=== PATIENT | female | born 1950 | race Caucasian/White ===

== ENCOUNTER 2019-08-15 09:49 | Outpatient (CLI) | payer MEDICARE, OTHER, SELFPAY ==
--- NOTE | 2019-08-15 18:12 | ONC CON_ITS ---
Dr. Powell New Patient Note Patient: Vee Obrien Unit #: [id number]: 1950 Dicatated By: Justen Powell M.D.Date of Visit: Aug 15, 2019 Onc MED New Patient/Consult Referring Physician: Dr. Brittni Andrade M.D. Chief Complaint: Breast cancer. 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 She has been in very good general health. She had presented with an abnormal screening mammogram which reportedly showed a mass in the medial aspect of the left breast. Diagnostic mammogram/ultrasound was BI-RADS 4, suspicious. She then underwent ultrasound-guided needle core biopsy on 07/25/2019. Biopsy showed grade 3 infiltrating ductal carcinoma. The breast prognostic profile showed ER and MI negative, both less than 1%. HER-2/geovanny was 2+ by IHC but negative by FISH with amplification ratio 1.0 with 2.5 HER-2 copies/cell. The Ki-67 was very high at 90%. On 08/03/2019 she underwent left breast lumpectomy and left axillary lymph node dissection. Pathology on the lumpectomy showed grade 3 invasive ductal carcinoma measuring 2.7 cm in greatest dimension. There was a component of ductal carcinoma in situ, solid and comedo types, estimated at 5% of the tumor volume. 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 The margins were negative for invasive cancer. There was involvement in 25 of 25 axillary lymph nodes, the largest measuring 3.6 cm. Her medical history is otherwise significant for Graves' disease, for which she will underwent radioactive iodine ablation in 1987. She has had subsequent hypothyroidism. Other medical illnesses include hyperlipidemia and mild degenerative arthritis. She has a history of inflammatory colon polyps and a history of multiple skin cancers in the facial area. She is a non-smoker. She has been feeling good generally. She has had good energy and her has had normal activity. ECOG score is 0. Her appetite has been good. Her weight is increased slightly. She does not have fever, night sweats, or hot flashes. She has no shortness of breath, cough, or chest pain. She has no GI or complaints. She has no significant joint or bone pain. She does not complain of headache or dizziness, and she has no focal neurologic symptoms. Past Medical History: Her medical history includes colon polyps, degenerative arthritis, Grave's disease, history of skin cancer, hyperlipidemia, and hypothyroidism. Past Surgical History: She underwent ultrsound-guided needle core biopsy of left breast on 07/25/2019 and she underwent left breast lumpectomy with axillary lymph node dissection on 08/03/2019. Her other surgical/procedural history consists of colonoscopy, tonsillectomy, and tubal ligation. Medications: Aspirin 1 Tablet (of 81 mg) Oral daily, Calcium 1 Tablet (of 600 mg) Oral daily, Fish Oil 1 Capsule (of 1000 mg) Oral daily, Synthroid 1 Tablet (of 88 mcg) Oral daily Allergies: No Known Allergies. Social History: Ms. Obrien is and she is retired. She is a non-smoker. She has had only rare alcohol use. Family History: Her father had valvular heart disease and at age 87 of pulmonary embolism following a toe amputation. Mother with dementia at age 88. She has 2 older sisters who are both in good health, to her knowledge. Her maternal grandmother had colon cancer. There is no history of breast or ovarian cancer in the family. Review Of Symptoms: Constitutional - She generally feels good. She has good energy. She has normal activity. Her appetite is good and weight is stable. No fever,chills, night sweats, or hot flashes. ECOG score is 0, Eyes - No change in vision, ENMT - No hearing loss or tinnitus. No sinus congestion/drainage. No mouth sores. No sore throat or difficulty swallowing, Hematologic/Lymphatic - No abnormal bruising or bleeding, Breasts - She recently had left sided lumpectomy, with surgical drain in place, Respiratory - No shortness of breath. No cough. No pleuritic pain or hemoptysis, Cardiovascular - No angina pain. No palpitations, Gastrointestinal - No nausea or vomiting. No heartburn or acid reflux. No diarrhea or constipation. No blood in the stool or black stools, Genitourinary (F) - No dysuria or hematuria. No urinary frequency. No urgency or incontinence, Musculoskeletal - She has chronic arthritic pain in her hands, Integumentary - Her lumpectomy incisional site is healing well without any signs of infection. She has had skin cancers removed from the facial area, Neurologic - No headache or dizziness. No numbness or tingling. No other focal neurologic symptoms, Psychiatric - No anxiety or depression. No insomnia. Vital Signs: Performed on Aug 15, 2019 11:06: 0, 28.44, 1.94 sq.m, 67.00 in, 98 %, 68 /min, 18 /min, 145/99 mm(hg) (HIGH), 97.6 F (LOW), and 181.6 lbs (HIGH). Physical Examination: Constitutional - She appears to be in good general health, Eyes - Sclerae nonicteric. Conjunctivae clear, ENMT - No lesions noted in the oral cavity, Neck - No mass or thyromegaly, Hematologic/Lymphatic - No cervical or clavicular adenopathy, Respiratory - Lungs are clear with good air movement bilaterally, Cardiovascular - Heart rhythm is regular. There is no murmur, gallop, or rub noted, Breasts - The right breast shows no mass. The left breast and axillary incisions look OK. There is tenderness and there is mild soft tissue swelling in the left axilla. There is no mass noted in the left breast and there is no axillary adenopathy noted, Abdomen - Soft and non-tender. Liver and spleen are not enlarged. There is no abdominal mass or ascites noted and there is no inguinal adenopathy, Back/Spine - No spine or CVA tenderness noted, Extremities - No edema. Dorsalis pulses are palpable bilaterally, Integumentary - No rashes. No suspicious skin lesions noted, Neurologic - No focal neurologic deficits noted. Impression: 1. 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 2. She underwent your core biopsy of the left breast followed by lumpectomy and left axillary lymph node dissection on 08/03/2019. Pathology showed a 5% component of DCIS with focal involvement with DCIS at the medial margin. Her other medical illnesses include: 3. History of Graves' disease for which she underwent radioactive iodine ablation in 1987. 4. She has had subsequent hypothyroidism. 5. Mild degenerative arthritis. 6. She has undergone multiple skin cancer excisions. 7. She has a history of hyperplastic colon polyps. Plan: The pathology results and clinical implications were reviewed with the patient and her . She has very high risk triple negative breast cancer. With this extent of axillary lymph node involvement, she will need PET/CT to evaluate for metastatic disease. In addition, I am going to go ahead and request a next generation sequencing study, as it will be indicated if she does have metastatic disease and it also may potentially influence her systemic adjuvant therapy if her disease is still localized. We discussed the fact that the standard adjuvant chemotherapy in this situation would be 4 cycles of Adriamycin/cyclophosphamide followed by weekly paclitaxel for 12 weeks. However, I also will be looking into the availability of clinical trials in this area. She is aware that when she completes adjuvant chemotherapy she will need to undergo radiation to complete her primary treatment. Given her high risk disease, I do not think that the focally involved margin with DCIS will be a significant issue with the radiation, but I will verify that with the radiation oncologist. I also do not think there would be any advantage in having a mastectomy, as she would still need to have radiation postoperatively. Patient will be seeing Dr. Andrade for follow-up this week, and I think it would be appropriate to go ahead and arrange for placement of Port-A-Cath venous access device. I will schedule the PET/CT scheduled for this Wednesday, subject to verification of insurance coverage. Signed By: Justen Powell M.D. <<Signature on File>>
== END 2019-08-15 09:50 | disposition home or self-care (01) ==
LOC: ONCMED 09:54
PROVIDERS: PCP Family Medicine; Referring Provider Surgery; Visit Provider Internal Medicine Medical Oncology
DX: C50.812 Malignant neoplasm of overlapping sites of left female breast (principal); Z17.1 Estrogen receptor negative status [ER-]; M19.90 Unspecified osteoarthritis, unspecified site; E78.5 Hyperlipidemia, unspecified; E03.9 Hypothyroidism, unspecified; E05.00 Thyrotoxicosis with diffuse goiter without thyrotoxic crisis or storm; Z86.010 Personal history of colon polyps; Z85.820 Personal history of malignant melanoma of skin
CPT/HCPCS: 99205

== ENCOUNTER 2019-08-25 07:09 | Outpatient (CLI) | payer MEDICARE, OTHER, SELFPAY ==
--- NOTE | 2019-08-25 07:19 | USCV_ITS ---
Vee Obrien Age: 69 Gender: F : 1950 Exam Date: 08/25/2019 07:30 Ordering Phys: Justen Powell MD Technologist: Rehana Garrett Exam Location: [facility] [place] Indication: BREAST CANCER TREATMENT BP: / HR: 65 Rhythm: Sinus Technical Quality: Adequate MEASUREMENTS (Male / Female) Normal Values 2D ECHO LV Diastolic Diameter PLAX 4.2 cm 4.2 - 5.9 / 3.9 - 5.3 cm LV Systolic Diameter PLAX 3.1 cm LV Chamber Size 4.2 cm IVS Diastolic Thickness 1.5 cm 0.6 - 1.0 / 0.6 - 0.9 cm IVS Systolic Thickness 1.8 cm LVPW Diastolic Thickness 1.5 cm 0.6 - 1.0 / 0.6 - 0.9 cm LVPW Systolic Thickness 1.9 cm RV Chamber Size 3.5 cm LVOT Diameter 2.1 cm LV Ejection Fraction 2D Teich 54.4 % LV Ejection Fraction MOD 2C 79.4 % LV Ejection Fraction 2C AL 79.8 % LA Diameter 2.5 cm LA Width 2.9 cm LA Height 3.3 cm RA Width 3.3 cm RA Height 3.2 cm Aorta at Sinotubular Diameter 3.6 cm M-MODE LV Diastolic Diameter MM 4.8 cm 4.2 - 5.9 / 3.9 - 5.3 cm LV Systolic Diameter MM 2.9 cm LV Ejection Fraction MM Teich 69.1 % IVS Diastolic Thickness MM 1.0 cm 0.6 - 1.0 / 0.6 - 0.9 cm IVS Systolic Thickness MM 1.6 cm LVPW Diastolic Thickness MM 1.3 cm 0.6 - 1.0 / 0.6 - 0.9 cm LVPW Systolic Thickness MM 1.4 cm RV Diastolic Diameter MM 0.8 cm Aortic Annulus Diameter 3.1 cm LA Ao Ratio MM 0.8 MV E Point Septal Separation 0.6 cm DOPPLER AV Peak Velocity 147.0 cm/s LVOT Peak Velocity 68.0 cm/s AV Area Cont Eq vti 1.5 cm squared AV Area Cont Eq pk 1.5 cm squared MV Area PHT 2.6 cm squared Mitral E to A Ratio 1.0 MV E' Velocity 7.0 cm/s Mitral E to MV E' Ratio 7.3 Mitral E to LV E' Lateral Ratio 7.5 Mitral E to LV E' Septal Ratio 7.2 TR Peak Velocity 223.9 cm/s TR Peak Gradient 20.1 mmHg TR Mean Velocity 153.9 cm/s TR Mean Gradient 10.9 mmHg TR Velocity Time Integral 55.8 cm TV Peak E Velocity 38.0 cm/s Right Atrial Pressure 3.0 mmHg Pulmonary Artery Systolic Pressu 23.1 mmHg PV Peak Velocity 71.0 cm/s RV Acceleration Time 0.2 s RV Ejection Time 0.4 s RV AcT/ET 0.4 FINDINGS Left Ventricle Normal left ventricular size and systolic function, EF 65 %. Mild to moderate concentric left ventricular hypertrophy.Grade I/IV diastolic dysfunction (abnormal relaxation filling pattern), normal to mildly elevated filling pressures. Right Ventricle Possibly of normal size and ejection fraction Right Atrium Right atrium not well visualized. Left Atrium Normal left atrial size. Mitral Valve No gross abnormalities noted Aortic Valve No gross abnormalities noted Tricuspid Valve Trace tricuspid valve regurgitation. Pulmonic Valve Not visualized well Pericardium No pericardial effusion. Aorta Normal aortic annulus size. CONCLUSIONS Normal left ventricular size and systolic function, EF 65 %. Mild to moderate concentric left ventricular hypertrophy. Grade I/IV diastolic dysfunction (abnormal relaxation filling pattern), normal to mildly elevated filling pressures. Trace tricuspid valve regurgitation. There is no pericardial effusion. Possibly normal RV size ejection fraction Technically difficult study because of the poor ultrasonic window. No previous study is available for comparison. Dr Lukas Phoenix MD [facility] (Electronically Signed) Final Date: 25 August 2019 15:05 S ODALYS
== END 2019-08-25 07:10 | disposition home or self-care (01) ==
LOC: RAD 07:15
PROVIDERS: PCP Family Medicine; Visit Provider Internal Medicine Medical Oncology
DX: C50.919 Malignant neoplasm of unspecified site of unspecified female breast (principal); I07.1 Rheumatic tricuspid insufficiency
CPT/HCPCS: 93306

== ENCOUNTER 2019-09-12 06:47 | Outpatient (RCR) | payer MEDICARE, OTHER, SELFPAY ==
[2019-08-29 09:20] LABS: Hematocrit 40.5 % (37.0-47.0); Hemoglobin 13.1 g/dL (11.5-15.3); Mean Corpuscular HGB Conc 32.3 g/dL (30.0-36.0); Mean Corpuscular Hemoglobin 30.2 pg (28.0-34.0); Mean Corpuscular Volume 93.3 fL (81-99); Mean Platelet Volume 9.2 fL (7.4-10.4); Platelet Count 332 10^3/cmm (130-400); Red Blood Count 4.34 10^6/uL (4.1-5.3); Red Cell Distribution Width 12.4 % (12.1-15.1)
[2019-08-29 09:43] LABS: Alanine Aminotransferase 13 U/L (0-33); Alkaline Phosphatase 71 IU/L (35-105); Anion Gap 15.1 (5-19); Aspartate Amino Transferase 15 U/L (0-32); Blood Urea Nitrogen 16 mg/dL (8-23); Calcium 9.3 mg/dL (8.5-10.5); Carbon Dioxide 25 mmol/L (22-29); Chloride 106 mmol/L (98-107); Globulin 2.8 g/dL (1.3-4.6); Glomerular Filtration Rate 82.7 mL/min (90-130); Glucose 100 mg/dL (65-115); Osmolality Calculated 290 mOsm/kg (285-295); Potassium 4.1 mmol/L (3.5-5.1); Sodium 142 mmol/L (136-145); Total Bilirubin 0.3 mg/dL (0.15-1.2); Total Protein 6.8 g/dL (6.6-8.7)
[2019-08-29 10:09] LABS: Absolute Eosinophils 0.4 10^3/cmm (0.0-0.7); Eosinophils 5 %; Lymphocytes 47 %; Lymphocytes Absolute 3.8 10^3/cmm (1.2-3.4); Monocytes Absolute 0.7 10^3/cmm (0.1-0.6); Platelet Estimate Normal (Normal); Segmented Neutrophils 38 %; Total Cells Counted 100 (0-100)
[2019-08-29] MEDS: sodium chloride 0.9% 250 ML 999 ML IV (11:45)
[2019-08-29] MEDS: pegfilgrastim 6 mg/0.6 mL Kit (onpro) SUBCUT (14:00)
--- NOTE | 2019-09-03 12:33 | ONC FU_ITS ---
[facility] Patient Note Patient: Vee Obrien Unit #: [id number]: [id number] Dictated By: Sudha BhattDate of Visit: Aug 29, 2019 Onc MED Follow-Up/Prog Note Chief Complaint: Breast cancer. 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 She has been in very good general health. She had presented with an abnormal screening mammogram which reportedly showed a mass in the medial aspect of the left breast. Diagnostic mammogram/ultrasound was BI-RADS 4, suspicious. She then underwent ultrasound-guided needle core biopsy on 07/25/2019. Biopsy showed grade 3 infiltrating ductal carcinoma. The breast prognostic profile showed ER and CT negative, both less than 1%. HER-2/geovanny was 2+ by IHC but negative by FISH with amplification ratio 1.0 with 2.5 HER-2 copies/cell. The Ki-67 was very high at 90%. On 08/03/2019 she underwent left breast lumpectomy and left axillary lymph node dissection. Pathology on the lumpectomy showed grade 3 invasive ductal carcinoma measuring 2.7 cm in greatest dimension. There was a component of ductal carcinoma in situ, solid and comedo types, estimated at 5% of the tumor volume. 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 The margins were negative for invasive cancer. There was involvement in 25 of 25 axillary lymph nodes, the largest measuring 3.6 cm. Her medical history is otherwise significant for Graves' disease, for which she will underwent radioactive iodine ablation in 1987. She has had subsequent hypothyroidism. Other medical illnesses include hyperlipidemia and mild degenerative arthritis. She has a history of inflammatory colon polyps and a history of multiple skin cancers in the facial area. She is a non-smoker. Mrs. Obrien had staging PET/CT on 08/19/2019. It reported no evidence of recurrent or residual malignancy. There was no evidence of any metastatic disease. Postlumpectomy changes are evident in the medial left breast and there is a surgical drain with inflammatory uptake in the left axilla. Her drain was removed yesterday by Dr. Andrade and she states it is doing good so far. She had an echocardiogram on 08/25/2019 in preparation for chemotherapy. She had normal left ventricular size and systolic function EF was estimated at 65% with mild to moderate concentric left ventricular hypertrophy. Grade I/IV diastolic dysfunction mild to moderately elevated filling pressures. Trace tricuspid regurgitation. No pericardial effusions. She also underwent a Port-A-Cath placement with Dr. Andrade recently. She tolerated that procedure well. Mrs. Obrien has been offered dose dense Adriamycin Cytoxan for 4 cycles followed by 12 weeks of paclitaxel. She is here today to begin her first cycle of Adriamycin Cytoxan. Mrs. Obrien is here today for follow-up. She is due to start her first cycle of Adriamycin Cytoxan. She states overall she is doing well. She states Dr. Silva took her left axillary drain out yesterday and she is doing well. She is eating good. She has good energy. She is trying to be active and states it will be even easier with the drain out. She denies any fever or chills. She denies any cough, shortness of breath orthopnea. She denies any chest pain or palpitations. She states her Port-A-Cath site is healed well. She has no pain at the site. She denies any pain in general. She denies any lower extremity edema. She states her bowels and bladder are normal for her. She is had no persistent diarrhea or constipation. She denies any UTI symptoms. She denies any difficulty swallowing. Her ECOG is 0. Past Medical History: Colon polyps Degenerative arthritis Graves disease History of skin cancer Hyperlipidemia Hypothyroidism Past Surgical History: Colonoscopy Tonsillectomy Tubal ligation Right subclavian venous access device-Dr Andrade in 2019 Left breast lumpectomy with axillary lymph node dissection in 2019 Ultrsound-guided needle core biopsy of left breast in 2020 Allergies: No Known Allergies. Medications: Aspirin 1 Tablet (of 81 mg) Oral daily Calcium 1 Tablet (of 600 mg) Oral daily Fish Oil 1 Capsule (of 1000 mg) Oral daily Prochlorperazine Maleate 1 Tablet (of 10 mg) Oral q 4 hours PRN Simvastatin 1 Tablet (of 40 mg) Oral daily Synthroid 1 Tablet (of 88 mcg) Oral daily Family History: Ms. Obrien's mother at age 88: Alzheimer's disease. Ms. Obrien's father at age 87: pulmonary embolism. Ms. Obrien's maternal grandmother is : colon cancer. Her father had valvular heart disease and at age 87 of pulmonary embolism following a toe amputation. Mother with dementia at age 88. She has 2 older sisters who are both in good health, to her knowledge. Her maternal grandmother had colon cancer. There is no history of breast or ovarian cancer in the family. Social History: Ms. Obrien is and she is retired. Ms. Obrien has never smoked. She has no history of drinking. Ms. Obrien reports the following support systems: lives with spouse, significant other, family, or friends, lives in own house, supportive family/friends willing to assist with needs, and adequate transportation available for expected visits. Her diet consists of regular meals. She indicates her activity level as: regular exercise. Review Of Symptoms: Constitutional Denies fevers, chills, night sweats, excessive fatigue or weight loss. Allergic/Immunologic No reactions. Eyes Denies significant visual changes. No diplopia. No amaurosis. ENMT Denies changes in hearing, sore throat, mouth sores, difficulty or changes in swallowing ability, and/or sinus drainage. Endocrine No diabetes, thyroid disease or hormone replacement. Denies hot flashes or night sweats. Hematologic/Lymphatic Denies easy bruising or bleeding. The patient denies any tender or palpable lymph nodes. Breasts Drain out yesterday, doing well. No concerns. Respiratory Denies dyspnea on exertion, chest pain, cough or hemoptysis. Denies orthopnea. Cardiovascular Denies anginal chest pain, palpitations or orthopnea. Gastrointestinal Denies nausea, vomiting, diarrhea, GI bleeding, or constipation. Denies change in bowel habits and/or stool color, no heartburn or early satiety. Genitourinary (F) No hematuria, hesitancy, incontinence, vaginal bleeding, discharge or other problems with urination. Musculoskeletal Denies joint pain, swelling or redness. No decreased range of motion. Integumentary Denies chronic rashes, inflammation, ulcerations or skin changes. Neurologic Denies headache, blurred vision, and no areas of focal weakness or numbness. Normal gait. No sensory problems. Psychiatric Denies insomnia, depression, ade or mood swings. Vital Signs: Performed on Aug 29, 2019 10:24 Height - 67.00 in Weight - 181.8 lbs (HIGH) BSA - 1.94 sq.m BMI - 28.47 Temperature - 98.0 F (LOW) Pulse - 89 /min Respiration - 17 /min BP - 142/79 mm(hg) (HIGH) O2 Sat - 96 % Pain - 0,0 - Fully active, able to carry on all predisease activities without restrictions. (ECOG) Physical Examination: Constitutional Alert, oriented, no acute distress. Skin pink, warm and dry. Head Normocephalic; atraumatic. Eyes Conjunctivae and sclerae are clear and without icterus. Pupils are reactive and equal. Neck Supple without masses or thyromegaly. No jugular venous distension. Hematologic/Lymphatic No petechiae or purpura. No tender or palpable lymph nodes in the cervical or supraclavicular areas. Respiratory Lungs are clear to auscultation without rhonchi or wheezing. Cardiovascular Regular rate and rhythm of heart without murmurs,clicks, gallops or rubs. Chest Right chest wall venous access device insertion site is healing well. Abdomen Non-tender, non-distended, no masses or ascites. Good bowel sounds noted in all quads. No guarding or rebound tenderness. No pulsatile masses. Back/Spine Non-tender to palpation. Extremities No visible deformities, no cyanosis, clubbing or edema. Musculoskeletal No tenderness or swelling, normal range of motion without obvious weakness. Integumentary No rashes or lesions. Neurologic No sensory or motor deficits, normal cerebellar function, normal gait. Psychiatric Alert and oriented times three. Coherent speech. Verbalizes understanding of our discussions today. Laboratory:Test performed on Aug 29, 2019 08:55 Sodium 142 mmol/L Potassium 4.1 mmol/L Chloride 106 mmol/L CO2 25 mmol/L Anion Gap 15.1 BUN 16 mg/dL Creatinine 0.7 mg/dL Cr Clearance (Est) 97.2500 mL/min eGFR 82.7 mL/min Glucose 100 mg/dL Calcium 9.3 mg/dL Protein, Total 6.8 g/dL Albumin 4.0 g/dL Globulin 2.8 g/dL Bilirubin, Total 0.3 mg/dL ALT (SGPT) 13 U/L AST (SGOT) 15 U/L Alkaline Phosphatase 71 IU/L WBC 8.0 10 3/uL RBC 4.34 10 6/uL HGB 13.1 g/dL HCT 40.5 % MCV 93.3 fL MCH 30.2 pg MCHC 32.3 g/dL RDW 12.4 % Platelet Count 332 10 3/cmm MPV 9.2 fL Manual Neutrophils Abs 3.0 10 3/cmm Manual Bands Abs 0.0 10 3/cmm Manual Lymphocytes Abs 3.8 10 3/cmm Manual Monocytes Abs 0.7 10 3/cmm Manual Eosinophils Abs 0.4 10 3/cmm Manual Bands % 0.0 % Manual Lymphs % 47 % Manual Monos % 9.0 % Atypical Lymphs % 1.0 % Total Cells Counted 100 Impression: 1. 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 2. She underwent your core biopsy of the left breast followed by lumpectomy and left axillary lymph node dissection on 08/03/2019. Pathology showed a 5% component of DCIS with focal involvement with DCIS at the medial margin. Her other medical illnesses include: 3. History of Graves' disease for which she underwent radioactive iodine ablation in 1987. 4. She has had subsequent hypothyroidism. 5. Mild degenerative arthritis. 6. She has undergone multiple skin cancer excisions. 7. She has a history of hyperplastic colon polyps. The pathology results and clinical implications were reviewed with the patient and her . She has very high risk triple negative breast cancer. With this extent of axillary lymph node involvement, she will need PET/CT to evaluate for metastatic disease. The PET/CT was obtained on 08/19/2019 and was negative for any residual, recurrent or metastatic disease. Dr Powell has also requested a next generation sequencing study, as it may potentially influence her systemic adjuvant therapy as her disease is localized. He discussed the fact that the standard adjuvant chemotherapy in this situation would be 4 cycles of Adriamycin/cyclophosphamide followed by weekly paclitaxel for 12 weeks. However, Dr Powell also will be looking into the availability of clinical trials in this area. Mrs Obrien is aware that when she completes adjuvant chemotherapy she will need to undergo radiation to complete her primary treatment. Given her high risk disease, Dr Powell do not think that the focally involved margin with DCIS will be a significant issue with the radiation, but was planning to verify that with the radiation oncologist. He also do not think there would did not feel there would any advantage in having a mastectomy, as she would still need to have radiation postoperatively. Mrs. Obrien has had port placement with Dr. Andrade. She has had a baseline echocardiogram. She is here today to begin her first cycle of Adriamycin Cytoxan. Plan: 1. Proceed with cycle 1 day 1 Adriamycin Cytoxan. 2. Aggressive anti-medics for high risk regimen to include Aloxi, Emend, dexamethasone and Pepcid. We may add olanzapine in the future if needed. 3. Compazine and Ativan as needed for antiemetics at home. 4. She will receive growth factor support with Neulasta as this is a high risk for chemotherapy-induced neutropenia regimen. 5. Labs from August 29, 2019 were reviewed in detail and discussed with Mrs Obrien and a copy was given to her. WBC is 8.0, hemoglobin 13.1, platelets 3 and 32,000, ANC is 3000. Potassium 4.1 BUN 16 creatinine 0.7 LFTs are normal. 6. We will plan weekly interim counts. She will be due back in 1 week for day 8 follow-up with CBC and CMP. She will have port flushes for port maintenance with her lab draws. 7. She will be due back in 2 weeks with CBC CMP and follow-up for cycle 2-day 1 Adriamycin Cytoxan. 8. The patient was informed of chemotherapy plan and specific drugs were discussed. We also discussed how chemotherapy works and identified common side effects including alopecia; myelosuppression-including neutropenia, anemia, thrombocytopenia; peripheral neuropathy; fatigue; nausea; diarrhea; constipation; bleeding or bruising; skin changes; mouth sores; drug hypersensitivity/allergic reactions or anaphylaxis and extravasation. They have also been informed how to contact the clinic with side effects or symptoms, including but not limited to fever greater than 100.4???, chills, sore throat, bleeding or bruising that is not explained or mouth sores, cough, nasal discharge, diarrhea, constipation, nausea and/or vomiting not relieved with medications on hand at home, as well as any other concern or question they may have. Our hours are 8:00 a.m. to 4:30 p.m. on Wednesday through and 8-12:00 on Wednesday. However, someone is recreation counselor 24 hours per day and they have been advised [facility] if it is after hours. We have also discussed potential long-term side effects of chemotherapy including secondary cancers, infertility, pulmonary complications, cardiac complications, and again peripheral neuropathy. We have discussed that they certainly need to let us know before taking any antioxidants or herbal or further dietary supplements, as we are unsure of how these agents react with chemotherapy and we request that they avoid these products for now. They were informed that it is okay to take multivitamins at normal doses. They verbally state that they understand to take all medications as directed by their healthcare provider unless otherwise indicated. They also verbalized understanding to leave the pressure dressing on the intravenous administration site for at least two hours after treatment. Instructions for oral care with baking soda and salt water rinses as well as a guide for use of [id number] medication were provided with the treatment plan. They have been given a written patient treatment plan, of which a copy is in the chart, as well as specific drug information. They have no questions and verbalized understanding and are willing to proceed with chemotherapy at this time. The majority of this visit (greater than 30 mintues) was spent in face to face communication with this patient in regards to the plan of care, side effect identification and management. Signed By: Sudha Bhatt-, [facility] Justen Powell MD <<Signature on File>>
[2019-09-05 13:06] LABS: Basophils # 0.1 10^3/uL (0.0-0.1); Basophils % 2.2 %; Eosinophils # 0.2 10^3/uL (0.0-0.8); Hematocrit 39.6 % (37.0-47.0); Hemoglobin 12.8 g/dL (11.5-15.3); Lymphocytes # 1.7 10^3/uL (0.8-4.8); Lymphocytes % 75.4 %; Mean Corpuscular HGB Conc 32.3 g/dL (30.0-36.0); Mean Corpuscular Hemoglobin 30.3 pg (28.0-34.0); Mean Corpuscular Volume 93.6 fL (81-99); Mean Platelet Volume 10.5 fL (7.4-10.4); Monocytes # 0.2 10^3/uL (0.2-0.9); Monocytes % 6.6 %; Neutrophils % 8.4 %; Nucleated Red Blood Cells % 0 %; Platelet Count 128 10^3/cmm (130-400); Red Blood Count 4.23 10^6/uL (4.1-5.3); Red Cell Distribution Width 12.3 % (12.1-15.1); White Blood Count 2.3 10^3/uL (4.0-10.0)
[2019-09-05 13:12] LABS: Alanine Aminotransferase 28 U/L (0-33); Albumin Level 4.2 g/dL (3.5-5.2); Alkaline Phosphatase 85 IU/L (35-105); Anion Gap 15.3 (5-19); Aspartate Amino Transferase 19 U/L (0-32); Blood Urea Nitrogen 11 mg/dL (8-23); Calcium 9.7 mg/dL (8.5-10.5); Carbon Dioxide 26 mmol/L (22-29); Chloride 102 mmol/L (98-107); Globulin 2.3 g/dL (1.3-4.6); Glomerular Filtration Rate 98.8 mL/min (90-130); Glucose 94 mg/dL (65-115); Osmolality Calculated 284 mOsm/kg (285-295); Potassium 4.3 mmol/L (3.5-5.1); Sodium 139 mmol/L (136-145); Total Bilirubin 0.7 mg/dL (0.15-1.2); Total Protein 6.5 g/dL (6.6-8.7)
[2019-09-05 14:54] LABS: Neutrophils # 0.2 10^3/uL (1.8-7.7); Slide Review Slide Review Perform
--- NOTE | 2019-09-09 14:59 | ONC FU_ITS ---
[facility] Patient Note Patient: Vee Obrien Unit #: [id number]: 1950 Dictated By: Sudha BhattDate of Visit: Sep 05, 2019 Onc MED Follow-Up/Prog Note Chief Complaint: Breast cancer. 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 She has been in very good general health. She had presented with an abnormal screening mammogram which reportedly showed a mass in the medial aspect of the left breast. Diagnostic mammogram/ultrasound was BI-RADS 4, suspicious. She then underwent ultrasound-guided needle core biopsy on 07/25/2019. Biopsy showed grade 3 infiltrating ductal carcinoma. The breast prognostic profile showed ER and SD negative, both less than 1%. HER-2/geovanny was 2+ by IHC but negative by FISH with amplification ratio 1.0 with 2.5 HER-2 copies/cell. The Ki-67 was very high at 90%. On 08/03/2019 she underwent left breast lumpectomy and left axillary lymph node dissection. Pathology on the lumpectomy showed grade 3 invasive ductal carcinoma measuring 2.7 cm in greatest dimension. There was a component of ductal carcinoma in situ, solid and comedo types, estimated at 5% of the tumor volume. 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 The margins were negative for invasive cancer. There was involvement in 25 of 25 axillary lymph nodes, the largest measuring 3.6 cm. Her medical history is otherwise significant for Graves' disease, for which she will underwent radioactive iodine ablation in 1987. She has had subsequent hypothyroidism. Other medical illnesses include hyperlipidemia and mild degenerative arthritis. She has a history of inflammatory colon polyps and a history of multiple skin cancers in the facial area. She is a non-smoker. Mrs. Obrien had staging PET/CT on 08/19/2019. It reported no evidence of recurrent or residual malignancy. There was no evidence of any metastatic disease. Postlumpectomy changes are evident in the medial left breast and there is a surgical drain with inflammatory uptake in the left axilla. Her drain was removed yesterday by Dr. Andrade and she states it is doing good so far. She had an echocardiogram on 08/25/2019 in preparation for chemotherapy. She had normal left ventricular size and systolic function EF was estimated at 65% with mild to moderate concentric left ventricular hypertrophy. Grade I/IV diastolic dysfunction mild to moderately elevated filling pressures. Trace tricuspid regurgitation. No pericardial effusions. She also underwent a Port-A-Cath placement with Dr. Andrade recently. She tolerated that procedure well. Mrs. Obrien has been offered dose dense Adriamycin Cytoxan for 4 cycles followed by 12 weeks of paclitaxel. She is here today to begin her first cycle of Adriamycin Cytoxan. Mrs. Obrien is here today for day 8 of cycle 1 follow-up. She started her first cycle of Adriamycin Cytoxan on . She states overall she is doing well. She states she thinks she has done pretty good with the first chemo. She denies any nausea. She states her bowels were just a little loose like one day but that has resolved. She states her appetite is good. She denies any fever or chills. She remains pretty active she states her energy count of comes and goes but for the most part is good. It is been much better over the last couple of days. She denies any mouth sores, sore throat or difficulty swallowing. She has not had any significant hair loss. She denies chest pain or palpitations. She denies any urinary. She denies any neuropathy. Her ECOG is 0. Past Medical History: Colon polyps Degenerative arthritis Graves disease History of skin cancer Hyperlipidemia Hypothyroidism Past Surgical History: Colonoscopy Tonsillectomy Tubal ligation Right subclavian venous access device-Dr Andrade in 2019 Left breast lumpectomy with axillary lymph node dissection in 2019 Ultrsound-guided needle core biopsy of left breast in 2020 Allergies: No Known Allergies. Medications: Aspirin 1 Tablet (of 81 mg) Oral daily Calcium 1 Tablet (of 600 mg) Oral daily Fish Oil 1 Capsule (of 1000 mg) Oral daily LORazepam 0.5 - 1 Tablet (of 1 mg) Oral t.i.d. PRN Prochlorperazine Maleate 1 Tablet (of 10 mg) Oral q 4 hours PRN Simvastatin 1 Tablet (of 40 mg) Oral daily Synthroid 1 Tablet (of 88 mcg) Oral daily Family History: Ms. Jains mother at age 88: Alzheimer's disease. Ms. Obrien's father at age 87: pulmonary embolism. Ms. Obrien's maternal grandmother is : colon cancer. Her father had valvular heart disease and at age 87 of pulmonary embolism following a toe amputation. Mother with dementia at age 88. She has 2 older sisters who are both in good health, to her knowledge. Her maternal grandmother had colon cancer. There is no history of breast or ovarian cancer in the family. Social History: Ms. Obrien is and she is retired. Ms. Obrien has never smoked. She has no history of drinking. Ms. Obrien reports the following support systems: lives with spouse, significant other, family, or friends, lives in own house, supportive family/friends willing to assist with needs, and adequate transportation available for expected visits. Her diet consists of regular meals. She indicates her activity level as: regular exercise. Review Of Symptoms: Constitutional Denies fevers, chills, night sweats, excessive fatigue or weight loss. Allergic/Immunologic No reactions. Eyes Denies significant visual changes. No diplopia. No amaurosis. ENMT Denies changes in hearing, sore throat, mouth sores, difficulty or changes in swallowing ability, and/or sinus drainage. Endocrine No diabetes, thyroid disease or hormone replacement. Denies hot flashes or night sweats. Hematologic/Lymphatic Denies easy bruising or bleeding. The patient denies any tender or palpable lymph nodes. Breasts Drain out yesterday, doing well. No concerns. Respiratory Denies dyspnea on exertion, chest pain, cough or hemoptysis. Denies orthopnea. Cardiovascular Denies anginal chest pain, palpitations or orthopnea. Gastrointestinal Denies nausea, vomiting, diarrhea, GI bleeding, or constipation. Denies change in bowel habits and/or stool color, no heartburn or early satiety. Genitourinary (F) No hematuria, hesitancy, incontinence, vaginal bleeding, discharge or other problems with urination. Musculoskeletal Denies joint pain, swelling or redness. No decreased range of motion. Integumentary Denies chronic rashes, inflammation, ulcerations or skin changes. Neurologic Denies headache, blurred vision, and no areas of focal weakness or numbness. Normal gait. No sensory problems. Psychiatric Denies insomnia, depression, ade or mood swings. Vital Signs: Performed on Sep 05, 2019 14:32 Height - 67.00 in Weight - 180.2 lbs (LOW) BSA - 1.93 sq.m BMI - 28.22 Temperature - 97.9 F (LOW) Pulse - 88 /min Respiration - 16 /min BP - 128/78 mm(hg) O2 Sat - 95 % (LOW) Pain - 0,0 - Fully active, able to carry on all predisease activities without restrictions. (ECOG) Physical Examination: Constitutional Alert, oriented, no acute distress. Skin pink, warm and dry. Head Normocephalic; atraumatic. Eyes Conjunctivae and sclerae are clear and without icterus. Pupils are reactive and equal. Neck Supple without masses or thyromegaly. No jugular venous distension. Hematologic/Lymphatic No petechiae or purpura. No tender or palpable lymph nodes in the cervical or supraclavicular areas. Respiratory Lungs are clear to auscultation without rhonchi or wheezing. Cardiovascular Regular rate and rhythm of heart without murmurs,clicks, gallops or rubs. Chest Right chest wall venous access device insertion site is healing well. Abdomen Non-tender, non-distended, no masses or ascites. Good bowel sounds noted in all quads. No guarding or rebound tenderness. No pulsatile masses. Back/Spine Non-tender to palpation. Extremities No visible deformities, no cyanosis, clubbing or edema. Musculoskeletal No tenderness or swelling, normal range of motion without obvious weakness. Integumentary No rashes or lesions. Neurologic No sensory or motor deficits, normal cerebellar function, normal gait. Psychiatric Alert and oriented times three. Coherent speech. Verbalizes understanding of our discussions today. Laboratory:Test performed on Sep 05, 2019 12:36 Sodium 139 mmol/L Potassium 4.3 mmol/L Chloride 102 mmol/L CO2 26 mmol/L Anion Gap 15.3 BUN 11 mg/dL Creatinine 0.6 mg/dL Cr Clearance (Est) 113.4500 mL/min eGFR 98.8 mL/min Glucose 94 mg/dL Calcium 9.7 mg/dL Protein, Total 6.5 g/dL Albumin 4.2 g/dL Globulin 2.3 g/dL Bilirubin, Total 0.7 mg/dL ALT (SGPT) 28 U/L AST (SGOT) 19 U/L Alkaline Phosphatase 85 IU/L WBC 2.3 10 3/uL RBC 4.23 10 6/uL HGB 12.8 g/dL HCT 39.6 % MCV 93.6 fL MCH 30.3 pg MCHC 32.3 g/dL RDW 12.3 % Platelet Count 128 10 3/cmm MPV 10.5 fL Neutrophils 0.2 10 3/uL Lymphocytes 1.7 10 3/uL Monocytes 0.2 10 3/uL Eosinophils 0.2 10 3/uL Basophils 0.1 10 3/uL Neutrophil % 8.4 % Lymphocyte % 75.4 % Monocyte % 6.6 % Eosinophil % 7.0 % Basophils % 2.2 % NRBC % 0 % CBC Slide Review Slide Review Perform SLIDE REVIEW AGREES WITH AUTOMATION Impression: 1. 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 2. She underwent your core biopsy of the left breast followed by lumpectomy and left axillary lymph node dissection on 08/03/2019. Pathology showed a 5% component of DCIS with focal involvement with DCIS at the medial margin. Her other medical illnesses include: 3. History of Graves' disease for which she underwent radioactive iodine ablation in 1987. 4. She has had subsequent hypothyroidism. 5. Mild degenerative arthritis. 6. She has undergone multiple skin cancer excisions. 7. She has a history of hyperplastic colon polyps. The pathology results and clinical implications were reviewed with the patient and her . She has very high risk triple negative breast cancer. With this extent of axillary lymph node involvement, she will need PET/CT to evaluate for metastatic disease. The PET/CT was obtained on 08/19/2019 and was negative for any residual, recurrent or metastatic disease. Dr Powell has also requested a next generation sequencing study, as it may potentially influence her systemic adjuvant therapy as her disease is localized. He discussed the fact that the standard adjuvant chemotherapy in this situation would be 4 cycles of Adriamycin/cyclophosphamide followed by weekly paclitaxel for 12 weeks. However, Dr Powell also will be looking into the availability of clinical trials in this area. Mrs Obrien is aware that when she completes adjuvant chemotherapy she will need to undergo radiation to complete her primary treatment. Given her high risk disease, Dr Powell do not think that the focally involved margin with DCIS will be a significant issue with the radiation, but was planning to verify that with the radiation oncologist. He also do not think there would did not feel there would any advantage in having a mastectomy, as she would still need to have radiation postoperatively. Mrs. Obrien has had port placement with Dr. Andrade. She has had a baseline echocardiogram. She began her first cycle of Adriamycin Cytoxan on 08/29/2019. Plan: 1. Proceed with cycle 1 of Adriamycin Cytoxan-this is day 8. 2. Aggressive anti-medics for high risk regimen to include Aloxi, Emend, dexamethasone and Pepcid. We may add olanzapine in the future if needed. 3. Compazine and Ativan as needed for antiemetics at home. 4. She did receive growth factor support with Neulasta: as this is a high risk for chemotherapy-induced neutropenia regimen. She has severe neutropenia on day 8 with an ANC of 200. 5. Labs from September 05, 2019 were reviewed in detail and discussed with Mrs Obrien and a copy was given to her. WBC is 2.3, hemoglobin 12.8, [id number], ANC is 200. Potassium 4.3 BUN 11 creatinine 0.6 LFTs are normal. 6. She will be due back in 1 week for day 1 of cycle 2 with CBC and CMP. She will have port flushes for port maintenance with her lab draws. 7. She was placed on Levavquin 500 mg daily until her counts recover. This is prophylactic due to the neutropenia. She is also given written neutropenic precaution instructions, she has been instructed to call us if she has any fever greater than 100.4 or present to the emergency room. She was also advised to call us if she has any signs or symptoms of infection. She verbalized understanding has no further questions at this time. 8. We will see if we can arrange labs at Dr. Andrade's office interim between next treatments to save her trip to [place]. She states she does not mind to have them drawn peripherally if someone cannot access her port. Signed By: Sudha Bhatt-, [facility] Justen Powell MD <<Signature on File>>
[2019-09-12 09:48] LABS: Hematocrit 36.2 % (37.0-47.0); Hemoglobin 11.5 g/dL (11.5-15.3); Mean Corpuscular HGB Conc 31.8 g/dL (30.0-36.0); Mean Corpuscular Volume 94.5 fL (81-99); Mean Platelet Volume 9.5 fL (7.4-10.4); Nucleated Red Blood Cells % 0 %; Platelet Count 337 10^3/cmm (130-400); Red Blood Count 3.83 10^6/uL (4.1-5.3); White Blood Count 9.7 10^3/uL (4.0-10.0)
[2019-09-12 10:05] LABS: Alanine Aminotransferase 19 U/L (0-33); Albumin Level 3.8 g/dL (3.5-5.2); Alkaline Phosphatase 101 IU/L (35-105); Anion Gap 14.9 (5-19); Aspartate Amino Transferase 16 U/L (0-32); Blood Urea Nitrogen 10 mg/dL (8-23); Carbon Dioxide 26 mmol/L (22-29); Chloride 103 mmol/L (98-107); Globulin 2.8 g/dL (1.3-4.6); Glomerular Filtration Rate 82.7 mL/min (90-130); Glucose 96 mg/dL (65-115); Osmolality Calculated 286 mOsm/kg (285-295); Potassium 3.9 mmol/L (3.5-5.1); Sodium 140 mmol/L (136-145); Total Bilirubin 0.2 mg/dL (0.15-1.2); Total Protein 6.6 g/dL (6.6-8.7)
[2019-09-12 10:44] LABS: Slide Review Slide Review Perform
[2019-09-12 11:07] LABS: Total Cells Counted 100 (0-100)
[2019-09-12 11:08] LABS: Absolute Neutrophil 5.7 10^3/cmm (1.4-6.5); Absolute Segmented Neutrophil 2.8 10/cmm (1.6-7.1); Band Neutrophils Absolute 2.9 10^3/cmm (0.0-1.2); Eosinophils 1 %; Giant Platelets 1+; Lymphocytes 29 %; Monocytes Absolute 1.1 10^3/cmm (0.1-0.6); Platelet Estimate Normal (Normal); Segmented Neutrophils 29 %
--- NOTE | 2019-09-12 12:04 | ONC FU_ITS ---
[facility] Patient Note Patient: Vee Obrien Unit #: [id number]: 1950 Dictated By: Sudha BhattDate of Visit: Sep 12, 2019 Onc MED Follow-Up/Prog Note Chief Complaint: Breast cancer. History of Present Illness: Mrs Obrien is a 69 year-old woman with grade 3 invasive ductal carcinoma of the left breast, stage IIIC (T2, pN3, M0), ER/NE negative and HER-2/geovanny negative. She has been in very good general health. She had presented with an abnormal screening mammogram which reportedly showed a mass in the medial aspect of the left breast. Diagnostic mammogram/ultrasound was BI-RADS 4, suspicious. She then underwent ultrasound-guided needle core biopsy on 07/25/2019. Biopsy showed grade 3 infiltrating ductal carcinoma. The breast prognostic profile showed ER and NE negative, both less than 1%. HER-2/geovanny was 2+ by IHC but negative by FISH with amplification ratio 1.0 with 2.5 HER-2 copies/cell. The Ki-67 was very high at 90%. On 08/03/2019 she underwent left breast lumpectomy and left axillary lymph node dissection. Pathology on the lumpectomy showed grade 3 invasive ductal carcinoma measuring 2.7 cm in greatest dimension. There was a component of ductal carcinoma in situ, solid and comedo types, estimated at 5% of the tumor volume. 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 The margins were negative for invasive cancer. There was involvement in 25 of 25 axillary lymph nodes, the largest measuring 3.6 cm. Her medical history is otherwise significant for Graves' disease, for which she will underwent radioactive iodine ablation in 1987. She has had subsequent hypothyroidism. Other medical illnesses include hyperlipidemia and mild degenerative arthritis. She has a history of inflammatory colon polyps and a history of multiple skin cancers in the facial area. She is a non-smoker. Mrs. Obrien had staging PET/CT on 08/19/2019. It reported no evidence of recurrent or residual malignancy. There was no evidence of any metastatic disease. Postlumpectomy changes are evident in the medial left breast and there is a surgical drain with inflammatory uptake in the left axilla. Her drain was removed yesterday by Dr. Andrade and she states it is doing good so far. She had an echocardiogram on 08/25/2019 in preparation for chemotherapy. She had normal left ventricular size and systolic function EF was estimated at 65% with mild to moderate concentric left ventricular hypertrophy. Grade I/IV diastolic dysfunction mild to moderately elevated filling pressures. Trace tricuspid regurgitation. No pericardial effusions. She also underwent a Port-A-Cath placement with Dr. Andrade recently. She tolerated that procedure well. Mrs. Obrien has been offered dose dense Adriamycin Cytoxan for 4 cycles followed by 12 weeks of paclitaxel. She is here today to begin her first cycle of Adriamycin Cytoxan. Mrs. Obrien started her first cycle of Adriamycin Cytoxan on 08/29/2019. Mrs. Obrien is here today for follow-up. She states overall she is doing well. Her blood counts recovered well. She did not have any signs of infection but did complete 7 days of the Levaquin. She is still seeing Dr. Andrade at least twice a week for treatment of her post op seromas. She states they got 60 cc out of it yesterday. She is still wearing a chest band but is able to wear her bra at this point as well. Her energy is good. Appetite is good. She denies any new concerns. She is had no new pain. She states she took 1 nausea pill with cycle 1 and has had no further need. She states that when resolved the queasiness she was having. She denies any emesis. She did have some constipation after cycle 1 treatment. She states it lasted for about 4 to 5 days. It was resolved with milk of magnesia. We did discuss that Aloxi could be causing this but she states the milk of mag is controlling it well and she will watch and see how her bowels do after this cycle. She denies any urinary symptoms. She denies any peripheral neuropathy. Her ECOG is 0. Past Medical History: Colon polyps Degenerative arthritis Graves disease History of skin cancer Hyperlipidemia Hypothyroidism Past Surgical History: Colonoscopy Tonsillectomy Tubal ligation Right subclavian venous access device-Dr Andrade in 2019 Left breast lumpectomy with axillary lymph node dissection in 2019 Ultrsound-guided needle core biopsy of left breast in 2019 Allergies: No Known Allergies. Medications: Aspirin 1 Tablet (of 81 mg) Oral daily Calcium 1 Tablet (of 600 mg) Oral daily Fish Oil 1 Capsule (of 1000 mg) Oral daily levoFLOXacin 1 Tablet (of 500 mg) Oral daily LORazepam 0.5 - 1 Tablet (of 1 mg) Oral t.i.d. PRN Prochlorperazine Maleate 1 Tablet (of 10 mg) Oral q 4 hours PRN Simvastatin 1 Tablet (of 40 mg) Oral daily Synthroid 1 Tablet (of 88 mcg) Oral daily Family History: Ms. Obrien's mother at age 88: Alzheimer's disease. Ms. Obrien's father at age 87: pulmonary embolism. Ms. Obrien's maternal grandmother is : colon cancer. Her father had valvular heart disease and at age 87 of pulmonary embolism following a toe amputation. Mother with dementia at age 88. She has 2 older sisters who are both in good health, to her knowledge. Her maternal grandmother had colon cancer. There is no history of breast or ovarian cancer in the family. Social History: Ms. Obrien is and she is retired. Ms. Obrien has never smoked. She has no history of drinking. Ms. Obrien reports the following support systems: lives with spouse, significant other, family, or friends, lives in own house, supportive family/friends willing to assist with needs, and adequate transportation available for expected visits. Her diet consists of regular meals. She indicates her activity level as: regular exercise. Review Of Symptoms: Constitutional Denies fevers, chills, night sweats, excessive fatigue or weight loss. Allergic/Immunologic No reactions. Eyes Denies significant visual changes. No diplopia. No amaurosis. ENMT Denies changes in hearing, sore throat, mouth sores, difficulty or changes in swallowing ability, and/or sinus drainage. Endocrine No diabetes, thyroid disease or hormone replacement. Denies hot flashes or night sweats. Hematologic/Lymphatic Denies easy bruising or bleeding. The patient denies any tender or palpable lymph nodes. Breasts Still seeing Dr Andrade at least twice a week for seromas still getting about 60 cc fluid out Respiratory Denies dyspnea on exertion, chest pain, cough or hemoptysis. Denies orthopnea. Cardiovascular Denies anginal chest pain, palpitations or orthopnea. Gastrointestinal Denies nausea, vomiting, diarrhea, GI bleeding, or constipation. Denies change in bowel habits and/or stool color, no heartburn or early satiety. Genitourinary (F) No hematuria, hesitancy, incontinence, vaginal bleeding, discharge or other problems with urination. Musculoskeletal Denies joint pain, swelling or redness. No decreased range of motion. Integumentary Denies chronic rashes, inflammation, ulcerations or skin changes. Neurologic Denies headache, blurred vision, and no areas of focal weakness or numbness. Normal gait. No sensory problems. Psychiatric Denies insomnia, depression, ade or mood swings. Vital Signs: Performed on Sep 12, 2019 11:20 Height - 67.00 in Weight - 181.2 lbs (HIGH) BSA - 1.94 sq.m BMI - 28.38 Temperature - 98.1 F (LOW) Pulse - 74 /min Respiration - 16 /min BP - 148/91 mm(hg) (HIGH) O2 Sat - 97 % Pain - 0,0 - Fully active, able to carry on all predisease activities without restrictions. (ECOG) Physical Examination: Constitutional Alert, oriented, no acute distress. Skin pink, warm and dry. Head Normocephalic; atraumatic. Eyes Conjunctivae and sclerae are clear and without icterus. Pupils are reactive and equal. Neck Supple without masses or thyromegaly. No jugular venous distension. Hematologic/Lymphatic No petechiae or purpura. No tender or palpable lymph nodes in the cervical or supraclavicular areas. Respiratory Lungs are clear to auscultation without rhonchi or wheezing. Cardiovascular Regular rate and rhythm of heart without murmurs,clicks, gallops or rubs. Chest Right chest wall venous access device insertion site has healed well. Abdomen Non-tender, non-distended, no masses or ascites. Good bowel sounds noted in all quads. No guarding or rebound tenderness. No pulsatile masses. Back/Spine Non-tender to palpation. Extremities No visible deformities, no cyanosis, clubbing or edema. Musculoskeletal No tenderness or swelling, normal range of motion without obvious weakness. Integumentary No rashes or lesions. Neurologic No sensory or motor deficits, normal cerebellar function, normal gait. Psychiatric Alert and oriented times three. Coherent speech. Verbalizes understanding of our discussions today. Laboratory:Test performed on Sep 12, 2019 09:20 Sodium 140 mmol/L Potassium 3.9 mmol/L Chloride 103 mmol/L CO2 26 mmol/L Anion Gap 14.9 BUN 10 mg/dL Creatinine 0.7 mg/dL Cr Clearance (Est) 97.2500 mL/min eGFR 82.7 mL/min Glucose 96 mg/dL Calcium 9.0 mg/dL Protein, Total 6.6 g/dL Albumin 3.8 g/dL Globulin 2.8 g/dL Bilirubin, Total 0.2 mg/dL ALT (SGPT) 19 U/L AST (SGOT) 16 U/L Alkaline Phosphatase 101 IU/L WBC 9.7 10 3/uL Manual Bands % 30.0 % RBC 3.83 10 6/uL HGB 11.5 g/dL Manual Lymphs % 29 % HCT 36.2 % Manual Monos % 11.0 % MCV 94.5 fL MCH 30.0 pg MCHC 31.8 g/dL RDW 13.0 % Platelet Count 337 10 3/cmm MPV 9.5 fL NRBC % 0 % CBC Slide Review Slide Review Perform Manual Bands Abs 2.9 10 3/cmm Manual Neutrophils Abs 5.7 10 3/cmm Manual Monocytes Abs 1.1 10 3/cmm Manual Eosinophils Abs 0.0 10 3/cmm Test performed on Sep 05, 2019 12:36 Neutrophils 0.2 10 3/uL Lymphocytes 1.7 10 3/uL Monocytes 0.2 10 3/uL Eosinophils 0.2 10 3/uL Basophils 0.1 10 3/uL Neutrophil % 8.4 % Lymphocyte % 75.4 % Monocyte % 6.6 % Eosinophil % 7.0 % Basophils % 2.2 % Impression: 1. Patient with grade 3 invasive ductal carcinoma of the left breast, stage IIIC (T2, pN3, M0), ER/NE negative and HER-2/geovanny negative. 2. She underwent your core biopsy of the left breast followed by lumpectomy and left axillary lymph node dissection on 08/03/2019. Pathology showed a 5% component of DCIS with focal involvement with DCIS at the medial margin. Her other medical illnesses include: 3. History of Graves' disease for which she underwent radioactive iodine ablation in 1987. 4. She has had subsequent hypothyroidism. 5. Mild degenerative arthritis. 6. She has undergone multiple skin cancer excisions. 7. She has a history of hyperplastic colon polyps. The pathology results and clinical implications were reviewed with the patient and her . She has very high risk triple negative breast cancer. With this extent of axillary lymph node involvement, she will need PET/CT to evaluate for metastatic disease. The PET/CT was obtained on 08/19/2019 and was negative for any residual, recurrent or metastatic disease. Dr Powell has also requested a next generation sequencing study, as it may potentially influence her systemic adjuvant therapy as her disease is localized. He discussed the fact that the standard adjuvant chemotherapy in this situation would be 4 cycles of Adriamycin/cyclophosphamide followed by weekly paclitaxel for 12 weeks. However, Dr Powell also will be looking into the availability of clinical trials in this area. Mrs Obrien is aware that when she completes adjuvant chemotherapy she will need to undergo radiation to complete her primary treatment. Given her high risk disease, Dr Powell do not think that the focally involved margin with DCIS will be a significant issue with the radiation, but was planning to verify that with the radiation oncologist. He also do not think there would did not feel there would any advantage in having a mastectomy, as she would still need to have radiation postoperatively. Mrs. Obrien has had port placement with Dr. Andrade. She has had a baseline echocardiogram. She began her first cycle of Adriamycin Cytoxan on 08/29/2019. She has severe chemo induced asymptomatic neutropenia with an ANC of 200 of day 8 of cycle 1. She did receive Neuaslta and her counts have recovered well. She has tolerated cycle 1 well. She continues to follow multiple times a week with Dr Andrade for post surgical seromas. Plan: 1. Proceed with cycle 2 of Adriamycin Cytoxan-this is day 1. 2. Aggressive anti-medics for high risk regimen to include Aloxi, Emend, dexamethasone and Pepcid. We may add olanzapine in the future if needed. 3. Compazine and Ativan as needed for antiemetics at home. 4. She will continue to receive growth factor support with Neulasta: as this is a high risk for chemotherapy-induced neutropenia regimen. She had severe neutropenia on cycle 1 day 8 with an ANC of 200. 5. Labs from September 12, 2019 were reviewed in detail and discussed with Mrs Obrien and a copy was given to her. WBC is 9.7, hemoglobin 11.5, platelets 337,000, ANC is 5700. Potassium 3.9 BUN 10 creatinine 0.7 LFTs are normal. 6. She will be due back in 2 week for day 1 of cycle 3 with CBC and CMP. She will have port flushes for port maintenance with her lab draws. Interim labs ay be drawn at [facility] via port or peripherally. 7. She may require Levavquin 500 mg daily until her counts recover again if she has chemoinduced neutropenia with this and future cycles of adriamycin/Cytoxan. This is prophylactic due to the neutropenia. 8. Mrs Obrien was encouraged to call us in the interim if questions or problems arise. Signed By: Sudha Bhatt-, [facility] Justen Powell MD <<Signature on File>>
[2019-09-12] MEDS: sodium chloride 0.9% 250 ML 999 ML IV (12:05)
[2019-09-12] MEDS: pegfilgrastim 6 mg/0.6 mL Kit (onpro) SUBCUT (14:40)
== END 2019-09-12 23:59 | disposition home or self-care (01) ==
LOC: ONCMED 06:47
PROVIDERS: PCP Family Medicine; Visit Provider Nurse Practitioner
DX: Z51.12 Encounter for antineoplastic immunotherapy (principal); Z51.11 Encounter for antineoplastic chemotherapy; C50.812 Malignant neoplasm of overlapping sites of left female breast; Z17.1 Estrogen receptor negative status [ER-]; M19.90 Unspecified osteoarthritis, unspecified site; E05.00 Thyrotoxicosis with diffuse goiter without thyrotoxic crisis or storm; E78.5 Hyperlipidemia, unspecified; E03.9 Hypothyroidism, unspecified; Z86.010 Personal history of colon polyps; Z85.820 Personal history of malignant melanoma of skin
CPT/HCPCS: 80053; 85007; 85025; 85027; 96367; 96372; 96411; 96413; 96417; 99214; 99215; J1100; J1200; J1453; J2469; J2505; J7040; J7050; J9000; J9070

== ENCOUNTER 2019-10-03 06:47 | Outpatient (RCR) | payer MEDICARE, OTHER, SELFPAY ==
[2019-09-26 08:42] LABS: Basophils % 1.2 %; Eosinophils # 0.1 10^3/uL (0.0-0.8); Eosinophils % 4.8 %; Hematocrit 32.4 % (37.0-47.0); Hemoglobin 10.2 g/dL (11.5-15.3); Lymphocytes % 57.5 %; Mean Corpuscular HGB Conc 31.5 g/dL (30.0-36.0); Mean Corpuscular Hemoglobin 29.7 pg (28.0-34.0); Mean Corpuscular Volume 94.2 fL (81-99); Mean Platelet Volume 9.4 fL (7.4-10.4); Monocytes # 0.4 10^3/uL (0.2-0.9); Monocytes % 25.7 %; Neutrophils % 10.8 %; Nucleated Red Blood Cells % 0 %; Platelet Count 343 10^3/cmm (130-400); Red Blood Count 3.44 10^6/uL (4.1-5.3); Red Cell Distribution Width 12.8 % (12.1-15.1); White Blood Count 1.7 10^3/uL (4.0-10.0)
[2019-09-26 08:51] LABS: Neutrophils # 0.18 10^3/uL (1.8-7.7)
[2019-09-26 08:59] LABS: Alanine Aminotransferase 17 U/L (0-33); Albumin Level 3.8 g/dL (3.5-5.2); Alkaline Phosphatase 85 IU/L (35-105); Aspartate Amino Transferase 15 U/L (0-32); Blood Urea Nitrogen 11 mg/dL (8-23); Calcium 8.9 mg/dL (8.5-10.5); Carbon Dioxide 26 mmol/L (22-29); Chloride 105 mmol/L (98-107); Globulin 2.2 g/dL (1.3-4.6); Glomerular Filtration Rate 98.8 mL/min (90-130); Glucose 99 mg/dL (65-115); Osmolality Calculated 286 mOsm/kg (285-295); Sodium 140 mmol/L (136-145); Total Bilirubin 0.2 mg/dL (0.15-1.2)
--- NOTE | 2019-09-29 15:29 | ONC FU_ITS ---
Dr. Powell Patient Follow-Up Note Patient: Vee Obrien Unit #: [id number]: 1950 Dicatated By: Justen Powell M.D.Date of Visit:Sep 26, 2019 Onc Med Follow-up/Prog Note Chief Complaint: Breast cancer. 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 She has been in very good general health. She had presented with an abnormal screening mammogram which reportedly showed a mass in the medial aspect of the left breast. Diagnostic mammogram/ultrasound was BI-RADS 4, suspicious. She then underwent ultrasound-guided needle core biopsy on 07/25/2019. Biopsy showed grade 3 infiltrating ductal carcinoma. The breast prognostic profile showed ER and CA negative, both less than 1%. HER-2/geovanny was 2+ by IHC but negative by FISH with amplification ratio 1.0 with 2.5 HER-2 copies/cell. The Ki-67 was very high at 90%. On 08/03/2019 she underwent left breast lumpectomy and left axillary lymph node dissection. Pathology on the lumpectomy showed grade 3 invasive ductal carcinoma measuring 2.7 cm in greatest dimension. There was a component of ductal carcinoma in situ, solid and comedo types, estimated at 5% of the tumor volume. 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 The margins were negative for invasive cancer. There was involvement in 25 of 25 axillary lymph nodes, the largest measuring 3.6 cm. I had seen her initially on 08/15/2019. Her staging PET/CT on 08/19/2019 showed postsurgical changes in the left breast and axilla. It was negative for metastatic disease or residual malignancy. With that finding, she was recommended to undergo adjuvant chemotherapy with dose dense Adriamycin/cyclophosphamide followed by weekly Taxol for 12 weeks. Her medical history is otherwise significant for Graves' disease, for which she will underwent radioactive iodine ablation in 1987. She has had subsequent hypothyroidism. Other medical illnesses include hyperlipidemia and mild degenerative arthritis. She has a history of inflammatory colon polyps and a history of multiple skin cancers in the facial area. She is a non-smoker. INTERIM HISTORY: She began cycle 1 of Adriamycin/cyclophosphamide on 08/29/2019. She did receive first cycle prophylaxis with Neulasta. She was severely neutropenic at day 8, ANC 200, but she recovered uneventfully. She otherwise tolerated it well, and she continued with cycle 2 on 09/12/2019. She is seen for a scheduled visit. She has not been feeling as good since her last treatment. Energy is down somewhat, but variable. She is doing light work. ECOG score is 1. Her appetite has not been as good, and she has not been eating as much. She has not had fever, night sweats, or hot flashes. She has developed sores in her mouth. She has been using salt and soda rinses. She does not complain of shortness of breath, cough, or chest pain. She has had no nausea. She has occasional mild acid reflux. She has no complaints with bowel or bladder function. She has no significant joint or bone pain. She sometimes has a little headache. She has no focal neurologic symptoms. Medications: Aspirin 1 Tablet (of 81 mg) Oral daily, Calcium 1 Tablet (of 600 mg) Oral daily, Fish Oil 1 Capsule (of 1000 mg) Oral daily, levoFLOXacin 1 Tablet (of 500 mg) Oral daily, LORazepam 0.5 - 1 Tablet (of 1 mg) Oral t.i.d. PRN, Prochlorperazine Maleate 1 Tablet (of 10 mg) Oral q 4 hours PRN, Simvastatin 1 Tablet (of 40 mg) Oral daily, Synthroid 1 Tablet (of 88 mcg) Oral daily Allergies: No Known Allergies. Review of Systems: Constitutional - Her energy is somewhat variable. She is doing light work. Appetite has decreased, and she is not eating as much now. She has no fever, night sweats, or hot flashes. ECOG score is 1, ENMT - No sinus congestion/drainage. She has mouth sores. No sore throat or difficulty swallowing, Hematologic/Lymphatic - She bruises easily, Respiratory - No shortness of breath. No cough. No pleuritic pain or hemoptysis, Cardiovascular - No angina pain. No palpitations, Gastrointestinal - No nausea or vomiting. No heartburn or acid reflux. No diarrhea or constipation. No blood in the stool or black stools, Genitourinary (F) - No dysuria or hematuria. No urinary frequency. No urgency or incontinence, Musculoskeletal - No joint or bone pain, Integumentary - No skin rash, Neurologic - She sometimes has a little headache. No dizziness. No numbness or tingling. No other focal neurologic symptoms, Psychiatric - No anxiety or depression. No insomnia. Vital Signs: Performed on Sep 26, 2019 09:23 Height - 67.00 in Weight - 179.2 lbs (LOW) BSA - 1.93 sq.m BMI - 28.07 Temperature - 98.5 F Pulse - 97 /min Respiration - 20 /min BP - 133/67 mm(hg) O2 Sat - 97 % Pain - 10 Physical Examination: Constitutional - She looks good generally, Eyes - Sclerae nonicteric. Conjunctivae clear, ENMT - There are small ulcerations on the undersurface of the tongue, Hematologic/Lymphatic - No cervical, clavicular, or axillary adenopathy, Respiratory - Lungs are clear with good air movement bilaterally, Cardiovascular - Heart rhythm is regular. There is a II/ systolic murmur. There is no gallop or rub noted, Abdomen - Soft. Liver and spleen are not enlarged. There is no abdominal mass or ascites noted and there is no inguinal adenopathy, Extremities - No edema, Neurologic - No focal neurologic deficits noted. Lab/Imaging: Test performed on Sep 26, 2019 08:25 Sodium 140 mmol/L Potassium 4.0 mmol/L Chloride 105 mmol/L CO2 26 mmol/L Anion Gap 13.0 BUN 11 mg/dL Creatinine 0.6 mg/dL Cr Clearance (Est) 113.4500 mL/min eGFR 98.8 mL/min Glucose 99 mg/dL Calcium 8.9 mg/dL Protein, Total 6.0 g/dL Albumin 3.8 g/dL Globulin 2.2 g/dL Bilirubin, Total 0.2 mg/dL ALT (SGPT) 17 U/L AST (SGOT) 15 U/L Alkaline Phosphatase 85 IU/L WBC 1.7 10 3/uL RBC 3.44 10 6/uL HGB 10.2 g/dL HCT 32.4 % MCV 94.2 fL MCH 29.7 pg MCHC 31.5 g/dL RDW 12.8 % Platelet Count 343 10 3/cmm MPV 9.4 fL Neutrophils 0.18 10 3/uL Lymphocytes 1.0 10 3/uL Monocytes 0.4 10 3/uL Eosinophils 0.1 10 3/uL Basophils 0.0 10 3/uL Neutrophil % 10.8 % Lymphocyte % 57.5 % Monocyte % 25.7 % Eosinophil % 4.8 % Basophils % 1.2 % NRBC % 0 % Impression: 1. Patient with grade 3 invasive ductal carcinoma of the left breast, stage IIIC (T2, pN3, M0), ER/CA negative and HER-2/geovanny negative. 2. She underwent your core biopsy of the left breast followed by lumpectomy and left axillary lymph node dissection on 08/03/2019. Pathology showed a 5% component of DCIS with focal involvement with DCIS at the medial margin. Her other medical illnesses include: 3. History of Graves' disease for which she underwent radioactive iodine ablation in 1987. 4. She has had subsequent hypothyroidism. 5. Mild degenerative arthritis. 6. She has undergone multiple skin cancer excisions. 7. She has a history of hyperplastic colon polyps. Her staging PET/CT showed no evidence of metastatic disease. With that finding, she was advised to undergo adjuvant chemotherapy with dose dense Adriamycin/cyclophosphamide followed by weekly Taxol for 12 weeks. She began cycle 1 of Adriamycin/cyclophosphamide on 08/29/2019. She was given first cycle prophylaxis with Neulasta. She was severely neutropenic at day 8, but she recovered uneventfully. She continue with cycle 2 on 09/12/2019. At this point she is still moderately neutropenic, and she also has developed oral stomatitis. Plan: With persistent oral stomatitis and moderately severe neutropenia, her treatment will be delayed for 1 week. Assuming she has adequately recovered, she will then proceed with her third cycle, but I will reduce the dosages by 20%. She will tentatively be scheduled for a follow-up visit in 3 weeks. Signed By: Justen Powell M.D. <<Signature on File>>
[2019-10-03 08:40] LABS: Basophils # 0.2 10^3/uL (0.0-0.1); Basophils % 2.5 %; Eosinophils # 0.1 10^3/uL (0.0-0.8); Eosinophils % 1.5 %; Hematocrit 35.9 % (37.0-47.0); Hemoglobin 11.3 g/dL (11.5-15.3); Lymphocytes # 1.9 10^3/uL (0.8-4.8); Lymphocytes % 31.4 %; Mean Corpuscular HGB Conc 31.5 g/dL (30.0-36.0); Mean Corpuscular Hemoglobin 30.1 pg (28.0-34.0); Mean Corpuscular Volume 95.7 fL (81-99); Mean Platelet Volume 8.7 fL (7.4-10.4); Monocytes # 1.3 10^3/uL (0.2-0.9); Monocytes % 21.9 %; Neutrophils # 2.45 10^3/uL (1.8-7.7); Neutrophils % 40.9 %; Nucleated Red Blood Cells % 0 %; Platelet Count 553 10^3/cmm (130-400); Red Blood Count 3.75 10^6/uL (4.1-5.3); Red Cell Distribution Width 13.8 % (12.1-15.1)
[2019-10-03] MEDS: sodium chloride 0.9% 250 ML 75 ML IV (09:35)
[2019-10-03 10:37] LABS: Absolute Eosinophils 0.1 10^3/cmm (0.0-0.7); Absolute Segmented Neutrophil 2.8 10/cmm (1.6-7.1); Band Neutrophils Absolute 0.4 10^3/cmm (0.0-1.2); Basophils Absolute 0.1 10^3/cmm (0.0-0.2); Eosinophils 2 %; Lymphocytes 30 %; Monocytes Absolute 0.8 10^3/cmm (0.1-0.6); Segmented Neutrophils 47 %; Total Cells Counted 100 (0-100)
[2019-10-03 10:38] LABS: Absolute Neutrophil 3.2 10^3/cmm (1.4-6.5); Platelet Estimate Increased (Normal)
[2019-10-03] MEDS: pegfilgrastim 6 mg/0.6 mL Kit (onpro) SUBCUT (12:00)
== END 2019-10-13 23:59 | disposition home or self-care (01) ==
LOC: ONCMED 06:47
PROVIDERS: PCP Family Medicine; Visit Provider Internal Medicine Medical Oncology
DX: Z51.11 Encounter for antineoplastic chemotherapy (principal); C50.812 Malignant neoplasm of overlapping sites of left female breast; D70.1 Agranulocytosis secondary to cancer chemotherapy; T45.1X5A Adverse effect of antineoplastic and immunosuppressive drugs, initial encounter; T82.594A Other mechanical complication of infusion catheter, initial encounter; Y80.1 Therapeutic (nonsurgical) and rehabilitative physical medicine devices associated with adverse incidents; C77.3 Secondary and unspecified malignant neoplasm of axilla and upper limb lymph nodes; E89.0 Postprocedural hypothyroidism; W88.1XXS Exposure to radioactive isotopes, sequela; M19.90 Unspecified osteoarthritis, unspecified site; Z17.1 Estrogen receptor negative status [ER-]; Z79.82 Long term (current) use of aspirin; Z85.828 Personal history of other malignant neoplasm of skin
CPT/HCPCS: 36593; 80053; 85007; 85025; 96367; 96372; 96374; 96413; 96417; 99214; J1100; J1200; J1453; J2469; J2505; J2997; J7040; J7050; J9000; J9070

== ENCOUNTER 2019-11-07 05:38 | Outpatient (RCR) | payer MEDICARE, OTHER, SELFPAY ==
[2019-10-17 08:25] LABS: Basophils # 0.1 10^3/uL (0.0-0.1); Basophils % 0.7 %; Eosinophils # 0.5 10^3/uL (0.0-0.8); Eosinophils % 4.4 %; Hematocrit 34.2 % (37.0-47.0); Hemoglobin 10.4 g/dL (11.5-15.3); Lymphocytes # 1.8 10^3/uL (0.8-4.8); Lymphocytes % 17.3 %; Mean Corpuscular HGB Conc 30.4 g/dL (30.0-36.0); Mean Corpuscular Volume 95.3 fL (81-99); Mean Platelet Volume 9.7 fL (7.4-10.4); Monocytes # 1.2 10^3/uL (0.2-0.9); Neutrophils # 6.33 10^3/uL (1.8-7.7); Neutrophils % 61.2 %; Nucleated Red Blood Cells % 0 %; Platelet Count 317 10^3/cmm (130-400); Red Blood Count 3.59 10^6/uL (4.1-5.3); Red Cell Distribution Width 15.2 % (12.1-15.1); White Blood Count 10.4 10^3/uL (4.0-10.0)
[2019-10-17] MEDS: sodium chloride 0.9% 250 ML 75 ML IV (10:50)
[2019-10-17 11:39] LABS: Alanine Aminotransferase 20 U/L (0-33); Albumin Level 3.8 g/dL (3.5-5.2); Alkaline Phosphatase 100 IU/L (35-105); Anion Gap 13.3 (5-19); Aspartate Amino Transferase 18 U/L (0-32); Blood Urea Nitrogen 7 mg/dL (8-23); Calcium 8.7 mg/dL (8.5-10.5); Carbon Dioxide 25 mmol/L (22-29); Chloride 104 mmol/L (98-107); Globulin 2.9 g/dL (1.3-4.6); Glucose 90 mg/dL (65-115); Osmolality Calculated 281 mOsm/kg (285-295); Potassium 4.3 mmol/L (3.5-5.1); Sodium 138 mmol/L (136-145); Total Bilirubin 0.3 mg/dL (0.15-1.2); Total Protein 6.7 g/dL (6.6-8.7)
[2019-10-17] MEDS: pegfilgrastim 6 mg/0.6 mL Kit (onpro) SUBCUT (13:50)
--- NOTE | 2019-10-22 14:57 | ONC FU_ITS ---
[facility] Patient Note Patient: Vee Obrien Unit #: [id number]: 1950 Dictated By: Sudha BhattDate of Visit: Oct 17, 2019 Onc MED Follow-Up/Prog Note Chief Complaint: Breast cancer. History of Present Illness: Mrs Obrien is a 69 year-old woman with grade 3 invasive ductal carcinoma of the left breast, stage IIIC (T2, pN3, M0), ER/NM negative and HER-2/geovanny negative. She has been in very good general health. She had presented with an abnormal screening mammogram which reportedly showed a mass in the medial aspect of the left breast. Diagnostic mammogram/ultrasound was BI-RADS 4, suspicious. She then underwent ultrasound-guided needle core biopsy on 07/25/2019. Biopsy showed grade 3 infiltrating ductal carcinoma. The breast prognostic profile showed ER and NM negative, both less than 1%. HER-2/geovanny was 2+ by IHC but negative by FISH with amplification ratio 1.0 with 2.5 HER-2 copies/cell. The Ki-67 was very high at 90%. On 08/03/2019 she underwent left breast lumpectomy and left axillary lymph node dissection. Pathology on the lumpectomy showed grade 3 invasive ductal carcinoma measuring 2.7 cm in greatest dimension. There was a component of ductal carcinoma in situ, solid and comedo types, estimated at 5% of the tumor volume. 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 The margins were negative for invasive cancer. There was involvement in 25 of 25 axillary lymph nodes, the largest measuring 3.6 cm. Her medical history is otherwise significant for Graves' disease, for which she will underwent radioactive iodine ablation in 1987. She has had subsequent hypothyroidism. Other medical illnesses include hyperlipidemia and mild degenerative arthritis. She has a history of inflammatory colon polyps and a history of multiple skin cancers in the facial area. She is a non-smoker. Mrs. Obrien had staging PET/CT on 08/19/2019. It reported no evidence of recurrent or residual malignancy. There was no evidence of any metastatic disease. Postlumpectomy changes are evident in the medial left breast and there is a surgical drain with inflammatory uptake in the left axilla. Her drain was removed yesterday by Dr. Andrade and she states it is doing good so far. She had an echocardiogram on 08/25/2019 in preparation for chemotherapy. She had normal left ventricular size and systolic function EF was estimated at 65% with mild to moderate concentric left ventricular hypertrophy. Grade I/IV diastolic dysfunction mild to moderately elevated filling pressures. Trace tricuspid regurgitation. No pericardial effusions. She also underwent a Port-A-Cath placement with Dr. Andrade recently. She tolerated that procedure well. Mrs. Obrien has been offered dose dense Adriamycin Cytoxan for 4 cycles followed by 12 weeks of paclitaxel. Mrs. Obrien started her first cycle of Adriamycin Cytoxan on 08/29/2019. Mrs. Obrien is here today for follow-up. She is due for cycle 4 adriamycin/Cytoxan. She has tolerated it well with expected chemotherapy induced neutropenia. She has responded well to Neulasta support. She has not had febrile neutropenia. She states overall she is doing well. Her energy is good. She denies any fever or chills. She denies any mouth sores, sore throat or difficulty swallowing. She states she has noticed a nodule in her left breast around the incision site. She states is been there she is noticed for a week or so. She does see Dr. Andrade later this week and will have her look at it as well. It is in close relation to the incision site may just be scar tissue. She denies any breast pain. There has been no breast changes and no discharge or nipple abnormalities. She denies any shortness of breath orthopnea. She states overall she feels good. Her bowels and bladder are normal for her. She denies any lower extremity edema. She denies orthopnea. She states that she has not had any chest pain or palpitations. Her ECOG is 0. Past Medical History: Colon polyps Degenerative arthritis Graves disease History of skin cancer Hyperlipidemia Hypothyroidism Past Surgical History: Colonoscopy Tonsillectomy Tubal ligation Right subclavian venous access device-Dr Andrade in 2019 Left breast lumpectomy with axillary lymph node dissection in 2019 Ultrsound-guided needle core biopsy of left breast in 2020 Allergies: No Known Allergies. Medications: Aspirin 1 Tablet (of 81 mg) Oral daily Calcium 1 Tablet (of 600 mg) Oral daily Fish Oil 1 Capsule (of 1000 mg) Oral daily levoFLOXacin 1 Tablet (of 500 mg) Oral daily LORazepam 0.5 - 1 Tablet (of 1 mg) Oral t.i.d. PRN Prochlorperazine Maleate 1 Tablet (of 10 mg) Oral q 4 hours PRN Simvastatin 1 Tablet (of 40 mg) Oral daily Synthroid 1 Tablet (of 88 mcg) Oral daily Family History: Ms. Obrien's mother at age 88: Alzheimer's disease. Ms. Obrien's father at age 87: pulmonary embolism. Ms. Obrien's maternal grandmother is : colon cancer. Her father had valvular heart disease and at age 87 of pulmonary embolism following a toe amputation. Mother with dementia at age 88. She has 2 older sisters who are both in good health, to her knowledge. Her maternal grandmother had colon cancer. There is no history of breast or ovarian cancer in the family. Social History: Ms. Obrien is and she is retired. Ms. Obrien has never smoked. She has no history of drinking. Ms. Obrien reports the following support systems: lives with spouse, significant other, family, or friends, lives in own house, supportive family/friends willing to assist with needs, and adequate transportation available for expected visits. Her diet consists of regular meals. She indicates her activity level as: regular exercise. Review Of Symptoms: Vital Signs: Performed on Oct 17, 2019 13:20 Height - 67.00 in Temperature - 98 F (LOW) Pulse - 88 /min Respiration - 18 /min BP - 137/73 mm(hg) O2 Sat - 98 % Pain - 0 Fatigue - 0 Performed on Oct 17, 2019 10:02 Height - 67.00 in Weight - 178.8 lbs (LOW) BSA - 1.93 sq.m BMI - 28.00 Temperature - 98.3 F (LOW) Pulse - 84 /min Respiration - 17 /min BP - 130/72 mm(hg) O2 Sat - 95 % (LOW) Pain - 0,0 - Fully active, able to carry on all predisease activities without restrictions. (ECOG) Physical Examination: Constitutional Alert, oriented, no acute distress. Skin pink, warm and dry. Head Normocephalic; atraumatic. Eyes Conjunctivae and sclerae are clear and without icterus. Pupils are reactive and equal. Neck Supple without masses or thyromegaly. No jugular venous distension. Hematologic/Lymphatic No petechiae or purpura. No tender or palpable lymph nodes in the cervical or supraclavicular areas. Respiratory Lungs are clear to auscultation without rhonchi or wheezing. Cardiovascular Regular rate and rhythm of heart without murmurs,clicks, gallops or rubs. Chest Right chest wall venous access device insertion site has healed well. Breasts Left breast nodule at incision line, firm, non moveable, no redness or warmth, No exudate. Abdomen Non-tender, non-distended, no masses or ascites. Back/Spine Non-tender to palpation. Extremities No visible deformities, no cyanosis, clubbing or edema. Musculoskeletal No tenderness or swelling, normal range of motion without obvious weakness. Integumentary No rashes or lesions. Neurologic No sensory or motor deficits, normal cerebellar function, normal gait. Psychiatric Alert and oriented times three. Coherent speech. Verbalizes understanding of our discussions today. Laboratory:Test performed on Oct 17, 2019 10:57 Sodium 138 mmol/L Potassium 4.3 mmol/L Chloride 104 mmol/L CO2 25 mmol/L Anion Gap 13.3 BUN 7 mg/dL Creatinine 0.5 mg/dL Cr Clearance (Est) 136.1500 mL/min eGFR 122.0 mL/min Glucose 90 mg/dL Calcium 8.7 mg/dL Protein, Total 6.7 g/dL Albumin 3.8 g/dL Globulin 2.9 g/dL Bilirubin, Total 0.3 mg/dL ALT (SGPT) 20 U/L AST (SGOT) 18 U/L Alkaline Phosphatase 100 IU/L Test performed on Oct 17, 2019 08:05 WBC 10.4 10 3/uL RBC 3.59 10 6/uL HGB 10.4 g/dL HCT 34.2 % MCV 95.3 fL MCH 29.0 pg MCHC 30.4 g/dL RDW 15.2 % Platelet Count 317 10 3/cmm MPV 9.7 fL Neutrophils 6.33 10 3/uL Lymphocytes 1.8 10 3/uL Monocytes 1.2 10 3/uL Eosinophils 0.5 10 3/uL Basophils 0.1 10 3/uL Neutrophil % 61.2 % Lymphocyte % 17.3 % Monocyte % 12.0 % Eosinophil % 4.4 % Basophils % 0.7 % NRBC % 0 % Test performed on Oct 03, 2019 08:12 Manual Bands % 6.0 % Manual Lymphs % 30 % Manual Monos % 13.0 % Manual Basos % 2.0 % Manual Bands Abs 0.4 10 3/cmm Manual Neutrophils Abs 3.2 10 3/cmm Manual Monocytes Abs 0.8 10 3/cmm Manual Eosinophils Abs 0.1 10 3/cmm Manual Basophils Abs 0.1 10 3/cmm Test performed on Sep 19, 2019 09:16 Manual Eosinophils 1.1 % Test performed on Sep 12, 2019 09:20 CBC Slide Review Slide Review Perform Test performed on Aug 29, 2019 08:55 Manual Lymphocytes Abs 3.8 10 3/cmm Atypical Lymphs % 1.0 % Total Cells Counted 100 Impression: 1. Patient with grade 3 invasive ductal carcinoma of the left breast, stage IIIC (T2, pN3, M0), ER/NM negative and HER-2/geovanny negative. 2. She underwent your core biopsy of the left breast followed by lumpectomy and left axillary lymph node dissection on 08/03/2019. Pathology showed a 5% component of DCIS with focal involvement with DCIS at the medial margin. Her other medical illnesses include: 3. History of Graves' disease for which she underwent radioactive iodine ablation in 1987. 4. She has had subsequent hypothyroidism. 5. Mild degenerative arthritis. 6. She has undergone multiple skin cancer excisions. 7. She has a history of hyperplastic colon polyps. Her staging PET/CT showed no evidence of metastatic disease. With that finding, she was advised to undergo adjuvant chemotherapy with dose dense Adriamycin/cyclophosphamide followed by weekly Taxol for 12 weeks. She began cycle 1 of Adriamycin/cyclophosphamide on 08/29/2019. She was given first cycle prophylaxis with Neulasta. She was severely neutropenic at day 8, but she recovered uneventfully. She continue with cycle 2 on 09/12/2019. She presented for cycle 3 on September 26, 2019 and was found to be neutropenic with an ANC of 180. She also had stomatitis. She was treated for stomatitis and given prophylactic antibiotics and delayed 1 week. The stomatitis had resolved and her counts had recovered and she was treated on October 03, 2019 with dose reduction of her chemotherapy. She has tolerated that well and denies any further mouth sores. Plan: 1. Proceed with cycle 4 Adriamycin Cytoxan at the 20% dose reduced. She tolerated this well with no adverse reactions. 2. Continue current antiemetics as they are working well for her. 3. Continue Neulasta support with cycle 4 Adriamycin Cytoxan given that she has had such severe chemotherapy induced neutropenia. Thus far she has not had febrile neutropenia that we are aware of. 4. Labs from October 17, 2019 were reviewed in detail and discussed with Ms. Obrien and a copy was given to her. WBC 10.4, hemoglobin 10.4 platelets 17,000 ANC is 6300. 5. She will be due for cycle 03/26 of paclitaxel with her next chemotherapy in 2 to 3 weeks (depending on what her counts are doing). She has been advised at the steroid instructions to take 20 mg of dexamethasone 12 and 6 hours prior to the chemotherapy schedule time. A prescription was sent to [facility] in [place] for the premeds. 6. We will plan for follow-up in 2 to 3 weeks depending on what her counts are doing at which time she will have repeat CBC CMP. At that point she will start week 1 of 12 paclitaxel. 7. Mrs. Obrien was instructed to contact us in the interim should questions or problems arise. We have asked that she have her labs drawn the day before her scheduled chemotherapy at [facility] and we need to also call her with lab reports to make sure she takes steroids only if needed. Signed By: Sudha Bhatt-LLOYD, AOCNP Justen Powell MD <<Signature on File>>
[2019-10-30 08:37] LABS: Basophils # 0.1 10^3/uL (0.0-0.1); Basophils % 0.6 %; Hemoglobin 10.4 g/dL (11.5-15.3); Lymphocytes # 0.9 10^3/uL (0.8-4.8); Mean Corpuscular HGB Conc 31.5 g/dL (30.0-36.0); Mean Corpuscular Hemoglobin 30.2 pg (28.0-34.0); Mean Corpuscular Volume 95.9 fL (81-99); Mean Platelet Volume 9.8 fL (7.4-10.4); Monocytes # 0.2 10^3/uL (0.2-0.9); Monocytes % 1.8 %; Neutrophils # 10.64 10^3/uL (1.8-7.7); Nucleated Red Blood Cells # 0.1 /100WBC; Nucleated Red Blood Cells % 0.5 %; Platelet Count 339 10^3/cmm (130-400); Red Blood Count 3.44 10^6/uL (4.1-5.3); Red Cell Distribution Width 16.9 % (12.1-15.1); White Blood Count 13.1 10^3/uL (4.0-10.0)
[2019-10-30 08:59] LABS: Neutrophils % 90.7 %; Slide Review Slide Review Perform
[2019-10-30 09:00] LABS: Alanine Aminotransferase 15 U/L (0-33); Albumin Level 4.3 g/dL (3.5-5.2); Alkaline Phosphatase 112 IU/L (35-105); Anion Gap 15.2 (5-19); Aspartate Amino Transferase 16 U/L (0-32); Blood Urea Nitrogen 10 mg/dL (8-23); Calcium 9.3 mg/dL (8.5-10.5); Carbon Dioxide 24 mmol/L (22-29); Chloride 103 mmol/L (98-107); Glucose 145 mg/dL (65-115); Osmolality Calculated 285 mOsm/kg (285-295); Potassium 4.2 mmol/L (3.5-5.1); Sodium 138 mmol/L (136-145); Total Bilirubin 0.2 mg/dL (0.15-1.2); Total Protein 7.3 g/dL (6.6-8.7)
[2019-10-30] MEDS: acetaminophen 325 mg Tablet 650 MG PO (10:30)
[2019-10-30] MEDS: sodium chloride 0.9% 250 ML 75 ML IV (11:00)
--- NOTE | 2019-10-30 20:04 | ONC FU_ITS ---
Dr. Powell Patient Follow-Up Note Patient: Vee Obrien Unit #: [id number]: 1950 Dicatated By: Justen Powell M.D.Date of Visit:Oct 30, 2019 Onc Med Follow-up/Prog Note Chief Complaint: Breast cancer. History of Present Illness: This is a 69 year-old woman with grade 3 invasive ductal carcinoma of the left breast, stage IIIC (T2, pN3, M0), ER/IA negative and HER-2/geovanny negative. She has been in very good general health. She had presented with an abnormal screening mammogram which reportedly showed a mass in the medial aspect of the left breast. Diagnostic mammogram/ultrasound was BI-RADS 4, suspicious. She then underwent ultrasound-guided needle core biopsy on 07/25/2019. Biopsy showed grade 3 infiltrating ductal carcinoma. The breast prognostic profile showed ER and IA negative, both less than 1%. HER-2/geovanny was 2+ by IHC but negative by FISH with amplification ratio 1.0 with 2.5 HER-2 copies/cell. The Ki-67 was very high at 90%. On 08/03/2019 she underwent left breast lumpectomy and left axillary lymph node dissection. Pathology on the lumpectomy showed grade 3 invasive ductal carcinoma measuring 2.7 cm in greatest dimension. There was a component of ductal carcinoma in situ, solid and comedo types, estimated at 5% of the tumor volume. 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 The margins were negative for invasive cancer. There was involvement in 25 of 25 axillary lymph nodes, the largest measuring 3.6 cm. I had seen her initially on 08/15/2019. Her staging PET/CT on 08/19/2019 showed postsurgical changes in the left breast and axilla. It was negative for metastatic disease or residual malignancy. With that finding, she was recommended to undergo adjuvant chemotherapy with dose dense Adriamycin/cyclophosphamide followed by weekly Taxol for 12 weeks. Her medical history is otherwise significant for Graves' disease, for which she will underwent radioactive iodine ablation in 1987. She has had subsequent hypothyroidism. Other medical illnesses include hyperlipidemia and mild degenerative arthritis. She has a history of inflammatory colon polyps and a history of multiple skin cancers in the facial area. She is a non-smoker. INTERIM HISTORY: She began cycle 1 of Adriamycin/cyclophosphamide on 08/29/2019. She did receive first cycle prophylaxis with Neulasta. She was severely neutropenic at day 8, ANC 200, but she recovered uneventfully. She otherwise tolerated it well, and she continued with cycle 2 on 09/12/2019. That treatment was complicated by neutropenia and stomatitis. Her 3rd cycle was delayed by 1 week, and it was administered with a 20% dose reduction. She was able to tolerate it with acceptable toxicity, and she then continued with cycle 4 on 10/17/2019. She is seen for a followup visit. She has had further decline in her energy and activity tolerance since her last treatment. She is up and around, but she is doing only a very little light work now. Her ECOG score is 2. Her appetite is not good. She says food tastes like crap. Her weight is down a few pounds. She has no fever, night sweats, or hot flashes. Last week she had an episode of excruciating pain in the area of her right kidney. She was evaluated in the emergency room. A specific cause apparently was not determined. She was able to manage it adequately with Aleve. She has had no mouth sores. She has shortness of breath if she walks too far. She does not complain of cough, and she has not been having chest pain. She has no GI or complaints. She has no other joint or bone pain. She has no focal neurologic symptoms. Medications: Aspirin 1 Tablet (of 81 mg) Oral daily, Calcium 1 Tablet (of 600 mg) Oral daily, Fish Oil 1 Capsule (of 1000 mg) Oral daily, levoFLOXacin 1 Tablet (of 500 mg) Oral daily, LORazepam 0.5 - 1 Tablet (of 1 mg) Oral t.i.d. PRN, Prochlorperazine Maleate 1 Tablet (of 10 mg) Oral q 4 hours PRN, Simvastatin 1 Tablet (of 40 mg) Oral daily, Synthroid 1 Tablet (of 88 mcg) Oral daily Allergies: No Known Allergies. Review of Systems: Constitutional - Her energy is not good. She is up and around, but she is able to do only a very little light work. Appetite is not good. She says food tastes like crap. Her weight is down a few pounds. No fever, night sweats, or hot flashes. ECOG score is 2, ENMT - No sinus congestion/drainage. No mouth sores. No sore throat or difficulty swallowing, Hematologic/Lymphatic - She has had some bruising, Respiratory - She has shortness of breath if she walks too far. No cough. No pleuritic pain or hemoptysis, Cardiovascular - No angina pain. No palpitations, Gastrointestinal - No nausea or vomiting. No heartburn or acid reflux. No diarrhea or constipation. No blood in the stool or black stools, Genitourinary (F) - No dysuria or hematuria. No urinary frequency. No urgency or incontinence, Musculoskeletal - She had recently developed excruciating pain in the kidney area on the right side. It has been managed adequately with Aleve. No other joint or bone pain, Integumentary - , Neurologic - No headache or dizziness. No numbness or tingling. No other focal neurologic symptoms, Psychiatric - No anxiety or depression. She does have some difficulty sleeping. Vital Signs: Performed on Oct 30, 2019 13:35 Height - 67.00 in Temperature - 98.3 F (LOW) Pulse - 100 /min Respiration - 20 /min BP - 150/88 mm(hg) (HIGH) O2 Sat - 93 % (LOW) Pain - 00 Fatigue - 0 Performed on Oct 30, 2019 09:50 Height - 67.00 in Weight - 176.2 lbs (LOW) BSA - 1.92 sq.m BMI - 27.60 Temperature - 98.5 F Pulse - 110 /min (HIGH) Respiration - 24 /min BP - 124/78 mm(hg) O2 Sat - 96 % Pain - 0 Physical Examination: Constitutional - She looks pretty good generally, Eyes - Sclerae nonicteric. Conjunctivae clear, ENMT - No lesions noted in the oral cavity, Hematologic/Lymphatic - No cervical, clavicular, or axillary adenopathy, Respiratory - Lungs are clear with good air movement bilaterally, Cardiovascular - Heart rhythm is regular. There is a mild tachycardia. There is a II/ systolic murmur. There is no gallop or rub noted, Abdomen - Soft. Liver and spleen are not enlarged. There is no abdominal mass or ascites noted and there is no inguinal adenopathy, Extremities - No edema, Neurologic - No focal neurologic deficits noted. Lab/Imaging: Test performed on Oct 30, 2019 08:15 Sodium 138 mmol/L Potassium 4.2 mmol/L Chloride 103 mmol/L CO2 24 mmol/L Anion Gap 15.2 BUN 10 mg/dL Creatinine 0.5 mg/dL Cr Clearance (Est) 134.0500 mL/min eGFR 122.0 mL/min Glucose 145 mg/dL Calcium 9.3 mg/dL Protein, Total 7.3 g/dL Albumin 4.3 g/dL Globulin 3.0 g/dL Bilirubin, Total 0.2 mg/dL ALT (SGPT) 15 U/L AST (SGOT) 16 U/L Alkaline Phosphatase 112 IU/L WBC 13.1 10 3/uL RBC 3.44 10 6/uL HGB 10.4 g/dL HCT 33.0 % MCV 95.9 fL MCH 30.2 pg MCHC 31.5 g/dL RDW 16.9 % Platelet Count 339 10 3/cmm MPV 9.8 fL Neutrophils 10.64 10 3/uL Lymphocytes 0.9 10 3/uL Monocytes 0.2 10 3/uL Eosinophils 0.0 10 3/uL Basophils 0.1 10 3/uL Neutrophil % 90.7 % Lymphocyte % 7.0 % Monocyte % 1.8 % Eosinophil % 0.0 % Basophils % 0.6 % NRBC % 0.5 % CBC Slide Review Slide Review Perform SLIDE REVIEW AGREES WITH AUTOMATED DIFF Impression: 1. Patient with grade 3 invasive ductal carcinoma of the left breast, stage IIIC (T2, pN3, M0), ER/IA negative and HER-2/geovanny negative. 2. She underwent your core biopsy of the left breast followed by lumpectomy and left axillary lymph node dissection on 08/03/2019. Pathology showed a 5% component of DCIS with focal involvement with DCIS at the medial margin. Her other medical illnesses include: 3. History of Graves' disease for which she underwent radioactive iodine ablation in 1987. 4. She has had subsequent hypothyroidism. 5. Mild degenerative arthritis. 6. She has undergone multiple skin cancer excisions. 7. She has a history of hyperplastic colon polyps. Her staging PET/CT showed no evidence of metastatic disease. With that finding, she was advised to undergo adjuvant chemotherapy with dose dense Adriamycin/cyclophosphamide followed by weekly Taxol for 12 weeks. She began cycle 1 of Adriamycin/cyclophosphamide on 08/29/2019. She was given first cycle prophylaxis with Neulasta. She was severely neutropenic at day 8, but she recovered uneventfully. She continued with cycle 2 on 09/12/2019. She required a delay and a dose reduction with the 3rd cycle because of neutropenia and stomatitis. She then continued with cycle 4 on 10/17/2019. She has tolerated it with acceptable toxicity, but she is having more fatigue and anorexia, and she has become mildly anemic. Plan: She will now began her first of 12 planned cycles of weekly paclitaxel. I reviewed potential side effects, including the risk of neuropathy. She will be scheduled for a follow-up visit in 1 week. Signed By: Justen Powell M.D. <<Signature on File>>
[2019-11-07] MEDS: sodium chloride 0.9% 250 ML 75 ML IV (08:40)
[2019-11-07] MEDS: acetaminophen 325 mg Tablet 650 MG PO (08:40)
--- NOTE | 2019-11-07 08:52 | ONC FU_ITS ---
Dr. Powell Patient Follow-Up Note Patient: Vee Obrien Unit #: [id number]: 1950 Dicatated By: Justen Powell M.D.Date of Visit:Nov 07, 2019 Onc Med Follow-up/Prog Note Chief Complaint: Breast cancer. 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 She has been in very good general health. She had presented with an abnormal screening mammogram which reportedly showed a mass in the medial aspect of the left breast. Diagnostic mammogram/ultrasound was BI-RADS 4, suspicious. She then underwent ultrasound-guided needle core biopsy on 07/25/2019. Biopsy showed grade 3 infiltrating ductal carcinoma. The breast prognostic profile showed ER and MI negative, both less than 1%. HER-2/geovanny was 2+ by IHC but negative by FISH with amplification ratio 1.0 with 2.5 HER-2 copies/cell. The Ki-67 was very high at 90%. On 08/03/2019 she underwent left breast lumpectomy and left axillary lymph node dissection. Pathology on the lumpectomy showed grade 3 invasive ductal carcinoma measuring 2.7 cm in greatest dimension. There was a component of ductal carcinoma in situ, solid and comedo types, estimated at 5% of the tumor volume. 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 The margins were negative for invasive cancer. There was involvement in 25 of 25 axillary lymph nodes, the largest measuring 3.6 cm. I had seen her initially on 08/15/2019. Her staging PET/CT on 08/19/2019 showed postsurgical changes in the left breast and axilla. It was negative for metastatic disease or residual malignancy. With that finding, she was recommended to undergo adjuvant chemotherapy with dose dense Adriamycin/cyclophosphamide followed by weekly Taxol for 12 weeks. Her medical history is otherwise significant for Graves' disease, for which she will underwent radioactive iodine ablation in 1987. She has had subsequent hypothyroidism. Other medical illnesses include hyperlipidemia and mild degenerative arthritis. She has a history of inflammatory colon polyps and a history of multiple skin cancers in the facial area. She is a non-smoker. INTERIM HISTORY: She began cycle 1 of Adriamycin/cyclophosphamide on 08/29/2019. She did receive first cycle prophylaxis with Neulasta. She was severely neutropenic at day 8, ANC 200, but she recovered uneventfully. She otherwise tolerated it well, and she continued with cycle 2 on 09/12/2019. That treatment was complicated by neutropenia and stomatitis. Her 3rd cycle was delayed by 1 week, and it was administered with a 20% dose reduction. She was able to tolerate it with acceptable toxicity, and she then continued with cycle 4 on 10/17/2019. On 10/30/2019 she began her 1st of 12 planned weekly cycles of paclitaxel. She tolerated it without acute toxicity. She is seen for a followup visit. She has been feeling good generally. She experienced no apparent side effects with the paclitaxel infusion last week. Her energy is fair. She is doing light work. ECOG score is 1. Her appetite is okay, but she has no taste. She is eating. She has no fever, night sweats, or hot flashes. She has had no mouth sores. She has no shortness of breath, cough, or chest pain. She has had no nausea or other GI symptoms. Bladder function has been okay. She has no significant joint or bone pain. She has no numbness/paresthesia or other neuropathy symptoms. Medications: Aspirin 1 Tablet (of 81 mg) Oral daily, Calcium 1 Tablet (of 600 mg) Oral daily, Dexamethasone (4 mg) Tablet Oral Take as Directed, Fish Oil 1 Capsule (of 1000 mg) Oral daily, levoFLOXacin 1 Tablet (of 500 mg) Oral daily, LORazepam 0.5 - 1 Tablet (of 1 mg) Oral t.i.d. PRN, Prochlorperazine Maleate 1 Tablet (of 10 mg) Oral q 4 hours PRN, Simvastatin 1 Tablet (of 40 mg) Oral daily, Synthroid 1 Tablet (of 88 mcg) Oral daily Allergies: No Known Allergies. Review of Systems: Constitutional - Her energy is fair. She is doing light work at home. Appetite is OK, though she still has no taste. Her weight is stable. No fever, night sweats, or hot flashes. ECOG score is 1, ENMT - No sinus congestion/drainage. No mouth sores. No sore throat or difficulty swallowing, Hematologic/Lymphatic - No abnormal bruising or bleeding, Respiratory - No shortness of breath. No cough. No pleuritic pain or hemoptysis, Cardiovascular - No angina pain. No palpitations, Gastrointestinal - No nausea or vomiting. No heartburn or acid reflux. No diarrhea or constipation. No blood in the stool or black stools, Genitourinary (F) - No dysuria or hematuria. No urinary frequency. No urgency or incontinence, Musculoskeletal - No joint or bone pain, Integumentary - No skin rash, Neurologic - No headache or dizziness. No numbness or tingling. No other focal neurologic symptoms, Psychiatric - No anxiety or depression. No insomnia. Vital Signs: Performed on Nov 07, 2019 08:16 Height - 67.00 in Weight - 173.4 lbs (LOW) BSA - 1.90 sq.m BMI - 27.16 Temperature - 98.1 F (LOW) Pulse - 103 /min (HIGH) Respiration - 18 /min BP - 153/76 mm(hg) (HIGH) O2 Sat - 97 % Pain - 0 Physical Examination: Constitutional - She looks pretty good generally, Eyes - Sclerae nonicteric. Conjunctivae clear, ENMT - No lesions noted in the oral cavity, Hematologic/Lymphatic - No cervical, clavicular, or axillary adenopathy, Respiratory - Lungs are clear with good air movement bilaterally, Cardiovascular - Heart rhythm is regular. There is a II/ systolic murmur. There is no gallop or rub noted, Abdomen - Soft. Liver and spleen are not enlarged. There is no abdominal mass or ascites noted and there is no inguinal adenopathy, Extremities - No edema, Neurologic - No focal neurologic deficits noted. Lab/Imaging: Test performed on Nov 06, 2019 08:16 Glucose 97 mg/dL BUN 10 mg/dL Creatinine 0.6 mg/dL Cr Clearance (Est) 111.71 mL/min Sodium 140 mmol/L Potassium 4.1 mmol/L Chloride 107 mmol/L CO2 26 mmol/L Calcium 9.4 mg/dL Protein, Total 7.0 g/dL Albumin 4.1 g/dL Bilirubin, Total 0.4 mg/dL Alkaline Phosphatase 90 IU/L AST (SGOT) 19 IU/L ALT (SGPT) 20 IU/L WBC 5.7 10^9/L RBC 3.22 10^12/L HGB 9.9 g/dL HCT 30.6 % MCV 95.0 fl MCH 30.7 pg MCHC 32 g/dL RDW 16.4 % Platelet Count 361 10^9/L MPV 9.0 fL Neutrophils (Gran) 3.9 10^9/L Lymphocytes 1.0 10^9/L Monocytes 0.5 10^9/L Eosinophils 0.0 10^9/L Basophils 0.1 10^9/L Manual Lymphocytes 17.5 % Manual Monocytes 9.4 % Manual Eosinophils 0.7 % Manual Basophils 1.1 % Impression: 1. 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 2. She underwent your core biopsy of the left breast followed by lumpectomy and left axillary lymph node dissection on 08/03/2019. Pathology showed a 5% component of DCIS with focal involvement with DCIS at the medial margin. Her other medical illnesses include: 3. History of Graves' disease for which she underwent radioactive iodine ablation in 1987. 4. She has had subsequent hypothyroidism. 5. Mild degenerative arthritis. 6. She has undergone multiple skin cancer excisions. 7. She has a history of hyperplastic colon polyps. Her staging PET/CT showed no evidence of metastatic disease. With that finding, she was advised to undergo adjuvant chemotherapy with dose dense Adriamycin/cyclophosphamide followed by weekly Taxol for 12 weeks. She began cycle 1 of Adriamycin/cyclophosphamide on 08/29/2019. She was given first cycle prophylaxis with Neulasta. She was severely neutropenic at day 8, but she recovered uneventfully. She continued with cycle 2 on 09/12/2019. She required a delay and a dose reduction with the 3rd cycle because of neutropenia and stomatitis. She then continued with cycle 4 on 10/17/2019. She tolerated it with acceptable toxicity. On 10/30/2019 she began her 1st of 12 planned cycles of weekly paclitaxel. She tolerated it without apparent toxicity. In particular, she has had no neuropathy symptoms. She is moderately anemic now, but her granulocyte count remains adequate. Plan: She will continue with week 2 paclitaxel. The dosage remains the same. She returns in 1 week. Signed By: Justen Powell M.D. <<Signature on File>>
== END 2019-11-13 23:59 | disposition home or self-care (01) ==
LOC: ONCMED 05:38
PROVIDERS: Nurse Practitioner; PCP Family Medicine; Visit Provider Internal Medicine Medical Oncology
DX: Z51.12 Encounter for antineoplastic immunotherapy (principal); Z51.11 Encounter for antineoplastic chemotherapy; C50.812 Malignant neoplasm of overlapping sites of left female breast; Z17.1 Estrogen receptor negative status [ER-]; E78.5 Hyperlipidemia, unspecified; E03.9 Hypothyroidism, unspecified; Z85.820 Personal history of malignant melanoma of skin; Z86.010 Personal history of colon polyps
CPT/HCPCS: 80053; 85025; 96367; 96372; 96411; 96413; 99214; J1100; J1200; J1453; J2405; J2469; J2505; J3490; J7040; J7050; J9000; J9070; J9267

== ENCOUNTER 2019-12-12 10:00 | Outpatient (RCR) | payer MEDICARE, OTHER, SELFPAY ==
[2019-11-14] MEDS: acetaminophen 325 mg Tablet 650 MG PO (09:45)
[2019-11-14] MEDS: sodium chloride 0.9% 250 ML 75 ML IV (09:45)
--- NOTE | 2019-11-14 09:50 | ONC FU_ITS ---
[facility] Patient Note Patient: Vee Obrien Unit #: [id number]: 1950 Dictated By: Sudha BhattDate of Visit: Nov 14, 2019 Onc MED Follow-Up/Prog Note Chief Complaint: Breast cancer. History of Present Illness: Ms Obrien is a 69 year-old woman with grade 3 invasive ductal carcinoma of the left breast, stage IIIC (T2, pN3, M0), ER/SD negative and HER-2/geovanny negative. She has been in very good general health. She had presented with an abnormal screening mammogram which reportedly showed a mass in the medial aspect of the left breast. Diagnostic mammogram/ultrasound was BI-RADS 4, suspicious. She then underwent ultrasound-guided needle core biopsy on 07/25/2019. Biopsy showed grade 3 infiltrating ductal carcinoma. The breast prognostic profile showed ER and SD negative, both less than 1%. HER-2/geovanny was 2+ by IHC but negative by FISH with amplification ratio 1.0 with 2.5 HER-2 copies/cell. The Ki-67 was very high at 90%. On 08/03/2019 she underwent left breast lumpectomy and left axillary lymph node dissection. Pathology on the lumpectomy showed grade 3 invasive ductal carcinoma measuring 2.7 cm in greatest dimension. There was a component of ductal carcinoma in situ, solid and comedo types, estimated at 5% of the tumor volume. 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 The margins were negative for invasive cancer. There was involvement in 25 of 25 axillary lymph nodes, the largest measuring 3.[address] Powell had seen her initially on 08/15/2019. Her staging PET/CT on 08/19/2019 showed postsurgical changes in the left breast and axilla. It was negative for metastatic disease or residual malignancy. With that finding, she was recommended to undergo adjuvant chemotherapy with dose dense Adriamycin/cyclophosphamide followed by weekly Taxol for 12 weeks. Her medical history is otherwise significant for Graves' disease, for which she will underwent radioactive iodine ablation in 1987. She has had subsequent hypothyroidism. Other medical illnesses include hyperlipidemia and mild degenerative arthritis. She has a history of inflammatory colon polyps and a history of multiple skin cancers in the facial area. She is a non-smoker. INTERIM HISTORY: She began cycle 1 of Adriamycin/cyclophosphamide on 08/29/2019. She did receive first cycle prophylaxis with Neulasta. She was severely neutropenic at day 8, ANC 200, but she recovered uneventfully. She otherwise tolerated it well, and she continued with cycle 2 on 09/12/2019. That treatment was complicated by neutropenia and stomatitis. Her 3rd cycle was delayed by 1 week, and it was administered with a 20% dose reduction. She was able to tolerate it with acceptable toxicity, and she then continued with cycle 4 on 10/17/2019. On 10/30/2019 she began her 1st of 12 planned weekly cycles of paclitaxel. She tolerated it without acute toxicity. She has had a slight drop in her hemoglobin but that is improved t dorene. Her neutrophils are gradually dropping as well and arre 2300 today on week 3 of 12. She states overall she feels great. She is had no nausea. She is eating good. She states her only complaint is that she has no taste. She states her smell is fine but she just cannot taste much of anything she eats. She denies any nausea or vomiting. She states she has had no neuropathy. She states her energy is good. She has noticed that she has had to stop and rest just a few seconds/minutes when walking from there to the shed to the house which she describes as 100 yards with a slight grade. She denies any orthopnea. She denies any other shortness of breath. She is had no lower extremity edema. She states she does not really feel short winded as much as she just feels a little tired. This could be from the anemia. She denies any pain. She states the nodule in the left breast is softer and Dr. Andrade is also watching that. She follows with Dr. Andrade later this month as well. She recently had an eye exam at [facility] and states the doctor told me everything looked great . She denies any mouth sores, sore throat or difficulty swallowing. Her ECOG is 0. Past Medical History: Colon polyps Degenerative arthritis Graves disease History of skin cancer Hyperlipidemia Hypothyroidism Past Surgical History: Colonoscopy Tonsillectomy Tubal ligation Right subclavian venous access device-Dr Andrade in 2019 Left breast lumpectomy with axillary lymph node dissection in 2019 Ultrsound-guided needle core biopsy of left breast in 2020 Allergies: No Known Allergies. Medications: Aspirin 1 Tablet (of 81 mg) Oral daily Calcium 1 Tablet (of 600 mg) Oral daily Dexamethasone (4 mg) Tablet Oral Take as Directed Fish Oil 1 Capsule (of 1000 mg) Oral daily levoFLOXacin 1 Tablet (of 500 mg) Oral daily LORazepam 0.5 - 1 Tablet (of 1 mg) Oral t.i.d. PRN Prochlorperazine Maleate 1 Tablet (of 10 mg) Oral q 4 hours PRN Simvastatin 1 Tablet (of 40 mg) Oral daily Synthroid 1 Tablet (of 88 mcg) Oral daily Family History: Ms. Obrien's mother at age 88: Alzheimer's disease. Ms. Obrien's father at age 87: pulmonary embolism. Ms. Obrien's maternal grandmother is : colon cancer. Her father had valvular heart disease and at age 87 of pulmonary embolism following a toe amputation. Mother with dementia at age 88. She has 2 older sisters who are both in good health, to her knowledge. Her maternal grandmother had colon cancer. There is no history of breast or ovarian cancer in the family. Social History: Ms. Obrien is and she is retired. Ms. Obrien has never smoked. She has no history of drinking. Ms. Obrien reports the following support systems: lives with spouse, significant other, family, or friends, lives in own house, supportive family/friends willing to assist with needs, and adequate transportation available for expected visits. Her diet consists of regular meals. She indicates her activity level as: regular exercise. Review Of Symptoms: Constitutional Denies fevers, chills, night sweats, excessive fatigue or weight loss. No taste. Complete alopecia now. Allergic/Immunologic No reactions. Eyes Denies significant visual changes. No diplopia. No amaurosis. ENMT Denies changes in hearing, sore throat, mouth sores, difficulty or changes in swallowing ability, and/or sinus drainage. Endocrine No diabetes, thyroid disease or hormone replacement. Denies hot flashes or night sweats. Hematologic/Lymphatic Denies easy bruising or bleeding. The patient denies any tender or palpable lymph nodes. Breasts no concerns. Respiratory Denies dyspnea on exertion, chest pain, cough or hemoptysis. Denies orthopnea. Cardiovascular Denies anginal chest pain, palpitations or orthopnea. Gastrointestinal Denies nausea, vomiting, diarrhea, GI bleeding, or constipation. Denies change in bowel habits and/or stool color, no heartburn or early satiety. Genitourinary (F) No hematuria, hesitancy, incontinence, vaginal bleeding, discharge or other problems with urination. Musculoskeletal Denies joint pain, swelling or redness. No decreased range of motion. Integumentary Denies chronic rashes, inflammation, ulcerations or skin changes. Neurologic Denies headache, blurred vision, and no areas of focal weakness or numbness. Normal gait. No sensory problems. Psychiatric Denies insomnia, depression, ade or mood swings. Vital Signs: Performed on Nov 14, 2019 09:06 Height - 67.00 in Weight - 173.2 lbs (LOW) BSA - 1.90 sq.m BMI - 27.13 Temperature - 97.9 F (LOW) Pulse - 114 /min (HIGH) Respiration - 18 /min BP - 128/94 mm(hg) O2 Sat - 93 % (LOW) Pain - 0,0 - Fully active, able to carry on all predisease activities without restrictions. (ECOG) Physical Examination: Constitutional Alert, oriented, no acute distress. Skin pink, warm and dry. Head Normocephalic; atraumatic. Eyes Conjunctivae and sclerae are clear and without icterus. Pupils are reactive and equal. Neck Supple without masses or thyromegaly. No jugular venous distension. Hematologic/Lymphatic No petechiae or purpura. No tender or palpable lymph nodes in the cervical or supraclavicular areas. Respiratory Lungs are clear to auscultation without rhonchi or wheezing. Cardiovascular Regular rate and rhythm of heart without murmurs,clicks, gallops or rubs. Chest Right chest wall venous access device insertion site has healed well. Breasts Left breast nodule at incision line, firm, non moveable, no redness or warmth, No exudate. Softer than last exam. Abdomen Non-tender, non-distended, no masses or ascites. Back/Spine Non-tender to palpation. Extremities No visible deformities, no cyanosis, clubbing or edema. Musculoskeletal No tenderness or swelling, normal range of motion without obvious weakness. Integumentary No rashes or lesions. Neurologic No sensory or motor deficits, normal cerebellar function, normal gait. Psychiatric Alert and oriented times three. Coherent speech. Verbalizes understanding of our discussions today. Laboratory:Test performed on Nov 13, 2019 08:21 Glucose 99 mg/dL BUN 13 mg/dL Creatinine 0.6 mg/dL Cr Clearance (Est) 111.71 mL/min Sodium 139 mmol/L Potassium 4.1 mmol/L Chloride 106 mmol/L CO2 27 mmol/L Calcium 9.4 mg/dL Protein, Total 6.8 g/dL Albumin 4.0 g/dL Bilirubin, Total 0.4 mg/dL Alkaline Phosphatase 83 IU/L AST (SGOT) 23 IU/L ALT (SGPT) 24 IU/L WBC 3.6 10^9/L RBC 3.29 10^12/L HGB 10.1 g/dL HCT 30.9 % MCV 93.9 fl MCH 30.7 pg MCHC 33 g/dL RDW 17.1 % Platelet Count 331 10^9/L MPV 9.2 fL Neutrophils (Gran) 2.3 10^9/L Lymphocytes 0.8 10^9/L Monocytes 0.3 10^9/L Eosinophils 0.1 10^9/L Basophils 0.1 10^9/L Manual Lymphocytes 22.5 % Manual Monocytes 9.1 % Manual Eosinophils 3.6 % Manual Basophils 1.4 % Test performed on Oct 30, 2019 08:15 Anion Gap 15.2 eGFR 122.0 mL/min Globulin 3.0 g/dL Neutrophil % 90.7 % Lymphocyte % 7.0 % Monocyte % 1.8 % Eosinophil % 0.0 % Basophils % 0.6 % NRBC % 0.5 % CBC Slide Review Slide Review Perform SLIDE REVIEW AGREES WITH AUTOMATED DIFF Test performed on Oct 03, 2019 08:12 Manual Bands % 6.0 % Manual Bands Abs 0.4 10 3/cmm Manual Neutrophils Abs 3.2 10 3/cmm Manual Monocytes Abs 0.8 10 3/cmm Manual Eosinophils Abs 0.1 10 3/cmm Manual Basophils Abs 0.1 10 3/cmm Test performed on Aug 29, 2019 08:55 Manual Lymphocytes Abs 3.8 10 3/cmm Atypical Lymphs % 1.0 % Total Cells Counted 100 Impression: 1. 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 2. She underwent your core biopsy of the left breast followed by lumpectomy and left axillary lymph node dissection on 08/03/2019. Pathology showed a 5% component of DCIS with focal involvement with DCIS at the medial margin. Her other medical illnesses include: 3. History of Graves' disease for which she underwent radioactive iodine ablation in 1987. 4. She has had subsequent hypothyroidism. 5. Mild degenerative arthritis. 6. She has undergone multiple skin cancer excisions. 7. She has a history of hyperplastic colon polyps. Her staging PET/CT showed no evidence of metastatic disease. With that finding, she was advised to undergo adjuvant chemotherapy with dose dense Adriamycin/cyclophosphamide followed by weekly Taxol for 12 weeks. She began cycle 1 of Adriamycin/cyclophosphamide on 08/29/2019. She was given first cycle prophylaxis with Neulasta. She was severely neutropenic at day 8, but she recovered uneventfully. She continue with cycle 2 on 09/12/2019. She completed 4 cycles of Adriamycin Cytoxan on October 17, 2019. She began weekly paclitaxel on October 30, 2019. Overall she is tolerating it well thus far. She presented for cycle 3 on September 26, 2019 and was found to be neutropenic with an ANC of 180. She also had stomatitis. She was treated for stomatitis and given prophylactic antibiotics and delayed 1 week. The stomatitis had resolved and her counts had recovered and she was treated on October 03, 2019 with dose reduction of her chemotherapy. She has tolerated that well and denies any further mouth sores. Plan: 1. Proceed with week 3 paclitaxel. Steroid compliance confirmed. 2. Continue current antiemetics as they are controlling nausea well for her. 3. Labs from November 13, 2019 were reviewed in detail discussed with Ms. Obrien and a copy was given to her. WBC 3.6, hemoglobin 10.1 platelets 3 and 31,000 ANC is 2300 creatinine 0.6 LFTs are normal random glucose was 106. 4. She is planning on having labs drawn next Wednesday and states her orders have instructions for the labs to be called to Dr Powell so that she knows whether or not to come in next week as Wednesday is Day. 5. I have requested a PA for 2 doses of Neupogen 480 mcg to be given starting on day 2 or 3 after chemotherapy. She is curative intent and we would like to pursue full dosing chemotherapy if her neutropenia can be managed with the growth factor support. 6. She was encouraged to call us in the interim if questions or problems arise. Signed By: Sudha Bhatt-, AOCNP Justen Powell MD <<Signature on File>>
--- NOTE | 2019-11-21 09:39 | ONC FU_ITS ---
[facility] Patient Note Patient: Vee Obrien Unit #: [id number]: 1950 Dictated By: Sudha BhattDate of Visit: Nov 21, 2019 Onc MED Follow-Up/Prog Note Chief Complaint: Breast cancer. History of Present Illness: Ms Obrein is a 69 year-old woman with grade 3 invasive ductal carcinoma of the left breast, stage IIIC (T2, pN3, M0), ER/IA negative and HER-2/geovanny negative. She has been in very good general health. She had presented with an abnormal screening mammogram which reportedly showed a mass in the medial aspect of the left breast. Diagnostic mammogram/ultrasound was BI-RADS 4, suspicious. She then underwent ultrasound-guided needle core biopsy on 07/25/2019. Biopsy showed grade 3 infiltrating ductal carcinoma. The breast prognostic profile showed ER and IA negative, both less than 1%. HER-2/geovanny was 2+ by IHC but negative by FISH with amplification ratio 1.0 with 2.5 HER-2 copies/cell. The Ki-67 was very high at 90%. On 08/03/2019 she underwent left breast lumpectomy and left axillary lymph node dissection. Pathology on the lumpectomy showed grade 3 invasive ductal carcinoma measuring 2.7 cm in greatest dimension. There was a component of ductal carcinoma in situ, solid and comedo types, estimated at 5% of the tumor volume. 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 The margins were negative for invasive cancer. There was involvement in 25 of 25 axillary lymph nodes, the largest measuring 3.[address] Powell had seen her initially on 08/15/2019. Her staging PET/CT on 08/19/2019 showed postsurgical changes in the left breast and axilla. It was negative for metastatic disease or residual malignancy. With that finding, she was recommended to undergo adjuvant chemotherapy with dose dense Adriamycin/cyclophosphamide followed by weekly Taxol for 12 weeks. Her medical history is otherwise significant for Graves' disease, for which she will underwent radioactive iodine ablation in 1987. She has had subsequent hypothyroidism. Other medical illnesses include hyperlipidemia and mild degenerative arthritis. She has a history of inflammatory colon polyps and a history of multiple skin cancers in the facial area. She is a non-smoker. INTERIM HISTORY: She began cycle 1 of Adriamycin/cyclophosphamide on 08/29/2019. She did receive first cycle prophylaxis with Neulasta. She was severely neutropenic at day 8, ANC 200, but she recovered uneventfully. She otherwise tolerated it well, and she continued with cycle 2 on 09/12/2019. That treatment was complicated by neutropenia and stomatitis. Her 3rd cycle was delayed by 1 week, and it was administered with a 20% dose reduction. She was able to tolerate it with acceptable toxicity, and she then continued with cycle 4 on 10/17/2019. On 10/30/2019 she began her 1st of 12 planned weekly cycles of paclitaxel. She tolerated it without acute toxicity. She has had a slight drop in her hemoglobin but that is improved today. She did require growth factors after cycle 3 due to chemo induced neutropenia. She tolerated them well. She had 2 doses of Neupogen at 480 mcg daily. She did not have any bone pain fever or chills. She states she did not need to take any Claritin for any discomfort. She has recovered well. She has good energy. She is eating well. Her activity is good. She states that she is had some slight neuropathy on Wednesday night she woke up about 2 in the morning with her hand kind of tingling off and on this lasted for about 3 to 4 hours and then resolved on its own. She denied any further left or right sided numbness or tingling. She has no residual neuropathy symptoms at this time. It is hard to know if this is related to the chemotherapy or from her mastectomy site she did have several lymph nodes removed. She denies any other concerns. She has had no mouth sores or diarrhea. She denies any urinary symptoms. Her ECOG is 0. Past Medical History: Colon polyps Degenerative arthritis Graves disease History of skin cancer Hyperlipidemia Hypothyroidism Past Surgical History: Colonoscopy Tonsillectomy Tubal ligation Right subclavian venous access device-Dr Andrade in 2019 Left breast lumpectomy with axillary lymph node dissection in 2020 Ultrsound-guided needle core biopsy of left breast in 2020 Allergies: No Known Allergies. Medications: Acyclovir 1 Tablet (of 400 mg) Oral daily PRN Aspirin 1 Tablet (of 81 mg) Oral daily Calcium 1 Tablet (of 600 mg) Oral daily Dexamethasone (4 mg) Tablet Oral Take as Directed Fish Oil 1 Capsule (of 1000 mg) Oral daily levoFLOXacin 1 Tablet (of 500 mg) Oral daily PRN LORazepam 0.5 - 1 Tablet (of 1 mg) Oral t.i.d. PRN Prochlorperazine Maleate 1 Tablet (of 10 mg) Oral q 4 hours PRN Simvastatin 1 Tablet (of 40 mg) Oral daily Synthroid 1 Tablet (of 88 mcg) Oral daily Family History: Ms. Obrien's mother at age 88: Alzheimer's disease. Ms. Obrien's father at age 87: pulmonary embolism. Ms. Obrien's maternal grandmother is : colon cancer. Her father had valvular heart disease and at age 87 of pulmonary embolism following a toe amputation. Mother with dementia at age 88. She has 2 older sisters who are both in good health, to her knowledge. Her maternal grandmother had colon cancer. There is no history of breast or ovarian cancer in the family. Social History: Ms. Obrien is and she is retired. Ms. Obrien has never smoked. She has no history of drinking. Ms. Obrien reports the following support systems: lives with spouse, significant other, family, or friends, lives in own house, supportive family/friends willing to assist with needs, and adequate transportation available for expected visits. Her diet consists of regular meals. She indicates her activity level as: regular exercise. Review Of Symptoms: Constitutional Denies fevers, chills, night sweats, excessive fatigue or weight loss. No taste. Complete alopecia now. Allergic/Immunologic No reactions. Eyes Denies significant visual changes. No diplopia. No amaurosis. ENMT Denies changes in hearing, sore throat, mouth sores, difficulty or changes in swallowing ability, and/or sinus drainage. Endocrine No diabetes, thyroid disease or hormone replacement. Denies hot flashes or night sweats. Hematologic/Lymphatic Denies easy bruising or bleeding. The patient denies any tender or palpable lymph nodes. Breasts no concerns. Respiratory Denies dyspnea on exertion, chest pain, cough or hemoptysis. Denies orthopnea. Cardiovascular Denies anginal chest pain, palpitations or orthopnea. Gastrointestinal Denies nausea, vomiting, diarrhea, GI bleeding, or constipation. Denies change in bowel habits and/or stool color, no heartburn or early satiety. Genitourinary (F) No hematuria, hesitancy, incontinence, vaginal bleeding, discharge or other problems with urination. Musculoskeletal Denies joint pain, swelling or redness. No decreased range of motion. Left hand/arm tingling Wednesday night that came and went for about 3-4 hours. Resolved now. No other left or right sided tingling or numbness. Denies any vision or speech changes. No problems since that time. Integumentary Denies chronic rashes, inflammation, ulcerations or skin changes. Neurologic Denies headache, blurred vision, and no areas of focal weakness or numbness at present-see above. Normal gait. Psychiatric Denies insomnia, depression, ade or mood swings. Vital Signs: Performed on Nov 21, 2019 08:47 Height - 67.00 in Weight - 175.6 lbs (HIGH) BSA - 1.91 sq.m BMI - 27.50 Temperature - 97.6 F (LOW) Pulse - 97 /min Respiration - 18 /min BP - 147/96 mm(hg) (HIGH) O2 Sat - 97 % Pain - 0,0 - Fully active, able to carry on all predisease activities without restrictions. (ECOG) Physical Examination: Constitutional Alert, oriented, no acute distress. Skin pink, warm and dry. Complete alopecia. Head Normocephalic; atraumatic. Eyes Conjunctivae and sclerae are clear and without icterus. Pupils are reactive and equal. Neck Supple without masses or thyromegaly. No jugular venous distension. Hematologic/Lymphatic No petechiae or purpura. No tender or palpable lymph nodes in the cervical or supraclavicular areas. Respiratory Lungs are clear to auscultation without rhonchi or wheezing. Cardiovascular Regular rate and rhythm of heart without murmurs,clicks, gallops or rubs. Chest Right chest wall venous access device insertion site has healed well. Abdomen Non-tender, non-distended, no masses or ascites. Back/Spine Non-tender to palpation. Extremities No visible deformities, no cyanosis, clubbing or edema. Musculoskeletal No tenderness or swelling, normal range of motion without obvious weakness. Integumentary No rashes or lesions. Neurologic No sensory or motor deficits, normal cerebellar function, normal gait. Psychiatric Alert and oriented times three. Coherent speech. Verbalizes understanding of our discussions today. Laboratory:Test performed on Nov 13, 2019 08:21 Glucose 99 mg/dL BUN 13 mg/dL Creatinine 0.6 mg/dL Cr Clearance (Est) 111.71 mL/min Sodium 139 mmol/L Potassium 4.1 mmol/L Chloride 106 mmol/L CO2 27 mmol/L Calcium 9.4 mg/dL Protein, Total 6.8 g/dL Albumin 4.0 g/dL Bilirubin, Total 0.4 mg/dL Alkaline Phosphatase 83 IU/L AST (SGOT) 23 IU/L ALT (SGPT) 24 IU/L WBC 3.6 10^9/L RBC 3.29 10^12/L HGB 10.1 g/dL HCT 30.9 % MCV 93.9 fl MCH 30.7 pg MCHC 33 g/dL RDW 17.1 % Platelet Count 331 10^9/L MPV 9.2 fL Neutrophils (Gran) 2.3 10^9/L Lymphocytes 0.8 10^9/L Monocytes 0.3 10^9/L Eosinophils 0.1 10^9/L Basophils 0.1 10^9/L Manual Lymphocytes 22.5 % Manual Monocytes 9.1 % Manual Eosinophils 3.6 % Manual Basophils 1.4 % Test performed on Oct 30, 2019 08:15 Anion Gap 15.2 eGFR 122.0 mL/min Globulin 3.0 g/dL Neutrophil % 90.7 % Lymphocyte % 7.0 % Monocyte % 1.8 % Eosinophil % 0.0 % Basophils % 0.6 % NRBC % 0.5 % CBC Slide Review Slide Review Perform SLIDE REVIEW AGREES WITH AUTOMATED DIFF Test performed on Oct 03, 2019 08:12 Manual Bands % 6.0 % Manual Bands Abs 0.4 10 3/cmm Manual Neutrophils Abs 3.2 10 3/cmm Manual Monocytes Abs 0.8 10 3/cmm Manual Eosinophils Abs 0.1 10 3/cmm Manual Basophils Abs 0.1 10 3/cmm Test performed on Aug 29, 2019 08:55 Manual Lymphocytes Abs 3.8 10 3/cmm Atypical Lymphs % 1.0 % Total Cells Counted 100 Impression: 1. Patient with grade 3 invasive ductal carcinoma of the left breast, stage IIIC (T2, pN3, M0), ER/IA negative and HER-2/geovanny negative. 2. She underwent your core biopsy of the left breast followed by lumpectomy and left axillary lymph node dissection on 08/03/2019. Pathology showed a 5% component of DCIS with focal involvement with DCIS at the medial margin. Her other medical illnesses include: 3. History of Graves' disease for which she underwent radioactive iodine ablation in 1987. 4. She has had subsequent hypothyroidism. 5. Mild degenerative arthritis. 6. She has undergone multiple skin cancer excisions. 7. She has a history of hyperplastic colon polyps. Her staging PET/CT showed no evidence of metastatic disease. With that finding, she was advised to undergo adjuvant chemotherapy with dose dense Adriamycin/cyclophosphamide followed by weekly Taxol for 12 weeks. She began cycle 1 of Adriamycin/cyclophosphamide on 08/29/2019. She was given first cycle prophylaxis with Neulasta. She was severely neutropenic at day 8, but she recovered uneventfully. She continue with cycle 2 on 09/12/2019. She completed 4 cycles of Adriamycin Cytoxan on October 17, 2019. She began weekly paclitaxel on October 30, 2019. Overall she is tolerating it well thus far. She presented for cycle 3 on September 26, 2019 and was found to be neutropenic with an ANC of 180. She also had stomatitis. She was treated for stomatitis and given prophylactic antibiotics and delayed 1 week. The stomatitis had resolved and her counts had recovered and she was treated on October 03, 2019 with dose reduction of her chemotherapy. She has tolerated that well and denies any further mouth sores. Ms. Jordan began her first cycle of paclitaxel on October 30, 2019. She is tolerated it well. She did have chemo induced neutropenia with cycle 3. She was given growth factor for an 80 mcg daily for 2 days and her counts have remained adequate. She has tolerated the growth factor well. She will most likely need to continue with that for now. She is had some intermittent questionable neuropathy symptoms and therefore of asked for a 10% dose reduction today with week 4. Plan: 1. Proceed with week 4/12 paclitaxel with 10% dose reduction due to neuropathy symptoms and chemo induced neutropenia. Steroid compliance confirmed. 2. Continue current antiemetics as they are controlling nausea well for her. 3. Labs from November 20, 2019 were reviewed in detail discussed with Ms. Obrien and a copy was given to her. WBC 6.7, hemoglobin 11.0 platelets 370,000 ANC is 2800 creatinine 0.6 LFTs are normal random glucose was 95. 4. I have requested to repeat 2 doses of Neupogen/Zarxio 480 mcg to be given starting on day 2 or 3 after chemotherapy. She is curative intent and we would like to pursue full dosing chemotherapy if her neutropenia can be managed with the growth factor support. We will check to see if she could have this done at [facility] to save her from a 2.5 hours round trip daily for 2 additional days. 5. Will plan for CBC, CMP next Wednesday and call her with results so she knows whether to take steroids or not. Followup with Chemo in 1 week if blood counts adequate and no other problems arise. 6. She was encouraged to call us in the interim if questions or problems arise. Signed By: Sudha Bhatt-, AOCNP Justen Powell MD <<Signature on File>>
[2019-11-21] MEDS: acetaminophen 325 mg Tablet 650 MG PO (09:50)
[2019-11-21] MEDS: sodium chloride 0.9% 250 ML 75 ML IV (09:55)
[2019-11-28] MEDS: acetaminophen 325 mg Tablet 650 MG PO (10:00)
[2019-11-28] MEDS: sodium chloride 0.9% 250 ML 75 ML IV (10:00)
--- NOTE | 2019-11-28 11:06 | ONC FU_ITS ---
Dr. Powell Patient Follow-Up Note Patient: Vee Obrien Unit #: [id number]: [id number] Dicatated By: Justen Powell M.D.Date of Visit:Nov 28, 2019 Onc Med Follow-up/Prog Note Chief Complaint: Breast cancer. 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 She has been in very good general health. She had presented with an abnormal screening mammogram which reportedly showed a mass in the medial aspect of the left breast. Diagnostic mammogram/ultrasound was BI-RADS 4, suspicious. She then underwent ultrasound-guided needle core biopsy on 07/25/2019. Biopsy showed grade 3 infiltrating ductal carcinoma. The breast prognostic profile showed ER and MO negative, both less than 1%. HER-2/geovanny was 2+ by IHC but negative by FISH with amplification ratio 1.0 with 2.5 HER-2 copies/cell. The Ki-67 was very high at 90%. On 08/03/2019 she underwent left breast lumpectomy and left axillary lymph node dissection. Pathology on the lumpectomy showed grade 3 invasive ductal carcinoma measuring 2.7 cm in greatest dimension. There was a component of ductal carcinoma in situ, solid and comedo types, estimated at 5% of the tumor volume. 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 The margins were negative for invasive cancer. There was involvement in 25 of 25 axillary lymph nodes, the largest measuring 3.6 cm. I had seen her initially on 08/15/2019. Her staging PET/CT on 08/19/2019 showed postsurgical changes in the left breast and axilla. It was negative for metastatic disease or residual malignancy. With that finding, she was recommended to undergo adjuvant chemotherapy with dose dense Adriamycin/cyclophosphamide followed by weekly Taxol for 12 weeks. Her medical history is otherwise significant for Graves' disease, for which she will underwent radioactive iodine ablation in 1987. She has had subsequent hypothyroidism. Other medical illnesses include hyperlipidemia and mild degenerative arthritis. She has a history of inflammatory colon polyps and a history of multiple skin cancers in the facial area. She is a non-smoker. INTERIM HISTORY: She began cycle 1 of Adriamycin/cyclophosphamide on 08/29/2019. She did receive first cycle prophylaxis with Neulasta. She was severely neutropenic at day 8, ANC 200, but she recovered uneventfully. She otherwise tolerated it well, and she continued with cycle 2 on 09/12/2019. That treatment was complicated by neutropenia and stomatitis. Her 3rd cycle was delayed by 1 week, and it was administered with a 20% dose reduction. She was able to tolerate it with acceptable toxicity, and she then continued with cycle 4 on 10/17/2019. On 10/30/2019 she began her 1st of 12 planned weekly cycles of paclitaxel. She tolerated it without acute toxicity. Following her week 3 treatment she was given Neupogen for 2 doses due to declining neutrophil count. With her week 4 treatment on 11/21/2019 she was given a 10% dose reduction due to neuropathy. She was again given prophylactic Neupogen for 2 doses. She is seen for a scheduled visit. She has been feeling good generally. She has good energy in the mornings, she is tired by afternoon. ECOG score is 1. Her appetite is good, she has lost her taste. She does not have fever, night sweats, or hot flashes. She has had no mouth sores. She has some shortness of breath if she hurries. She does not complain of cough and she has not been having chest pain. She has no GI complaints. She has urinary frequency, which is not new. She has no significant joint or bone pain. She had no recurrence of numbness/tingling following her last treatment. Medications: Acyclovir 1 Tablet (of 400 mg) Oral daily PRN, Aspirin 1 Tablet (of 81 mg) Oral daily, Calcium 1 Tablet (of 600 mg) Oral daily, Dexamethasone (4 mg) Tablet Oral Take as Directed, Fish Oil 1 Capsule (of 1000 mg) Oral daily, levoFLOXacin 1 Tablet (of 500 mg) Oral daily PRN, LORazepam 0.5 - 1 Tablet (of 1 mg) Oral t.i.d. PRN, Prochlorperazine Maleate 1 Tablet (of 10 mg) Oral q 4 hours PRN, Simvastatin 1 Tablet (of 40 mg) Oral daily, Synthroid 1 Tablet (of 88 mcg) Oral daily Allergies: No Known Allergies. Review of Systems: Constitutional - She is feeling really good. Her energy is typically good in the mornings, but she does get tired by afternoon. Her appetite is good and her weight is down a few pounds. No fever, night sweats, or hot flashes. ECOG score is 1, ENMT - No sinus congestion/drainage. No mouth sores. No sore throat or difficulty swallowing, Hematologic/Lymphatic - She bruises easily, Respiratory - She gets short of breath if she is in a hurry. No cough. No pleuritic pain or hemoptysis, Cardiovascular - No angina pain. No palpitations, Gastrointestinal - No nausea or vomiting. No heartburn or acid reflux. No diarrhea or constipation. No blood in the stool or black stools, Genitourinary (F) - No dysuria or hematuria. She has urinary frequency both day and night. No urgency or incontinence, Musculoskeletal - No joint or bone pain, Integumentary - No skin complications, Neurologic - No headache or dizziness. She has some faint tingling in her fingers. No other focal neurologic symptoms, Psychiatric - No anxiety or depression. No insomnia. Vital Signs: Performed on Nov 28, 2019 09:16 Height - 67.00 in Weight - 173.4 lbs (LOW) BSA - 1.90 sq.m BMI - 27.16 Temperature - 98.0 F (LOW) Pulse - 106 /min (HIGH) Respiration - 22 /min BP - 144/90 mm(hg) (HIGH) O2 Sat - 94 % (LOW) Pain - 0 Physical Examination: Constitutional - She looks good generally, Eyes - Sclerae nonicteric. Conjunctivae clear, ENMT - No lesions noted in the oral cavity, Hematologic/Lymphatic - No cervical, clavicular, or axillary adenopathy, Respiratory - Lungs are clear with good air movement bilaterally, Cardiovascular - Heart rhythm is regular. There is a II/ systolic murmur. There is no gallop or rub noted, Abdomen - Soft. Liver and spleen are not enlarged. There is no abdominal mass or ascites noted and there is no inguinal adenopathy, Extremities - No edema, Neurologic - No focal neurologic deficits noted. Lab/Imaging: Test performed on Nov 27, 2019 08:08 Glucose 94 mg/dL BUN 13 mg/dL Creatinine 0.6 mg/dL Cr Clearance (Est) 111.71 mL/min BUN/Creatinine Ratio 22 Absolute Value Sodium 140 mmol/L Potassium 4.0 mmol/L Chloride 108 mmol/L CO2 25 mmol/L Calcium 9.4 mg/dL Protein, Total 6.9 g/dL Albumin 4.0 g/dL A/G Ratio 1.4 Absolute Value Bilirubin, Total 0.5 mg/dL Alkaline Phosphatase 111 IU/L AST (SGOT) 24 IU/L ALT (SGPT) 28 IU/L WBC 9.1 10^9/L RBC 3.36 10^12/L HGB 10.6 g/dL HCT 32.5 % MCV 97.0 fl MCH 31.6 pg MCHC 33 g/dL RDW 18.8 % Platelet Count 265 10^9/L MPV 9.4 fL Neutrophils (Gran) 6.9 10^9/L Lymphocytes 1.2 10^9/L Monocytes 0.6 10^9/L Eosinophils 0.3 10^9/L Basophils 0.1 10^9/L Manual Lymphocytes 12.8 % Manual Monocytes 6.6 % Manual Eosinophils 3.5 % Manual Basophils 0.5 % Impression: 1. Patient with grade 3 invasive ductal carcinoma of the left breast, stage IIIC (T2, pN3, M0), ER/MO negative and HER-2/geovanny negative. 2. She underwent your core biopsy of the left breast followed by lumpectomy and left axillary lymph node dissection on 08/03/2019. Pathology showed a 5% component of DCIS with focal involvement with DCIS at the medial margin. Her other medical illnesses include: 3. History of Graves' disease for which she underwent radioactive iodine ablation in 1987. 4. She has had subsequent hypothyroidism. 5. Mild degenerative arthritis. 6. She has undergone multiple skin cancer excisions. 7. She has a history of hyperplastic colon polyps. Her staging PET/CT showed no evidence of metastatic disease. With that finding, she was advised to undergo adjuvant chemotherapy with dose dense Adriamycin/cyclophosphamide followed by weekly Taxol for 12 weeks. She began cycle 1 of Adriamycin/cyclophosphamide on 08/29/2019. She was given first cycle prophylaxis with Neulasta. She was severely neutropenic at day 8, but she recovered uneventfully. She continued with cycle 2 on 09/12/2019. She required a delay and a dose reduction with the 3rd cycle because of neutropenia and stomatitis. She then continued with cycle 4 on 10/17/2019. She tolerated it with acceptable toxicity. On 10/30/2019 she began her 1st of 12 planned cycles of weekly paclitaxel. She tolerated it without apparent toxicity. She has now completed 4 weekly infusions of paclitaxel. Overall, she has tolerated treatment well. She does have mild fatigue and she is mildly anemic. She was given Neupogen prophylactically with her week 3 and week 4 treatments and with that her neutrophil count has remained adequate. She was given a 10% dose reduction with week 4 due to neuropathy, but she currently has no residual neuropathy symptoms. Plan: She will proceed with week 5 paclitaxel. The dosage remains the same. She will be given Neupogen prophylactically, but I will try reducing it to just 1 day. She returns in 1 week. Signed By: Justen Powell M.D. <<Signature on File>>
[2019-12-05] MEDS: sodium chloride 0.9% 250 ML 75 ML IV (12:15)
[2019-12-05] MEDS: acetaminophen 325 mg Tablet 650 MG PO (12:30)
--- NOTE | 2019-12-12 10:04 | CT_ITS ---
WS: [id number] CTA OF THE CHEST WITH PULMONARY EMBOLISM PROTOCOL TECHNIQUE: High-resolution contrast enhanced CTA of the chest with coronal and sagittal reformatted i mages with pulmonary embolism protocol. MIP images are also reviewed. CLINICAL INFORMATION: BREAST CANCER, SHORTNESS OF BREATH COMPARISON: PET CT August 19, 2019 DLP: 809.[address] scans at [facility] use at least one of these dose optimization techniques: automat ed exposure control; mA and/or kV adjustment per patient size (includes targeted exams where dose is matched to clinical indication); or iterative reconstruction. FINDINGS: Prior postoperative changes left breast and left axilla. Proximal main pulmonary arteries are patent. Extensive filling defects consistent with pulmonary embolus in the proximal segmental extending into the subsegmental pulmonary arteries involving bilateral upper lobes, right middle lobe, and right lo wer lobe. Additional embolus involving the lingula and left lower lobe. Normal caliber thoracic aorta. No mediastinal or hilar lymphadenopathy. New dense focal opacity right lower lobe likely represents round atelectasis measuring 1.8 cm. Recommend follow-up chest CT. Hazy groundglass infiltrates in both upper lobes. No focal consolidation or pleural fluid. Adrenal glands are normal. Fatty atrophy of the pancreas. Splenic granulomas. Chronic appearing serom a in the left axilla along the surgical lymph node resection site measuring 3.[address]/CT angio chest PE protcl [id number] IMPRESSION: 1. Extensive bilateral pulmonary embolus involving segmental and subsegmental pulmonary arteries bilaterally described above. 2. No mediastinal or hilar lymphadenopathy. 3. Focal opacity in the right lower lobe measuring 1.8 cm in a subpleural loca tion likely represents round atelectasis. Recommend 2-[address] follow-u p or further evaluation with PET/CT. 4. Hazy groundglass infiltrates in both upper lobes likely infectious or infla mmatory 5. Mild chronic emphysematous changes. 6. Prior postoperative changes left breast and left axillary lymph node dissec tion. Chronic seroma left axilla 3.1 x 2.5 cm Notified Justen Powell MD at 12/12/2019 10:47 AM.
[2019-12-12] MEDS: iohexol 350 mg/mL 100 mL Btl IV (10:30)
--- NOTE | 2019-12-14 21:34 | ONC FU_ITS ---
[facility] Patient Note Patient: Vee Obrien Unit #: [id number]: 1950 Dictated By: Sudha BhattDate of Visit: Dec 05, 2019 Onc MED Follow-Up/Prog Note Chief Complaint: Breast cancer. History of Present Illness: Mrs Obrien is a 69 year-old woman with grade 3 invasive ductal carcinoma of the left breast, stage IIIC (T2, pN3, M0), ER/TN negative and HER-2/geovanny negative. She has been in very good general health. She had presented with an abnormal screening mammogram which reportedly showed a mass in the medial aspect of the left breast. Diagnostic mammogram/ultrasound was BI-RADS 4, suspicious. She then underwent ultrasound-guided needle core biopsy on 07/25/2019. Biopsy showed grade 3 infiltrating ductal carcinoma. The breast prognostic profile showed ER and [place] negative, both less than 1%. HER-2/geovanny was 2+ by IHC but negative by FISH with amplification ratio 1.0 with 2.5 HER-2 copies/cell. The Ki-67 was very high at 90%. On 08/03/2019 she underwent left breast lumpectomy and left axillary lymph node dissection. Pathology on the lumpectomy showed grade 3 invasive ductal carcinoma measuring 2.7 cm in greatest dimension. There was a component of ductal carcinoma in situ, solid and comedo types, estimated at 5% of the tumor volume. 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 The margins were negative for invasive cancer. There was involvement in 25 of 25 axillary lymph nodes, the largest measuring 3.[address] Powell had seen her initially on 08/15/2019. Her staging PET/CT on 08/19/2019 showed postsurgical changes in the left breast and axilla. It was negative for metastatic disease or residual malignancy. With that finding, she was recommended to undergo adjuvant chemotherapy with dose dense Adriamycin/cyclophosphamide followed by weekly Taxol for 12 weeks. Her medical history is otherwise significant for Graves' disease, for which she will underwent radioactive iodine ablation in 1987. She has had subsequent hypothyroidism. Other medical illnesses include hyperlipidemia and mild degenerative arthritis. She has a history of inflammatory colon polyps and a history of multiple skin cancers in the facial area. She is a non-smoker. INTERIM HISTORY: She began cycle 1 of Adriamycin/cyclophosphamide on 08/29/2019. She did receive first cycle prophylaxis with Neulasta. She was severely neutropenic at day 8, ANC 200, but she recovered uneventfully. She otherwise tolerated it well, and she continued with cycle 2 on 09/12/2019. That treatment was complicated by neutropenia and stomatitis. Her 3rd cycle was delayed by 1 week, and it was administered with a 20% dose reduction. She was able to tolerate it with acceptable toxicity, and she then continued with cycle 4 on 10/17/2019. On 10/30/2019 she began her 1st of 12 planned weekly cycles of paclitaxel. She tolerated it without acute toxicity. Following her week 3 treatment she was given Neupogen for 2 doses due to declining neutrophil count. With her week 4 treatment on 11/21/2019 she was given a 10% dose reduction due to neuropathy. She was again given prophylactic Neupogen for 2 doses. Mrs Obrien is here today for followup. She has no new concerns today. She states she feels great. She has been very active. She states she is eating good. She states her energy is good. She denies any shortness of breath or orthopnea. She denies any chest pain or palpitations. She denies any fever, chills cough, or hemoptysis. She denies any COVID type symptoms, known exposure or any COVID testing personally. She states her bowel and bladder are normal for her. She states she really does feel good overall. Her ECOG is 0. Past Medical History: Colon polyps Degenerative arthritis Graves disease History of skin cancer Hyperlipidemia Hypothyroidism Past Surgical History: Colonoscopy Tonsillectomy Tubal ligation Right subclavian venous access device-Dr Andrade in 2019 Left breast lumpectomy with axillary lymph node dissection in 2019 Ultrsound-guided needle core biopsy of left breast in 2019 Allergies: No Known Allergies. Medications: Acyclovir 1 Tablet (of 400 mg) Oral daily PRN Aspirin 1 Tablet (of 81 mg) Oral daily Calcium 1 Tablet (of 600 mg) Oral daily Dexamethasone (4 mg) Tablet Oral Take as Directed Fish Oil 1 Capsule (of 1000 mg) Oral daily levoFLOXacin 1 Tablet (of 500 mg) Oral daily PRN LORazepam 0.5 - 1 Tablet (of 1 mg) Oral t.i.d. PRN Prochlorperazine Maleate 1 Tablet (of 10 mg) Oral q 4 hours PRN Simvastatin 1 Tablet (of 40 mg) Oral daily Synthroid 1 Tablet (of 88 mcg) Oral daily Family History: Ms. Obrien's mother at age 88: Alzheimer's disease. Ms. Obrien's father at age 87: pulmonary embolism. Ms. Obrien's maternal grandmother is : colon cancer. Her father had valvular heart disease and at age 87 of pulmonary embolism following a toe amputation. Mother with dementia at age 88. She has 2 older sisters who are both in good health, to her knowledge. Her maternal grandmother had colon cancer. There is no history of breast or ovarian cancer in the family. Social History: Ms. Obrien is and she is retired. Ms. Obrien has never smoked. She has no history of drinking. Ms. Obrien reports the following support systems: lives with spouse, significant other, family, or friends, lives in own house, supportive family/friends willing to assist with needs, and adequate transportation available for expected visits. Her diet consists of regular meals. She indicates her activity level as: regular exercise. Review Of Symptoms: Constitutional Denies fevers, chills, night sweats, excessive fatigue or weight loss. No taste. Complete alopecia now. Allergic/Immunologic No reactions. Eyes Denies significant visual changes. No diplopia. No amaurosis. ENMT Denies changes in hearing, sore throat, mouth sores, difficulty or changes in swallowing ability, and/or sinus drainage. Endocrine No diabetes, thyroid disease or hormone replacement. Denies hot flashes or night sweats. Hematologic/Lymphatic Denies easy bruising or bleeding. The patient denies any tender or palpable lymph nodes. Breasts no concerns. Respiratory Denies dyspnea on exertion, chest pain, cough or hemoptysis. Denies orthopnea. Cardiovascular Denies anginal chest pain, palpitations or orthopnea. Gastrointestinal Denies nausea, vomiting, diarrhea, GI bleeding, or constipation. Denies change in bowel habits and/or stool color, no heartburn or early satiety. Genitourinary (F) No hematuria, hesitancy, incontinence, vaginal bleeding, discharge or other problems with urination. Musculoskeletal Denies joint pain, swelling or redness. No decreased range of motion. . Integumentary Denies chronic rashes, inflammation, ulcerations or skin changes. Neurologic Denies headache, blurred vision, and no areas of focal weakness or numbness at present-see above. Normal gait. Psychiatric Denies insomnia, depression, ade or mood swings. Vital Signs: Performed on Dec 05, 2019 14:10 Height - 67.00 in Temperature - 97.2 F (LOW) Pulse - 91 /min Respiration - 18 /min BP - 151/92 mm(hg) (HIGH) O2 Sat - 94 % (LOW) Pain - 0 Fatigue - 0 Performed on Dec 05, 2019 11:16 Height - 67.00 in Weight - 173.2 lbs (LOW) BSA - 1.90 sq.m BMI - 27.13 Temperature - 97.3 F (LOW) Pulse - 100 /min Respiration - 18 /min BP - 148/86 mm(hg) (HIGH) O2 Sat - 93 % (LOW) Pain - 0,0 - Fully active, able to carry on all predisease activities without restrictions. (ECOG) Physical Examination: Constitutional Alert, oriented, no acute distress. Skin pink, warm and dry. Complete alopecia. Head Normocephalic; atraumatic. Eyes Conjunctivae and sclerae are clear and without icterus. Pupils are reactive and equal. Neck Supple without masses or thyromegaly. No jugular venous distension. Hematologic/Lymphatic No petechiae or purpura. No tender or palpable lymph nodes in the cervical or supraclavicular areas. Respiratory Lungs are clear to auscultation without rhonchi or wheezing. Cardiovascular Regular rate and rhythm of heart without murmurs,clicks, gallops or rubs. Chest Right chest wall venous access device insertion site has healed well. Abdomen Non-tender, non-distended, no masses or ascites. Back/Spine Non-tender to palpation. Extremities No visible deformities, no cyanosis, clubbing or edema. Musculoskeletal No tenderness or swelling, normal range of motion without obvious weakness. Integumentary No rashes or lesions. Neurologic No sensory or motor deficits, normal cerebellar function, normal gait. Psychiatric Alert and oriented times three. Coherent speech. Verbalizes understanding of our discussions today. Laboratory:Test performed on Dec 04, 2019 09:43 Glucose 101 mg/dL BUN 11 mg/dL Creatinine 0.6 mg/dL Cr Clearance (Est) 111.71 mL/min Sodium 140 mmol/L Potassium 3.8 mmol/L Chloride 106 mmol/L CO2 27 mmol/L Calcium 9.4 mg/dL Protein, Total 6.7 g/dL Albumin 4 g/dL A/G Ratio 1.5 Absolute Value Bilirubin, Total 0.6 mg/dL Alkaline Phosphatase 91 IU/L AST (SGOT) 23 IU/L ALT (SGPT) 22 IU/L WBC 6.6 10^9/L RBC 3.26 10^12/L HGB 10.3 g/dL HCT 31.7 % MCV 97.2 fl MCH 31.6 pg MCHC 33 g/dL RDW 18.6 % Platelet Count 256 10^9/L Neutrophils (Gran) 4.5 10^9/L Lymphocytes 1 10^9/L Monocytes 0.7 10^9/L Eosinophils 0.3 10^9/L Basophils 0.1 10^9/L Impression: 1. Patient with grade 3 invasive ductal carcinoma of the left breast, stage IIIC (T2, pN3, M0), ER/TN negative and HER-2/geovanny negative. 2. She underwent your core biopsy of the left breast followed by lumpectomy and left axillary lymph node dissection on 08/03/2019. Pathology showed a 5% component of DCIS with focal involvement with DCIS at the medial margin. Her other medical illnesses include: 3. History of Graves' disease for which she underwent radioactive iodine ablation in 1987. 4. She has had subsequent hypothyroidism. 5. Mild degenerative arthritis. 6. She has undergone multiple skin cancer excisions. 7. She has a history of hyperplastic colon polyps. Her staging PET/CT showed no evidence of metastatic disease. With that finding, she was advised to undergo adjuvant chemotherapy with dose dense Adriamycin/cyclophosphamide followed by weekly Taxol for 12 weeks. She began cycle 1 of Adriamycin/cyclophosphamide on 08/29/2019. She was given first cycle prophylaxis with Neulasta. She was severely neutropenic at day 8, but she recovered uneventfully. She continued with cycle 2 on 09/12/2019. She required a delay and a dose reduction with the 3rd cycle because of neutropenia and stomatitis. She then continued with cycle 4 on 10/17/2019. She tolerated it with acceptable toxicity. On 10/30/2019 she began her 1st of 12 planned cycles of weekly paclitaxel. She tolerated it without apparent toxicity. She has now completed 4 weekly infusions of paclitaxel. Overall, she has tolerated treatment well. She does have mild fatigue and she is mildly anemic. She was given Neupogen prophylactically with her week 3 and week 4 treatments and with that her neutrophil count has remained adequate. She was given a 10% dose reduction with week 4 due to neuropathy, but she currently has no residual neuropathy symptoms. Plan: 1. Proceed with week 08/24 paclitaxel with 10% dose reduction due to neuropathy symptoms and chemo induced neutropenia. Steroid compliance confirmed. 2. Continue current antiemetics as they are controlling nausea well for her. 3. Labs from December 04, 2019 were reviewed in detail discussed with Ms. Obrien and a copy was given to her. WBC 6.6, hemoglobin 10.3 platelets 256,000 ANC is 4500 creatinine 0.6 LFTs are normal random glucose was 101. 4. I have requested to repeat 1 dose of Neupogen/Zarxio 480 mcg to be given starting on day 2 or 3 after chemotherapy. She is curative intent and we would like to pursue full dosing chemotherapy if her neutropenia can be managed with the growth factor support. She will have this done at to save her from a 2.5 hours round trip daily. 5. Will plan for CBC, CMP next Wednesday and call her with results so she knows whether to take steroids or not. Followup with Chemo in 1 week if blood counts adequate and no other problems arise. 6. She was encouraged to call us in the interim if questions or problems arise. Signed By: Sudha Bhatt-, AOP Justen Powell MD <<Signature on File>>
--- NOTE | 2019-12-16 13:36 | ONC FU_ITS ---
Dr. Powell Patient Follow-Up Note Patient: Vee Obrien Unit #: [id number]: 1950 Dicatated By: Justen Powell M.D.Date of Visit:Dec 12, 2019 Onc Med Follow-up/Prog Note Chief Complaint: Breast cancer. 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 She has been in very good general health. She had presented with an abnormal screening mammogram which reportedly showed a mass in the medial aspect of the left breast. Diagnostic mammogram/ultrasound was BI-RADS 4, suspicious. She then underwent ultrasound-guided needle core biopsy on 07/25/2019. Biopsy showed grade 3 infiltrating ductal carcinoma. The breast prognostic profile showed ER and [place] negative, both less than 1%. HER-2/geovanny was 2+ by IHC but negative by FISH with amplification ratio 1.0 with 2.5 HER-2 copies/cell. The Ki-67 was very high at 90%. On 08/03/2019 she underwent left breast lumpectomy and left axillary lymph node dissection. Pathology on the lumpectomy showed grade 3 invasive ductal carcinoma measuring 2.7 cm in greatest dimension. There was a component of ductal carcinoma in situ, solid and comedo types, estimated at 5% of the tumor volume. 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 The margins were negative for invasive cancer. There was involvement in 25 of 25 axillary lymph nodes, the largest measuring 3.6 cm. I had seen her initially on 08/15/2019. Her staging PET/CT on 08/19/2019 showed postsurgical changes in the left breast and axilla. It was negative for metastatic disease or residual malignancy. With that finding, she was recommended to undergo adjuvant chemotherapy with dose dense Adriamycin/cyclophosphamide followed by weekly Taxol for 12 weeks. Her medical history is otherwise significant for Graves' disease, for which she will underwent radioactive iodine ablation in 1987. She has had subsequent hypothyroidism. Other medical illnesses include hyperlipidemia and mild degenerative arthritis. She has a history of inflammatory colon polyps and a history of multiple skin cancers in the facial area. She is a non-smoker. INTERIM HISTORY: She began cycle 1 of Adriamycin/cyclophosphamide on 08/29/2019. She did receive first cycle prophylaxis with Neulasta. She was severely neutropenic at day 8, ANC 200, but she recovered uneventfully. She otherwise tolerated it well, and she continued with cycle 2 on 09/12/2019. That treatment was complicated by neutropenia and stomatitis. Her 3rd cycle was delayed by 1 week, and it was administered with a 20% dose reduction. She was able to tolerate it with acceptable toxicity, and she then continued with cycle 4 on 10/17/2019. On 10/30/2019 she began her 1st of 12 planned weekly cycles of paclitaxel. She tolerated it without acute toxicity. Following her week 3 treatment she was given Neupogen for 2 doses due to declining neutrophil count. With her week 4 treatment on 11/21/2019 she was given a 10% dose reduction due to neuropathy. She was again given prophylactic Neupogen for 2 doses. She tolerated it well and she then continued with week 5 paclitaxel on 11/28/2019 and with week 6 on 12/05/2019, both administered without growth factor support. She is seen for a scheduled visit. She has been tolerating the chemotherapy well since a dose reduction at week 4. However, for the past week she has been short of breath a lot and she complains of having weakness below her hips and knees. She has had some dizzy spells. She has had a decrease in her activity tolerance. Her ECOG score is 2. Her appetite is not good, as food still tastes nasty. She has no fever or night sweats. She has had no mouth sores. She sometimes has cough when she takes deep breaths. She has not been having chest pain. She has no GI or complaints. She has no significant joint or bone pain. She does not complain of headache. She has no numbness/tingling or other focal neurologic symptoms. Medications: Acyclovir 1 Tablet (of 400 mg) Oral daily PRN, Aspirin 1 Tablet (of 81 mg) Oral daily, Calcium 1 Tablet (of 600 mg) Oral daily, Dexamethasone (4 mg) Tablet Oral Take as Directed, Fish Oil 1 Capsule (of 1000 mg) Oral daily, levoFLOXacin 1 Tablet (of 500 mg) Oral daily PRN, LORazepam 0.5 - 1 Tablet (of 1 mg) Oral t.i.d. PRN, Prochlorperazine Maleate 1 Tablet (of 10 mg) Oral q 4 hours PRN, Simvastatin 1 Tablet (of 40 mg) Oral daily, Synthroid 1 Tablet (of 88 mcg) Oral daily Allergies: No Known Allergies. Review of Systems: Constitutional - She is feeling very weak. Her appetite has decreased and she reports alteration in taste. Her weight is down 3 pounds. No fever, night sweats, or hot flashes. ECOG score is 2, ENMT - No sinus congestion/drainage. No mouth sores. No sore throat or difficulty swallowing, Hematologic/Lymphatic - No abnormal bruising or bleeding, Respiratory - She is having a significant amount of shortness of breath. No cough. No pleuritic pain or hemoptysis, Cardiovascular - No angina pain. No palpitations, Gastrointestinal - No nausea or vomiting. No heartburn or acid reflux. No diarrhea or constipation. No blood in the stool or black stools, Genitourinary (F) - No dysuria or hematuria. No urinary frequency. No urgency or incontinence, Musculoskeletal - No joint or bone pain, Integumentary - , Neurologic - No headache. She does have dizziness. No numbness or tingling. No other focal neurologic symptoms, Psychiatric - No anxiety or depression. She sometimes has difficulty sleeping. Vital Signs: Performed on Dec 12, 2019 09:19 Height - 67.00 in Weight - 170.0 lbs (LOW) BSA - 1.89 sq.m BMI - 26.63 Temperature - 98.2 F (LOW) Pulse - 104 /min (HIGH) Respiration - 28 /min BP - 140/86 mm(hg) O2 Sat - 95 % (LOW) Pain - 0 Physical Examination: Constitutional - She appears short of breath with any effort, Eyes - Sclerae nonicteric. Conjunctivae clear, ENMT - No lesions noted in the oral cavity, Hematologic/Lymphatic - No cervical, clavicular, or axillary adenopathy, Respiratory - Lungs are clear with good air movement bilaterally, Cardiovascular - Heart rhythm is regular with a mild tachycardia. There is a II/ systolic murmur. There is no gallop or rub noted, Abdomen - Soft. Liver and spleen are not enlarged. There is no abdominal mass or ascites noted and there is no inguinal adenopathy, Extremities - No edema, Neurologic - No focal neurologic deficits noted. Impression: 1. Patient with grade 3 invasive ductal carcinoma of the left breast, stage IIIC (T2, pN3, M0), ER/[place] negative and HER-2/geovanny negative. 2. She underwent your core biopsy of the left breast followed by lumpectomy and left axillary lymph node dissection on 08/03/2019. Pathology showed a 5% component of DCIS with focal involvement with DCIS at the medial margin. Her other medical illnesses include: 3. History of Graves' disease for which she underwent radioactive iodine ablation in 1987. 4. She has had subsequent hypothyroidism. 5. Mild degenerative arthritis. 6. She has undergone multiple skin cancer excisions. 7. She has a history of hyperplastic colon polyps. Her staging PET/CT showed no evidence of metastatic disease. With that finding, she was advised to undergo adjuvant chemotherapy with dose dense Adriamycin/cyclophosphamide followed by weekly Taxol for 12 weeks. She began cycle 1 of Adriamycin/cyclophosphamide on 08/29/2019. She was given first cycle prophylaxis with Neulasta. She was severely neutropenic at day 8, but she recovered uneventfully. She continued with cycle 2 on 09/12/2019. She required a delay and a dose reduction with the 3rd cycle because of neutropenia and stomatitis. She then continued with cycle 4 on 10/17/2019. She tolerated it with acceptable toxicity. On 10/30/2019 she began her 1st of 12 planned cycles of weekly paclitaxel. She tolerated it without apparent toxicity. She has now completed 4 weekly infusions of paclitaxel. Overall, she has tolerated treatment well. She does have mild fatigue and she is mildly anemic. She was given Neupogen prophylactically with her week 3 and week 4 treatments and with that her neutrophil count has remained adequate. She was given a 10% dose reduction with week 4 due to neuropathy. She tolerated that treatment well, and she was able to continue with week 5 paclitaxel on 11/28/2019 and with week 6 on 12/05/2019. She comes in now complaining of shortness of breath for the past week, and she does appear short of breath with any effort. Her resting oxygen saturation is normal at 95%, but with activity it decreases to 86%, and she does have associated tachycardia. Plan: She has significant shortness of breath and hypoxia. Her treatment will be put on hold. She is being scheduled for CT pulmonary angiogram today. She will have further evaluation as indicated. Signed By: Justen Powell M.D. <<Signature on File>>
== END 2019-12-13 23:59 | disposition home or self-care (01) ==
LOC: RADWPI 10:00
PROVIDERS: PCP Family Medicine; Visit Provider Internal Medicine Medical Oncology
DX: Z51.11 Encounter for antineoplastic chemotherapy (principal); C50.812 Malignant neoplasm of overlapping sites of left female breast; I26.99 Other pulmonary embolism without acute cor pulmonale; E89.0 Postprocedural hypothyroidism; R00.0 Tachycardia, unspecified; D70.1 Agranulocytosis secondary to cancer chemotherapy; G62.0 Drug-induced polyneuropathy; T45.1X5A Adverse effect of antineoplastic and immunosuppressive drugs, initial encounter; M19.90 Unspecified osteoarthritis, unspecified site; Z17.1 Estrogen receptor negative status [ER-]; Z79.899 Other long term (current) drug therapy; Z85.828 Personal history of other malignant neoplasm of skin; Z86.39 Personal history of other endocrine, nutritional and metabolic disease; Z87.19 Personal history of other diseases of the digestive system; Z79.52 Long term (current) use of systemic steroids; Z76.89 Persons encountering health services in other specified circumstances
CPT/HCPCS: 71275; 96367; 96372; 96413; 99214; J1100; J1200; J1442; J1453; J2405; J3490; J7050; J9267; Q9967

== ENCOUNTER 2019-12-12 11:57 | Inpatient (IN) | payer MEDICARE, OTHER, SELFPAY ==
[2019-12-12] VITALS (7 sets, daily range): BP systolic 110–154; BP diastolic 71–98; PULSE 93–97; RESP 18–20; TEMP 36.5–36.6; O2SAT 94–96; BMI 26.6
--- NOTE | 2019-12-12 12:02 | ECG_ITS ---
[facility] Test Date: 2019-12-12 Pat Name: Vee Obrien Department: Room: Gender: Female Quality Engineer Medical Device: : 1950 Requested By: Daily Irwin Order Number: [id number] Reading MD: Enma Villalpando M.D. Measurements Intervals [place] Rate: 95 P: 30 VA: 170 QRS: -25 QRSD: 95 T: 31 QT: 374 QTc: 471 Interpretive Statements SINUS RHYTHM WITH OCCASIONAL VENTRICULAR PREMATURE COMPLEXES INCOMPLETE RIGHT BUNDLE BRANCH BLOCK [90+ ms QRS DURATION, TERMINAL R IN V1/V2, 40+ ms S IN I/aVL/V4/V5/V6] INFERIOR MYOCARDIAL INFARCTION [40+ ms Q WAVE AND/OR ST/T ABNORMALITY IN II/aVF], OF INDETERMINATE AGE INTERPRETATION BASED ON A DEFAULT AGE OF 40 YEARS No previous ECG available for comparison Electronically Signed On 12-13-2019 18:35:27 CDT by Enma Villalpando M.D. [id number]
[2019-12-12 12:16] LABS: Basophils % 0.2 %; Hematocrit 34.3 % (37.0-47.0); Lymphocytes # 0.8 10^3/uL (0.8-4.8); Mean Corpuscular HGB Conc 32.1 g/dL (30.0-36.0); Mean Corpuscular Hemoglobin 31.7 pg (28.0-34.0); Mean Corpuscular Volume 98.8 fL (81-99); Mean Platelet Volume 9.6 fL (7.4-10.4); Monocytes # 0.3 10^3/uL (0.2-0.9); Monocytes % 5.4 %; Neutrophils # 4.25 10^3/uL (1.8-7.7); Neutrophils % 78.6 %; Nucleated Red Blood Cells % 0.7 %; Platelet Count 304 10^3/cmm (130-400); Red Blood Count 3.47 10^6/uL (4.1-5.3); Red Cell Distribution Width 18.8 % (12.1-15.1); White Blood Count 5.4 10^3/uL (4.0-10.0)
--- NOTE | 2019-12-12 12:18 | USCV_ITS ---
Vee Obrien Age: 69 Gender: F : 1950 Exam Date: 12/12/2019 13:58 Ordering Phys: Hiram Gaffney DO Technologist: Cristóbal Maldonado Exam Location: [facility] [place] Indication: PE BP: 144 / 85 HR: 93 Rhythm: Sinus Technical Quality: Adequate MEASUREMENTS (Male / Female) Normal Values 2D ECHO LV Diastolic Diameter PLAX 4.5 cm 4.2 - 5.9 / 3.9 - 5.3 cm LV Systolic Diameter PLAX 2.3 cm IVS Diastolic Thickness 1.2 cm 0.6 - 1.0 / 0.6 - 0.9 cm IVS Systolic Thickness 1.7 cm LVPW Diastolic Thickness 1.3 cm 0.6 - 1.0 / 0.6 - 0.9 cm LVPW Systolic Thickness 1.4 cm LVOT Diameter 2.0 cm LV Ejection Fraction 2D Teich 79.5 % LV Ejection Fraction MOD 2C 62.7 % LV Ejection Fraction 2C AL 63.4 % LA Diameter 3.8 cm LA Width 3.6 cm LA Height 4.5 cm RA Width 3.8 cm RA Height 4.3 cm Aorta at Sinotubular Diameter 1.4 cm M-MODE LV Diastolic Diameter MM 5.1 cm 4.2 - 5.9 / 3.9 - 5.3 cm LV Systolic Diameter MM 3.3 cm LV Ejection Fraction MM Teich 66.0 % IVS Diastolic Thickness MM 1.3 cm 0.6 - 1.0 / 0.6 - 0.9 cm IVS Systolic Thickness MM 2.0 cm LVPW Diastolic Thickness MM 1.4 cm 0.6 - 1.0 / 0.6 - 0.9 cm LVPW Systolic Thickness MM 1.7 cm RV Diastolic Diameter MM 1.7 cm Aortic Annulus Diameter 3.4 cm LA Ao Ratio MM 1.3 MV E Point Septal Separation 0.9 cm DOPPLER AV Peak Velocity 129.0 cm/s LVOT Peak Velocity 101.0 cm/s AV Area Cont Eq vti 2.4 cm squared AV Area Cont Eq pk 2.6 cm squared MV Area PHT 5.0 cm squared Mitral E to A Ratio 0.9 MV E' Velocity 42.4 cm/s Mitral E to MV E' Ratio 5.3 Mitral E to LV E' Lateral Ratio 5.9 Mitral E to LV E' Septal Ratio 4.9 TR Peak Velocity 164.3 cm/s TR Peak Gradient 10.8 mmHg TV Peak E Velocity 84.0 cm/s Right Atrial Pressure 3.0 mmHg Pulmonary Artery Systolic Pressu 13.8 mmHg FINDINGS Left Ventricle Normal left ventricular cavity size. Normal left ventricular systolic function. No regional wall motion abnormalities. Left ventricular ejection fraction is estimated at 66 %. Grade II/IV diastolic dysfunction, moderately elevated filling pressures. Right Ventricle The right ventricle is normal in size and function. Right Atrium The right atrium is normal in size. Left Atrium The left atrium is normal in size. Mitral Valve Structurally normal mitral valve without significant stenosis or prolapse. There is no mitral regurgitation. Aortic Valve Structurally normal aortic valve without significant sclerosis or stenosis. There is no aortic regurgitation. Tricuspid Valve Structurally normal tricuspid valve without significant stenosis or regurgitation. Pulmonary artery systolic pressure is normal. Pulmonic Valve Structurally normal pulmonic valve without significant stenosis. There is no pulmonic regurgitation. Pericardium Normal pericardium without effusion. Aorta Normal ascending aorta dimension. CONCLUSIONS 1-Normal left ventricular cavity size. Normal left ventricular systolic function. No regional wall motion abnormalities. Left ventricular ejection fraction is estimated at 66 %. Grade II/IV diastolic dysfunction, moderately elevated filling pressures. 2-There is no pericardial effusion. 3-Pulmonary artery systolic pressure is within normal limits. 4-No significant valve abnormalities. 5-Right atrial pressure is around 5 mm of mercury. 6-No significant change since the prior echocardiogram study of 08/25/2019. Enma Villalpando MD (Electronically Signed) Final Date: 12 December 2019 20:51 S
[2019-12-12 12:33] LABS: Troponin(5th) Baseline 54 ng/L (0-10)
[2019-12-12 12:39] LABS: Fibrinogen 454 mg/dL (174-498)
[2019-12-12 12:41] LABS: Alanine Aminotransferase 31 U/L (0-33); Albumin Level 4.3 g/dL (3.5-5.2); Alkaline Phosphatase 108 IU/L (35-105); Anion Gap 18.6 (5-19); Aspartate Amino Transferase 21 U/L (0-32); Blood Urea Nitrogen 14 mg/dL (8-23); Calcium 9.6 mg/dL (8.5-10.5); Carbon Dioxide 21 mmol/L (22-29); Chloride 102 mmol/L (98-107); Globulin 2.6 g/dL (1.3-4.6); Glomerular Filtration Rate 82.7 mL/min (90-130); Glucose 147 mg/dL (65-115); NT Pro B Type Natriuretic Pept 2675 pg/mL (0-125); Osmolality Calculated 287 mOsm/kg (285-295); Potassium 4.6 mmol/L (3.5-5.1); Sodium 137 mmol/L (136-145); Total Bilirubin 0.5 mg/dL (0.15-1.2); Total Protein 6.9 g/dL (6.6-8.7)
[2019-12-12 12:42] LABS: D Dimer 3.77 ug/mIFEU (0-0.59)
[2019-12-12 12:50] LABS: Blood Gas Allen Test Pos; Blood Gas Sample Site Radial, right; Blood Gas Sample Type Arterial; Oxygen Device ROOM AIR
--- NOTE | 2019-12-12 12:51 | ED_ITS ---
HPI - SOB/Dyspnea General: Chief Complaint: Shortness of Breath/Dyspnea Stated Complaint: BLOOD CLOTS IN LUNG Time Seen by Provider: 12/12/19 12:33 History of Present Illness: HPI Narrative: 69-year-old female presents with known breast cancer she is on adjuvant therapy. She was directed to the emergency room by her oncologist who had discovered bilateral nonocclusive central pulmonary emboli on CT of the chest.She is currently receiving adjuvant breast cancer treatments in the form of Taxol her last treatment was 1 week ago. Patient has stage IIIc triple negative breast cancer MD elicited complaint: shortness of breath and cough Pertinent past history: other (Breast cancer) Onset (ago): day(s) Timing: intermittent Severity: moderate Exacerbating factors: exertion Relieving factors: rest Known history of: other (Breast cancer) Associated symptoms: Deny abdominal pain, chest congestion, chest pain, cough, diaphoresis, dizziness, extremity pain, fever(s), hemoptysis, lightheadedness, myalgias, nausea, orthopnea, palpitations, paresthesias, polydipsia, polyuria, rash, sense of impending doom, syncope or vomiting Treatment prior to arrival: none Review of Systems Const: Denies: fever(s) or diaphoresis ENMT: Denies: throat pain, ear or mastoid pain, nasal discharge or nasal congestion Card: Denies: chest pain, palpitations, lightheadedness, syncope or orthopnea Resp: Denies: hemoptysis or chest congestion GI: Denies: abdominal pain, nausea or vomiting : Denies: flank pain, difficulty voiding, dysuria, urinary frequency or urinary urgency Musc: Denies: extremity pain Skin/Breast: Denies: rash or pruritus Neuro: Denies: dizziness Endo: Denies: polyuria or polydipsia PFS ED PFSH: Medical History (Updated 12/16/19 @ 17:19 by Hiram Gaffney DO) 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 Powell Degenerative arthritis History of Graves' disease s/p radioactive iodine ablation in 1987 Hyperlipidemia Hypothyroidism (acquired) Surgical History (Updated 12/12/19 @ 14:24 by Grisel Grayson DO) History of colonoscopy History of lumpectomy of left breast 08/03/19 History of lymph node dissection of left axilla 08/03/19 History of tonsillectomy History of tubal ligation Family History (Updated 12/12/19 @ 14:31 by Grisel Grayson DO) Father , age 87 CAD (coronary artery disease) History of pulmonary embolism Mother , 88 Dementia Grandmother , Maternal Grandmother Cancer Colon cancer Social History (Updated 12/12/19 @ 14:27 by Grisel Grayson DO) Smoking and tobacco status: never smoked Alcohol intake: current Alcohol intake frequency: holidays/special occasions only Housing: House Marital status: Physical Exam Const: COMMON NORMALS: no acute distress GENERAL APPEARANCE: cooperative and comfortable ORIENTATION/CONSCIOUSNESS: Yes awake, Yes oriented to person, Yes oriented to place and Yes oriented to time HENMT: COMMON NORMALS: normocephalic, atraumatic and hearing grossly normal bilaterally HEAD & SCALP: normocephalic and atraumatic Neck/C-Spine: COMMON NORMALS: no JVD Resp: COMMON NORMALS: normal respiratory effort, No retractions, No use of accessory muscles and clear to auscultation bilaterally AUSCULTATION: clear to auscultation bilaterally Cardio: COMMON NORMALS: no JVD, regular rate, regular rhythm and No murmurs present (Cardio) RATE: regular rate RHYTHM: regular rhythm GI: COMMON NORMALS: Soft to palpation and No hepatosplenomegaly present AUSCULTATION: Yes normoactive bowel sounds PALPATION: Yes Soft to palpation, No Tenderness to palpation present (GI), No Guarding due to palpation present (GI) and Yes No hepatosplenomegaly present Extremity: COMMON NORMALS: normal to inspection, capillary refill normal, no clubbing, cyanosis or edema, no calf tenderness and no pedal edema Neuro: SENSORIUM/ORIENTATION: Yes oriented to person, Yes oriented to place and Yes oriented to time Skin: COMMON NORMALS: no rashes or lesions noted GENERAL SKIN EXAM: no rashes or lesions noted Course Vital Signs: Vital signs: Vital Signs Temperature 98.4 F 12/14/19 13:09 Pulse Rate 87 12/14/19 13:09 Respiratory Rate 16 12/14/19 13:09 Blood Pressure 114/74 12/14/19 13:09 Pulse Oximetry 94 12/14/19 13:09 MDM - SOB/Dyspnea MDM Narrative: Medical decision making narrative: Patient had nonocclusive central pulmonary emboli will go ahead and admit her started her on IV heparin discussed Dr. Grayson she will admit. Lab Data: Labs: Lab Results 12/12/19 12/12/19 12/12/19 Range/Units 12:08 12:08 12:08 WBC 5.4 (4.0-10.0) 10^3/ uL RBC 3.47 L (4.1-5.3) 10^6/u L Hgb 11.0 L (11.5-15.3) g/dL Hct 34.3 L (37.0-47.0) % MCV 98.8 (81-99) fL MCH 31.7 (28.0-34.0) pg MCHC 32.1 (30.0-36.0) g/dL RDW 18.8 H (12.1-15.1) % Plt Count 304 (130-400) 10^3/c mm MPV 9.6 (7.4-10.4) fL Neut % (Auto) 78.6 % Lymph % (Auto) 14.0 % [place] % (Auto) 5.4 % Eos % (Auto) 0.0 % Baso % (Auto) 0.2 % Neut # (Auto) 4.25 (1.8-7.7) 10^3/u L Lymph # (Auto) 0.8 (0.8-4.8) 10^3/u L [place] # (Auto) 0.3 (0.2-0.9) 10^3/u L Eos # (Auto) 0.0 (0.0-0.8) 10^3/u L Baso # (Auto) 0.0 (0.0-0.1) 10^3/u L Nucleated RBC % (a uto) 0.7 % Nucleated RBCs # 0.0 /100WBC Fibrinogen (174-498) mg/dL D-Dimer (0-0.59) ug/mIFE U Specimen Type Sample Site ABG pH (7.35-7.45) ABG pCO2 (35-45) mmHg ABG pO2 (80.0-100.0) mmH g ABG HCO3 (22-26) mmol/L ABG Base Excess (-2.0-2.0) mmol/ L Nirav Test Hematocrit (37-47) % O2 Delivery Device FiO2 % Director Account Management ID Sodium 137 (136-145) mmol/L Potassium 4.6 (3.5-5.1) mmol/L Chloride 102 (98-107) mmol/L Carbon Dioxide 21 L (22-29) mmol/L Anion Gap 18.6 (5-19) BUN 14 (8-23) mg/dL Creatinine 0.7 (0.5-0.9) mg/dL GFR Calculation 82.7 L (90-130) mL/min Glucose 147 H (65-115) mg/dL Calculated Osmolal ity 287 (285-295) mOsm/k g Lactic Acid (0.5-2.2) mmol/L Calcium 9.6 (8.5-10.5) mg/dL Ferritin (15-150) ng/mL Total Bilirubin 0.5 (0.15-1.2) mg/dL AST 21 (0-32) U/L ALT 31 (0-33) U/L Alkaline Phosphata se 108 H (35-105) IU/L Lactate Dehydrogen ase (135-214) U/L Troponin T Baselin e 54 H (0-10) ng/L Troponin T 120 Min [place] (0-10) ng/L Delta Troponin T (0-10) ABS# C-Reactive Protein (0.0-4.9) mg/L NT-Pro-B Natriuret Pep 2675 H (0-125) pg/mL Total Protein 6.9 (6.6-8.7) g/dL Albumin 4.3 (3.5-5.2) g/dL Globulin 2.6 (1.3-4.6) g/dL Procalcitonin (0-0.5) ng/mL TSH (0.27-4.20) uIU/ mL SARS-CoV-2 Ag (Rap id) (Negative) 12/12/19 12/12/19 12/12/19 Range/Units 12:19 12:19 12:19 WBC (4.0-10.0) 10^3/ uL RBC (4.1-5.3) 10^6/u L Hgb (11.5-15.3) g/dL Hct (37.0-47.0) % MCV (81-99) fL MCH (28.0-34.0) pg MCHC (30.0-36.0) g/dL RDW (12.1-15.1) % Plt Count (130-400) 10^3/c mm MPV (7.4-10.4) fL Neut % (Auto) % Lymph % (Auto) % [place] % (Auto) % Eos % (Auto) % Baso % (Auto) % Neut # (Auto) (1.8-7.7) 10^3/u L Lymph # (Auto) (0.8-4.8) 10^3/u L [place] # (Auto) (0.2-0.9) 10^3/u L Eos # (Auto) (0.0-0.8) 10^3/u L Baso # (Auto) (0.0-0.1) 10^3/u L Nucleated RBC % (a uto) % Nucleated RBCs # /100WBC Fibrinogen 454 (174-498) mg/dL D-Dimer 3.77 H (0-0.59) ug/mIFE U Specimen Type Sample Site ABG pH (7.35-7.45) ABG pCO2 (35-45) mmHg ABG pO2 (80.0-100.0) mmH g ABG HCO3 (22-26) mmol/L ABG Base Excess (-2.0-2.0) mmol/ L Nirav Test Hematocrit (37-47) % O2 Delivery Device FiO2 % Director Account Management ID Sodium (136-145) mmol/L Potassium (3.5-5.1) mmol/L Chloride (98-107) mmol/L Carbon Dioxide (22-29) mmol/L Anion Gap (5-19) BUN (8-23) mg/dL Creatinine (0.5-0.9) mg/dL GFR Calculation (90-130) mL/min Glucose (65-115) mg/dL Calculated Osmolal ity (285-295) mOsm/k g Lactic Acid (0.5-2.2) mmol/L Calcium (8.5-10.5) mg/dL Ferritin 518 H (15-150) ng/mL Total Bilirubin (0.15-1.2) mg/dL AST (0-32) U/L ALT (0-33) U/L Alkaline Phosphata se (35-105) IU/L Lactate Dehydrogen ase 287 H (135-214) U/L Troponin T Baselin e (0-10) ng/L Troponin T 120 Min [place] (0-10) ng/L Delta Troponin T (0-10) ABS# C-Reactive Protein 23.6 H (0.0-4.9) mg/L NT-Pro-B Natriuret Pep (0-125) pg/mL Total Protein (6.6-8.7) g/dL Albumin (3.5-5.2) g/dL Globulin (1.3-4.6) g/dL Procalcitonin 0.06 (0-0.5) ng/mL TSH 0.97 (0.27-4.20) uIU/ mL SARS-CoV-2 Ag (Rap id) (Negative) 12/12/19 12/12/19 12/12/19 Range/Units 12:38 12:38 12:56 WBC (4.0-10.0) 10^3/ uL RBC (4.1-5.3) 10^6/u L Hgb (11.5-15.3) g/dL Hct (37.0-47.0) % MCV (81-99) fL MCH (28.0-34.0) pg MCHC (30.0-36.0) g/dL RDW (12.1-15.1) % Plt Count (130-400) 10^3/c mm MPV (7.4-10.4) fL Neut % (Auto) % Lymph % (Auto) % [place] % (Auto) % Eos % (Auto) % Baso % (Auto) % Neut # (Auto) (1.8-7.7) 10^3/u L Lymph # (Auto) (0.8-4.8) 10^3/u L [place] # (Auto) (0.2-0.9) 10^3/u L Eos # (Auto) (0.0-0.8) 10^3/u L Baso # (Auto) (0.0-0.1) 10^3/u L Nucleated RBC % (a uto) % Nucleated RBCs # /100WBC Fibrinogen (174-498) mg/dL D-Dimer (0-0.59) ug/mIFE U Specimen Type Arterial Sample Site Radial, right ABG pH 7.50 H (7.35-7.45) ABG pCO2 26.2 L (35-45) mmHg ABG pO2 74.1 L (80.0-100.0) mmH g ABG HCO3 20.5 L (22-26) mmol/L ABG Base Excess -1.6 (-2.0-2.0) mmol/ L Nirav Test Pos Hematocrit 33.4 L (37-47) % O2 Delivery Device Room air FiO2 21.0 % Director Account Management ID [place] Sodium (136-145) mmol/L Potassium (3.5-5.1) mmol/L Chloride (98-107) mmol/L Carbon Dioxide (22-29) mmol/L Anion Gap (5-19) BUN (8-23) mg/dL Creatinine (0.5-0.9) mg/dL GFR Calculation (90-130) mL/min Glucose (65-115) mg/dL Calculated Osmolal ity (285-295) mOsm/k g Lactic Acid 1.9 (0.5-2.2) mmol/L Calcium (8.5-10.5) mg/dL Ferritin (15-150) ng/mL Total Bilirubin (0.15-1.2) mg/dL AST (0-32) U/L ALT (0-33) U/L Alkaline Phosphata se (35-105) IU/L Lactate Dehydrogen ase (135-214) U/L Troponin T Baselin e (0-10) ng/L Troponin T 120 Min [place] (0-10) ng/L Delta Troponin T (0-10) ABS# C-Reactive Protein (0.0-4.9) mg/L NT-Pro-B Natriuret Pep (0-125) pg/mL Total Protein (6.6-8.7) g/dL Albumin (3.5-5.2) g/dL Globulin (1.3-4.6) g/dL Procalcitonin (0-0.5) ng/mL TSH (0.27-4.20) uIU/ mL SARS-CoV-2 Ag (Rap id) Negative (Negative) 12/12/19 Range/Units 13:56 WBC (4.0-10.0) 10^3/ uL RBC (4.1-5.3) 10^6/u L Hgb (11.5-15.3) g/dL Hct (37.0-47.0) % MCV (81-99) fL MCH (28.0-34.0) pg MCHC (30.0-36.0) g/dL RDW (12.1-15.1) % Plt Count (130-400) 10^3/c mm MPV (7.4-10.4) fL Neut % (Auto) % Lymph % (Auto) % [place] % (Auto) % Eos % (Auto) % Baso % (Auto) % Neut # (Auto) (1.8-7.7) 10^3/u L Lymph # (Auto) (0.8-4.8) 10^3/u L [place] # (Auto) (0.2-0.9) 10^3/u L Eos # (Auto) (0.0-0.8) 10^3/u L Baso # (Auto) (0.0-0.1) 10^3/u L Nucleated RBC % (a uto) % Nucleated RBCs # /100WBC Fibrinogen (174-498) mg/dL D-Dimer (0-0.59) ug/mIFE U Specimen Type Sample Site ABG pH (7.35-7.45) ABG pCO2 (35-45) mmHg ABG pO2 (80.0-100.0) mmH g ABG HCO3 (22-26) mmol/L ABG Base Excess (-2.0-2.0) mmol/ L Nirav Test Hematocrit (37-47) % O2 Delivery Device FiO2 % Director Account Management ID Sodium (136-145) mmol/L Potassium (3.5-5.1) mmol/L Chloride (98-107) mmol/L Carbon Dioxide (22-29) mmol/L Anion Gap (5-19) BUN (8-23) mg/dL Creatinine (0.5-0.9) mg/dL GFR Calculation (90-130) mL/min Glucose (65-115) mg/dL Calculated Osmolal ity (285-295) mOsm/k g Lactic Acid (0.5-2.2) mmol/L Calcium (8.5-10.5) mg/dL Ferritin (15-150) ng/mL Total Bilirubin (0.15-1.2) mg/dL AST (0-32) U/L ALT (0-33) U/L Alkaline Phosphata se (35-105) IU/L Lactate Dehydrogen ase (135-214) U/L Troponin T Baselin e (0-10) ng/L Troponin T 120 Min [place] 56.61 H (0-10) ng/L Delta Troponin T 2.61 (0-10) ABS# C-Reactive Protein (0.0-4.9) mg/L NT-Pro-B Natriuret Pep (0-125) pg/mL Total Protein (6.6-8.7) g/dL Albumin (3.5-5.2) g/dL Globulin (1.3-4.6) g/dL Procalcitonin (0-0.5) ng/mL TSH (0.27-4.20) uIU/ mL SARS-CoV-2 Ag (Rap id) (Negative) Discharge Plan Discharge Patient Disposition: Admitted As Inpatient Admit Provider: Grisel Grayson Clinical Impression: Pulmonary embolism, Breast cancer Condition: Stable Discharge Diet: Advance as tolerated Discharge Activity: Increase activity as tolerated Interventions: ED Discharge Assessment Last Done: 12/12/19 15:25 ED Charges Last Done: 12/12/19 15:25 Discharge Date/Time: 12/12/19 15:40 Coding Level of Care Code ED Draw String Knotter for Lieng Fwd Exam Comprehensive
[2019-12-12 13:09] LABS: SARS Covid-2 Antigen Negative (Negative)
[2019-12-12 13:10] LABS: Lactic Sepsis W/Reflex 1.9 mmol/L (0.5-2.2)
[2019-12-12 13:15] LABS: ABG PCO2 26.2 mmHg (35-45); Arterial Blood Gas Hematocrit 33.4 % (37-47); Base Excess ABG -1.6 mmol/L (-2.0-2.0); Blood Gas Operator Identificat MONRO; HCO3 ABG 20.5 mmol/L (22-26); PO2 ABG 74.1 mmHg (80.0-100.0)
[2019-12-12 13:23] LABS: Procalcitonin 0.06 ng/mL (0-0.5)
[2019-12-12 13:37] LABS: C Reactive Protein 23.6 mg/L (0.0-4.9); Ferritin 518 ng/mL (15-150); Lactate Dehydrogenase 287 U/L (135-214)
[2019-12-12] MEDS: heparin drip 25,000 UNIT/500 ML PREMIX 21.6 UNIT IV (14:00)
--- NOTE | 2019-12-12 14:02 | ECG_ITS ---
[facility] Test Date: 2019-12-12 Pat Name: Vee Obrien Department: Room: 262 Gender: Female Branch Chief: : 1950 Requested By: Daily Irwin Order Number: [id number] Jennifer MD: Enma Villalpando M.D. Measurements Intervals [place] Rate: 99 P: 45 RI: 179 QRS: -27 QRSD: 94 T: 66 QT: 364 QTc: 468 Interpretive Statements SINUS RHYTHM POSSIBLE LEFT ATRIAL ENLARGEMENT [-0.1mV P WAVE IN V1/V2] POSSIBLE RIGHT VENTRICULAR CONDUCTION DELAY [RSR (QR) IN V1/V2] INFERIOR MYOCARDIAL INFARCTION [40+ ms Q WAVE AND/OR ST/T ABNORMALITY IN II/aVF], OF INDETERMINATE AGE Compared to ECG 12/12/2019 13:06:23 Ventricular premature complex(es) no longer present Incomplete right bundle-branch block no longer present Myocardial infarct finding still present Electronically Signed On 12-13-2019 18:36:50 CDT by Enma Villalpando M.D. [id number]
[2019-12-12] MEDS: heparin 5,000 unit/mL INJ 1 mL 4000 UNIT IVP (14:05)
--- NOTE | 2019-12-12 14:19 | P.HP_ITS ---
Providers/Chief Complaint Admitting Physician: Grisel Grayson DO Primary Care Provider: Landry Neri MD Chief Complaint: BLOOD CLOTS IN LUNG History of Present Illness Vee Obrien is a 69 year old female with a history of breast cancer undergoing chemotherapy that presented to the emergency department today from the oncology office due to concern for hypoxia with increasing shortness of breath and elevated heart rate. Patient had a CT scan performed of her chest which showed concern for bilateral pulmonary emboli. She reported that she had been doing well with chemotherapy but over the past week she has had increasing fatigue and shortness of breath with exertion. She denies any chest pain. Patient reports that she has not had any recent fevers or chills, the only places that she has been has been to the cancer center and to [facility] for Neupogen injection. She denies any community exposure, no direct exposure to anyone under investigation or positive for COVID-19 that she is aware of. Patient denies any recent adjustments or changes to medications. She was seen and evaluated at the oncology clinic noted to have oxygen saturati ons into the middle 80s with any type of activity with a heart rate in to the 100s Review of Systems Const: Reports: fatigue and malaise; Denies: fever(s) or chills Eyes: Denies: change in vision ENMT: Denies: nasal congestion Card: Reports: dyspnea on exertion; Denies: chest pain, palpitations or edema Resp: Reports: dyspnea; Denies: productive cough or hemoptysis GI: Denies: abdominal pain, nausea, vomiting, diarrhea, constipation, hematoc hezia or melena : Denies: dysuria or hematuria Musc: Denies: extremity pain or muscle cramps Skin/Breast: Denies: rash or new lesions Neuro: Denies: headache(s) or dizziness Psych: Denies: anxiety or depression Endo: Denies: polyuria or hot flashes Jaron/Lymph: Reports: easy bruising; Denies: easy bleeding Medications/Allergies Home Medications Medication Instructions Recorded Confirmed Last Taken Type aspirin 81 mg PO DAILY 12/12/19 12/12/19 12/11/19 History calcium carbonate-vitamin D3 1 tab PO DAILY 12/12/19 12/12/19 12/11/19 History dexamethasone See Rx Instructions .ROUTE .COMPLEX 12/12/19 12/12/19 12/12/19 History hydrocodone-acetaminophen 1 tab PO Q4H PRN 12/12/19 12/12/19 Unknown History levothyroxine 88 mcg PO DAILY 12/12/19 12/12/19 12/12/19 History zihvjqygvmck-Dm-iwjg-minerals 1 tab PO DAILY 12/12/19 12/12/19 12/11/19 History [Multiple Vitamin, Womens] omega 7-zxz-llw-fish oil [Fish Oil] 1 cap PO DAILY 12/12/19 12/12/19 12/11/19 History prochlorperazine maleate 10 mg PO Q4H PRN 12/12/19 12/12/19 Unknown History simvastatin 40 mg PO DAILY 12/12/19 12/12/19 12/11/19 History Allergies Allergy/AdvReac Type Severity Reaction Status Date / Time No Known Allergies Allergy Verified 12/12/19 13:20 PFSH Acute PFSH: Medical History (Updated 12/12/19 @ 14:33 by Grisel Grayson DO) 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 Powell Degenerative arthritis History of Graves' disease s/p radioactive iodine ablation in 1987 Hyperlipidemia Hypothyroidism (acquired) Surgical History (Updated 12/12/19 @ 14:24 by Grisel Grayson DO) History of colonoscopy History of lumpectomy of left breast 08/03/19 History of lymph node dissection of left axilla 08/03/19 History of tonsillectomy History of tubal ligation Family History (Updated 12/12/19 @ 14:31 by Grisel Grayson DO) Father , age 87 CAD (coronary artery disease) History of pulmonary embolism Mother , 88 Dementia Grandmother , Maternal Grandmother Cancer Colon cancer Social History (Updated 12/12/19 @ 14:27 by Grisel Grayson DO) Smoking and tobacco status: never smoked Alcohol intake: current Alcohol intake frequency: holidays/special occasions only Substance/Drug Use: never Housing: House Marital status: Vitals/I&O/Wt Last Vital Signs Temp 97.8 F 12/12/19 12:02 Pulse 96 12/12/19 12:54 Resp 18 12/12/19 12:54 BP 145/89 12/12/19 12:54 Pulse Ox 94 12/12/19 12:54 Weight last 48 hrs Weight 77.111 kg Physical Exam Const: COMMON NORMALS: patient oriented x3 and alert GENERAL APPEARANCE: cooperative ORIENTATION/CONSCIOUSNESS: Yes awake, Yes oriented to person, Yes oriented to place and Yes oriented to time HENMT: COMMON NORMALS: normocephalic and atraumatic HEAD & SCALP: normocephalic and atraumatic Eye: COMMON NORMALS: Equal, round and reactive pupils present PUPIL: Yes Equal, round and reactive pupils present Neck/C-Spine: COMMON NORMALS: supple GENERAL: Yes normal visual inspection Resp: COMMON NORMALS: clear to auscultation bilaterally EFFORT & INSPECTION: Yes symmetric chest movement and Yes tachypneic AUSCULTATION: clear to auscultation bilaterally, no rhonchi and no wheezes Cardio: COMMON NORMALS: regular rhythm and No murmurs present (Cardio) RATE: tachycardic RHYTHM: regular rhythm GI: COMMON NORMALS: Soft to palpation and non-tender INSPECTION: No abdominal distension AUSCULTATION: Yes normoactive bowel sounds PALPATION: Yes Soft to palpation Extremity: COMMON NORMALS: no clubbing, cyanosis or edema and no calf tenderness Neuro: COMMON NORMALS: patient oriented x3, CN's II-XII intact bilaterally, moves all extremities and no focal motor deficits SENSORIUM/ORIENTATION: Yes alert, Yes oriented to person, Yes oriented to place and Yes oriented to time SPEECH: speech normal Psych: COMMON NORMALS: mental status grossly normal and cooperative Skin: COMMON NORMALS: no rashes or lesions noted GENERAL SKIN EXAM: no rashes or lesions noted Data : 12/12/19 12:08 12/12/19 12:08 CTA Chest: I personally reviewed and interpreted this imaging study as follows: Radiologist's impression: IMPRESSION: 1. Extensive bilateral pulmonary embolus involving segmental and subsegmental pulmonary arteries bilaterally described above. 2. No mediastinal or hilar lymphadenopathy. 3. Focal opacity in the right lower lobe measuring 1.8 cm in a subpleural location likely represents round atelectasis. Recommend 2-[address] follow-up or further evaluation with PET/CT. 4. Hazy groundglass infiltrates in both upper lobes likely infectious or inflammatory 5. Mild chronic emphysematous changes. 6. Prior postoperative changes left breast and left axillary lymph node dissect ion. Chronic seroma left axilla 3.1 x 2.5 cm A&P Assessment and plan (1) Pulmonary embolism: Start on heparin drip and admit to med surg Telemetry With any activity patient has drop in oxygen saturations into mid 80s ECHO to evaluate for R heart strain Serial EKG and troponin Oxygen per protocol Status: Acute (2) Breast cancer: On chemotherapy Status: Acute (3) Hypothyroidism (acquired): Will check TSH and continue home levothyroxine Status: Acute (4) Hyperlipidemia: Continue on statin Status: Acute Additional A&P Information Patient with bilateral gland with grass opacifications: COVID testing by rapid was negative, send out PCR ordered and pending. Patient to remain on contact and droplet precautions at this time. Question if lung changes could be related to her chemotherapy, paclitaxel Diet: Regular CODE STATUS: Full code Attestations Medical Necessity Statement*: Hospitalization due to bilateral pulmonary emboli with hypoxia and tachycardia in the setting of breast cancer on chemotherapy with concomitant bilateral groundglass opacifications. Expected stay greater than 2 midnights. Coding Level of Care Code Acute Grooming Assistant for Chg Fwd Exam Comprehensive Diagnoses Pulmonary embolism I26.99 Breast cancer C50.919 Hypothyroidism (acquired) E03.9 Hyperlipidemia E78.5
[2019-12-12 14:31] LABS: Troponin 5 2HR 56.61 ng/L (0-10); Troponin 5 2HR Delta 2.61 ABS# (0-10)
[2019-12-12 16:25] LABS: Thyroid Stimulating Hormone 0.97 uIU/mL (0.27-4.20)
[2019-12-12 18:15] LABS: Troponin 5 6HR 64.45 ng/L (0-10); Troponin 5 6HR Delta 10.45 ng/L (0-12)
--- NOTE | 2019-12-12 19:50 | PC.NURSE ---
Patient arrived from ER with report from ER nurse that she was given 4,000units of Heparin bolus amount and was set at a rate of 21mL/hr. Verified with Charge nurse Radha the rate of heparin drip upon arrival and IV pump locked. Patient settled into room and order was put in for aPTT for 2030.
[2019-12-12 20:43] LABS: INR 1.02 (0.8-1.2)
[2019-12-12 22:10] LABS: Partial Thromboplastin Time 55.3 SECONDS (23.9-36.7)
[2019-12-13] VITALS: BP 113/72; PULSE 84; RESP 17; TEMP 36.6; O2SAT 94
[2019-12-13 04:00] VITALS: BP 123/81; PULSE 87; RESP 18; TEMP 36.7; O2SAT 95
[2019-12-13 04:43] VITALS: BMI 26.6
[2019-12-13 05:21] LABS: Basophils % 0.5 %; Eosinophils % 0.5 %; Hematocrit 29.6 % (37.0-47.0); Hemoglobin 9.1 g/dL (11.5-15.3); Lymphocytes # 1.5 10^3/uL (0.8-4.8); Lymphocytes % 24.6 %; Mean Corpuscular HGB Conc 30.7 g/dL (30.0-36.0); Mean Corpuscular Hemoglobin 31.3 pg (28.0-34.0); Mean Corpuscular Volume 101.7 fL (81-99); Mean Platelet Volume 9.3 fL (7.4-10.4); Monocytes # 1.1 10^3/uL (0.2-0.9); Monocytes % 18.6 %; Neutrophils # 3.34 10^3/uL (1.8-7.7); Neutrophils % 54.3 %; Nucleated Red Blood Cells # 0.1 /100WBC; Nucleated Red Blood Cells % 0.8 %; Platelet Count 291 10^3/cmm (130-400); Red Blood Count 2.91 10^6/uL (4.1-5.3); Red Cell Distribution Width 19.1 % (12.1-15.1); White Blood Count 6.1 10^3/uL (4.0-10.0)
[2019-12-13 05:41] LABS: Blood Urea Nitrogen 15 mg/dL (8-23); Carbon Dioxide 23 mmol/L (22-29); Chloride 105 mmol/L (98-107); Glomerular Filtration Rate 70.9 mL/min (90-130); Glucose 99 mg/dL (65-115); Osmolality Calculated 287 mOsm/kg (285-295); Sodium 138 mmol/L (136-145)
[2019-12-13] MEDS: heparin 5,000 unit/mL INJ 1 mL IVP ×2 (06:50→19:43)
[2019-12-13 07:27] VITALS: BP 123/78; PULSE 83; RESP 18; TEMP 36.6; O2SAT 96
[2019-12-13] MEDS: levothyroxine 88 mcg Tablet PO (07:54)
[2019-12-13] MEDS: atorvastatin 40 mg Tablet 20 MG PO (07:54)
[2019-12-13] MEDS: calcium carb-vit d 600mg/400unit 1 Tablet 1 EACH PO (07:54)
[2019-12-13] MEDS: aspirin 81 mg EC Tablet PO (07:55)
--- NOTE | 2019-12-13 10:34 | PM.PN ---
Subjective Subjective: Interval history: Patient awake in bed at time of exam this morning. Reported that she was feeling somewhat better today. Continues to have some dyspnea on exertion. Denies any chest pain. Discussed with patient plan of care, she reported her to being confused about the transition of medications. Reported that I would discuss with him today. Vitals/I&O/Wt Last Vital Signs Temp 97.8 F 12/13/19 07:27 Pulse 83 12/13/19 07:27 Resp 18 12/13/19 07:27 BP 123/78 12/13/19 07:27 Pulse Ox 96 12/13/19 07:27 12/12/19 12/13/19 12/13/19 22:59 06:59 14:59 Intake Total 300 / 300 240 / 540 360 / 360 Balance 300 / 300 240 / 540 360 / 360 Weight last 48 hrs Weight 77.111 kg Weight 77.111 kg Physical Exam Const: COMMON NORMALS: patient oriented x3 and alert GENERAL APPEARANCE: cooperative ORIENTATION/CONSCIOUSNESS: Yes awake, Yes oriented to person, Yes oriented to place and Yes oriented to time HENMT: COMMON NORMALS: normocephalic and atraumatic HEAD & SCALP: normocephalic and atraumatic Eye: COMMON NORMALS: Equal, round and reactive pupils present PUPIL: Yes Equal, round and reactive pupils present Neck/C-Spine: COMMON NORMALS: supple GENERAL: Yes normal visual inspection Resp: COMMON NORMALS: clear to auscultation bilaterally EFFORT & INSPECTION: Yes symmetric chest movement and Yes tachypneic AUSCULTATION: clear to auscultation bilaterally, no rhonchi and no wheezes Cardio: COMMON NORMALS: regular rhythm and No murmurs present (Cardio) RATE: tachycardic RHYTHM: regular rhythm GI: INSPECTION: No abdominal distension Extremity: COMMON NORMALS: no clubbing, cyanosis or edema and no calf tenderness Neuro: COMMON NORMALS: patient oriented x3, CN's II-XII intact bilaterally, moves all extremities and no focal motor deficits SENSORIUM/ORIENTATION: Yes alert, Yes oriented to person, Yes oriented to place and Yes oriented to time SPEECH: speech normal Psych: COMMON NORMALS: mental status grossly normal and cooperative Skin: COMMON NORMALS: no rashes or lesions noted GENERAL SKIN EXAM: no rashes or lesions noted Data : 12/13/19 05:13 12/13/19 05:13 Micro: Microbiology 12/12/19 16:18 Blood Culture - Preliminary Blood SPECIMEN COLLECTED 12/12/19 16:15 Blood Culture - Preliminary Blood SPECIMEN COLLECTED A&P Assessment and plan (1) Pulmonary embolism: Telemetry monitoring An additional 24 hours of heparin drip due to patient having hypoxia on exertion and tachycardia, will then transition to oral anticoagulation Oxygen per protocol Status: Acute (2) Breast cancer: On chemotherapy Status: Acute (3) Hypothyroidism (acquired): Continue levothyroxine Status: Acute (4) Hyperlipidemia: Continue on statin Status: Acute Additional A&P Information Patient with bilateral gland with grass opacifications: COVID testing by rapid was negative, send out PCR ordered and pending. Patient to remain on contact and droplet precautions at this time. Question if lung changes could be related to her chemotherapy, paclitaxel Diet: Regular CODE STATUS: Full code Attestations Medical Necessity Statement*: Further hospitalization due to bilateral pulmonary emboli with groundglass opacifications with the COVID test pending. Currently on a heparin drip for pulmonary emboli in the setting of malignancy. Coding Level of Care Code Acute Welding Process Specialist for Maude Bower Diagnoses Pulmonary embolism I26.99 Breast cancer C50.919 Hypothyroidism (acquired) E03.9 Hyperlipidemia E78.5
[2019-12-13 11:15] VITALS: BP 104/67; PULSE 90; RESP 18; TEMP 36.7; O2SAT 94
[2019-12-13 12:54] LABS: Partial Thromboplastin Time 74.7 SECONDS (23.9-36.7)
[2019-12-13 15:06] VITALS: BP 101/67; PULSE 87; RESP 20; TEMP 36.5; O2SAT 92
[2019-12-13] MEDS: heparin drip 25,000 UNIT/500 ML PREMIX 23 UNIT IV (16:33)
[2019-12-13 19:04] LABS: Partial Thromboplastin Time 51.8 SECONDS (23.9-36.7)
[2019-12-13 20:00] VITALS: BP 102/64; PULSE 85; RESP 18; TEMP 36.8; O2SAT 94
[2019-12-14] VITALS: BP 100/65; PULSE 93; RESP 12; TEMP 36.6; O2SAT 92
[2019-12-14 01:53] LABS: Basophils % 0.9 %; Eosinophils # 0.1 10^3/uL (0.0-0.8); Eosinophils % 2.1 %; Hematocrit 28.5 % (37.0-47.0); Hemoglobin 8.6 g/dL (11.5-15.3); Lymphocytes # 0.7 10^3/uL (0.8-4.8); Lymphocytes % 15.8 %; Mean Corpuscular HGB Conc 30.2 g/dL (30.0-36.0); Mean Corpuscular Hemoglobin 31.5 pg (28.0-34.0); Mean Corpuscular Volume 104.4 fL (81-99); Mean Platelet Volume 9.5 fL (7.4-10.4); Monocytes # 0.9 10^3/uL (0.2-0.9); Monocytes % 19.4 %; Neutrophils # 2.61 10^3/uL (1.8-7.7); Neutrophils % 59.5 %; Nucleated Red Blood Cells % 0.5 %; Platelet Count 266 10^3/cmm (130-400); Red Blood Count 2.73 10^6/uL (4.1-5.3); Red Cell Distribution Width 19.4 % (12.1-15.1); White Blood Count 4.4 10^3/uL (4.0-10.0)
[2019-12-14 02:13] LABS: Anion Gap 10.8 (5-19); Blood Urea Nitrogen 16 mg/dL (8-23); Calcium 8.6 mg/dL (8.5-10.5); Carbon Dioxide 24 mmol/L (22-29); Chloride 106 mmol/L (98-107); Glomerular Filtration Rate 61.9 mL/min (90-130); Glucose 100 mg/dL (65-115); Osmolality Calculated 285 mOsm/kg (285-295); Potassium 3.8 mmol/L (3.5-5.1); Sodium 137 mmol/L (136-145)
[2019-12-14 02:15] LABS: Partial Thromboplastin Time 82.6 SECONDS (23.9-36.7)
[2019-12-14 04:00] VITALS: BP 114/75; PULSE 81; RESP 20; TEMP 36.6; O2SAT 92
[2019-12-14 07:50] LABS: Coronavirus Lab Test PTC Negative
[2019-12-14 08:00] VITALS: BP 105/64; PULSE 100; RESP 17; TEMP 36.7; O2SAT 95
[2019-12-14] MEDS: calcium carb-vit d 600mg/400unit 1 Tablet 1 EACH PO (08:05)
[2019-12-14] MEDS: aspirin 81 mg EC Tablet PO (08:05)
[2019-12-14] MEDS: levothyroxine 88 mcg Tablet PO (08:05)
[2019-12-14] MEDS: atorvastatin 40 mg Tablet 20 MG PO (08:05)
[2019-12-14 09:22] LABS: Partial Thromboplastin Time 66.3 SECONDS (23.9-36.7)
--- NOTE | 2019-12-14 10:34 | P.DS_ITS ---
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 Powell (3) Hypothyroidism (acquired): Status: Acute (4) Hyperlipidemia: Status: Acute Reason for Visit Reason for Visit: BLOOD CLOTS IN LUNG Hospital Course Hospital Course: Patient was seen and evaluated in oncology clinic and sent to the ER for further evaluation due to increasing shortness of breath on exertion. She had a CT scan performed which showed bilateral pulmonary emboli and groundglass opacifications. She was seen and evaluated in the emergency department started on a heparin drip. She was noted to have desaturations into the 80s with activity as well as tachycardia. Her symptoms continue to improve with heparin drip. She was tested by rapid antigen for COVID-19 which returned negative, send out PCR also returned negative. Patient remained on room air and vital signs remained stable. She continued to improve in a stepwise fashion and was transitioned off of heparin drip after 48 hours to Eliquis. Patient was discharged to home in stable condition. Discussed with patient need for close monitoring of bleeding with the blood thinner, she verbalized understanding and agreed with plan. Physical Exam Const: COMMON NORMALS: patient oriented x3 and alert GENERAL APPEARANCE: cooperative ORIENTATION/CONSCIOUSNESS: Yes awake, Yes oriented to person, Yes oriented to place and Yes oriented to time HENMT: COMMON NORMALS: normocephalic and atraumatic HEAD & SCALP: normocephalic and atraumatic Eye: COMMON NORMALS: Equal, round and reactive pupils present PUPIL: Yes Equal, round and reactive pupils present Neck/C-Spine: COMMON NORMALS: supple GENERAL: Yes normal visual inspection Resp: COMMON NORMALS: clear to auscultation bilaterally EFFORT & INSPECTION: Yes symmetric chest movement and Yes tachypneic AUSCULTATION: clear to auscultation bilaterally, no rhonchi and no wheezes Cardio: COMMON NORMALS: regular rhythm and No murmurs present (Cardio) RATE: tachycardic RHYTHM: regular rhythm GI: COMMON NORMALS: Soft to palpation and non-tender INSPECTION: No abdominal distension AUSCULTATION: Yes normoactive bowel sounds PALPATION: Yes Soft to palpation Extremity: COMMON NORMALS: no clubbing, cyanosis or edema and no calf tenderness Neuro: COMMON NORMALS: patient oriented x3, CN's II-XII intact bilaterally, moves all extremities and no focal motor deficits SENSORIUM/ORIENTATION: Yes alert, Yes oriented to person, Yes oriented to place and Yes oriented to time SPEECH: speech normal Psych: COMMON NORMALS: mental status grossly normal and cooperative Skin: COMMON NORMALS: no rashes or lesions noted GENERAL SKIN EXAM: no rashes or lesions noted Discharge Data Data Completed and Pending: Completed Studies During Hospitalization Category Date Time Status CV echo complete* [id number] Urgent Ultrasound 12/12/19 12:18 Completed Pending at discharge Category Date Time Status Basic Metabolic P jordin AM LABS Lab 12/15/19 04:00 Ordered Blood Culture Rou roxann Lab 12/12/19 16:18 Results Complete Blood Co unt w/Auto AM LABS Lab 12/15/19 04:00 Ordered Platelet Count Q2 D Lab 12/16/19 04:00 Ordered Sputum Culture an d Gram Stain Stat Lab 12/12/19 12:18 Uncollected Labs from last 24 hours 12/14/19 12/14/19 12/14/19 09:02 01:40 01:40 WBC 4.4 RBC 2.73 L Hgb 8.6 L Hct 28.5 L MCV 104.4 H MCH 31.5 MCHC 30.2 RDW 19.4 H Plt Count 266 MPV 9.5 Neut % (Auto) 59.5 Lymph % (Auto) 15.8 Meade % (Auto) 19.4 Eos % (Auto) 2.1 Baso % (Auto) 0.9 Neut # (Auto) 2.61 Lymph # (Auto) 0.7 L Meade # (Auto) 0.9 Eos # (Auto) 0.1 Baso # (Auto) 0.0 Nucleated RBC % (a uto) 0.5 Nucleated RBCs # 0.0 APTT 66.3 H Sodium 137 Potassium 3.8 Chloride 106 Carbon Dioxide 24 Anion Gap 10.8 BUN 16 Creatinine 0.9 GFR Calculation 61.9 L Glucose 100 Calculated Osmolal ity 285 Calcium 8.6 Nasal/Oral COVID-1 9 PCR 12/14/19 12/13/19 12/13/19 01:40 18:30 12:22 WBC RBC Hgb Hct MCV MCH MCHC RDW Plt Count MPV Neut % (Auto) Lymph % (Auto) Meade % (Auto) Eos % (Auto) Baso % (Auto) Neut # (Auto) Lymph # (Auto) Meade # (Auto) Eos # (Auto) Baso # (Auto) Nucleated RBC % (a uto) Nucleated RBCs # APTT 82.6 H D 51.8 H 74.7 H Sodium Potassium Chloride Carbon Dioxide Anion Gap BUN Creatinine GFR Calculation Glucose Calculated Osmolal ity Calcium Nasal/Oral COVID-1 9 PCR 12/12/19 14:20 WBC RBC Hgb Hct MCV MCH MCHC RDW Plt Count MPV Neut % (Auto) Lymph % (Auto) Meade % (Auto) Eos % (Auto) Baso % (Auto) Neut # (Auto) Lymph # (Auto) Meade # (Auto) Eos # (Auto) Baso # (Auto) Nucleated RBC % (a uto) Nucleated RBCs # APTT Sodium Potassium Chloride Carbon Dioxide Anion Gap BUN Creatinine GFR Calculation Glucose Calculated Osmolal ity Calcium Nasal/Oral COVID-1 9 PCR Negative Vitals: Last Vital Signs Temp 98.0 F 12/14/19 08:00 Pulse 100 12/14/19 08:00 Resp 17 12/14/19 08:00 BP 105/64 12/14/19 08:00 Pulse Ox 95 12/14/19 08:00 Discharge Plan Discharge Patient Disposition: Home Condition: Stable Prescriptions: New Donn DVT-PE Treat 30D Start 5 mg (74 tabs) tablets,dose pack See Rx Instructions .ROUTE .COMPLEX Qty: 74 RF: 0 Continued hydrocodone-acetaminophen 5-325 mg tablet 1 tab PO Q4H PRN (Reason: postop pain) RF: 0 prochlorperazine maleate 10 mg tablet 10 mg PO Q4H PRN (Reason: n/v) RF: 0 aspirin 81 mg tablet,delayed release (DR/EC) 81 mg PO DAILY RF: 0 simvastatin 40 mg tablet 40 mg PO DAILY RF: 0 levothyroxine 88 mcg tablet 88 mcg PO DAILY RF: 0 dexamethasone 4 mg tablet See Rx Instructions .ROUTE .COMPLEX RF: 0 Multiple Vitamin, Womens Tablet 1 tab PO DAILY RF: 0 calcium carbonate-vitamin D3 600 mg(1,500mg) -400 unit tablet 1 tab PO DAILY RF: 0 Fish Oil 1,000 mg (120 mg-180 mg) Capsule 1 cap PO DAILY RF: 0 Discharge Orders: Discharge Order (Routine); Ordered 12/14/19 Ordered By: Grisel Grayson Referrals: Landry Neri MD [Primary Care Provider] - 4-7 days Justen Powell MD [Hospitalist] - 1-3 days Discharge Diet: Advance as tolerated Discharge Activity: Increase activity as tolerated Activity Restrictions/Additional Instructions: Diagnosed with a pulmonary embolism, blood clot in your lung. Discharge to home on Eliquis, blood thinner. This prescription has been sent for 30 days but you will need to continue past 30-day time. As determined by Dr. Powell and Dr. Neri. Please take based on package insert, 10 mg twice a day for 1 week followed by 5 mg twice a day. Please monitor for any evidence of bleeding, for any dark, black tarry like stools please present to the ED. Continue with routine follow-up as scheduled by Dr. Powell, repeat blood work and chemotherapy per Dr. Powell Follow-up with a primary care provider, Dr. Neri in 4 to 7 days Discharge Attestations Time Spent in Discharge Care*: greater than 30 min Specific Discharge Activities: Specific discharge activities: educating patient, educating and/or supporting family/caregiver and discussing with director of casework department/social workers/dc planners Quality Metrics Clinical Quality Measures During this hospital stay, did patient experience: VTE Contraindication to Overlap Therapy: Overlap treatment not indicated VTE Discharge Education: Education about anticoagulant therapy/Care Notes given Coding Level of Care Code Acute Ruffling Hemmer Automatic for Chg Fwd Diagnoses Pulmonary embolism I26.99 Breast cancer C50.919 Hypothyroidism (acquired) E03.9 Hyperlipidemia E78.5
[2019-12-14] MEDS: apixaban 5 mg Tablet 10 MG PO (10:54)
[2019-12-14 11:47] VITALS: BP 114/74; PULSE 87; RESP 16; TEMP 36.9; O2SAT 94
[2019-12-14 13:09] VITALS: BP 114/74; PULSE 87; RESP 16; TEMP 36.9; O2SAT 94
== END 2019-12-14 13:11 | disposition home or self-care (01) | DRG 176 ==
LOC: ER 14:45 → MEDSURG 15:06
PROVIDERS: Emergency Medicine; Family Medicine; Admitting Provider Family Medicine; PCP Family Medicine; Visit Provider Family Medicine
DX: I26.99 Other pulmonary embolism without acute cor pulmonale (principal); C50.912 Malignant neoplasm of unspecified site of left female breast; Z79.899 Other long term (current) drug therapy; Z17.1 Estrogen receptor negative status [ER-]; M19.90 Unspecified osteoarthritis, unspecified site; Z92.3 Personal history of irradiation; E89.0 Postprocedural hypothyroidism; W88.1XXS Exposure to radioactive isotopes, sequela; E78.5 Hyperlipidemia, unspecified; Z79.891 Long term (current) use of opiate analgesic; Z79.82 Long term (current) use of aspirin
CPT/HCPCS: 12345; 36415; 36591; 36592; 36600; 71275; 80048; 80053; 82728; 82803; 83605; 83615; 83880; 84145; 84443; 84484; 85025; 85378; 85384; 85610; 85730; 86140; 87040; 87426; 87635; 93005; 93306; 96375; 99214; 99283; J1644; Q9967

== ENCOUNTER 2020-01-09 05:34 | Outpatient (RCR) | payer MEDICARE, OTHER, SELFPAY ==
[2019-12-19] MEDS: acetaminophen 325 mg Tablet 650 MG PO (11:45)
[2019-12-19] MEDS: sodium chloride 0.9% 250 ML 75 ML IV (11:45)
[2019-12-26] MEDS: sodium chloride 0.9% 250 ML 75 ML IV (11:20)
[2019-12-26] MEDS: acetaminophen 325 mg Tablet 650 MG PO (11:20)
--- NOTE | 2019-12-31 14:29 | ONC FU_ITS ---
[facility] Patient Note Patient: Vee Obrien Unit #: [id number]: 1950 Dictated By: Sudha BhattDate of Visit: Dec 26, 2019 Onc MED Follow-Up/Prog Note Chief Complaint: Breast cancer. 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 She has been in very good general health. She had presented with an abnormal screening mammogram which reportedly showed a mass in the medial aspect of the left breast. Diagnostic mammogram/ultrasound was BI-RADS 4, suspicious. She then underwent ultrasound-guided needle core biopsy on 07/25/2019. Biopsy showed grade 3 infiltrating ductal carcinoma. The breast prognostic profile showed ER and KY negative, both less than 1%. HER-2/geovanny was 2+ by IHC but negative by FISH with amplification ratio 1.0 with 2.5 HER-2 copies/cell. The Ki-67 was very high at 90%. On 08/03/2019 she underwent left breast lumpectomy and left axillary lymph node dissection. Pathology on the lumpectomy showed grade 3 invasive ductal carcinoma measuring 2.7 cm in greatest dimension. There was a component of ductal carcinoma in situ, solid and comedo types, estimated at 5% of the tumor volume. 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 The margins were negative for invasive cancer. There was involvement in 25 of 25 axillary lymph nodes, the largest measuring 3.[address] Powell had seen her initially on 08/15/2019. Her staging PET/CT on 08/19/2019 showed postsurgical changes in the left breast and axilla. It was negative for metastatic disease or residual malignancy. With that finding, she was recommended to undergo adjuvant chemotherapy with dose dense Adriamycin/cyclophosphamide followed by weekly Taxol for 12 weeks. Her medical history is otherwise significant for Graves' disease, for which she will underwent radioactive iodine ablation in 1987. She has had subsequent hypothyroidism. Other medical illnesses include hyperlipidemia and mild degenerative arthritis. She has a history of inflammatory colon polyps and a history of multiple skin cancers in the facial area. She is a non-smoker. INTERIM HISTORY: She began cycle 1 of Adriamycin/cyclophosphamide on 08/29/2019. She did receive first cycle prophylaxis with Neulasta. She was severely neutropenic at day 8, ANC 200, but she recovered uneventfully. She otherwise tolerated it well, and she continued with cycle 2 on 09/12/2019. That treatment was complicated by neutropenia and stomatitis. Her 3rd cycle was delayed by 1 week, and it was administered with a 20% dose reduction. She was able to tolerate it with acceptable toxicity, and she then continued with cycle 4 on 10/17/2019. On 10/30/2019 she began her 1st of 12 planned weekly cycles of paclitaxel. She tolerated it without acute toxicity. Following her week 3 treatment she was given Neupogen for 2 doses due to declining neutrophil count. With her week 4 treatment on 11/21/2019 she was given a 10% dose reduction due to neuropathy. She was again given prophylactic Neupogen for 2 doses. She tolerated it well and she then continued with week 5 paclitaxel on 11/28/2019 and with week 6 on 12/05/2019, both administered without growth factor support. Her blood counts have remained adequate. Mrs. Obrien presented for her follow-up on December 12, 2019 as scheduled. She presented with extreme dizziness and shortness of breath. She was having significant dyspnea. She was found to be hypoxic with activity with an O2 sat of 86%. She was sent for pulmonary angiogram and was found to have extensive bilateral pulmonary embolus involving the segmental and sub-segmental pulmonary arteries. There was a focal opacity in the right lower lobe of the lung at 1.8 cm in a subpleural location that likely represents round atelectasis . Is recommended that she have a 2 to 3-month chest CT for follow-up or PET/CT imaging. She had mild chronic emphysematous changes. Prior postop changes in the left breast and left axillary lymph node dissection. She has chronic seroma in the left axilla measuring 3.1 x 2.5 cm. Mrs. Obrien was [place] [facility] [place] to the hypoxia and her extreme shortness of breath. She was treated initially with heparin drip and transition to Eliquis and was discharged on 12/14/2019. She was stable at that time. She did have rapid antigen first COVID-19 which was negative. The PCR also returned negative. She is currently on Eliquis 10 mg twice daily. She has 2 more days at this dose and then goes to 5 mg twice daily. Ms. Obrien is here today for follow-up. She states she is breathing a lot better. She is increasing her activity daily. She states she feels almost back to normal. She denies any fever or chills. She has had no known Covid exposure, symptoms or personal testing. She states she is eating well. She has been very active around the house. Her agrees that he is having hard time keeping her from doing too much . She denies any pain. She denies any diarrhea or constipation. She denies any hearing or vision changes. She has had no mouth sores, sore throat or difficulty swallowing. She denies any new concerns today. She denies any neuropathy. Her ECOG is 0. Past Medical History: Colon polyps Degenerative arthritis Graves disease History of skin cancer Hyperlipidemia Hypothyroidism Pulmonary embolus in 2019 Past Surgical History: Colonoscopy Tonsillectomy Tubal ligation Right subclavian venous access device-Dr Andrade in 2019 Left breast lumpectomy with axillary lymph node dissection in 2019 Ultrsound-guided needle core biopsy of left breast in 2019 Allergies: No Known Allergies. Medications: Acyclovir 1 Tablet (of 400 mg) Oral daily PRN Aspirin 1 Tablet (of 81 mg) Oral daily Calcium 1 Tablet (of 600 mg) Oral daily Dexamethasone (4 mg) Tablet Oral Take as Directed Eliquis 1 Tablet (of 5 mg) Oral b.i.d. Fish Oil 1 Capsule (of 1000 mg) Oral daily levoFLOXacin 1 Tablet (of 500 mg) Oral daily PRN LORazepam 0.5 - 1 Tablet (of 1 mg) Oral t.i.d. PRN Prochlorperazine Maleate 1 Tablet (of 10 mg) Oral q 4 hours PRN Simvastatin 1 Tablet (of 40 mg) Oral daily Synthroid 1 Tablet (of 88 mcg) Oral daily Family History: Ms. Obrien's mother at age 88: Alzheimer's disease. Ms. Obrien's father at age 87: pulmonary embolism. Ms. Obrien's maternal grandmother is : colon cancer. Her father had valvular heart disease and at age 87 of pulmonary embolism following a toe amputation. Mother with dementia at age 88. She has 2 older sisters who are both in good health, to her knowledge. Her maternal grandmother had colon cancer. There is no history of breast or ovarian cancer in the family. Social History: Ms. Obrien is and she is retired. Ms. Obrien has never smoked. She has no history of drinking. Ms. Obrien reports the following support systems: lives with spouse, significant other, family, or friends, lives in own house, supportive family/friends willing to assist with needs, and adequate transportation available for expected visits. Her diet consists of regular meals. She indicates her activity level as: regular exercise. Review Of Symptoms: Constitutional Denies fevers, chills, night sweats, excessive fatigue or weight loss. Complete alopecia with some regrowth noted. Allergic/Immunologic No reactions. Eyes Denies significant visual changes. No diplopia. No amaurosis. ENMT Denies changes in hearing, sore throat, mouth sores, difficulty or changes in swallowing ability, and/or sinus drainage. Endocrine No diabetes, thyroid disease or hormone replacement. Denies hot flashes or night sweats. Hematologic/Lymphatic Denies easy bruising or bleeding. The patient denies any tender or palpable lymph nodes. Breasts no concerns. Respiratory Denies dyspnea on exertion, chest pain, cough or hemoptysis. Denies orthopnea. Cardiovascular Denies anginal chest pain, palpitations or orthopnea. Gastrointestinal Denies nausea, vomiting, diarrhea, GI bleeding, or constipation. Denies change in bowel habits and/or stool color, no heartburn or early satiety. Genitourinary (F) No hematuria, hesitancy, incontinence, vaginal bleeding, discharge or other problems with urination. Musculoskeletal Denies joint pain, swelling or redness. No decreased range of motion. Integumentary Denies chronic rashes, inflammation, ulcerations or skin changes. Neurologic Denies headache, blurred vision, and no areas of focal weakness or numbness. Normal gait. Psychiatric Denies insomnia, depression, ade or mood swings. Vital Signs: Performed on Dec 26, 2019 10:37 Height - 67.00 in Weight - 167.6 lbs (LOW) BSA - 1.88 sq.m BMI - 26.25 Temperature - 97.8 F (LOW) Pulse - 92 /min Respiration - 18 /min BP - 126/84 mm(hg) O2 Sat - 92 % (LOW) Pain - 0,0 - Fully active, able to carry on all predisease activities without restrictions. (ECOG) Physical Examination: Constitutional Alert, oriented, no acute distress. Skin pink, warm and dry. Complete alopecia. Head Normocephalic; atraumatic. Eyes Conjunctivae and sclerae are clear and without icterus. Pupils are reactive and equal. Neck Supple without masses or thyromegaly. No jugular venous distension. Hematologic/Lymphatic No petechiae or purpura. No tender or palpable lymph nodes in the cervical or supraclavicular areas. Respiratory Lungs are clear to auscultation without rhonchi or wheezing. Cardiovascular Regular rate and rhythm of heart without murmurs,clicks, gallops or rubs. Chest Right chest wall venous access device insertion site has healed well. Abdomen Non-tender, non-distended, no masses or ascites. Back/Spine Non-tender to palpation. Extremities No visible deformities, no cyanosis, clubbing or edema. Musculoskeletal No tenderness or swelling, normal range of motion without obvious weakness. Integumentary No rashes or lesions. Neurologic No sensory or motor deficits, normal cerebellar function, normal gait. Psychiatric Alert and oriented times three. Coherent speech. Verbalizes understanding of our discussions today. Laboratory:Test performed on Dec 26, 2019 14:31 ABO & Rh Type # 2 Test Not Performed NO PRODUCTS ORDERED Test performed on Dec 26, 2019 13:48 Anti-D Negative Blood Type ON Antibody Screen (Gel) NEGATIVE Test performed on Dec 25, 2019 14:27 Glucose 105 mg/dL BUN 19 mg/dL Creatinine 0.7 mg/dL Cr Clearance (Est) 95.75 mL/min Sodium 140 mmol/L Potassium 4.4 mmol/L Chloride 107 mmol/L CO2 25 mmol/L Calcium 9.5 mg/dL Protein, Total 6.8 g/dL Albumin 4 g/dL Bilirubin, Total 0.3 mg/dL Alkaline Phosphatase 93 IU/L AST (SGOT) 26 IU/L ALT (SGPT) 28 IU/L WBC 4.9 10^9/L RBC 3.68 10^12/L HGB 11.5 g/dL HCT 35.7 % MCV 97 fl MCHC 32 g/dL RDW 16.7 % Platelet Count 341 10^9/L Neutrophils (Gran) 3.1 10^9/L Lymphocytes 1.2 10^9/L Monocytes 0.3 10^9/L Eosinophils 0.2 10^9/L Basophils 0 10^9/L Monocyte % 1.8 % Eosinophil % 0.0 % Basophils % 0.6 % NRBC % 0.5 % CBC Slide Review Slide Review Perform SLIDE REVIEW AGREES WITH AUTOMATED DIFF Impression: 1. Patient with grade 3 invasive ductal carcinoma of the left breast, stage IIIC (T2, pN3, M0), ER/KY negative and HER-2/geovanny negative. 2. She underwent your core biopsy of the left breast followed by lumpectomy and left axillary lymph node dissection on 08/03/2019. Pathology showed a 5% component of DCIS with focal involvement with DCIS at the medial margin. Her other medical illnesses include: 3. History of Graves' disease for which she underwent radioactive iodine ablation in 1987. 4. She has had subsequent hypothyroidism. 5. Mild degenerative arthritis. 6. She has undergone multiple skin cancer excisions. 7. She has a history of hyperplastic colon polyps. Her staging PET/CT showed no evidence of metastatic disease. With that finding, she was advised to undergo adjuvant chemotherapy with dose dense Adriamycin/cyclophosphamide followed by weekly Taxol for 12 weeks. She began cycle 1 of Adriamycin/cyclophosphamide on 08/29/2019. She was given first cycle prophylaxis with Neulasta. She was severely neutropenic at day 8, but she recovered uneventfully. She continued with cycle 2 on 09/12/2019. She required a delay and a dose reduction with the 3rd cycle because of neutropenia and stomatitis. She then continued with cycle 4 on 10/17/2019. She tolerated it with acceptable toxicity. On 10/30/2019 she began her 1st of 12 planned cycles of weekly paclitaxel. She tolerated it without apparent toxicity. She has now completed 4 weekly infusions of paclitaxel. Overall, she has tolerated treatment well. She does have mild fatigue and she is mildly anemic. She was given Neupogen prophylactically with her week 3 and week 4 treatments and with that her neutrophil count has remained adequate. She was given a 10% dose reduction with week 4 due to neuropathy. She tolerated that treatment well, and she was able to continue with week 5 paclitaxel on 11/28/2019 and with week 6 on 12/05/2019. She presented on 12/12/2019 complaining of shortness of breath for the past week, and she does appear short of breath with any effort. Her resting oxygen saturation is normal at 95%, but with activity it decreases to 86%, and she does have associated tachycardia. Unfortunately she was found to have bilateral extensive pulmonary emboli. She was admitted for hypoxia and severe shortness of breath. She was initially treated with heparin drip and transitioned to Eliquis. She was [place] [facility] [place] 12[place]14/[place]. She is currently on Eliquis 10 mg twice daily for 2 more days and then goes to 5 mg twice daily. She presents today with her clinical status greatly improved. She has had no further dizziness, shortness of breath or hypoxia. She her treatment last week was delayed the week of December 11 but she resumed treatment on December 19, 2019. Plan: 1. Proceed with week 8/12 paclitaxel at current dosing. 2. Steroid compliance confirmed. 3. Labs from December 25, 2019 were reviewed in detail and discussed with Mrs. Obrien and a copy was given to her. WBC 4.9, hemoglobin 11.5, platelets 341,000 ANC is 3100 potassium 4.4 creatinine 0.7 LFTs are normal. 4. We will give her Neupogen 481 dose this cycle as her ANC is starting to drop at 3100. 5. We will plan to recheck her labs next week the day before her treatment for potential week 9 of 12 paclitaxel. 6. Mrs. Obrien was instructed to contact us in the interim should questions or problems arise. Signed By: Sudha Bhatt-, [facility] Justen Powell MD <<Signature on File>>
[2020-01-02] MEDS: sodium chloride 0.9% 250 ML 75 ML IV (10:35)
[2020-01-02] MEDS: acetaminophen 325 mg Tablet 650 MG PO (10:40)
--- NOTE | 2020-01-02 10:40 | ONC FU_ITS ---
[facility] Patient Note Patient: Vee Obrien Unit #: [id number]: 1950 Dictated By: Sudha BhattDate of Visit: Jan 02, 2020 Onc MED Follow-Up/Prog Note Chief Complaint: Breast cancer. 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 She has been in very good general health. She had presented with an abnormal screening mammogram which reportedly showed a mass in the medial aspect of the left breast. Diagnostic mammogram/ultrasound was BI-RADS 4, suspicious. She then underwent ultrasound-guided needle core biopsy on 07/25/2019. Biopsy showed grade 3 infiltrating ductal carcinoma. The breast prognostic profile showed ER and GA negative, both less than 1%. HER-2/geovanny was 2+ by IHC but negative by FISH with amplification ratio 1.0 with 2.5 HER-2 copies/cell. The Ki-67 was very high at 90%. On 08/03/2019 she underwent left breast lumpectomy and left axillary lymph node dissection. Pathology on the lumpectomy showed grade 3 invasive ductal carcinoma measuring 2.7 cm in greatest dimension. There was a component of ductal carcinoma in situ, solid and comedo types, estimated at 5% of the tumor volume. 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 The margins were negative for invasive cancer. There was involvement in 25 of 25 axillary lymph nodes, the largest measuring 3.[address] Powell had seen her initially on 08/15/2019. Her staging PET/CT on 08/19/2019 showed postsurgical changes in the left breast and axilla. It was negative for metastatic disease or residual malignancy. With that finding, she was recommended to undergo adjuvant chemotherapy with dose dense Adriamycin/cyclophosphamide followed by weekly Taxol for 12 weeks. Her medical history is otherwise significant for Graves' disease, for which she will underwent radioactive iodine ablation in 1987. She has had subsequent hypothyroidism. Other medical illnesses include hyperlipidemia and mild degenerative arthritis. She has a history of inflammatory colon polyps and a history of multiple skin cancers in the facial area. She is a non-smoker. INTERIM HISTORY: She began cycle 1 of Adriamycin/cyclophosphamide on 08/29/2019. She did receive first cycle prophylaxis with Neulasta. She was severely neutropenic at day 8, ANC 200, but she recovered uneventfully. She otherwise tolerated it well, and she continued with cycle 2 on 09/12/2019. That treatment was complicated by neutropenia and stomatitis. Her 3rd cycle was delayed by 1 week, and it was administered with a 20% dose reduction. She was able to tolerate it with acceptable toxicity, and she then continued with cycle 4 on 10/17/2019. On 10/30/2019 she began her 1st of 12 planned weekly cycles of paclitaxel. She tolerated it without acute toxicity. Following her week 3 treatment she was given Neupogen for 2 doses due to declining neutrophil count. With her week 4 treatment on 11/21/2019 she was given a 10% dose reduction due to neuropathy. She was again given prophylactic Neupogen for 2 doses. She tolerated it well and she then continued with week 5 paclitaxel on 11/28/2019 and with week 6 on 12/05/2019, both administered without growth factor support. Her blood counts have remained adequate. Mrs. Obrien presented for her follow-up on December 12, 2019 as scheduled. She presented with extreme dizziness and shortness of breath. She was having significant dyspnea. She was found to be hypoxic with activity with an O2 sat of 86%. She was sent for pulmonary angiogram and was found to have extensive bilateral pulmonary embolus involving the segmental and sub-segmental pulmonary arteries. There was a focal opacity in the right lower lobe of the lung at 1.8 cm in a subpleural location that likely represents round atelectasis . Is recommended that she have a 2 to 3-month chest CT for follow-up or PET/CT imaging. She had mild chronic emphysematous changes. Prior postop changes in the left breast and left axillary lymph node dissection. She has chronic seroma in the left axilla measuring 3.1 x 2.5 cm. Mrs. Obrien was admitted to [facility] due to the hypoxia and her extreme shortness of breath. She was treated initially with heparin drip and transition to Eliquis and was discharged on 12/14/2019. She was stable at that time. She did have rapid antigen first COVID-19 which was negative. The PCR also returned negative. She is currently on Eliquis 10 mg twice daily. She has 2 more days at this dose and then goes to 5 mg twice daily. Ms. Obrien is here today for follow-up. She is due for week 9 of 12 paclitaxel. She states she is back to her normal self. Her breathing is normal for her. She denies any chest pain. Her fatigue has greatly improved and she is very active. She denies any fever or chills or any signs of infection for at least the last 72 hours. She denies mouth sores, sore throat or difficulty swallowing. She states her bowels and bladder are normal for her. She denies any neuropathy. Her ECOG is 0. Past Medical History: Colon polyps Degenerative arthritis Graves disease History of skin cancer Hyperlipidemia Hypothyroidism Pulmonary embolus in 2019 Past Surgical History: Colonoscopy Tonsillectomy Tubal ligation Right subclavian venous access device-Dr Andrade in 2019 Left breast lumpectomy with axillary lymph node dissection in 2019 Ultrsound-guided needle core biopsy of left breast in 2019 Allergies: No Known Allergies. Medications: Acyclovir 1 Tablet (of 400 mg) Oral daily PRN Aspirin 1 Tablet (of 81 mg) Oral daily Calcium 1 Tablet (of 600 mg) Oral daily Dexamethasone (4 mg) Tablet Oral Take as Directed Eliquis 1 Tablet (of 5 mg) Oral b.i.d. Fish Oil 1 Capsule (of 1000 mg) Oral daily levoFLOXacin 1 Tablet (of 500 mg) Oral daily PRN LORazepam 0.5 - 1 Tablet (of 1 mg) Oral t.i.d. PRN Prochlorperazine Maleate 1 Tablet (of 10 mg) Oral q 4 hours PRN Simvastatin 1 Tablet (of 40 mg) Oral daily Synthroid 1 Tablet (of 88 mcg) Oral daily Family History: Ms. Obrien's mother at age 88: Alzheimer's disease. Ms. Obrien's father at age 87: pulmonary embolism. Ms. Obrien's maternal grandmother is : colon cancer. Her father had valvular heart disease and at age 87 of pulmonary embolism following a toe amputation. Mother with dementia at age 88. She has 2 older sisters who are both in good health, to her knowledge. Her maternal grandmother had colon cancer. There is no history of breast or ovarian cancer in the family. Social History: Ms. Obrien is and she is retired. Ms. Obrien has never smoked. She has no history of drinking. Ms. Obrien reports the following support systems: lives with spouse, significant other, family, or friends, lives in own house, supportive family/friends willing to assist with needs, and adequate transportation available for expected visits. Her diet consists of regular meals. She indicates her activity level as: regular exercise. Review Of Symptoms: Constitutional Denies fevers, chills, night sweats, excessive fatigue or weight loss. Taste is gone-smell is great but cannot taste anything. Allergic/Immunologic No reactions. Eyes Denies significant visual changes. No diplopia. No amaurosis. ENMT Denies changes in hearing, sore throat, mouth sores, difficulty or changes in swallowing ability, and/or sinus drainage. Endocrine No diabetes, thyroid disease or hormone replacement. Denies hot flashes or night sweats. Hematologic/Lymphatic Denies easy bruising or bleeding. The patient denies any tender or palpable lymph nodes. Breasts no concerns. Thinks overall much better. Respiratory Denies dyspnea on exertion, chest pain, cough or hemoptysis. Denies orthopnea. Cardiovascular Denies anginal chest pain, palpitations or orthopnea. Gastrointestinal Denies nausea, vomiting, diarrhea, GI bleeding, or constipation. Denies change in bowel habits and/or stool color, no heartburn or early satiety. Genitourinary (F) No hematuria, hesitancy, incontinence, vaginal bleeding, discharge or other problems with urination. Musculoskeletal Denies joint pain, swelling or redness. No decreased range of motion. Integumentary Denies chronic rashes, inflammation, ulcerations or skin changes. Neurologic Denies headache, blurred vision, and no areas of focal weakness or numbness. Normal gait. Psychiatric Denies insomnia, depression, ade or mood swings. Vital Signs: Performed on Jan 02, 2020 09:59 Height - 67.00 in Weight - 169.4 lbs (HIGH) BSA - 1.88 sq.m BMI - 26.53 Temperature - 97.7 F (LOW) Pulse - 90 /min Respiration - 18 /min BP - 140/90 mm(hg) O2 Sat - 92 % (LOW) Pain - 0,0 - Fully active, able to carry on all predisease activities without restrictions. (ECOG) Physical Examination: Constitutional Alert, oriented, no acute distress. Skin pink, warm and dry. Complete alopecia. Head Normocephalic; atraumatic. Eyes Conjunctivae and sclerae are clear and without icterus. Pupils are reactive and equal. Neck Supple without masses or thyromegaly. No jugular venous distension. Hematologic/Lymphatic No petechiae or purpura. No tender or palpable lymph nodes in the cervical or supraclavicular areas. Respiratory Lungs are clear to auscultation without rhonchi or wheezing. Cardiovascular Regular rate and rhythm of heart without murmurs,clicks, gallops or rubs. Chest Right chest wall venous access device insertion site has healed well. Breasts Left breast nodule at incision line, semi- firm, non moveable, no redness or warmth, No exudate. Softer than last exam. No axillary seroma or adenopathy. Abdomen Non-tender, non-distended, no masses or ascites. Back/Spine Non-tender to palpation. Extremities No visible deformities, no cyanosis, clubbing or edema. Musculoskeletal No tenderness or swelling, normal range of motion without obvious weakness. Integumentary No rashes or lesions. Neurologic No sensory or motor deficits, normal cerebellar function, normal gait. Psychiatric Alert and oriented times three. Coherent speech. Verbalizes understanding of our discussions today. Laboratory:Test performed on Jan 01, 2020 13:25 Glucose 94 mg/dL BUN 11 mg/dL Creatinine 0.7 mg/dL Cr Clearance (Est) 95.75 mL/min Sodium 142 mmol/L Potassium 4.1 mmol/L Chloride 109 mmol/L CO2 26 mmol/L Calcium 9.4 mg/dL Protein, Total 6.8 g/dL Albumin 4 g/dL Bilirubin, Total 0.4 mg/dL Alkaline Phosphatase 79 IU/L ALT (SGPT) 25 IU/L WBC 3.8 10^9/L RBC 3.63 10^12/L HGB 11.6 g/dL HCT 35.6 % MCV 98.1 fl MCHC 33 g/dL RDW 16.8 % Platelet Count 261 10^9/L Neutrophils (Gran) 2.1 10^9/L Lymphocytes 1 10^9/L Monocytes 0.4 10^9/L Eosinophils 0.2 10^9/L Basophils 0 10^9/L Test performed on Dec 26, 2019 14:31 ABO & Rh Type # 2 Test Not Performed NO PRODUCTS ORDERED Test performed on Dec 26, 2019 13:48 Anti-D Negative Blood Type ON Antibody Screen (Gel) NEGATIVE Test performed on Dec 25, 2019 14:27 AST (SGOT) 26 IU/L Test performed on Dec 18, 2019 11:39 BUN/Creatinine Ratio 21 Absolute Value A/G Ratio 1.3 Absolute Value MCH 31.4 pg MPV 9.0 fL Test performed on Nov 27, 2019 08:08 Manual Lymphocytes 12.8 % Manual Monocytes 6.6 % Manual Eosinophils 3.5 % Manual Basophils 0.5 % Test performed on Oct 30, 2019 08:15 Anion Gap 15.2 eGFR 122.0 mL/min Osmolality - Calculated 285 mOsm/kg Globulin 3.0 g/dL Neutrophil % 90.7 % Lymphocyte % 7.0 % Monocyte % 1.8 % Eosinophil % 0.0 % Basophils % 0.6 % NRBC % 0.5 % CBC Slide Review Slide Review Perform SLIDE REVIEW AGREES WITH AUTOMATED DIFF Test performed on Oct 03, 2019 08:12 Manual Bands % 6.0 % Manual Bands Abs 0.4 10 3/cmm Manual Neutrophils Abs 3.2 10 3/cmm Manual Monocytes Abs 0.8 10 3/cmm Manual Eosinophils Abs 0.1 10 3/cmm Manual Basophils Abs 0.1 10 3/cmm Test performed on Aug 29, 2019 08:55 Manual Lymphocytes Abs 3.8 10 3/cmm Atypical Lymphs % 1.0 % Total Cells Counted 100 Impression: 1. Patient with grade 3 invasive ductal carcinoma of the left breast, stage IIIC (T2, pN3, M0), ER/GA negative and HER-2/geovanny negative. 2. She underwent your core biopsy of the left breast followed by lumpectomy and left axillary lymph node dissection on 08/03/2019. Pathology showed a 5% component of DCIS with focal involvement with DCIS at the medial margin. Her other medical illnesses include: 3. History of Graves' disease for which she underwent radioactive iodine ablation in 1987. 4. She has had subsequent hypothyroidism. 5. Mild degenerative arthritis. 6. She has undergone multiple skin cancer excisions. 7. She has a history of hyperplastic colon polyps. Her staging PET/CT showed no evidence of metastatic disease. With that finding, she was advised to undergo adjuvant chemotherapy with dose dense Adriamycin/cyclophosphamide followed by weekly Taxol for 12 weeks. She began cycle 1 of Adriamycin/cyclophosphamide on 08/29/2019. She was given first cycle prophylaxis with Neulasta. She was severely neutropenic at day 8, but she recovered uneventfully. She continued with cycle 2 on 09/12/2019. She required a delay and a dose reduction with the 3rd cycle because of neutropenia and stomatitis. She then continued with cycle 4 on 10/17/2019. She tolerated it with acceptable toxicity. On 10/30/2019 she began her 1st of 12 planned cycles of weekly paclitaxel. She tolerated it without apparent toxicity. She has now completed 4 weekly infusions of paclitaxel. Overall, she has tolerated treatment well. She does have mild fatigue and she is mildly anemic. She was given Neupogen prophylactically with her week 3 and week 4 treatments and with that her neutrophil count has remained adequate. She was given a 10% dose reduction with week 4 due to neuropathy. She tolerated that treatment well, and she was able to continue with week 5 paclitaxel on 11/28/2019 and with week 6 on 12/05/2019. She presented on 12/12/2019 complaining of shortness of breath for the past week, and she does appear short of breath with any effort. Her resting oxygen saturation is normal at 95%, but with activity it decreases to 86%, and she does have associated tachycardia. Unfortunately she was found to have bilateral extensive pulmonary emboli. She was admitted for hypoxia and severe shortness of breath. She was initially treated with heparin drip and transitioned to Eliquis. She was discharged from [facility] on 12/14/2019. She is currently on Eliquis 10 mg twice daily for 2 more days and then goes to 5 mg twice daily. She presents today with her clinical status greatly improved. She has had no further dizziness, shortness of breath or hypoxia. She her treatment last week was delayed the week of December 11 but she resumed treatment on December 19, 2019. She has recovered from the pulmonary emboli and is tolerating treatment well. She remains on anticoagulation. Plan: 1. Proceed with week 9/12 paclitaxel at current dosing. 2. Steroid compliance confirmed. 3. Labs from January 01, 2020 were reviewed in detail and discussed with Mrs. Obrien and a copy was given to her. WBCs 3.8, hemoglobin 11.6, platelets 261,000, ANC is 2100. Creatinine 0.7. Potassium 4.1 LFTs are normal. 4. We will give her Neupogen 480 two dose this cycle as her ANC did drop from 3100 last week to 2100 today. 5. We will plan to recheck her labs next week the day before her treatment for potential week 10 of 12 paclitaxel. 6. Mrs. Obrien was instructed to contact us in the interim should questions or problems arise. Signed By: Sudha Bhatt-, AOCNP Justen Powell MD <<Signature on File>>
[2020-01-09] MEDS: acetaminophen 325 mg Tablet 650 MG PO (09:35)
[2020-01-09] MEDS: sodium chloride 0.9% 250 ML 75 ML IV (10:38)
--- NOTE | 2020-01-11 15:16 | ONC FU_ITS ---
[facility] Patient Note Patient: Vee Obrien Unit #: [id number]: 1950 Dictated By: Sudha BhattDate of Visit: Dec 19, 2019 Onc MED Follow-Up/Prog Note Chief Complaint: Breast cancer. 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 She has been in very good general health. She had presented with an abnormal screening mammogram which reportedly showed a mass in the medial aspect of the left breast. Diagnostic mammogram/ultrasound was BI-RADS 4, suspicious. She then underwent ultrasound-guided needle core biopsy on 07/25/2019. Biopsy showed grade 3 infiltrating ductal carcinoma. The breast prognostic profile showed ER and GA negative, both less than 1%. HER-2/geovanny was 2+ by IHC but negative by FISH with amplification ratio 1.0 with 2.5 HER-2 copies/cell. The Ki-67 was very high at 90%. On 08/03/2019 she underwent left breast lumpectomy and left axillary lymph node dissection. Pathology on the lumpectomy showed grade 3 invasive ductal carcinoma measuring 2.7 cm in greatest dimension. There was a component of ductal carcinoma in situ, solid and comedo types, estimated at 5% of the tumor volume. 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 The margins were negative for invasive cancer. There was involvement in 25 of 25 axillary lymph nodes, the largest measuring 3.[address] Powell had seen her initially on 08/15/2019. Her staging PET/CT on 08/19/2019 showed postsurgical changes in the left breast and axilla. It was negative for metastatic disease or residual malignancy. With that finding, she was recommended to undergo adjuvant chemotherapy with dose dense Adriamycin/cyclophosphamide followed by weekly Taxol for 12 weeks. Her medical history is otherwise significant for Graves' disease, for which she will underwent radioactive iodine ablation in 1987. She has had subsequent hypothyroidism. Other medical illnesses include hyperlipidemia and mild degenerative arthritis. She has a history of inflammatory colon polyps and a history of multiple skin cancers in the facial area. She is a non-smoker. INTERIM HISTORY: She began cycle 1 of Adriamycin/cyclophosphamide on 08/29/2019. She did receive first cycle prophylaxis with Neulasta. She was severely neutropenic at day 8, ANC 200, but she recovered uneventfully. She otherwise tolerated it well, and she continued with cycle 2 on 09/12/2019. That treatment was complicated by neutropenia and stomatitis. Her 3rd cycle was delayed by 1 week, and it was administered with a 20% dose reduction. She was able to tolerate it with acceptable toxicity, and she then continued with cycle 4 on 10/17/2019. On 10/30/2019 she began her 1st of 12 planned weekly cycles of paclitaxel. She tolerated it without acute toxicity. Following her week 3 treatment she was given Neupogen for 2 doses due to declining neutrophil count. With her week 4 treatment on 11/21/2019 she was given a 10% dose reduction due to neuropathy. She was again given prophylactic Neupogen for 2 doses. She tolerated it well and she then continued with week 5 paclitaxel on 11/28/2019 and with week 6 on 12/05/2019, both administered without growth factor support. Her blood counts have remained adequate. Mrs. Obrien presented for her follow-up on December 12, 2019 as scheduled. She presented with extreme dizziness and shortness of breath. She was having significant dyspnea. She was found to be hypoxic with activity with an O2 sat of 86%. She was sent for pulmonary angiogram and was found to have extensive bilateral pulmonary embolus involving the segmental and sub-segmental pulmonary arteries. There was a focal opacity in the right lower lobe of the lung at 1.8 cm in a subpleural location that likely represents round atelectasis . Is recommended that she have a 2 to 3-month chest CT for follow-up or PET/CT imaging. She had mild chronic emphysematous changes. Prior postop changes in the left breast and left axillary lymph node dissection. She has chronic seroma in the left axilla measuring 3.1 x 2.5 cm. Mrs. Obrien was admitted to [facility] [place] due to the hypoxia and her extreme shortness of breath. She was treated initially with heparin drip and transition to Eliquis and was discharged on 12/14/2019. She was stable at that time. She did have rapid antigen first COVID-19 which was negative. The PCR also returned negative. She is currently on Eliquis 10 mg twice daily. She has 2 more days at this dose and then goes to 5 mg twice daily. Ms. Obrien is here today for follow-up. She states she feels significantly better. She states that she can walk from room to room without severe shortness of breath or weakness and dizziness. She states that her biggest concern prior to being diagnosed with a pulmonary emboli was dizziness. She has severe dizziness. That has resolved. She is tolerating the Eliquis well. She reports no episodes of bleeding or excessive bruising. She has stopped her prophylactic (started on her own baby aspirin). She is advised that she does not need to be on a as she is on the Eliquis now. She denies any nausea or vomiting. She states her energy is returning back to her normal.. Her states that he is having to slow her down at times. He reports that she is much better. She denies any new concerns today. She denies any neuropathy. Her ECOG is 1 but improving daily. Past Medical History: Colon polyps Degenerative arthritis Graves disease History of skin cancer Hyperlipidemia Hypothyroidism Pulmonary embolus in 2019 Past Surgical History: Colonoscopy Tonsillectomy Tubal ligation Right subclavian venous access device-Dr Andrade in 2019 Left breast lumpectomy with axillary lymph node dissection in 2019 Ultrsound-guided needle core biopsy of left breast in 2020 Allergies: No Known Allergies. Medications: Acyclovir 1 Tablet (of 400 mg) Oral daily PRN Aspirin 1 Tablet (of 81 mg) Oral daily Calcium 1 Tablet (of 600 mg) Oral daily Dexamethasone (4 mg) Tablet Oral Take as Directed Eliquis 2 Tablet (of 5 mg) Oral b.i.d. Fish Oil 1 Capsule (of 1000 mg) Oral daily levoFLOXacin 1 Tablet (of 500 mg) Oral daily PRN LORazepam 0.5 - 1 Tablet (of 1 mg) Oral t.i.d. PRN Prochlorperazine Maleate 1 Tablet (of 10 mg) Oral q 4 hours PRN Simvastatin 1 Tablet (of 40 mg) Oral daily Synthroid 1 Tablet (of 88 mcg) Oral daily Family History: Ms. Obrien's mother at age 88: Alzheimer's disease. Ms. Obrien's father at age 87: pulmonary embolism. Ms. Obrien's maternal grandmother is : colon cancer. Her father had valvular heart disease and at age 87 of pulmonary embolism following a toe amputation. Mother with dementia at age 88. She has 2 older sisters who are both in good health, to her knowledge. Her maternal grandmother had colon cancer. There is no history of breast or ovarian cancer in the family. Social History: Ms. Obrien is and she is retired. Ms. Obrien has never smoked. She has no history of drinking. Ms. Obrien reports the following support systems: lives with spouse, significant other, family, or friends, lives in own house, supportive family/friends willing to assist with needs, and adequate transportation available for expected visits. Her diet consists of regular meals. She indicates her activity level as: regular exercise. Review Of Symptoms: Constitutional Denies fevers, chills, night sweats, excessive fatigue or weight loss. Complete alopecia now. Allergic/Immunologic No reactions. Eyes Denies significant visual changes. No diplopia. No amaurosis. ENMT Denies changes in hearing, sore throat, mouth sores, difficulty or changes in swallowing ability, and/or sinus drainage. Endocrine No diabetes, thyroid disease or hormone replacement. Denies hot flashes or night sweats. Hematologic/Lymphatic Denies easy bruising or bleeding. The patient denies any tender or palpable lymph nodes. Breasts no concerns. Respiratory Denies dyspnea on exertion, chest pain, cough or hemoptysis. Denies orthopnea. Cardiovascular Denies anginal chest pain, palpitations or orthopnea. Gastrointestinal Denies nausea, vomiting, diarrhea, GI bleeding, or constipation. Denies change in bowel habits and/or stool color, no heartburn or early satiety. Genitourinary (F) No hematuria, hesitancy, incontinence, vaginal bleeding, discharge or other problems with urination. Musculoskeletal Denies joint pain, swelling or redness. No decreased range of motion. Integumentary Denies chronic rashes, inflammation, ulcerations or skin changes. Neurologic Denies headache, blurred vision, and no areas of focal weakness or numbness. Normal gait. Psychiatric Denies insomnia, depression, ade or mood swings. Vital Signs: Performed on Dec 19, 2019 11:00 Height - 67.00 in Weight - 169.2 lbs (LOW) BSA - 1.88 sq.m BMI - 26.50 Temperature - 97.9 F (LOW) Pulse - 100 /min Respiration - 18 /min BP - 144/99 mm(hg) (HIGH) O2 Sat - 93 % (LOW) Pain - 0,1 - No physically strenuous activity, but ambulatory and able to carry out light or sedentary work (e.g. office work, light house work). (ECOG) Physical Examination: Constitutional Alert, oriented, no acute distress. Skin pink, warm and dry. Complete alopecia. Head Normocephalic; atraumatic. Eyes Conjunctivae and sclerae are clear and without icterus. Pupils are reactive and equal. Neck Supple without masses or thyromegaly. No jugular venous distension. Hematologic/Lymphatic No petechiae or purpura. No tender or palpable lymph nodes in the cervical or supraclavicular areas. Respiratory Lungs are clear to auscultation without rhonchi or wheezing. Cardiovascular Regular rate and rhythm of heart without murmurs,clicks, gallops or rubs. Chest Right chest wall venous access device insertion site has healed well. Abdomen Non-tender, non-distended, no masses or ascites. Back/Spine Non-tender to palpation. Extremities No visible deformities, no cyanosis, clubbing or edema. Musculoskeletal No tenderness or swelling, normal range of motion without obvious weakness. Integumentary No rashes or lesions. Neurologic No sensory or motor deficits, normal cerebellar function, normal gait. Psychiatric Alert and oriented times three. Coherent speech. Verbalizes understanding of our discussions today. Laboratory:Test performed on Dec 18, 2019 11:39 Glucose 100 mg/dL BUN 15 mg/dL Creatinine 0.7 mg/dL Cr Clearance (Est) 95.75 mL/min BUN/Creatinine Ratio 21 Absolute Value Sodium 140 mmol/L Potassium 3.8 mmol/L Chloride 107 mmol/L CO2 26 mmol/L Calcium 9.3 mg/dL Protein, Total 6.8 g/dL Albumin 3.8 g/dL A/G Ratio 1.3 Absolute Value Bilirubin, Total 0.5 mg/dL Alkaline Phosphatase 102 IU/L AST (SGOT) 23 IU/L ALT (SGPT) 30 IU/L WBC 6.7 10^9/L RBC 3.47 10^12/L HGB 10.9 g/dL HCT 34.3 % MCV 98.8 fl MCH 31.4 pg MCHC 32 g/dL Platelet Count 334 10^9/L MPV 9.0 fL Neutrophils (Gran) 4.1 10^9/L Lymphocytes 1.3 10^9/L Monocytes 0.9 10^9/L Eosinophils 0.3 10^9/L Basophils 0.0 10^9/L Test performed on Dec 04, 2019 09:43 RDW 18.6 % Test performed on Nov 27, 2019 08:08 Manual Lymphocytes 12.8 % Manual Monocytes 6.6 % Manual Eosinophils 3.5 % Manual Basophils 0.5 % Test performed on Oct 30, 2019 08:15 Anion Gap 15.2 eGFR 122.0 mL/min Osmolality - Calculated 285 mOsm/kg Globulin 3.0 g/dL Neutrophil % 90.7 % Lymphocyte % 7.0 % Monocyte % 1.8 % Eosinophil % 0.0 % Basophils % 0.6 % NRBC % 0.5 % CBC Slide Review Slide Review Perform SLIDE REVIEW AGREES WITH AUTOMATED DIFF Test performed on Oct 03, 2019 08:12 Manual Bands % 6.0 % Manual Bands Abs 0.4 10 3/cmm Manual Neutrophils Abs 3.2 10 3/cmm Manual Monocytes Abs 0.8 10 3/cmm Manual Eosinophils Abs 0.1 10 3/cmm Manual Basophils Abs 0.1 10 3/cmm Test performed on Aug 29, 2019 08:55 Manual Lymphocytes Abs 3.8 10 3/cmm Atypical Lymphs % 1.0 % Total Cells Counted 100 Impression: 1. Patient with grade 3 invasive ductal carcinoma of the left breast, stage IIIC (T2, pN3, M0), ER/GA negative and HER-2/geovanny negative. 2. She underwent your core biopsy of the left breast followed by lumpectomy and left axillary lymph node dissection on 08/03/2019. Pathology showed a 5% component of DCIS with focal involvement with DCIS at the medial margin. Her other medical illnesses include: 3. History of Graves' disease for which she underwent radioactive iodine ablation in 1987. 4. She has had subsequent hypothyroidism. 5. Mild degenerative arthritis. 6. She has undergone multiple skin cancer excisions. 7. She has a history of hyperplastic colon polyps. Her staging PET/CT showed no evidence of metastatic disease. With that finding, she was advised to undergo adjuvant chemotherapy with dose dense Adriamycin/cyclophosphamide followed by weekly Taxol for 12 weeks. She began cycle 1 of Adriamycin/cyclophosphamide on 08/29/2019. She was given first cycle prophylaxis with Neulasta. She was severely neutropenic at day 8, but she recovered uneventfully. She continued with cycle 2 on 09/12/2019. She required a delay and a dose reduction with the 3rd cycle because of neutropenia and stomatitis. She then continued with cycle 4 on 10/17/2019. She tolerated it with acceptable toxicity. On 10/30/2019 she began her 1st of 12 planned cycles of weekly paclitaxel. She tolerated it without apparent toxicity. She has now completed 4 weekly infusions of paclitaxel. Overall, she has tolerated treatment well. She does have mild fatigue and she is mildly anemic. She was given Neupogen prophylactically with her week 3 and week 4 treatments and with that her neutrophil count has remained adequate. She was given a 10% dose reduction with week 4 due to neuropathy. She tolerated that treatment well, and she was able to continue with week 5 paclitaxel on 11/28/2019 and with week 6 on 12/05/2019. She presented on 12/12/2019 complaining of shortness of breath for the past week, and she does appear short of breath with any effort. Her resting oxygen saturation is normal at 95%, but with activity it decreases to 86%, and she does have associated tachycardia. Unfortunately she was found to have bilateral extensive pulmonary emboli. She was admitted for hypoxia and severe shortness of breath. She was initially treated with heparin drip and transitioned to Eliquis. She was discharged from [facility] [place] on 12/14/2019. She is currently on Eliquis 10 mg twice daily for 2 more days and then goes to 5 mg twice daily. She presents today with her clinical status greatly improved. She has had no further dizziness, shortness of breath or hypoxia. She her treatment last week was delayed but she will resume treatment today. Plan: 1. Proceed with week 7 paclitaxel at current dosing. 2. Steroid compliance confirmed. 3. Labs from December 18, 2019 were reviewed in detail and discussed with Mrs. Obrien and a copy was given to her. WBC 6.7, hemoglobin 10.9, platelets 3 and 34,000 ANC is 4100. Potassium 3.8 creatinine 0.7 LFTs are normal. Her oxygen saturation today was 93% she is asymptomatic. 4. I have not plan to give her Neupogen with this cycle as her ANC is 4100 and the recent diagnosis of extensive bilateral pulmonary emboli. 5. We will plan to recheck her labs next week the day before her treatment for potential week 8 of 12 paclitaxel. 6. A written prescription for 90-day supply with 3 refills of Eliquis 5 mg twice daily was given to Mr. Obrien for him to take to [place] to have it filled through [facility].. 7. Mrs. Obrien was instructed to contact us in the interim should questions or problems arise. Signed By: Sudha Bhatt-, AOCNP Justen Powell MD <<Signature on File>>
--- NOTE | 2020-01-13 11:06 | ONC FU_ITS ---
Dr. Powell Patient Follow-Up Note Patient: Vee Obrien Unit #: [id number]: 1950 Dicatated By: Justen Powell M.D.Date of Visit:Jan 09, 2020 Onc Med Follow-up/Prog Note Chief Complaint: Breast cancer. History of Present Illness: This is a 69 year-old woman with grade 3 invasive ductal carcinoma of the left breast, stage IIIC (T2, pN3, M0), ER/NE negative and HER-2/geovanny negative. She has been in very good general health. She had presented with an abnormal screening mammogram which reportedly showed a mass in the medial aspect of the left breast. Diagnostic mammogram/ultrasound was BI-RADS 4, suspicious. She then underwent ultrasound-guided needle core biopsy on 07/25/2019. Biopsy showed grade 3 infiltrating ductal carcinoma. The breast prognostic profile showed ER and NE negative, both less than 1%. HER-2/geovanny was 2+ by IHC but negative by FISH with amplification ratio 1.0 with 2.5 HER-2 copies/cell. The Ki-67 was very high at 90%. On 08/03/2019 she underwent left breast lumpectomy and left axillary lymph node dissection. Pathology on the lumpectomy showed grade 3 invasive ductal carcinoma measuring 2.7 cm in greatest dimension. There was a component of ductal carcinoma in situ, solid and comedo types, estimated at 5% of the tumor volume. 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 The margins were negative for invasive cancer. There was involvement in 25 of 25 axillary lymph nodes, the largest measuring 3.6 cm. I had seen her initially on 08/15/2019. Her staging PET/CT on 08/19/2019 showed postsurgical changes in the left breast and axilla. It was negative for metastatic disease or residual malignancy. With that finding, she was recommended to undergo adjuvant chemotherapy with dose dense Adriamycin/cyclophosphamide followed by weekly Taxol for 12 weeks. Her medical history is otherwise significant for Graves' disease, for which she will underwent radioactive iodine ablation in 1987. She has had subsequent hypothyroidism. Other medical illnesses include hyperlipidemia and mild degenerative arthritis. She has a history of inflammatory colon polyps and a history of multiple skin cancers in the facial area. She is a non-smoker. INTERIM HISTORY: She began cycle 1 of Adriamycin/cyclophosphamide on 08/29/2019. She did receive first cycle prophylaxis with Neulasta. She was severely neutropenic at day 8, ANC 200, but she recovered uneventfully. She otherwise tolerated it well, and she continued with cycle 2 on 09/12/2019. That treatment was complicated by neutropenia and stomatitis. Her 3rd cycle was delayed by 1 week, and it was administered with a 20% dose reduction. She was able to tolerate it with acceptable toxicity, and she then continued with cycle 4 on 10/17/2019. On 10/30/2019 she began her 1st of 12 planned weekly cycles of paclitaxel. She tolerated it without acute toxicity. Following her week 3 treatment she was given Neupogen for 2 doses due to declining neutrophil count. With her week 4 treatment on 11/21/2019 she was given a 10% dose reduction due to neuropathy. She was again given prophylactic Neupogen for 2 doses. She tolerated it well and she then continued with week 5 paclitaxel on 11/28/2019 and with week 6 on 12/05/2019, both administered without growth factor support. Had a scheduled visit on 12/12/2019 she had developed severe shortness of breath. Her CT pulmonary angiogram showed extensive pulmonary emboli involving segmental and subsegmental pulmonary arteries bilaterally. She was symptomatic enough to require hospitalization. She improved on anticoagulation with IV heparin, and she was then discharged home on apixaban. She was able to resume her weekly paclitaxel on 12/19/2019. She completed her week 9 treatment on 01/02/2020. She is seen for a scheduled visit. She has been feeling good generally. She still has some fatigue, but her energy is better now. Appetite is generally good. She says she occasionally is not hungry. She has no fever, night sweats, or hot flashes. She has had no mouth sores. Her breathing is much better now. She does not complain of shortness of breath, cough, or chest pain. She has no GI or complaints. She has no significant joint or bone pain. She is not having numbness/tingling or other neuropathy symptoms. Medications: Acyclovir 1 Tablet (of 400 mg) Oral daily PRN, Aspirin 1 Tablet (of 81 mg) Oral daily, Calcium 1 Tablet (of 600 mg) Oral daily, Dexamethasone (4 mg) Tablet Oral Take as Directed, Eliquis 1 Tablet (of 5 mg) Oral b.i.d., Fish Oil 1 Capsule (of 1000 mg) Oral daily, levoFLOXacin 1 Tablet (of 500 mg) Oral daily PRN, LORazepam 0.5 - 1 Tablet (of 1 mg) Oral t.i.d. PRN, Prochlorperazine Maleate 1 Tablet (of 10 mg) Oral q 4 hours PRN, Simvastatin 1 Tablet (of 40 mg) Oral daily, Synthroid 1 Tablet (of 88 mcg) Oral daily Allergies: No Known Allergies. Review of Systems: Constitutional - She still has some fatigue, her energy and activity tolerance have improved.Appetite is generally good. No fever, night sweats, or hot flashes. ECOG score is 1, ENMT - No sinus congestion/drainage. No mouth sores. No sore throat or difficulty swallowing, Hematologic/Lymphatic - No abnormal bruising or bleeding, Respiratory - Her breathing is better. No cough. No pleuritic pain or hemoptysis, Cardiovascular - No angina pain. No palpitations, Gastrointestinal - No nausea or vomiting. No heartburn or acid reflux. No diarrhea or constipation. No blood in the stool or black stools, Genitourinary (F) - No dysuria or hematuria. No urinary frequency. No urgency or incontinence, Musculoskeletal - No joint or bone pain, Integumentary - No skin rash, Neurologic - No headache or dizziness. No numbness or tingling. No other focal neurologic symptoms, Psychiatric - No anxiety or depression. She sometimes has difficulty sleeping. Vital Signs: Performed on Jan 09, 2020 08:59 Height - 67.00 in Weight - 167.8 lbs (LOW) BSA - 1.88 sq.m BMI - 26.28 Temperature - 97 F (LOW) Pulse - 98 /min Respiration - 18 /min BP - 157/86 mm(hg) (HIGH) O2 Sat - 95 % (LOW) Pain - 0 Physical Examination: Constitutional - She looks pretty good generally, Eyes - Sclerae nonicteric. Conjunctivae clear, ENMT - No lesions noted in the oral cavity, Hematologic/Lymphatic - No cervical, clavicular, or axillary adenopathy, Respiratory - Lungs are clear with good air movement bilaterally, Cardiovascular - Heart rhythm is regular. There is a I/ systolic murmur. There is no gallop or rub noted, Abdomen - Soft. Liver and spleen are not enlarged. There is no abdominal mass or ascites noted and there is no inguinal adenopathy, Extremities - No edema, Neurologic - No focal neurologic deficits noted. Lab/Imaging: Test performed on Jan 08, 2020 15:54 Glucose 91 mg/dL BUN 15 mg/dL Creatinine 0.7 mg/dL Cr Clearance (Est) 95.75 mL/min Sodium 141 mmol/L Potassium 4.1 mmol/L Chloride 108 mmol/L CO2 29 mmol/L Calcium 9.6 mg/dL Protein, Total 6.8 g/dL Albumin 4 g/dL Bilirubin, Total 0.4 mg/dL Alkaline Phosphatase 84 IU/L ALT (SGPT) 22 IU/L Test performed on Jan 08, 2020 11:35 WBC 5.1 10^9/L RBC 3.68 10^12/L HGB 11.6 g/dL HCT 36.2 % MCV 98.4 fl MCHC 32 g/dL RDW 16.9 % Platelet Count 246 10^9/L Neutrophils (Gran) 3 10^9/L Lymphocytes 1.4 10^9/L Monocytes 0.5 10^9/L Eosinophils 0.1 10^9/L Basophils 0 10^9/L Impression: 1. Patient with grade 3 invasive ductal carcinoma of the left breast, stage IIIC (T2, pN3, M0), ER/NE negative and HER-2/geovanny negative. 2. She underwent your core biopsy of the left breast followed by lumpectomy and left axillary lymph node dissection on 08/03/2019. Pathology showed a 5% component of DCIS with focal involvement with DCIS at the medial margin. Her other medical illnesses include: 3. History of Graves' disease for which she underwent radioactive iodine ablation in 1987. 4. She has had subsequent hypothyroidism. 5. Mild degenerative arthritis. 6. She has undergone multiple skin cancer excisions. 7. She has a history of hyperplastic colon polyps. Her staging PET/CT showed no evidence of metastatic disease. With that finding, she was advised to undergo adjuvant chemotherapy with dose dense Adriamycin/cyclophosphamide followed by weekly Taxol for 12 weeks. She began cycle 1 of Adriamycin/cyclophosphamide on 08/29/2019. She was given first cycle prophylaxis with Neulasta. She was severely neutropenic at day 8, but she recovered uneventfully. She continued with cycle 2 on 09/12/2019. She required a delay and a dose reduction with the 3rd cycle because of neutropenia and stomatitis. She then continued with cycle 4 on 10/17/2019. She tolerated it with acceptable toxicity. On 10/30/2019 she began her 1st of 12 planned cycles of weekly paclitaxel. She tolerated it without apparent toxicity. She has now completed 4 weekly infusions of paclitaxel. Overall, she has tolerated treatment well. She does have mild fatigue and she is mildly anemic. She was given Neupogen prophylactically with her week 3 and week 4 treatments and with that her neutrophil count has remained adequate. She was given a 10% dose reduction with week 4 due to neuropathy. She tolerated that treatment well, and she was able to continue with week 5 paclitaxel on 11/28/2019 and with week 6 on 12/05/2019. At her scheduled visit on 12/12/2019 she had developed severe shortness of breath and hypoxia. She was found on CT pulmonary angiogram to have a significant burden of pulmonary emboli bilaterally. She was symptomatic enough to require hospitalization, but she did improve on IV heparin. At discharge she continued anticoagulation with apixaban. She was able to resume weekly paclitaxel on 12/19/2019. She has otherwise continued to tolerate her chemotherapy very well, and thus far there has been no evidence of recurrence of the breast cancer. Plan: She will proceed with her week 10 paclitaxel. The dosage remains the same. She continues anticoagulation with apixaban 5 mg twice daily. She returns in 1 week. Signed By: Justen Powell M.D. <<Signature on File>>
== END 2020-01-13 23:59 | disposition home or self-care (01) ==
LOC: ONCMED 05:34
PROVIDERS: PCP Family Medicine; Visit Provider Internal Medicine Medical Oncology
DX: Z51.11 Encounter for antineoplastic chemotherapy (principal); C50.812 Malignant neoplasm of overlapping sites of left female breast; C77.3 Secondary and unspecified malignant neoplasm of axilla and upper limb lymph nodes; Z17.1 Estrogen receptor negative status [ER-]; I26.99 Other pulmonary embolism without acute cor pulmonale; Z79.01 Long term (current) use of anticoagulants; E89.0 Postprocedural hypothyroidism; E78.5 Hyperlipidemia, unspecified; M19.90 Unspecified osteoarthritis, unspecified site; Z79.899 Other long term (current) drug therapy; Z85.828 Personal history of other malignant neoplasm of skin; Z86.010 Personal history of colon polyps; Z79.52 Long term (current) use of systemic steroids; Z76.89 Persons encountering health services in other specified circumstances
CPT/HCPCS: 86850; 86900; 96367; 96413; 99214; J1100; J1200; J1453; J2405; J3490; J7050; J9267

== ENCOUNTER 2020-01-23 05:21 | Outpatient (RCR) | payer MEDICARE, OTHER, SELFPAY ==
[2020-01-16] MEDS: sodium chloride 0.9% 250 ML 75 ML IV (10:00)
[2020-01-16] MEDS: acetaminophen 325 mg Tablet 650 MG PO (10:10)
--- NOTE | 2020-01-20 10:59 | ONC FU_ITS ---
Dr. Powell Patient Follow-Up Note Patient: Vee Obrien Unit #: [id number]: 1950 Dicatated By: Justen Powell M.D.Date of Visit:Jan 16, 2020 Onc Med Follow-up/Prog Note Chief Complaint: Breast cancer. History of Present Illness: This is a 69 year-old woman with grade 3 invasive ductal carcinoma of the left breast, stage IIIC (T2, pN3, M0), ER/IN negative and HER-2/geovanny negative. She has been in very good general health. She had presented with an abnormal screening mammogram which reportedly showed a mass in the medial aspect of the left breast. Diagnostic mammogram/ultrasound was BI-RADS 4, suspicious. She then underwent ultrasound-guided needle core biopsy on 07/25/2019. Biopsy showed grade 3 infiltrating ductal carcinoma. The breast prognostic profile showed ER and IN negative, both less than 1%. HER-2/geovanny was 2+ by IHC but negative by FISH with amplification ratio 1.0 with 2.5 HER-2 copies/cell. The Ki-67 was very high at 90%. On 08/03/2019 she underwent left breast lumpectomy and left axillary lymph node dissection. Pathology on the lumpectomy showed grade 3 invasive ductal carcinoma measuring 2.7 cm in greatest dimension. There was a component of ductal carcinoma in situ, solid and comedo types, estimated at 5% of the tumor volume. 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 The margins were negative for invasive cancer. There was involvement in 25 of 25 axillary lymph nodes, the largest measuring 3.6 cm. I had seen her initially on 08/15/2019. Her staging PET/CT on 08/19/2019 showed postsurgical changes in the left breast and axilla. It was negative for metastatic disease or residual malignancy. With that finding, she was recommended to undergo adjuvant chemotherapy with dose dense Adriamycin/cyclophosphamide followed by weekly Taxol for 12 weeks. Her medical history is otherwise significant for Graves' disease, for which she will underwent radioactive iodine ablation in 1987. She has had subsequent hypothyroidism. Other medical illnesses include hyperlipidemia and mild degenerative arthritis. She has a history of inflammatory colon polyps and a history of multiple skin cancers in the facial area. She is a non-smoker. INTERIM HISTORY: She began cycle 1 of Adriamycin/cyclophosphamide on 08/29/2019. She did receive first cycle prophylaxis with Neulasta. She was severely neutropenic at day 8, ANC 200, but she recovered uneventfully. She otherwise tolerated it well, and she continued with cycle 2 on 09/12/2019. That treatment was complicated by neutropenia and stomatitis. Her 3rd cycle was delayed by 1 week, and it was administered with a 20% dose reduction. She was able to tolerate it with acceptable toxicity, and she then continued with cycle 4 on 10/17/2019. On 10/30/2019 she began her 1st of 12 planned weekly cycles of paclitaxel. She tolerated it without acute toxicity. Following her week 3 treatment she was given Neupogen for 2 doses due to declining neutrophil count. With her week 4 treatment on 11/21/2019 she was given a 10% dose reduction due to neuropathy. She was again given prophylactic Neupogen for 2 doses. She tolerated it well and she then continued with week 5 paclitaxel on 11/28/2019 and with week 6 on 12/05/2019, both administered without growth factor support. Had a scheduled visit on 12/12/2019 she had developed severe shortness of breath. Her CT pulmonary angiogram showed extensive pulmonary emboli involving segmental and subsegmental pulmonary arteries bilaterally. She was symptomatic enough to require hospitalization. She improved on anticoagulation with IV heparin, and she was then discharged home on apixaban. She was able to resume her weekly paclitaxel on 12/19/2019. She completed her week 10 treatment on 01/09/2020. She is seen for a scheduled visit. She has been feeling good generally. Energy continues to improve. She is able to walk further and she is able to do light work. ECOG score is 1. She has good appetite. She has no fever or night sweats. She has no shortness of breath, cough, or chest pain. She has no GI or complaints other than frequent urination. She has no significant joint or bone pain. She does not complain of headache or dizziness. She is not having numbness/paresthesia or other neuropathy symptoms. Medications: Acyclovir 1 Tablet (of 400 mg) Oral daily PRN, Aspirin 1 Tablet (of 81 mg) Oral daily, Calcium 1 Tablet (of 600 mg) Oral daily, Dexamethasone (4 mg) Tablet Oral Take as Directed, Eliquis 1 Tablet (of 5 mg) Oral b.i.d., Fish Oil 1 Capsule (of 1000 mg) Oral daily, levoFLOXacin 1 Tablet (of 500 mg) Oral daily PRN, LORazepam 0.5 - 1 Tablet (of 1 mg) Oral t.i.d. PRN, Prochlorperazine Maleate 1 Tablet (of 10 mg) Oral q 4 hours PRN, Simvastatin 1 Tablet (of 40 mg) Oral daily, Synthroid 1 Tablet (of 88 mcg) Oral daily Allergies: No Known Allergies. Review of Systems: Constitutional - Her energy continues to get better. She is more active. She is able to do some light work. Appetite is good and weight is stable. No fever, night sweats, or hot flashes. ECOG score is 1, ENMT - No sinus congestion/drainage. She has dry nose and mouth. No sore throat or difficulty swallowing, Hematologic/Lymphatic - She has easy bruising, Respiratory - No shortness of breath. No cough. No pleuritic pain or hemoptysis, Cardiovascular - No angina pain. No palpitations, Gastrointestinal - No nausea or vomiting. No heartburn or acid reflux. No diarrhea or constipation. No blood in the stool or black stools, Genitourinary (F) - No dysuria or hematuria. She has urinary frequency. No urgency or incontinence, Musculoskeletal - No joint or bone pain, Integumentary - No skin rash, Neurologic - No headache or dizziness. No numbness or tingling. No other focal neurologic symptoms, Psychiatric - No anxiety or depression. No insomnia. Vital Signs: Performed on Jan 16, 2020 09:17 Height - 67.00 in Weight - 169.2 lbs (HIGH) BSA - 1.88 sq.m BMI - 26.50 Temperature - 97.7 F (LOW) Pulse - 102 /min (HIGH) Respiration - 18 /min BP - 163/76 mm(hg) (HIGH) O2 Sat - 94 % (LOW) Pain - 0 Physical Examination: Constitutional - She looks pretty good generally, Eyes - Sclerae nonicteric. Conjunctivae clear, ENMT - No lesions noted in the oral cavity, Hematologic/Lymphatic - No cervical, clavicular, or axillary adenopathy, Respiratory - Lungs are clear with good air movement bilaterally, Cardiovascular - Heart rhythm is regular. There is a II/ systolic murmur. There is no gallop or rub noted, Abdomen - Soft. Liver and spleen are not enlarged. There is no abdominal mass or ascites noted and there is no inguinal adenopathy, Extremities - No edema, Neurologic - No focal neurologic deficits noted. Lab/Imaging: Test performed on Jan 15, 2020 09:19 Glucose 89 mg/dL BUN 14 mg/dL Creatinine 0.7 mg/dL Cr Clearance (Est) 95.75 mL/min Sodium 142 mmol/L Potassium 4.1 mmol/L Chloride 108 mmol/L CO2 27 mmol/L Calcium 9.5 mg/dL Protein, Total 7 g/dL Albumin 4.2 g/dL Bilirubin, Total 0.2 mg/dL Alkaline Phosphatase 90 IU/L AST (SGOT) 28 IU/L Impression: 1. Patient with grade 3 invasive ductal carcinoma of the left breast, stage IIIC (T2, pN3, M0), ER/IN negative and HER-2/geovanny negative. 2. She underwent your core biopsy of the left breast followed by lumpectomy and left axillary lymph node dissection on 08/03/2019. Pathology showed a 5% component of DCIS with focal involvement with DCIS at the medial margin. Her other medical illnesses include: 3. History of Graves' disease for which she underwent radioactive iodine ablation in 1987. 4. She has had subsequent hypothyroidism. 5. Mild degenerative arthritis. 6. She has undergone multiple skin cancer excisions. 7. She has a history of hyperplastic colon polyps. Her staging PET/CT showed no evidence of metastatic disease. With that finding, she was advised to undergo adjuvant chemotherapy with dose dense Adriamycin/cyclophosphamide followed by weekly Taxol for 12 weeks. She began cycle 1 of Adriamycin/cyclophosphamide on 08/29/2019. She was given first cycle prophylaxis with Neulasta. She was severely neutropenic at day 8, but she recovered uneventfully. She continued with cycle 2 on 09/12/2019. She required a delay and a dose reduction with the 3rd cycle because of neutropenia and stomatitis. She then continued with cycle 4 on 10/17/2019. She tolerated it with acceptable toxicity. On 10/30/2019 she began her 1st of 12 planned cycles of weekly paclitaxel. She tolerated it without apparent toxicity. She has now completed 4 weekly infusions of paclitaxel. Overall, she has tolerated treatment well. She does have mild fatigue and she is mildly anemic. She was given Neupogen prophylactically with her week 3 and week 4 treatments and with that her neutrophil count has remained adequate. She was given a 10% dose reduction with week 4 due to neuropathy. She tolerated that treatment well, and she was able to continue with week 5 paclitaxel on 11/28/2019 and with week 6 on 12/05/2019. At her scheduled visit on 12/12/2019 she had developed severe shortness of breath and hypoxia. She was found on CT pulmonary angiogram to have a significant burden of pulmonary emboli bilaterally. She was symptomatic enough to require hospitalization, but she did improve on IV heparin. At discharge she continued anticoagulation with apixaban. She was able to resume weekly paclitaxel on 12/19/2019. She has since then continued continued to tolerate her chemotherapy very well. She has now completed 10 of 12 planned cycles of weekly paclitaxel. Plan: She will proceed with her week 11 paclitaxel. The dosage remains the same. She continues anticoagulation with apixaban 5 mg twice daily. She returns in 1 week for her 12th and final weekly paclitaxel. Signed By: Justen Powell M.D. <<Signature on File>>
--- NOTE | 2020-01-23 09:40 | ONC FU_ITS ---
[facility] Patient Note Patient: Vee Obrien Unit #: [id number]: 1950 Dictated By: Sudha BhattDate of Visit: Jan 23, 2020 Onc MED Follow-Up/Prog Note Chief Complaint: Breast cancer. 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 She has been in very good general health. She had presented with an abnormal screening mammogram which reportedly showed a mass in the medial aspect of the left breast. Diagnostic mammogram/ultrasound was BI-RADS 4, suspicious. She then underwent ultrasound-guided needle core biopsy on 07/25/2019. Biopsy showed grade 3 infiltrating ductal carcinoma. The breast prognostic profile showed ER and ME negative, both less than 1%. HER-2/geovanny was 2+ by IHC but negative by FISH with amplification ratio 1.0 with 2.5 HER-2 copies/cell. The Ki-67 was very high at 90%. On 08/03/2019 she underwent left breast lumpectomy and left axillary lymph node dissection. Pathology on the lumpectomy showed grade 3 invasive ductal carcinoma measuring 2.7 cm in greatest dimension. There was a component of ductal carcinoma in situ, solid and comedo types, estimated at 5% of the tumor volume. 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 The margins were negative for invasive cancer. There was involvement in 25 of 25 axillary lymph nodes, the largest measuring 3.[address] Powell had seen her initially on 08/15/2019. Her staging PET/CT on 08/19/2019 showed postsurgical changes in the left breast and axilla. It was negative for metastatic disease or residual malignancy. With that finding, she was recommended to undergo adjuvant chemotherapy with dose dense Adriamycin/cyclophosphamide followed by weekly Taxol for 12 weeks. Her medical history is otherwise significant for Graves' disease, for which she will underwent radioactive iodine ablation in 1987. She has had subsequent hypothyroidism. Other medical illnesses include hyperlipidemia and mild degenerative arthritis. She has a history of inflammatory colon polyps and a history of multiple skin cancers in the facial area. She is a non-smoker. INTERIM HISTORY: She began cycle 1 of Adriamycin/cyclophosphamide on 08/29/2019. She did receive first cycle prophylaxis with Neulasta. She was severely neutropenic at day 8, ANC 200, but she recovered uneventfully. She otherwise tolerated it well, and she continued with cycle 2 on 09/12/2019. That treatment was complicated by neutropenia and stomatitis. Her 3rd cycle was delayed by 1 week, and it was administered with a 20% dose reduction. She was able to tolerate it with acceptable toxicity, and she then continued with cycle 4 on 10/17/2019. On 10/30/2019 she began her 1st of 12 planned weekly cycles of paclitaxel. She tolerated it without acute toxicity. Following her week 3 treatment she was given Neupogen for 2 doses due to declining neutrophil count. With her week 4 treatment on 11/21/2019 she was given a 10% dose reduction due to neuropathy. She was again given prophylactic Neupogen for 2 doses. She tolerated it well and she then continued with week 5 paclitaxel on 11/28/2019 and with week 6 on 12/05/2019, both administered without growth factor support. Had a scheduled visit on 12/12/2019 she had developed severe shortness of breath. Her CT pulmonary angiogram showed extensive pulmonary emboli involving segmental and subsegmental pulmonary arteries bilaterally. She was symptomatic enough to require hospitalization. She improved on anticoagulation with IV heparin, and she was then discharged home on apixaban. She was able to resume her weekly paclitaxel on 12/19/2019. She completed her week 11 treatment on 01/16/2020. Ms. Obrien is here today for follow-up. Overall she is doing well. She has had no fever or chills. She denies any nausea or vomiting. Her appetite is good and her energy improves every day. Her activity level improves every day as well. She denies any shortness of breath orthopnea. She denies any cough. She denies any Covid symptoms or any known exposure. She has no pending Covid testing either. She denies any chest pain or palpitations. She has had no lower extremity edema. She denies any neuropathy symptoms. Her ECOG is 0. Past Medical History: Colon polyps Degenerative arthritis Graves disease History of skin cancer Hyperlipidemia Hypothyroidism Pulmonary embolus in 2020 Past Surgical History: Colonoscopy Tonsillectomy Tubal ligation Right subclavian venous access device-Dr Andrade in 2019 Left breast lumpectomy with axillary lymph node dissection in 2019 Ultrsound-guided needle core biopsy of left breast in 2020 Allergies: No Known Allergies. Medications: Acyclovir 1 Tablet (of 400 mg) Oral daily PRN Aspirin 1 Tablet (of 81 mg) Oral daily Calcium 1 Tablet (of 600 mg) Oral daily Dexamethasone (4 mg) Tablet Oral Take as Directed Eliquis 1 Tablet (of 5 mg) Oral b.i.d. Fish Oil 1 Capsule (of 1000 mg) Oral daily levoFLOXacin 1 Tablet (of 500 mg) Oral daily PRN LORazepam 0.5 - 1 Tablet (of 1 mg) Oral t.i.d. PRN Prochlorperazine Maleate 1 Tablet (of 10 mg) Oral q 4 hours PRN Simvastatin 1 Tablet (of 40 mg) Oral daily Synthroid 1 Tablet (of 88 mcg) Oral daily Family History: Ms. Obrien's mother at age 88: Alzheimer's disease. Ms. Obrien's father at age 87: pulmonary embolism. Ms. Obrien's maternal grandmother is : colon cancer. Her father had valvular heart disease and at age 87 of pulmonary embolism following a toe amputation. Mother with dementia at age 88. She has 2 older sisters who are both in good health, to her knowledge. Her maternal grandmother had colon cancer. There is no history of breast or ovarian cancer in the family. Social History: Ms. Obrien is and she is retired. Ms. Obrien has never smoked. She has no history of drinking. Ms. Obrien reports the following support systems: lives with spouse, significant other, family, or friends, lives in own house, supportive family/friends willing to assist with needs, and adequate transportation available for expected visits. Her diet consists of regular meals. She indicates her activity level as: regular exercise. Review Of Symptoms: Constitutional Denies fevers, chills, night sweats, excessive fatigue or weight loss. Taste is gone-smell is great but cannot taste anything. Allergic/Immunologic No reactions. Eyes Denies significant visual changes. No diplopia. No amaurosis. ENMT Denies changes in hearing, sore throat, mouth sores, difficulty or changes in swallowing ability, and/or sinus drainage. Endocrine No diabetes, thyroid disease or hormone replacement. Denies hot flashes or night sweats. Hematologic/Lymphatic Denies easy bruising or bleeding. The patient denies any tender or palpable lymph nodes. Breasts no concerns. Thinks overall much better. Respiratory Denies dyspnea on exertion, chest pain, cough or hemoptysis. Denies orthopnea. Cardiovascular Denies anginal chest pain, palpitations or orthopnea. Gastrointestinal Denies nausea, vomiting, diarrhea, GI bleeding, or constipation. Denies change in bowel habits and/or stool color, no heartburn or early satiety. Genitourinary (F) No hematuria, hesitancy, incontinence, vaginal bleeding, discharge or other problems with urination. Musculoskeletal Denies joint pain, swelling or redness. No decreased range of motion. Integumentary Denies chronic rashes, inflammation, ulcerations or skin changes. Neurologic Denies headache, blurred vision, and no areas of focal weakness or numbness. Normal gait. Psychiatric Denies insomnia, depression, ade or mood swings. Vital Signs: Performed on Jan 23, 2020 08:54 Height - 67.00 in Weight - 168.6 lbs (LOW) BSA - 1.88 sq.m BMI - 26.41 Temperature - 98.5 F Pulse - 109 /min (HIGH) Respiration - 20 /min BP - 145/97 mm(hg) (HIGH) O2 Sat - 94 % (LOW) Pain - 0,0 - Fully active, able to carry on all predisease activities without restrictions. (ECOG) Physical Examination: Constitutional Alert, oriented, no acute distress. Skin pink, warm and dry. Complete alopecia. Head Normocephalic; atraumatic. Eyes Conjunctivae and sclerae are clear and without icterus. Pupils are reactive and equal. Neck Supple without masses or thyromegaly. No jugular venous distension. Hematologic/Lymphatic No petechiae or purpura. No tender or palpable lymph nodes in the cervical or supraclavicular areas. Respiratory Lungs are clear to auscultation without rhonchi or wheezing. Cardiovascular Regular rate and rhythm of heart without murmurs,clicks, gallops or rubs. Chest Right chest wall venous access device insertion site has healed well. Abdomen Non-tender, non-distended, no masses or ascites. Back/Spine Non-tender to palpation. Extremities No visible deformities, no cyanosis, clubbing or edema. Musculoskeletal No tenderness or swelling, normal range of motion without obvious weakness. Integumentary No rashes or lesions. Neurologic No sensory or motor deficits, normal cerebellar function, normal gait. Psychiatric Alert and oriented times three. Coherent speech. Verbalizes understanding of our discussions today. Laboratory:Test performed on Jan 22, 2020 08:45 Glucose 90 mg/dL BUN 17 mg/dL Creatinine 0.6 mg/dL Cr Clearance (Est) 111.71 mL/min BUN/Creatinine Ratio 28 Absolute Value Sodium 142 mmol/L Potassium 4.4 mmol/L Chloride 109 mmol/L CO2 27 mmol/L Calcium 9.4 mg/dL Protein, Total 6.7 g/dL Albumin 4.0 g/dL A/G Ratio 1.5 Absolute Value Bilirubin, Total 0.4 mg/dL Alkaline Phosphatase 71 IU/L AST (SGOT) 27 IU/L ALT (SGPT) 33 IU/L WBC 3.5 10^9/L RBC 3.71 10^12/L HGB 11.6 g/dL HCT 36.3 % MCV 97.8 fl MCH 31.3 pg MCHC 32 g/dL RDW 16.5 % Platelet Count 259 10^9/L MPV 9.3 fL Neutrophils (Gran) 1.7 10^9/L Lymphocytes 1.4 10^9/L Monocytes 0.2 10^9/L Eosinophils 0.0 10^9/L Basophils 0.0 10^9/L Manual Bands 49.8 % Manual Lymphocytes 40.8 % Manual Monocytes 6.6 % Manual Eosinophils 1.1 % Manual Basophils 0.6 % Impression: 1. Patient with grade 3 invasive ductal carcinoma of the left breast, stage IIIC (T2, pN3, M0), ER/ME negative and HER-2/geovanny negative. 2. She underwent your core biopsy of the left breast followed by lumpectomy and left axillary lymph node dissection on 08/03/2019. Pathology showed a 5% component of DCIS with focal involvement with DCIS at the medial margin. Her other medical illnesses include: 3. History of Graves' disease for which she underwent radioactive iodine ablation in 1987. 4. She has had subsequent hypothyroidism. 5. Mild degenerative arthritis. 6. She has undergone multiple skin cancer excisions. 7. She has a history of hyperplastic colon polyps. Her staging PET/CT showed no evidence of metastatic disease. With that finding, she was advised to undergo adjuvant chemotherapy with dose dense Adriamycin/cyclophosphamide followed by weekly Taxol for 12 weeks. She began cycle 1 of Adriamycin/cyclophosphamide on 08/29/2019. She was given first cycle prophylaxis with Neulasta. She was severely neutropenic at day 8, but she recovered uneventfully. She continued with cycle 2 on 09/12/2019. She required a delay and a dose reduction with the 3rd cycle because of neutropenia and stomatitis. She then continued with cycle 4 on 10/17/2019. She tolerated it with acceptable toxicity. On 10/30/2019 she began her 1st of 12 planned cycles of weekly paclitaxel. She tolerated it without apparent toxicity. She has now completed 4 weekly infusions of paclitaxel. Overall, she has tolerated treatment well. She does have mild fatigue and she is mildly anemic. She was given Neupogen prophylactically with her week 3 and week 4 treatments and with that her neutrophil count has remained adequate. She was given a 10% dose reduction with week 4 due to neuropathy. She tolerated that treatment well, and she was able to continue with week 5 paclitaxel on 11/28/2019 and with week 6 on 12/05/2019. At her scheduled visit on 12/12/2019 she had developed severe shortness of breath and hypoxia. She was found on CT pulmonary angiogram to have a significant burden of pulmonary emboli bilaterally. She was symptomatic enough to require hospitalization, but she did improve on IV heparin. At discharge she continued anticoagulation with apixaban. She was able to resume weekly paclitaxel on 12/19/2019. She has since then continued continued to tolerate her chemotherapy very well. She has now completed 11 of 12 planned cycles of weekly paclitaxel. Plan: 1. Proceed with week 12/12 paclitaxel at current dosing. 2. Steroid compliance confirmed. 3. Labs from January 22, 2020 were reviewed in detail and discussed with Mrs. Obrien and a copy was given to her. WBC 3.5, hemoglobin 11.6 platelets 10 59,000 ANC is 1700 creatinine 0.6 LFTs are normal. Random glucose was 90. 4. We will give her Neupogen 480 two dose this cycle as her ANC did drop to 1700 day 0. She will have this done at [facility] if possible. 5. We will plan to recheck her labs next week to make sure she is recovering from chemoinduced neutropenia. 6. We will see her back in 1 month with CBC, CMP and port flush and follow CT scan per Dr Powell's previous orders. Since she is having follow-up CT of the chest we will not set her up for any follow-up mammograms at this time. 7. Mrs. Obrien was instructed to contact us in the interim should questions or problems arise. 8. She would like to arrange interim port flushes with Dr Andrade or Dr Neri in [place]. She does have followup with Dr Andrade on 03/04/2020 and plans to ask her then about doing the interim port flushes there. Signed By: Sudha Bhatt-, AOP Justen Powell MD <<Signature on File>>
[2020-01-23] MEDS: sodium chloride 0.9% 250 ML 75 ML IV (09:45)
[2020-01-23] MEDS: acetaminophen 325 mg Tablet 650 MG PO (09:45)
== END 2020-02-12 23:59 | disposition home or self-care (01) ==
LOC: ONCMED 05:21
PROVIDERS: PCP Family Medicine; Visit Provider Nurse Practitioner
DX: C50.812 Malignant neoplasm of overlapping sites of left female breast (principal); Z17.1 Estrogen receptor negative status [ER-]; D70.1 Agranulocytosis secondary to cancer chemotherapy; T45.1X5A Adverse effect of antineoplastic and immunosuppressive drugs, initial encounter; I26.99 Other pulmonary embolism without acute cor pulmonale; E03.9 Hypothyroidism, unspecified; M19.90 Unspecified osteoarthritis, unspecified site; Z86.010 Personal history of colon polyps; Z85.828 Personal history of other malignant neoplasm of skin; Z79.818 Long term (current) use of other agents affecting estrogen receptors and estrogen levels; Z79.899 Other long term (current) drug therapy; Z92.21 Personal history of antineoplastic chemotherapy
CPT/HCPCS: 96367; 96413; 99214; J1100; J1200; J1453; J2405; J3490; J7050; J9267

== ENCOUNTER 2020-02-19 08:46 | Outpatient (CLI) | payer MEDICARE, OTHER, SELFPAY ==
--- NOTE | 2020-02-19 09:15 | CT_ITS ---
WS: [id number] CTA OF THE CHEST WITH PULMONARY EMBOLISM PROTOCOL TECHNIQUE: High-resolution contrast enhanced CTA of the chest with coronal and sagittal reformatted i aida with pulmonary embolism protocol. MIP images are also reviewed. CLINICAL INFORMATION: PULMONARY EMBOLISM, MALIGNANY NEOPLASM LEFT FEMALE BREAST COMPARISON: November 22, 2019 DLP: 801.[address] scans at [facility] use at least one of these dose optimization techniques: automat ed exposure control; mA and/or kV adjustment per patient size (includes targeted exams where dose is matched to clinical indication); or iterative reconstruction. FINDINGS: Proximal main pulmonary arteries are normal. Again seen are extensive filling defects consistent with pulmonary embolus in the proximal segmental and subsegmental pulmonary arteries bilaterally. This is similar in appearance and only slightly improved compared to December 12, 2019 Normal caliber thoracic aorta. No mediastinal or hilar lymphadenopathy. Stable focal opacity right lo wer lobe measuring 1.8 cm. Recommend continued surveillance. Hazy groundglass infiltrates in both upper lobes have improved and nearly resolved. No focal consolid ation or pleural fluid. Adrenal glands are normal. Fatty atrophy of the pancreas. Splenic granulomas. Chronic appearing seroma in the left axilla along the surgical lymph node resection site measuring 2 .2 x 1.8 cm slightly smaller today CT/CT angio chest PE protcl [id number] IMPRESSION: 1. Extensive bilateral pulmonary embolus is again seen and only slightly impro wiley compared to December 12, 2019 2. No mediastinal or hilar lymphadenopathy. 3. Prior postoperative changes left breast and left axillary lymph node dissec tion. Chronic seroma left axilla slightly smaller today 4. Focal opacity right lower lobe measuring 1.8 cm subpleural in location is unchanged. Recommend 3-6 month follow-up. 5. Mild chronic emphysematous changes. Notified Justen Powell MD at 02/19/2020 11:16 AM.
[2020-02-19] MEDS: iohexol 350 mg/mL 100 mL Btl IV (09:58)
[2020-02-19 10:26] LABS: Blood Urea Nitrogen 15 mg/dL (8-23)
== END 2020-02-19 08:47 | disposition home or self-care (01) ==
LOC: RADWPI 08:50
PROVIDERS: PCP Family Medicine; Visit Provider Internal Medicine Medical Oncology
DX: C50.812 Malignant neoplasm of overlapping sites of left female breast (principal); I26.99 Other pulmonary embolism without acute cor pulmonale
CPT/HCPCS: 71275; 82565; 84520; Q9967

== ENCOUNTER 2020-03-14 05:45 | Outpatient (RCR) | payer MEDICARE, OTHER, SELFPAY ==
--- NOTE | 2020-02-22 14:56 | N.ONRAD NP_ITS ---
Radiation Oncology Consult Patient: Vee Obrien MR#: [id number] : 1950> Attending Physician: Killian Eisenberg M.D. Date of Service: 02/22/2020 Vee Obrien was seen in consultation this afternoon for evaluation regarding post-mastectomy radiotherapy for the management of her breast cancer. The patient presented for a routine screening mammogram performed on May 31, 2019 demonstrated an ill-defined left breast density. A follow-up unilateral diagnostic mammogram completed on June 07, 2019 find a persistent mass in the posteromedial aspect of the left breast. Breast ultrasonography revealed at the 9 o'clock position within the left breast a poorly marginated hypoechoic mass measuring 1.1 cm x 1 cm x 0.5 cm. A core needle biopsy obtained on July 18, 2019 diagnosed an invasive, grade 3 ductal carcinoma. Immunohistochemical stains were negative for estrogen receptor, progesterone receptor, and HER-2/geovanny. The KI-67 was 7%. A partial mastectomy with axillary lymph node dissection was performed on August 03, 2019 by Brittni Andrade M.D. at [facility] in [place], [place]. Pathology confirmed a 2.7 cm grade 3 invasive ductal carcinoma associated with ductal carcinoma in situ (5%) of the solid and comedo subtypes. DCIS was focally positive at the medial inked margin but all margins were negative for invasive carcinoma. A total of 25 lymph nodes were harvested with all lymph nodes negative for malignancy. A PET CT ordered on August 19, 2019 failed to demonstrate any metastatic disease. Dose dense Adriamycin and cyclophosphamide (August 29, 2019 through October 17, 2019) followed by weekly paclitaxel (October 30, 2019 through January 23, 2020) was administered by Justen Powell M.D. I have been consulted for to discuss adjuvant radiotherapy. The patient's past medical history is significant for Graves' disease, hyperlipidemia, hypothyroidism, and osteoarthritis. Past surgical history includes breast biopsy colonoscopy, partial mastectomy and axillary lymph node dissection (left) and tonsillectomy, and tubal ligation. Her obstetrical history is . Menses began at the age of 8 and menopause in her fifth decade of life. I have reviewed the patient's medication profile which is available in the electronic medical record. She denied drug allergies. The patient's family history was unremarkable for breast cancer. The patient was accompanied to this consultation by her . She reported a tobacco habit of a half pack of cigarettes for 45 years but denied alcohol intake. On review of systems, she denies any constitutional complaints including fevers of unknown origin or unintentional weight loss. There were no head neck complaints including diplopia, tinnitus, epistaxis, or dysphagia. She did not report chest wall complaints such as masses nor any enlarged lymph nodes of the neck, armpit, or groin. She distal firmed any cardiopulmonary symptoms such as angina, cough, or palpitations. On gastrointestinal review, disavowed nausea or diarrhea. There were no genitourinary complaints such as dysuria or hematuria. She did not describe musculoskeletal complaints including bone pain or muscle weakness. There were no neurological symptoms such as headaches, paresthesias, or seizures. On physical examination, the patient has an ECOG performance status of 0. She was 5 ft 7 in and weighed 169 lbs. The temperature was 99.1???F. The blood pressure was 153/72 mmHg. The pulse was 78 bpm and the respiratory rate of was 18. The head was alopecic and atraumatic. Ophthalmoscopy identified bilateral red reflexes with sharp fundi visualized. Otoscopy revealed light reflexes upon tympanic membranes. Rhinoscopy exhibited non-inflamed turbinates. The oral cavity had moist mucous membranes and no oropharyngeal exudate was present. There was no cervical adenopathy or thyromegaly. No breast masses were palpated. No palpable axillary adenopathy. A scar was noted in the upper inner quadrant of the right breast. Normal fremitus was noted with resonance to percussion elicited. Bronchovesicular breath sounds were auscultated in the posterior lung young. Cardiac sounds were regular in rate and rhythm but distant. No auscultated gallops or murmurs present. No JVD noted. The abdomen had active bowel sounds. No tenderness to palpation. No evidence of organomegaly. No muscle weakness upon testing. No tenderness to deep palpation along the axial skeleton. Cranial nerves II through XII were intact. No sensory deficits. Her gait was normal. The patient presented for a routine screening mammogram performed on May 31, 2019 demonstrated an ill-defined left breast density. A follow-up unilateral diagnostic mammogram completed on June 07, 2019 find a persistent mass in the posteromedial aspect of the left breast. Breast ultrasonography revealed at the 9 o'clock position within the left breast a poorly marginated hypoechoic mass measuring 1.1 cm x 1 cm x 0.5 cm. A core needle biopsy obtained on July 18, 2019 diagnosed an invasive, grade 3 ductal carcinoma. Immunohistochemical stains were negative for estrogen receptor, progesterone receptor, and HER-2/geovanny. The KI-67 was 7%. A partial mastectomy with axillary lymph node dissection was performed on August 03, 2019 by Brittni Andrade M.D. at [facility] in [place], [place]. Pathology confirmed a 2.7 cm grade 3 invasive ductal carcinoma associated with ductal carcinoma in situ (5%) of the solid and comedo subtypes. DCIS was focally positive at the medial inked margin but all margins were negative for invasive carcinoma. A total of 25 lymph nodes were harvested with all lymph nodes harboring leniency. A PET CT ordered on August 19, 2019 failed to demonstrate any metastatic disease. Dose dense Adriamycin and cyclophosphamide (August 29, 2019 through October 17, 2019) followed by weekly paclitaxel (October 30, 2019 through January 23, 2020) was administered by Justen Powell M.D. I have been consulted for to discuss postmastectomy radiotherapy. I anticipate a 5 week course of breast and regional mary irradiation which will be implemented following CT radiotherapy planning.. The patient has verbalized understanding and would like to proceed as recommended. Signed by: Dr. Killian Eisenberg 04/08/2020 9:59:34 AM
--- NOTE | 2020-02-23 07:50 | ONC FU_ITS ---
Dr. Powell Patient Follow-Up Note Patient: Vee Obrien < Unit #: [id number]: 1950 Dicatated By: Justen Powell M.D.Date of Visit:Feb 22, 2020 Onc Med Follow-up/Prog Note Chief Complaint: Breast cancer. 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 She has been in very good general health. She had presented with an abnormal screening mammogram which reportedly showed a mass in the medial aspect of the left breast. Diagnostic mammogram/ultrasound was BI-RADS 4, suspicious. She then underwent ultrasound-guided needle core biopsy on 07/25/2019. Biopsy showed grade 3 infiltrating ductal carcinoma. The breast prognostic profile showed ER and RI negative, both less than 1%. HER-2/geovanny was 2+ by IHC but negative by FISH with amplification ratio 1.0 with 2.5 HER-2 copies/cell. The Ki-67 was very high at 90%. On 08/03/2019 she underwent left breast lumpectomy and left axillary lymph node dissection. Pathology on the lumpectomy showed grade 3 invasive ductal carcinoma measuring 2.7 cm in greatest dimension. There was a component of ductal carcinoma in situ, solid and comedo types, estimated at 5% of the tumor volume. 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 The margins were negative for invasive cancer. There was involvement in 25 of 25 axillary lymph nodes, the largest measuring 3.6 cm. I had seen her initially on 08/15/2019. Her staging PET/CT on 08/19/2019 showed postsurgical changes in the left breast and axilla. It was negative for metastatic disease or residual malignancy. With that finding, she was recommended to undergo adjuvant chemotherapy with dose dense Adriamycin/cyclophosphamide followed by weekly Taxol for 12 weeks. Her medical history is otherwise significant for Graves' disease, for which she will underwent radioactive iodine ablation in 1987. She has had subsequent hypothyroidism. Other medical illnesses include hyperlipidemia and mild degenerative arthritis. She has a history of inflammatory colon polyps and a history of multiple skin cancers in the facial area. She is a non-smoker. INTERIM HISTORY: She began cycle 1 of Adriamycin/cyclophosphamide on 08/29/2019. She did receive first cycle prophylaxis with Neulasta. She was severely neutropenic at day 8, ANC 200, but she recovered uneventfully. She otherwise tolerated it well, and she continued with cycle 2 on 09/12/2019. That treatment was complicated by neutropenia and stomatitis. Her 3rd cycle was delayed by 1 week, and it was administered with a 20% dose reduction. She was able to tolerate it with acceptable toxicity, and she then continued with cycle 4 on 10/17/2019. On 10/30/2019 she began her 1st of 12 planned weekly cycles of paclitaxel. She tolerated it without acute toxicity. Following her week 3 treatment she was given Neupogen for 2 doses due to declining neutrophil count. With her week 4 treatment on 11/21/2019 she was given a 10% dose reduction due to neuropathy. She was again given prophylactic Neupogen for 2 doses. She tolerated it well and she then continued with week 5 paclitaxel on 11/28/2019 and with week 6 on 12/05/2019, both administered without growth factor support. Had a scheduled visit on 12/12/2019 she had developed severe shortness of breath. Her CT pulmonary angiogram showed extensive pulmonary emboli involving segmental and subsegmental pulmonary arteries bilaterally. She was symptomatic enough to require hospitalization. She improved on anticoagulation with IV heparin, and she was then discharged home on apixaban. She was able to resume her weekly paclitaxel on 12/19/2019. She completed her 12th and final pacliltaxel infusion on 01/23/2020. Repeat CT pulmonary angiogram on 02/19/2020 continue to show extensive bilateral pulmonary embolus with only slight improvement compared to the study from 12/12/2019. A subpleural focal opacity in the right lower lobe measuring 1.8 cm appears unchanged. There was no mediastinal or hilar adenopathy noted. She is seen for a followup visit. She has been feeling good generally. She has pretty good energy and pretty much normal activity. ECOG score is 0. She has a little short of breath if she hurries, but her breathing is okay with normal activity. She has had no bouts of heavy breathing, and she has had no chest pain. Her appetite is good and she is getting her taste back. She has no fever, night sweats, or hot flashes. She has no GI or complaints. She has no significant joint or bone pain. She has no neuropathy symptoms. Medications: Acyclovir 1 Tablet (of 400 mg) Oral daily PRN, Aspirin 1 Tablet (of 81 mg) Oral daily, Calcium 1 Tablet (of 600 mg) Oral daily, Dexamethasone (4 mg) Tablet Oral Take as Directed, Eliquis 1 Tablet (of 5 mg) Oral b.i.d., Fish Oil 1 Capsule (of 1000 mg) Oral daily, levoFLOXacin 1 Tablet (of 500 mg) Oral daily PRN, LORazepam 0.5 - 1 Tablet (of 1 mg) Oral t.i.d. PRN, Prochlorperazine Maleate 1 Tablet (of 10 mg) Oral q 4 hours PRN, Simvastatin 1 Tablet (of 40 mg) Oral daily, Synthroid 1 Tablet (of 88 mcg) Oral daily Allergies: No Known Allergies. Review of Systems: Constitutional - She has good energy and she has normal activity. Appetite is good. She is getting her taste back. She has no fever, night sweats, or hot flashes. ECOG score is 0, ENMT - No sinus congestion/drainage. No mouth sores. No sore throat or difficulty swallowing, Hematologic/Lymphatic - She has just a little bruising, Respiratory - Her breathing is okay with normal activity. She is a little short of breath if she hurries. No cough. No pleuritic pain or hemoptysis, Cardiovascular - No angina pain. No palpitations, Gastrointestinal - No nausea or vomiting. No heartburn or acid reflux. No diarrhea or constipation. No blood in the stool or black stools, Genitourinary (F) - No dysuria or hematuria. No urinary frequency. No urgency or incontinence, Musculoskeletal - No joint or bone pain, Integumentary - No skin rash, Neurologic - No headache or dizziness. No numbness or tingling. No other focal neurologic symptoms, Psychiatric - No anxiety or depression. No insomnia. Vital Signs: Performed on Feb 22, 2020 10:47 Height - 72.00 in Weight - 168.8 lbs Temperature - 99.1 F Pulse - 78 Respiration - 18 BP - 153/72 mm(hg) (HIGH) O2 Sat - 94 % (LOW) Pain - 0 Performed on Feb 22, 2020 10:47 BMI - 22.894 kg/m2 Performed on Feb 22, 2020 10:13 Height - 67.00 in Weight - 168.8 lbs (HIGH) BSA - 1.88 sq.m BMI - 26.44 Temperature - 99.1 F (HIGH) Pulse - 78 /min Respiration - 18 /min BP - 153/72 mm(hg) (HIGH) O2 Sat - 94 % (LOW) Pain - 0 Physical Examination: Constitutional - She looks good generally, Eyes - Sclerae nonicteric. Conjunctivae clear, ENMT - No lesions noted in the oral cavity, Hematologic/Lymphatic - No cervical, clavicular, or axillary adenopathy, Respiratory - Lungs are clear with good air movement bilaterally, Cardiovascular - Heart rhythm is regular. There is a II/ systolic murmur. There is no gallop or rub noted, Abdomen - Soft. Liver and spleen are not enlarged. There is no abdominal mass or ascites noted and there is no inguinal adenopathy, Extremities - No edema, Neurologic - No focal neurologic deficits noted. Lab/Imaging: CBC shows hemoglobin 12.4 g, white blood cell count 7000, and platelet count 267,000. Comprehensive metabolic profile is unremarkable. Impression: 1. 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 2. She underwent your core biopsy of the left breast followed by lumpectomy and left axillary lymph node dissection on 08/03/2019. Pathology showed a 5% component of DCIS with focal involvement with DCIS at the medial margin. Her other medical illnesses include: 3. History of Graves' disease for which she underwent radioactive iodine ablation in 1987. 4. She has had subsequent hypothyroidism. 5. Mild degenerative arthritis. 6. She has undergone multiple skin cancer excisions. 7. She has a history of hyperplastic colon polyps. Her staging PET/CT showed no evidence of metastatic disease. With that finding, she was advised to undergo adjuvant chemotherapy with dose dense Adriamycin/cyclophosphamide followed by weekly Taxol for 12 weeks. She began cycle 1 of Adriamycin/cyclophosphamide on 08/29/2019. She was given first cycle prophylaxis with Neulasta. She was severely neutropenic at day 8, but she recovered uneventfully. She continued with cycle 2 on 09/12/2019. She required a delay and a dose reduction with the 3rd cycle because of neutropenia and stomatitis. She then continued with cycle 4 on 10/17/2019. She tolerated it with acceptable toxicity. On 10/30/2019 she began her 1st of 12 planned cycles of weekly paclitaxel. She tolerated it without apparent toxicity. Her further treatment was complicated by neutropenia, requiring growth factor support with Neupogen. She was given a 10% dose reduction at week 4 due to neuropathy. At her scheduled visit on 12/12/2019 she had developed severe shortness of breath and hypoxia. She was found on CT pulmonary angiogram to have a significant burden of pulmonary emboli bilaterally. She was symptomatic enough to require hospitalization, but she did improve on IV heparin. At discharge she continued anticoagulation with apixaban. She was able to resume weekly paclitaxel on 12/19/2019. She then continued her treatment weekly. She completed her 12th and final paclitaxel infusion on 01/23/2020. She has been doing well clinically since she completed chemotherapy. Thus far there has been no evidence of recurrence/progression of the breast cancer. A repeat CT pulmonary angiogram, though, does show significant residual burden of pulmonary embolism. Plan: She will see Dr. Eisenberg today for radiation oncology consultation. She will otherwise just be followed on observation/expectant management. With significant residual pulmonary embolism noted on her CT scan, her anticoagulation will be transitioned to Lovenox, I will have her continue it for at least 6 months. She will be scheduled for a follow-up visit in 3 months. Signed By: Justen Powell M.D. <<Signature on File>>
--- NOTE | 2020-02-27 | CT_ITS ---
Radiation Therapy Planning CT images; total exam DLP: 554.59 mGy-cm MTDD
--- NOTE | 2020-03-04 10:57 | ONCRAD TMN_ITS ---
Radiation Oncology Weekly Treatment Management Patient: Vee Obrien MR#: [id number] : 1950 Attending Physician: Killian Eisenberg M.D. Date of Service: 03/04/2020 Referring Physician: Dr. Brittni Andrade Vee Obrien is a 61 year-old white female diagnosed with a pathological stage IIIC (T2N3a) grade III ductal carcinoma of the upper-outer quadrant of the left breast. Immunohistochemical stain stains were triple negative. Dose dense Adriamycin and cyclophosphamide followed by paclitaxel were administered by Justen Powell M.D. completing in January. She has received 4 Gy of a prescribed 50 Gy delivered with a 3D conformal radiotherapy plan utilizing opposed tangential portal young matched to supraclavicular/PAB treatment young. Upon review of systems, she denied any breast complaints to radiotherapy. On physical examination, the patient weighed 169 lbs. Her temperature was 97.6 ???F with a blood pressure of 136/83 mmHg. Her pulse was 74 bpm and her respiratory rate was 18. There was no erythema within the treatment young of the right breast. Continue breast and regional lymph node radiotherapy as planned. Signed by: Dr. Killian Eisenberg 03/04/2020 10:57:07 AM
--- NOTE | 2020-03-11 11:02 | ONCRAD TMN_ITS ---
Radiation Oncology Weekly Treatment Management Patient: Vee bOrien MR#: [id number] : 1950 Attending Physician: Killian Eisenberg M.D. Date of Service: 03/11/2020 Referring Physician: Dr. Brittni Andrade Vee Obrien is a 61 year-old white female diagnosed with a pathological stage IIIC (T2N3a) grade III ductal carcinoma of the upper-outer quadrant of the left breast. Immunohistochemical stain stains were triple negative. Dose dense Adriamycin and cyclophosphamide followed by paclitaxel were administered by Justen Powell M.D. completing in January. She has received 10 Gy of a prescribed 50 Gy delivered with a 3D conformal radiotherapy plan utilizing opposed tangential portal young matched to supraclavicular/PAB treatment young. Upon review of systems, she denied any breast complaints from radiotherapy. On physical examination, the patient weighed 168 lbs. Her temperature was 99 ???F with a blood pressure of 146/79 mmHg. Her pulse was 80 bpm and her respiratory rate was 16. There was no erythema within the treatment young of the left breast. Continue left breast and regional lymph node radiotherapy as planned. Signed by: Dr. Killian Eisenberg 03/11/2020 11:01:02 AM
== END 2020-03-14 23:59 | disposition home or self-care (01) ==
LOC: ONCMED 05:45
PROVIDERS: PCP Family Medicine; Visit Provider Radiology Radiation Oncology
DX: Z51.0 Encounter for antineoplastic radiation therapy (principal); C50.812 Malignant neoplasm of overlapping sites of left female breast; C77.3 Secondary and unspecified malignant neoplasm of axilla and upper limb lymph nodes; I26.99 Other pulmonary embolism without acute cor pulmonale; E05.00 Thyrotoxicosis with diffuse goiter without thyrotoxic crisis or storm; E78.5 Hyperlipidemia, unspecified; E03.9 Hypothyroidism, unspecified; M19.90 Unspecified osteoarthritis, unspecified site; F17.210 Nicotine dependence, cigarettes, uncomplicated; Z17.1 Estrogen receptor negative status [ER-]; Z90.12 Acquired absence of left breast and nipple; Z92.21 Personal history of antineoplastic chemotherapy; Z85.828 Personal history of other malignant neoplasm of skin; Z79.01 Long term (current) use of anticoagulants
CPT/HCPCS: 77290; 77295; 77300; 77334; 77336; 77387; 77412; 96523; 99214; 99215; Q9967

== ENCOUNTER 2020-04-09 05:43 | Outpatient (RCR) | payer MEDICARE, OTHER, SELFPAY ==
--- NOTE | 2020-03-18 10:35 | ONCRAD TMN_ITS ---
Treatment Management Note Patient Name: Vee Obrien Date of : 1950 Date of Service: 03/18/2020 Attending Physician: Killian Eisenberg M.D. Vee Obrien is a 61 year-old white female diagnosed with a pathological stage IIIC (T2N3a) grade III ductal carcinoma of the upper-outer quadrant of the left breast. Immunohistochemical stain stains were triple negative. Dose dense Adriamycin and cyclophosphamide followed by paclitaxel were administered by Justen Powell M.D. completing in January. She has received 18 Gy of a prescribed 50 Gy delivered with a 3D conformal radiotherapy plan utilizing opposed tangential portal young matched to supraclavicular/PAB treatment young. Upon review of systems, she denied any breast complaints from radiotherapy. On physical examination, the patient weighed 170 lbs. Her temperature was 98.7 ???F with a blood pressure of 146/91 mmHg. Her pulse was 80 bpm and her respiratory rate was 18. There was no erythema within the treatment young of the left breast. Continue left breast and regional lymph node radiotherapy as prescribed. Signed by: Dr. Killian Eisenberg 03/18/2020 10:33:32 AM
--- NOTE | 2020-03-25 10:09 | ONCRAD TMN_ITS ---
Radiation Oncology Treatment Management Note Patient Name: Vee Obrien Date of : 1950 Date of Service: 03/25/2020 Attending Physician: Killian Eisenberg M.D. Vee Obrien is a 61 year-old white female diagnosed with a pathological stage IIIC (T2N3a) grade III ductal carcinoma of the upper-outer quadrant of the left breast. Immunohistochemical stain stains were triple negative. Dose dense Adriamycin and cyclophosphamide followed by paclitaxel were administered by Justen Powell M.D. completing in January. She has received 28 Gy of a prescribed 50 Gy delivered with a 3D conformal radiotherapy plan utilizing opposed tangential portal young matched to supraclavicular/PAB treatment oyung. Upon review of systems, she denied any breast complaints from radiotherapy. On physical examination, the patient weighed 170 lbs. Her temperature was 98.5 ???F with a blood pressure of 147/69 mmHg. Her pulse was 85 bpm and her respiratory rate was 18. There was no erythema within the treatment young of the left breast. Continue left breast and regional lymph node radiotherapy as planned. Signed by: Dr. Killian Eisenberg 03/25/2020 10:07:34 AM
--- NOTE | 2020-04-01 10:10 | ONCRAD TMN_ITS ---
Radiation Oncology Treatment Management Note Patient Name: Vee Obrien Date of : 1950 Date of Service: 04/01/2020 Attending Physician: Killian Eisenberg M.D. Vee Obrien is a 61 year-old white female diagnosed with a pathological stage IIIC (T2N3a) grade III ductal carcinoma of the upper-outer quadrant of the left breast. Immunohistochemical stain stains were triple negative. Dose dense Adriamycin and cyclophosphamide followed by paclitaxel were administered by Justen Powell M.D. completing in January. She has received 38 Gy of a prescribed 50 Gy delivered with a 3D conformal radiotherapy plan utilizing opposed tangential portal young matched to supraclavicular/PAB treatment young. Upon review of systems, she described slight peeling of the breast. On physical examination, the patient weighed 170 lbs. Her temperature was 98.5 ???F with a blood pressure of 147/69 mmHg. Her pulse was 85 bpm and her respiratory rate was 18. There was a grade II dermatitis of the left breast. Continue left breast and regional lymph node radiotherapy as prescribed. Signed by: Dr. Killian Eisenberg 04/01/2020 10:08:55 AM
--- NOTE | 2020-04-08 10:06 | ONCRAD TMN_ITS ---
Radiation Oncology Treatment Management Note Patient Name: Vee Obrien Date of : 1950 Date of Service: 04/08/2020 Attending Physician: Killian Eisenberg M.D. Vee Obrien is a 61 year-old white female diagnosed with a pathological stage IIIC (T2N3a) grade III ductal carcinoma of the upper-outer quadrant of the left breast. Immunohistochemical stain stains were triple negative. Dose dense Adriamycin and cyclophosphamide followed by paclitaxel were administered by Justen Powell M.D. completing in January. She has received 48 Gy of a prescribed 50 Gy delivered with a 3D conformal radiotherapy plan utilizing opposed tangential portal young matched to supraclavicular/PAB treatment young. Upon review of systems, she described slight peeling of the lower breast. On physical examination, the patient weighed 168 lbs. Her temperature was 98.2 ???F with a blood pressure of 118/73 mmHg. Her pulse was 79 bpm and her respiratory rate was 18. There was a grade III dermatitis of the left inframammary fold. Continue left breast and regional lymph node radiotherapy as planned. Signed by: Dr. Killian Eisenberg 04/08/2020 10:06:00 AM
== END 2020-04-14 23:59 | disposition home or self-care (01) ==
LOC: ONCMED 05:43
PROVIDERS: PCP Family Medicine; Visit Provider Radiology Radiation Oncology
DX: C50.412 Malignant neoplasm of upper-outer quadrant of left female breast (principal); Z17.1 Estrogen receptor negative status [ER-]
CPT/HCPCS: 77336; 77387; 77412; 96523

== ENCOUNTER 2020-05-10 06:16 | Outpatient (RCR) | payer MEDICARE, OTHER, SELFPAY ==
--- NOTE | 2020-05-10 09:35 | ONCRAD EPV_ITS ---
Radiation Oncology Follow-Up Note Patient Name: Vee Obrien Date of : 1950 Date of Service: 05/10/2020 Attending Physician: Killian Eisenberg M.D. Vee Obrien returned to my office this morning. She completed adjuvant radiotherapy in March for the post-operative management of a pathological stage IIIC (T2N3a) grade III ductal carcinoma of the upper-outer quadrant of the left breast. Immunohistochemical stain stains were triple negative. Dose dense Adriamycin and cyclophosphamide followed by paclitaxel were administered by Justen Powell M.D. completing in January. Radiation therapy was administered between the dates of February 29, 2020 through April 09, 2020. A dose of 50 Gy was delivered in 25 fractions encompassing 41 elapsed days. On review of systems, she denied any constitutional complaints including unintentional weight loss or fevers of unknown origin. She did not report any breast complaints. On physical examination, she weighed 171 lbs. The temperature was 97.1???F. Her blood pressure was 138/76 mmHg. The pulse was 75 bpm and the respiratory rate was 20 breaths per minute. Examination of the left breast did not reveal any significant erythema. In summary, Ms. Obrien returned for a routine post radiotherapy follow-up. She will continue follow-up with her medical oncologist. Signed by: Dr. Killian Eisenberg 05/10/2020 9:34:50 AM
== END 2020-05-12 23:59 | disposition home or self-care (01) ==
LOC: ONCMED 06:16
PROVIDERS: PCP Family Medicine; Visit Provider Radiology Radiation Oncology
DX: C50.412 Malignant neoplasm of upper-outer quadrant of left female breast (principal); Z17.1 Estrogen receptor negative status [ER-]; Z92.3 Personal history of irradiation; Z92.21 Personal history of antineoplastic chemotherapy
CPT/HCPCS: 99024

== ENCOUNTER 2020-05-22 05:56 | Outpatient (RCR) | payer MEDICARE, OTHER, SELFPAY ==
[2020-05-22 13:36] LABS: D Dimer <= 0.27 ug/mIFEU (0-0.59)
--- NOTE | 2020-05-26 14:00 | ONC FU_ITS ---
Dr. Powell Patient Follow-Up Note Patient: Vee Obrien Unit #: [id number]: 1950 Dicatated By: Justen Powell M.D.Date of Visit:May 22, 2020 Onc Med Follow-up/Prog Note Chief Complaint: Breast cancer. 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 She has been in very good general health. She had presented with an abnormal screening mammogram which reportedly showed a mass in the medial aspect of the left breast. Diagnostic mammogram/ultrasound was BI-RADS 4, suspicious. She then underwent ultrasound-guided needle core biopsy on 07/25/2019. Biopsy showed grade 3 infiltrating ductal carcinoma. The breast prognostic profile showed ER and NH negative, both less than 1%. HER-2/geovanny was 2+ by IHC but negative by FISH with amplification ratio 1.0 with 2.5 HER-2 copies/cell. The Ki-67 was very high at 90%. On 08/03/2019 she underwent left breast lumpectomy and left axillary lymph node dissection. Pathology on the lumpectomy showed grade 3 invasive ductal carcinoma measuring 2.7 cm in greatest dimension. There was a component of ductal carcinoma in situ, solid and comedo types, estimated at 5% of the tumor volume. 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 The margins were negative for invasive cancer. There was involvement in 25 of 25 axillary lymph nodes, the largest measuring 3.6 cm. I had seen her initially on 08/15/2019. Her staging PET/CT on 08/19/2019 showed postsurgical changes in the left breast and axilla. It was negative for metastatic disease or residual malignancy. With that finding, she was recommended to undergo adjuvant chemotherapy with dose dense Adriamycin/cyclophosphamide followed by weekly Taxol for 12 weeks. She began cycle 1 of Adriamycin/cyclophosphamide on 08/29/2019. She did receive first cycle prophylaxis with Neulasta. She was severely neutropenic at day 8, ANC 200, but she recovered uneventfully. She otherwise tolerated it well, and she continued with cycle 2 on 09/12/2019. That treatment was complicated by neutropenia and stomatitis. Her 3rd cycle was delayed by 1 week, and it was administered with a 20% dose reduction. She was able to tolerate it with acceptable toxicity, and she then continued with cycle 4 on 10/17/2019. On 10/30/2019 she began her 1st of 12 planned weekly cycles of paclitaxel. She tolerated it without acute toxicity. Following her week 3 treatment she was given Neupogen for 2 doses due to declining neutrophil count. With her week 4 treatment on 11/21/2019 she was given a 10% dose reduction due to neuropathy. She was again given prophylactic Neupogen for 2 doses. She tolerated it well and she then continued with week 5 paclitaxel on 11/28/2019 and with week 6 on 12/05/2019, both administered without growth factor support. Had a scheduled visit on 12/12/2019 she had developed severe shortness of breath. Her CT pulmonary angiogram showed extensive pulmonary emboli involving segmental and subsegmental pulmonary arteries bilaterally. She was symptomatic enough to require hospitalization. She improved on anticoagulation with IV heparin, and she was then discharged home on apixaban. She was able to resume her weekly paclitaxel on 12/19/2019. She completed her 12th and final pacliltaxel infusion on 01/23/2020. Repeat CT pulmonary angiogram on 02/19/2020 continue to show extensive bilateral pulmonary embolus with only slight improvement compared to the study from 12/12/2019. A subpleural focal opacity in the right lower lobe measuring 1.8 cm appears unchanged. There was no mediastinal or hilar adenopathy noted. She began radiation to the left breast on 02/29/2020. She completed treatment on 04/09/2020 to a total dose of 5000 cGy administered in 25 fractions. She had a significant skin reaction to the radiation. She otherwise tolerated it well. Her medical history is otherwise significant for Graves' disease, for which she will underwent radioactive iodine ablation in 1987. She has had subsequent hypothyroidism. Other medical illnesses include hyperlipidemia and mild degenerative arthritis. She has a history of inflammatory colon polyps and a history of multiple skin cancers in the facial area. She is a non-smoker. INTERIM HISTORY: She is seen for a followup visit. She has been feeling good generally. She has completely recovered from the radiation. She has pretty good energy and activity tolerance. Her ECOG score is 0. She has good appetite. She has no fever, night sweats, or hot flashes. She has no shortness of breath, cough, or chest pain. She has no GI or complaints. She has some mild joint pain, mainly in the right hand, which likely is activity related. She does not complain of headache or dizziness. She has no numbness/paresthesia or other neuropathy symptoms. Medications: Acyclovir 1 Tablet (of 400 mg) Oral daily PRN, Aspirin 1 Tablet (of 81 mg) Oral daily, Calcium 1 Tablet (of 600 mg) Oral daily, Dexamethasone (4 mg) Tablet Oral Take as Directed, Eliquis 1 Tablet (of 5 mg) Oral b.i.d., Fish Oil 1 Capsule (of 1000 mg) Oral daily, levoFLOXacin 1 Tablet (of 500 mg) Oral daily PRN, LORazepam 0.5 - 1 Tablet (of 1 mg) Oral t.i.d. PRN, Prochlorperazine Maleate 1 Tablet (of 10 mg) Oral q 4 hours PRN, Simvastatin 1 Tablet (of 40 mg) Oral daily, Synthroid 1 Tablet (of 88 mcg) Oral daily Allergies: No Known Allergies. Vital Signs: Performed on May 22, 2020 12:25 Height - 67.00 in Weight - 170.4 lbs (LOW) BSA - 1.89 sq.m BMI - 26.69 Temperature - 97.7 F (LOW) Pulse - 87 /min Respiration - 18 /min BP - 131/78 mm(hg) O2 Sat - 98 % Pain - 0 Fatigue - 0 Physical Examination: Constitutional - She looks good generally, Eyes - Sclerae nonicteric. Conjunctivae clear, ENMT - No lesions noted in the oral cavity, Hematologic/Lymphatic - No cervical or clavicular adenopathy, Respiratory - Lungs are clear with good air movement bilaterally, Cardiovascular - Heart rhythm is regular. There is a II/ systolic murmur. There is no gallop or rub noted, Breasts - There are no breast masses noted. There is no axillary adenopathy, Abdomen - Soft. Liver and spleen are not enlarged. There is no abdominal mass or ascites noted and there is no inguinal adenopathy, Extremities - No edema, Integumentary - There are several sites of recently treated skin lesions in the facial area, Neurologic - No focal neurologic deficits noted. Lab/Imaging: Test performed on May 20, 2020 08:10 Glucose 103 mg/dL BUN 11 mg/dL Creatinine 0.7 mg/dL Cr Clearance (Est) 89.10 mL/min Sodium 142 mmol/L Potassium 3.9 mmol/L Chloride 108 mmol/L CO2 28 mmol/L Calcium 9.8 mg/dL Protein, Total 7.0 g/dL Albumin 4.2 g/dL Bilirubin, Total 0.3 mg/dL Alkaline Phosphatase 77 IU/L AST (SGOT) 35 IU/L ALT (SGPT) 37 IU/L WBC 3.2 10^9/L RBC 4.49 10^12/L HGB 13.9 g/dL HCT 42.9 % MCV 95.5 fl MCH 31.0 pg MCHC 32 g/dL RDW 14.1 % Platelet Count 251 10^9/L MPV 8.9 fL Neutrophils (Gran) 1.2 10^9/L Lymphocytes 1.3 10^9/L Monocytes 0.6 10^9/L Eosinophils 0.1 10^9/L Basophils 0.0 10^9/L Manual Lymphocytes 40.4 % Manual Monocytes 18.5 % Manual Eosinophils 3.4 % Manual Basophils 0.9 % Problem List: 1. Grade 3 invasive ductal carcinoma of the left breast, stage IIIC (T2, pN3, M0), ER/NH negative and HER-2/geovanny negative. 2. History of Graves' disease for which she underwent radioactive iodine ablation in 1987. 3. She has had subsequent hypothyroidism. 4. Mild degenerative arthritis. 5. She has undergone multiple skin cancer excisions. 6. She has a history of hyperplastic colon polyps. 7. She developed extensive bilateral pulmonary embolism during adjuvant chemotherapy. Problems Addressed with this Encounter and Plan: 1. Patient with grade 3 invasive ductal carcinoma of the left breast, stage IIIC (T2, pN3, M0), ER/NH negative and HER-2/geovanny negative. She underwent needle core biopsy of the left breast followed by lumpectomy and left axillary lymph node dissection on 08/03/2019. Pathology showed a 5% component of DCIS with focal involvement with DCIS at the medial margin. Her staging PET/CT showed no evidence of metastatic disease. With that finding, she was advised to undergo adjuvant chemotherapy with dose dense Adriamycin/cyclophosphamide followed by weekly Taxol for 12 weeks. She completed 4 cycles of Adriamycin/cyclophosphamide from 08/29/2019 through 10/17/2019. Treatment was complicated by neutropenia and stomatitis, requiring dose reduction beginning with cycle 3. She otherwise tolerated it well. She began her weekly Taxol on 10/30/2019. It was complicated by neutropenia, requiring growth factor support with Neupogen. She was given a 10% dose reduction at week 4 due to neuropathy. Her treatment was complicated by pulmonary emboli, requiring hospitalization on 12/12/2019. She was able to resume weekly paclitaxel on 12/19/2019. She completed her 12th and final paclitaxel infusion on 01/23/2020. She was then given radiation to the left breast, completed on 04/09/2020 to a total dose of 5000 cGy administered in 25 fractions. She developed a significant skin reaction, but she otherwise tolerated the radiation well. At this point she appears to be doing well clinically. She will now be followed on observation/expectant management. I will see her for a follow-up visit in 3 months. 2. On 12/12/2019 she had developed severe shortness of breath and hypoxia. She was found on CT pulmonary angiogram to have a significant burden of pulmonary emboli bilaterally. She was symptomatic enough to require hospitalization, but she did improve on IV heparin. At discharge she continued anticoagulation with apixaban. She did have improvement in her symptoms, but her follow-up CT pulmonary angiogram on 02/19/2020 continued to show significant residual burden of pulmonary embolism at that point her anticoagulation was changed to Lovenox. She is inquiring now as to whether or not she may be able to go back on oral anticoagulation. As she has been stable clinically, I will check a baseline D-dimer today. If it is normal, she will go ahead and transition back to apixaban 5 mg twice daily. I will then recheck a D-dimer in 30 days and she can then continue the apixaban as long as the D-dimer has not increased significantly. Signed By: Justen Powell M.D. <<Signature on File>>
== END 2020-06-12 23:59 | disposition home or self-care (01) ==
LOC: ONCMED 05:56
PROVIDERS: PCP Family Medicine; Visit Provider Internal Medicine Medical Oncology
DX: Z08 Encounter for follow-up examination after completed treatment for malignant neoplasm (principal); Z85.3 Personal history of malignant neoplasm of breast; E05.00 Thyrotoxicosis with diffuse goiter without thyrotoxic crisis or storm; E78.5 Hyperlipidemia, unspecified; E03.9 Hypothyroidism, unspecified; M19.90 Unspecified osteoarthritis, unspecified site; F17.210 Nicotine dependence, cigarettes, uncomplicated; Z90.12 Acquired absence of left breast and nipple; Z92.21 Personal history of antineoplastic chemotherapy; Z85.828 Personal history of other malignant neoplasm of skin; Z86.010 Personal history of colon polyps
CPT/HCPCS: 36591; 85378; 99214

== ENCOUNTER 2020-06-19 08:37 | Outpatient (RCR) | payer MEDICARE, OTHER, SELFPAY ==
[2020-06-19 10:09] LABS: Basophils % 0.5 %; Eosinophils # 0.1 10^3/uL (0.0-0.8); Eosinophils % 1.7 %; Hematocrit 40.2 % (37.0-47.0); Hemoglobin 12.8 g/dL (11.5-15.3); Lymphocytes # 1.8 10^3/uL (0.8-4.8); Lymphocytes % 31.8 %; Mean Corpuscular HGB Conc 31.8 g/dL (30.0-36.0); Mean Corpuscular Hemoglobin 30.2 pg (28.0-34.0); Mean Corpuscular Volume 94.8 fL (81-99); Mean Platelet Volume 9.3 fL (7.4-10.4); Monocytes # 0.6 10^3/uL (0.2-0.9); Monocytes % 11.2 %; Neutrophils # 3.13 10^3/uL (1.8-7.7); Neutrophils % 54.6 %; Nucleated Red Blood Cells % 0 %; Platelet Count 319 10^3/cmm (130-400); Red Blood Count 4.24 10^6/uL (4.1-5.3); Red Cell Distribution Width 13.7 % (12.1-15.1); White Blood Count 5.7 10^3/uL (4.0-10.0)
[2020-06-19 10:25] LABS: D Dimer 0.33 ug/mIFEU (0-0.59)
[2020-06-19 10:35] LABS: Alanine Aminotransferase 17 U/L (0-33); Albumin Level 4.1 g/dL (3.5-5.2); Alkaline Phosphatase 72 IU/L (35-105); Anion Gap 13.2 (5-19); Aspartate Amino Transferase 14 U/L (0-32); Blood Urea Nitrogen 16 mg/dL (8-23); Carbon Dioxide 25 mmol/L (22-29); Chloride 107 mmol/L (98-107); Globulin 2.3 g/dL (1.3-4.6); Glucose 85 mg/dL (65-115); Osmolality Calculated 292 mOsm/kg (285-295); Potassium 4.2 mmol/L (3.5-5.1); Sodium 141 mmol/L (136-145); Total Bilirubin 0.5 mg/dL (0.15-1.2); Total Protein 6.4 g/dL (6.6-8.7)
== END 2020-07-12 23:59 | disposition home or self-care (01) ==
LOC: ONCMED 08:37
PROVIDERS: PCP Family Medicine; Visit Provider Internal Medicine Medical Oncology
DX: C50.812 Malignant neoplasm of overlapping sites of left female breast (principal); Z17.1 Estrogen receptor negative status [ER-]; D70.1 Agranulocytosis secondary to cancer chemotherapy; T45.1X5A Adverse effect of antineoplastic and immunosuppressive drugs, initial encounter; I26.99 Other pulmonary embolism without acute cor pulmonale; Z45.2 Encounter for adjustment and management of vascular access device; E05.00 Thyrotoxicosis with diffuse goiter without thyrotoxic crisis or storm; E78.5 Hyperlipidemia, unspecified; E03.9 Hypothyroidism, unspecified; M19.90 Unspecified osteoarthritis, unspecified site; F17.210 Nicotine dependence, cigarettes, uncomplicated; Z90.12 Acquired absence of left breast and nipple; Z92.21 Personal history of antineoplastic chemotherapy
CPT/HCPCS: 80053; 85025; 85378; 96523

== ENCOUNTER 2020-08-19 12:48 | Outpatient (CLI) | payer MEDICARE, OTHER, SELFPAY ==
--- NOTE | 2020-08-20 06:55 | ONC FU_ITS ---
Dr. Powell Patient Follow-Up Note Patient: Vee Obrien Unit #: [id number]: 1950 Dicatated By: Justen Powell M.D.Date of Visit:Aug 19, 2020 Onc Med Follow-up/Prog Note Chief Complaint: Breast cancer. History of Present Illness: This is a 70 year-old woman with grade 3 invasive ductal carcinoma of the left breast, stage IIIC (T2, pN3, M0), ER/TN negative and HER-2/geovanny negative. She has been in very good general health. She had presented with an abnormal screening mammogram which reportedly showed a mass in the medial aspect of the left breast. Diagnostic mammogram/ultrasound was BI-RADS 4, suspicious. She then underwent ultrasound-guided needle core biopsy on 07/25/2019. Biopsy showed grade 3 infiltrating ductal carcinoma. The breast prognostic profile showed ER and TN negative, both less than 1%. HER-2/geovanny was 2+ by IHC but negative by FISH with amplification ratio 1.0 with 2.5 HER-2 copies/cell. The Ki-67 was very high at 90%. On 08/03/2019 she underwent left breast lumpectomy and left axillary lymph node dissection. Pathology on the lumpectomy showed grade 3 invasive ductal carcinoma measuring 2.7 cm in greatest dimension. There was a component of ductal carcinoma in situ, solid and comedo types, estimated at 5% of the tumor volume. 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 The margins were negative for invasive cancer. There was involvement in 25 of 25 axillary lymph nodes, the largest measuring 3.6 cm. I had seen her initially on 08/15/2019. Her staging PET/CT on 08/19/2019 showed postsurgical changes in the left breast and axilla. It was negative for metastatic disease or residual malignancy. With that finding, she was recommended to undergo adjuvant chemotherapy with dose dense Adriamycin/cyclophosphamide followed by weekly Taxol for 12 weeks. She began cycle 1 of Adriamycin/cyclophosphamide on 08/29/2019. She did receive first cycle prophylaxis with Neulasta. She was severely neutropenic at day 8, ANC 200, but she recovered uneventfully. She otherwise tolerated it well, and she continued with cycle 2 on 09/12/2019. That treatment was complicated by neutropenia and stomatitis. Her 3rd cycle was delayed by 1 week, and it was administered with a 20% dose reduction. She was able to tolerate it with acceptable toxicity, and she then continued with cycle 4 on 10/17/2019. On 10/30/2019 she began her 1st of 12 planned weekly cycles of paclitaxel. She tolerated it without acute toxicity. Following her week 3 treatment she was given Neupogen for 2 doses due to declining neutrophil count. With her week 4 treatment on 11/21/2019 she was given a 10% dose reduction due to neuropathy. She was again given prophylactic Neupogen for 2 doses. She tolerated it well and she then continued with week 5 paclitaxel on 11/28/2019 and with week 6 on 12/05/2019, both administered without growth factor support. Had a scheduled visit on 12/12/2019 she had developed severe shortness of breath. Her CT pulmonary angiogram showed extensive pulmonary emboli involving segmental and subsegmental pulmonary arteries bilaterally. She was symptomatic enough to require hospitalization. She improved on anticoagulation with IV heparin, and she was then discharged home on apixaban. She was able to resume her weekly paclitaxel on 12/19/2019. She completed her 12th and final pacliltaxel infusion on 01/23/2020. Repeat CT pulmonary angiogram on 02/19/2020 continue to show extensive bilateral pulmonary embolus with only slight improvement compared to the study from 12/12/2019. A subpleural focal opacity in the right lower lobe measuring 1.8 cm appears unchanged. There was no mediastinal or hilar adenopathy noted. She began radiation to the left breast on 02/29/2020. She completed treatment on 04/09/2020 to a total dose of 5000 cGy administered in 25 fractions. She had a significant skin reaction to the radiation. She otherwise tolerated it well. Her medical history is otherwise significant for Graves' disease, for which she will underwent radioactive iodine ablation in 1987. She has had subsequent hypothyroidism. Other medical illnesses include hyperlipidemia and mild degenerative arthritis. She has a history of inflammatory colon polyps and a history of multiple skin cancers in the facial area. She is a non-smoker. INTERIM HISTORY: She is seen for a followup visit. She has been feeling good generally. Her only significant complaint is that she has been having some pain in her upper back just to the left of the midline. It mainly bothers her at night when she is lying flat on her back. It goes away if she lies on either side. She has good energy. She has normal activity as long as she is able to take breaks. ECOG score is 0. Her appetite is good. She has no fever, night sweats, or hot flashes. She does not complain of shortness of breath, cough, or chest pain. She has no GI or complaints. She has no other joint or bone pain. She does not complain of headache or dizziness. She has no numbness/paresthesia or other neuropathy symptoms. Medications: Acyclovir 1 Tablet (of 400 mg) Oral daily PRN, Aspirin 1 Tablet (of 81 mg) Oral daily, Calcium 1 Tablet (of 600 mg) Oral daily, Dexamethasone (4 mg) Tablet Oral Take as Directed, Eliquis 1 Tablet (of 5 mg) Oral b.i.d., Fish Oil 1 Capsule (of 1000 mg) Oral daily, levoFLOXacin 1 Tablet (of 500 mg) Oral daily PRN, LORazepam 0.5 - 1 Tablet (of 1 mg) Oral t.i.d. PRN, Prochlorperazine Maleate 1 Tablet (of 10 mg) Oral q 4 hours PRN, Simvastatin 1 Tablet (of 40 mg) Oral daily, Synthroid 1 Tablet (of 88 mcg) Oral daily Allergies: No Known Allergies. Vital Signs: Performed on Aug 19, 2020 14:33 Height - 67.00 in Weight - 170.2 lbs (LOW) BSA - 1.89 sq.m BMI - 26.66 Temperature - 98.0 F (LOW) Pulse - 87 /min Respiration - 18 /min BP - 142/88 mm(hg) (HIGH) O2 Sat - 97 % Pain - 0 Fatigue - 0 Physical Examination: Constitutional - She looks good generally, Eyes - Sclerae nonicteric. Conjunctivae clear, ENMT - No lesions noted in the oral cavity, Hematologic/Lymphatic - No cervical, clavicular, or axillary adenopathy, Respiratory - Lungs are clear with good air movement bilaterally, Cardiovascular - Heart rhythm is regular with some premature beats. There is a II/ systolic murmur. There is no gallop or rub noted, Abdomen - Soft. Liver and spleen are not enlarged. There is no abdominal mass or ascites noted and there is no inguinal adenopathy, Extremities - No edema, Neurologic - No focal neurologic deficits noted. Lab/Imaging: Test performed on Aug 14, 2020 08:07 Glucose 97 mg/dL BUN 19 mg/dL Creatinine 0.7 mg/dL Cr Clearance (Est) 89.95 mL/min Sodium 142 mmol/L Potassium 4.2 mmol/L Chloride 108 mmol/L CO2 26 mmol/L Calcium 9.7 mg/dL Protein, Total 6.8 g/dL Albumin 4.3 g/dL Bilirubin, Total 0.5 mg/dL Alkaline Phosphatase 73 IU/L AST (SGOT) 21 IU/L ALT (SGPT) 19 IU/L WBC 5.2 10^9/L RBC 4.36 10^12/L HGB 13.7 g/dL HCT 42.5 % MCV 97.5 fl MCH 31.4 pg MCHC 32 g/dL RDW 13.1 % Platelet Count 288 10^9/L Neutrophils (Gran) 2.1788 10^9/L Lymphocytes 2.2308 10^9/L Monocytes 0.598 10^9/L Eosinophils 0.1508 10^9/L Basophils 0.0312 10^9/L Problem List: 1. Grade 3 invasive ductal carcinoma of the left breast, stage IIIC (T2, pN3, M0), ER/TN negative and HER-2/geovanny negative. 2. History of Graves' disease for which she underwent radioactive iodine ablation in 1987. 3. She has had subsequent hypothyroidism. 4. Mild degenerative arthritis. 5. She has undergone multiple skin cancer excisions. 6. She has a history of hyperplastic colon polyps. 7. She developed extensive bilateral pulmonary embolism during adjuvant chemotherapy. Problems Addressed with this Encounter and Plan: 1. Patient with grade 3 invasive ductal carcinoma of the left breast, stage IIIC (T2, pN3, M0), ER/TN negative and HER-2/geovanny negative. She underwent needle core biopsy of the left breast followed by lumpectomy and left axillary lymph node dissection on 08/03/2019. Pathology showed a 5% component of DCIS with focal involvement with DCIS at the medial margin. Her staging PET/CT showed no evidence of metastatic disease. With that finding, she was advised to undergo adjuvant chemotherapy with dose dense Adriamycin/cyclophosphamide followed by weekly Taxol for 12 weeks. She completed 4 cycles of Adriamycin/cyclophosphamide from 08/29/2019 through 10/17/2019. Treatment was complicated by neutropenia and stomatitis, requiring dose reduction beginning with cycle 3. She otherwise tolerated it well. She began her weekly Taxol on 10/30/2019. It was complicated by neutropenia, requiring growth factor support with Neupogen. She was given a 10% dose reduction at week 4 due to neuropathy. Her treatment was complicated by pulmonary emboli, requiring hospitalization on 12/12/2019. She was able to resume weekly paclitaxel on 12/19/2019. She completed her 12th and final paclitaxel infusion on 01/23/2020. She was then given radiation to the left breast, completed on 04/09/2020 to a total dose of 5000 cGy administered in 25 fractions. She developed a significant skin reaction, but she otherwise tolerated the radiation well. She has been on expectant management following completion of the radiation. She appears to be doing well clinically with no evidence of recurrence of the breast cancer. She remains on observation. I will see her again in 6 months. 2. On 12/12/2019 she had developed severe shortness of breath and hypoxia. She was found on CT pulmonary angiogram to have a significant burden of pulmonary emboli bilaterally. She was symptomatic enough to require hospitalization, but she did improve on IV heparin. At discharge she continued anticoagulation with apixaban. She did have improvement in her symptoms, but her follow-up CT pulmonary angiogram on 02/19/2020 continued to show significant residual burden of pulmonary embolism at that point her anticoagulation was changed to Lovenox. During follow-up her symptoms improved and she was eventually able to transition her anticoagulation back to apixaban 5 mg twice daily. She has since then had no symptoms to suggest any further thromboembolism. However, given the findings on her previous CT scans, I am going to repeat a CT pulmonary angiogram. She will have further evaluation as indicated. In the meantime, she will continue on anticoagulation apixaban 5 mg twice daily. Signed By: Justen Powell M.D. <<Signature on File>>
== END 2020-08-19 12:49 | disposition home or self-care (01) ==
LOC: ONCMED 12:51
PROVIDERS: PCP Family Medicine; Visit Provider Internal Medicine Medical Oncology
DX: C50.812 Malignant neoplasm of overlapping sites of left female breast (principal); Z92.21 Personal history of antineoplastic chemotherapy; Z90.12 Acquired absence of left breast and nipple; Z92.3 Personal history of irradiation; Z87.898 Personal history of other specified conditions; E03.9 Hypothyroidism, unspecified; M19.90 Unspecified osteoarthritis, unspecified site; Z85.828 Personal history of other malignant neoplasm of skin; Z87.19 Personal history of other diseases of the digestive system; Z86.711 Personal history of pulmonary embolism; Z79.01 Long term (current) use of anticoagulants; Z79.899 Other long term (current) drug therapy
CPT/HCPCS: 96523; 99214

== ENCOUNTER 2020-08-28 10:27 | Outpatient (CLI) | payer MEDICARE, OTHER, SELFPAY ==
--- NOTE | 2020-08-28 10:34 | CT_ITS ---
WS: [id number] CT CHEST ANGIOGRAPHY WITH REFORMATS HISTORY: BREAST CANCER, PULMONARY EMBOLI TECHNIQUE: Contiguous axial images are obtained through the chest during arterial injection of intrav enous contrast. Images are reconstructed to evaluate the pulmonary arteries. MIP imaging also reviewe d. All CT scans at [facility] use at least one of these dose optimization techniques: aut omated exposure control; mA and/or kV adjustment per patient size (includes targeted exams where dose is matched to clinical indication); or iterative reconstruction. CONTRAST: Omnipaque 350; 95 mL IV. DLP: 820.43 mGycm COMPARISON: 02/19/2020 Residual but improved pulmonary embolic burden since 02/19/2020. There is still pulmonary embolic dise ase beginning in the segmental branches of the upper and lower lung young bilaterally. Nonocclusive pulmonary emboli. Mild atherosclerosis and ectasia aorta. Diameter of the ascending aorta is 4.0 cm. Pulmonary artery is also enlarged. Moderate enlargement of the heart. Greatest enlargement involving the LEFT ventricle and atrium. No RIGHT heart strain. Decrease in size of the rounded opacification in the RIGHT lower lobe now measuring 16 mm. Decreased from 18 mm on the prior study. Persistent areas of groundglass attenuation and scattered opacificatio ns bilaterally. No mediastinal or hilar adenopathy. Mildly prominent lymphoid tissue at the RIGHT hil um similar to prior studies. RIGHT subclavian Mediport. LEFT axillary mary dissection with a resolving seroma adjacent to the calin gical sutures. Seroma measures 15 x 16 mm. Additional surgical sutures in the medial LEFT breast. The re is overlying skin thickening which may be related to posttreatment changes. Normal adrenal glands. CT/CT angio chest PE protcl [id number] IMPRESSION: 1. Moderate improvement in the bilateral pulmonary emboli since 02/19/2020. Per sistent emboli are nonocclusive and decreased in overall size. 2. Slight decrease in size of the RIGHT lower lobe opacification now measuring 16 mm. 3. No adenopathy. 4. Scattered multi lobar areas of groundglass attenuation are not significantl y changed. 5. LEFT axillary mary dissection, associated seroma and postoperative changes in the medial LEFT breast are stable. 6. Moderate enlargement of the LEFT heart chambers.
[2020-08-28] MEDS: iohexol 350 mg/mL 100 mL Btl IV (11:02)
== END 2020-08-28 10:28 | disposition home or self-care (01) ==
PROVIDERS: PCP Family Medicine; Visit Provider Internal Medicine Medical Oncology
DX: C50.812 Malignant neoplasm of overlapping sites of left female breast (principal); I26.99 Other pulmonary embolism without acute cor pulmonale; I51.7 Cardiomegaly
CPT/HCPCS: 71275; Q9967

== ENCOUNTER 2021-02-17 08:35 | Outpatient (CLI) | payer MEDICARE, OTHER, SELFPAY ==
--- NOTE | 2021-02-17 17:37 | ONC FU_ITS ---
Dr. Powell Patient Follow-Up Note Patient: Vee Obrien Unit #: [id number]: 1950 Dicatated By: Justen Powell M.D.Date of Visit:Feb 17, 2021 Onc Med Follow-up/Prog Note Chief Complaint: Breast cancer. 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 She has been in very good general health. She had presented with an abnormal screening mammogram which reportedly showed a mass in the medial aspect of the left breast. Diagnostic mammogram/ultrasound was BI-RADS 4, suspicious. She then underwent ultrasound-guided needle core biopsy on 07/25/2019. Biopsy showed grade 3 infiltrating ductal carcinoma. The breast prognostic profile showed ER and TX negative, both less than 1%. HER-2/geovanny was 2+ by IHC but negative by FISH with amplification ratio 1.0 with 2.5 HER-2 copies/cell. The Ki-67 was very high at 90%. On 08/03/2019 she underwent left breast lumpectomy and left axillary lymph node dissection. Pathology on the lumpectomy showed grade 3 invasive ductal carcinoma measuring 2.7 cm in greatest dimension. There was a component of ductal carcinoma in situ, solid and comedo types, estimated at 5% of the tumor volume. 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 The margins were negative for invasive cancer. There was involvement in 25 of 25 axillary lymph nodes, the largest measuring 3.6 cm. I had seen her initially on 08/15/2019. Her staging PET/CT on 08/19/2019 showed postsurgical changes in the left breast and axilla. It was negative for metastatic disease or residual malignancy. With that finding, she was recommended to undergo adjuvant chemotherapy with dose dense Adriamycin/cyclophosphamide followed by weekly Taxol for 12 weeks. She began cycle 1 of Adriamycin/cyclophosphamide on 08/29/2019. She did receive first cycle prophylaxis with Neulasta. She was severely neutropenic at day 8, ANC 200, but she recovered uneventfully. She otherwise tolerated it well, and she continued with cycle 2 on 09/12/2019. That treatment was complicated by neutropenia and stomatitis. Her 3rd cycle was delayed by 1 week, and it was administered with a 20% dose reduction. She was able to tolerate it with acceptable toxicity, and she then continued with cycle 4 on 10/17/2019. On 10/30/2019 she began her 1st of 12 planned weekly cycles of paclitaxel. She tolerated it without acute toxicity. Following her week 3 treatment she was given Neupogen for 2 doses due to declining neutrophil count. With her week 4 treatment on 11/21/2019 she was given a 10% dose reduction due to neuropathy. She was again given prophylactic Neupogen for 2 doses. She tolerated it well and she then continued with week 5 paclitaxel on 11/28/2019 and with week 6 on 12/05/2019, both administered without growth factor support. Had a scheduled visit on 12/12/2019 she had developed severe shortness of breath. Her CT pulmonary angiogram showed extensive pulmonary emboli involving segmental and subsegmental pulmonary arteries bilaterally. She was symptomatic enough to require hospitalization. She improved on anticoagulation with IV heparin, and she was then discharged home on apixaban. She was able to resume her weekly paclitaxel on 12/19/2019. She completed her 12th and final pacliltaxel infusion on 01/23/2020. Repeat CT pulmonary angiogram on 02/19/2020 continue to show extensive bilateral pulmonary embolus with only slight improvement compared to the study from 12/12/2019. A subpleural focal opacity in the right lower lobe measuring 1.8 cm appears unchanged. There was no mediastinal or hilar adenopathy noted. She began radiation to the left breast on 02/29/2020. She completed treatment on 04/09/2020 to a total dose of 5000 cGy administered in 25 fractions. She had a significant skin reaction to the radiation. She otherwise tolerated it well, and she then had began on expectant management. Her medical history is otherwise significant for Graves' disease, for which she underwent radioactive iodine ablation in 1987. She has had subsequent hypothyroidism. Other medical illnesses include hyperlipidemia and mild degenerative arthritis. She has a history of inflammatory colon polyps and a history of multiple skin cancers in the facial area. She is a non-smoker. INTERIM HISTORY: Repeat CT pulmonary angiogram on 08/28/2020 showed moderate improvement in the bilateral pulmonary emboli compared to the February 2020 study. There was slight decrease in the size of right lower lobe opacification, at that point measuring 16 mm. There was moderate enlargement of the left heart chambers. There was no evidence of metastatic disease. She continued anticoagulation with apixaban. She is seen for a followup visit. She has been feeling pretty good generally. Her main complaint that she has been having pain in the upper right chest/right shoulder area and upper right arm. It started following removal of her Port-A-Cath venous access device. She had physical therapy for 2 months, without improvement in the pain. An MRI of the right shoulder at [facility] on 02/13/2021 showed some subtle axillary inflammation which was thought to perhaps be around the axillary vein, but there were otherwise just a lot of degenerative type changes in the shoulder joint including rotator cuff tendinosis with partial tendon tears, glenohumeral effusion and thickening with probable partial tearing of the inferior glenohumeral ligament, a complex tear of the glenoid labrum, moderate acromioclavicular osteoarthritis intra-articular fluid, and subcoracoid bursitis with a loose body. There was no evidence of metastatic disease. She has good energy and she is mostly normal activity now. ECOG score is 0. She has good appetite. She has no fever, night sweats, or hot flashes. She has no shortness of breath, cough, or chest pain. She has no GI or complaints. Her only other pain is a spot in her back on the left side just under her ribs which hurts only when she is lying flat on her back in bed. She does not complain of headache or dizziness, and she has no focal neurologic symptoms. Medications: Acyclovir 1 Tablet (of 400 mg) Oral daily PRN, Aspirin 1 Tablet (of 81 mg) Oral daily, Calcium 1 Tablet (of 600 mg) Oral daily, Dexamethasone (4 mg) Tablet Oral Take as Directed, Eliquis 1 Tablet (of 5 mg) Oral b.i.d., Fish Oil 1 Capsule (of 1000 mg) Oral daily, levoFLOXacin 1 Tablet (of 500 mg) Oral daily PRN, LORazepam 0.5 - 1 Tablet (of 1 mg) Oral t.i.d. PRN, Prochlorperazine Maleate 1 Tablet (of 10 mg) Oral q 4 hours PRN, Simvastatin 1 Tablet (of 40 mg) Oral daily, Synthroid 1 Tablet (of 88 mcg) Oral daily Allergies: No Known Allergies. Vital Signs: Performed on Feb 17, 2021 13:49 Height - 67.00 in Weight - 179.0 lbs (HIGH) BSA - 1.93 sq.m BMI - 28.04 Temperature - 97.6 F (LOW) Pulse - 75 /min Respiration - 16 /min BP - 151/87 mm(hg) (HIGH) O2 Sat - 96 % Pain - 9 Fatigue - 0 Physical Examination: Constitutional - She looks good generally, Eyes - Sclerae nonicteric. Conjunctivae clear, ENMT - No lesions noted in the oral cavity, Hematologic/Lymphatic - No cervical, clavicular, or axillary adenopathy, Respiratory - Lungs are clear with good air movement bilaterally, Cardiovascular - Heart rhythm is regular. There is a II/ systolic murmur. There is no gallop or rub noted, Abdomen - Soft. Liver and spleen are not enlarged. There is no abdominal mass or ascites noted and there is no inguinal adenopathy, Extremities - No edema. There is limited range of motion at the right shoulder joint, Neurologic - No focal neurologic deficits noted. Lab/Imaging: CBC shows hemoglobin 14.1 g, white blood cell count 5300, and platelet count 250,000. Comprehensive metabolic profile shows normal renal function with BUN 17 and creatinine 0.8 mg/dL. The bilirubin and liver enzymes are normal. Problem List: 1. Grade 3 invasive ductal carcinoma of the left breast, stage IIIC (T2, pN3, M0), ER/TX negative and HER-2/geovanny negative. 2. History of Graves' disease for which she underwent radioactive iodine ablation in 1987. 3. She has had subsequent hypothyroidism. 4. Mild degenerative arthritis. 5. She has undergone multiple skin cancer excisions. 6. She has a history of hyperplastic colon polyps. 7. She developed extensive bilateral pulmonary embolism during adjuvant chemotherapy. Problems Addressed with this Encounter and Plan: 1. Patient with grade 3 invasive ductal carcinoma of the left breast, stage IIIC (T2, pN3, M0), ER/TX negative and HER-2/geovanny negative. She underwent needle core biopsy of the left breast followed by lumpectomy and left axillary lymph node dissection on 08/03/2019. Pathology showed a 5% component of DCIS with focal involvement with DCIS at the medial margin. Her staging PET/CT showed no evidence of metastatic disease. With that finding, she was advised to undergo adjuvant chemotherapy with dose dense Adriamycin/cyclophosphamide followed by weekly Taxol for 12 weeks. She completed 4 cycles of Adriamycin/cyclophosphamide from 08/29/2019 through 10/17/2019. Treatment was complicated by neutropenia and stomatitis, requiring dose reduction beginning with cycle 3. She otherwise tolerated it well. She began her weekly Taxol on 10/30/2019. It was complicated by neutropenia, requiring growth factor support with Neupogen. She was given a 10% dose reduction at week 4 due to neuropathy. Her treatment was complicated by pulmonary emboli, requiring hospitalization on 12/12/2019. She was able to resume weekly paclitaxel on 12/19/2019. She completed her 12th and final paclitaxel infusion on 01/23/2020. She was then given radiation to the left breast, completed on 04/09/2020 to a total dose of 5000 cGy administered in 25 fractions. She developed a significant skin reaction, but she otherwise tolerated the radiation well. She has been on expectant management following completion of the radiation. She appears to be doing well clinically with no evidence of recurrence of the breast cancer. She remains on observation. I will see her again in 6 months. 2. On 12/12/2019 she had developed severe shortness of breath and hypoxia. She was found on CT pulmonary angiogram to have a significant burden of pulmonary emboli bilaterally. She was symptomatic enough to require hospitalization, but she did improve on IV heparin. At discharge she continued anticoagulation with apixaban. She did have improvement in her symptoms, but her follow-up CT pulmonary angiogram on 02/19/2020 continued to show significant residual burden of pulmonary embolism at that point her anticoagulation was changed to Lovenox. During follow-up her symptoms improved and she was eventually able to transition her anticoagulation back to apixaban 5 mg twice daily. Repeat CT pulmonary angiogram in August 2020 did show moderate improvement in the pulmonary emboli. She continues apixaban 5 mg twice daily. 3. She has persistent pain in the right shoulder with limited range of motion. Her MRI of the right shoulder shows degenerative type changes but no evidence of metastatic disease. I will arrange for referral to Dr. Miller in orthopedic clinic. Signed By: Justen Powell M.D. <<Signature on File>>
== END 2021-02-17 08:36 | disposition home or self-care (01) ==
LOC: ONCMED 08:39
PROVIDERS: PCP Family Medicine; Visit Provider Internal Medicine Medical Oncology
DX: Z08 Encounter for follow-up examination after completed treatment for malignant neoplasm (principal); Z85.3 Personal history of malignant neoplasm of breast; Z90.12 Acquired absence of left breast and nipple; E03.9 Hypothyroidism, unspecified; M19.90 Unspecified osteoarthritis, unspecified site; I27.82 Chronic pulmonary embolism; Z79.01 Long term (current) use of anticoagulants; Z86.39 Personal history of other endocrine, nutritional and metabolic disease; Z86.010 Personal history of colon polyps; Z85.828 Personal history of other malignant neoplasm of skin; Z79.899 Other long term (current) drug therapy; Z92.21 Personal history of antineoplastic chemotherapy; Z92.3 Personal history of irradiation
CPT/HCPCS: 99214

== ENCOUNTER → 2021-04-07 13:04 | Outpatient (BNVA) | payer MEDICARE, OTHER, SELFPAY | PROVIDERS: PCP Family Medicine; Referring Provider Internal Medicine Medical Oncology; Visit Provider Specialist | DX: M25.511 Pain in right shoulder (principal) | CPT/HCPCS: 73030 ==

== ENCOUNTER → 2021-07-31 09:46 | Outpatient (BNVA) | payer MEDICARE, OTHER, SELFPAY | PROVIDERS: PCP Family Medicine; Visit Provider Specialist | DX: M19.011 Primary osteoarthritis, right shoulder (principal); M75.01 Adhesive capsulitis of right shoulder | CPT/HCPCS: 20610; J1100; J2795; J3301 ==

== ENCOUNTER 2021-10-01 11:00 | Oncology outpatient (recurring) (ONCR) | payer MEDICARE, OTHER, SELFPAY ==
[2021-09-24 12:20] LABS: Basophils % 0.4 %; Eosinophils # 0.1 10^3/uL (0.0-0.8); Eosinophils % 1.3 %; Hematocrit 44.9 % (37.0-47.0); Hemoglobin 14.8 g/dL (11.5-15.3); Lymphocytes # 2.9 10^3/uL (0.8-4.8); Lymphocytes % 43.2 %; Mean Corpuscular Hemoglobin 31.5 pg (28.0-34.0); Mean Corpuscular Volume 95.5 fl (81-99); Mean Platelet Volume 8.9 fL (7.4-10.4); Monocytes # 0.7 10^3/uL (0.2-0.9); Monocytes % 10.3 %; Neutrophils % 44.7 %; Nucleated Red Blood Cells % 0 %; Platelet Count 269 10^3/cmm (130-400); Red Cell Distribution Width 12.9 % (12.1-15.1); White Blood Count 6.7 10^3/uL (4.0-10.0)
[2021-09-24 12:32] LABS: Alanine Aminotransferase 19 U/L (0-33); Albumin Level 4.5 g/dL (3.5-5.2); Alkaline Phosphatase 69 IU/L (35-105); Anion Gap 16.1 (5-19); Aspartate Amino Transferase 16 U/L (0-32); Blood Urea Nitrogen 15 mg/dL (8-23); Calcium 9.7 mg/dL (8.5-10.5); Carbon Dioxide 25 mmol/L (22-29); Chloride 104 mmol/L (98-107); Globulin 2.3 g/dL (1.3-4.6); Glucose 88 mg/dL (65-115); Osmolality Calculated 292 mOsm/kg (285-295); Potassium 4.1 mmol/L (3.5-5.1); Sodium 141 mmol/L (136-145); Total Bilirubin 0.5 mg/dL (0.15-1.2); Total Protein 6.8 g/dL (6.6-8.7)
[2021-10-01] MEDS: iohexol 350 mg/mL 100 mL Btl IV (10:42)
--- NOTE | 2021-10-01 11:00 | CT_ITS ---
WS: [id number] CT CHEST ANGIOGRAPHY WITH REFORMATS HISTORY: Shortness of breath TECHNIQUE: Contiguous axial images are obtained through the chest during arterial injection of intrav enous contrast. Images are reconstructed to evaluate the pulmonary arteries. MIP imaging also reviewe d. All CT scans at [facility] use at least one of these dose optimization techniques: automat ed exposure control; mA and/or kV adjustment per patient size (includes targeted exams where dose is matched to clinical indication); or iterative reconstruction. CONTRAST: Omnipaque 350; 95 mL IV. DLP: 542.54 mGy.cm COMPARISON: 02/19/2020 and 08/28/2020 Good opacification of the pulmonary arteries. Main pulmonary artery is normal size. There are no fill ing defects to the RIGHT or LEFT main pulmonary arteries. Nonocclusive chronic appearing emboli are r eidentified beginning in the proximal lobar branches of the lower lung young. Similar distribution i n size. No nonocclusive pulmonary emboli. There is also no RIGHT heart strain. Atherosclerosis of aor ta. Mild atherosclerotic disease and mild dilatation. The LEFT heart chambers are enlarged. No pericardial or pleural effusion. No new pulmonary mass or no dule. Focal opacification measures 14 mm at the RIGHT lung base. Slightly decreased in size as compar ed to 16 mm on the prior study and is probably the residual of a pulmonary infarct. No suspicious mas s or nodule. Postsurgical changes noted in the medial LEFT breast. There is also mild skin thickening of the LEFT breast which is probably posttreatment skin thickening. There is small hiatal hernia. Stomach is markedly distended with food products. No adrenal mass. Visu alized upper abdomen is negative for acute abnormality. No osteoblastic or osteolytic bone disease. CT/CT angio chest PE protcl [id number] IMPRESSION: 1. Stable chronic bilateral lower lobe pulmonary emboli. No occlusive emboli o r new emboli identified. 2. Mild LEFT heart enlargement. 3. Slight decrease in size of the opacification in the RIGHT lower lobe which is probably the residual of a pulmonary infarct. 4. No adenopathy.
== END 2021-10-12 23:59 | disposition home or self-care (01) ==
PROVIDERS: PCP Family Medicine; Visit Provider Internal Medicine Medical Oncology
DX: I26.99 Other pulmonary embolism without acute cor pulmonale (principal); R06.02 Shortness of breath
CPT/HCPCS: 71275; 80053; 85025; 99214

== ENCOUNTER → 2021-10-30 10:39 | Outpatient (BNVA) | payer MEDICARE, OTHER, SELFPAY | PROVIDERS: PCP Family Medicine; Visit Provider Specialist | DX: M19.011 Primary osteoarthritis, right shoulder (principal) | CPT/HCPCS: 20610; J1100; J2795; J3301 ==

== ENCOUNTER 2022-03-31 10:25 | Oncology outpatient (recurring) (ONCR) | payer MEDICARE, OTHER, SELFPAY ==
[2022-03-31 10:54] LABS: Basophils % 0.4 %; Eosinophils # 0.2 10^3/uL (0.0-0.8); Eosinophils % 2.7 %; Hematocrit 43.9 % (37.0-47.0); Hemoglobin 14.1 g/dL (11.5-15.3); Lymphocytes # 3.2 10^3/uL (0.8-4.8); Mean Corpuscular HGB Conc 32.1 g/dL (30.0-36.0); Mean Corpuscular Hemoglobin 30.1 pg (28.0-34.0); Mean Corpuscular Volume 93.6 fl (81-99); Mean Platelet Volume 9.1 fL (7.4-10.4); Monocytes # 0.7 10^3/uL (0.2-0.9); Monocytes % 9.5 %; Neutrophils # 2.99 10^3/uL (1.8-7.7); Neutrophils % 42.3 %; Nucleated Red Blood Cells % 0 %; Platelet Count 261 10^3/cmm (130-400); Red Blood Count 4.69 10^6/uL (4.1-5.3); Red Cell Distribution Width 13.1 % (12.1-15.1); White Blood Count 7.1 10^3/uL (4.0-10.0)
[2022-03-31 11:13] LABS: Alanine Aminotransferase 15 U/L (0-33); Albumin Level 4.2 g/dL (3.5-5.2); Alkaline Phosphatase 74 U/L (35-105); Anion Gap 14.1 (5-19); Aspartate Amino Transferase 14 U/L (0-32); Blood Urea Nitrogen 17 mg/dL (8-23); Calcium 9.1 mg/dL (8.5-10.5); Carbon Dioxide 24 mmol/L (22-29); Chloride 105 mmol/L (98-107); Globulin 2.6 g/dL (1.3-4.6); Glucose 92 mg/dL (65-115); Osmolality Calculated 289 mOsm/kg (285-295); Potassium 4.1 mmol/L (3.5-5.1); Sodium 139 mmol/L (136-145); Total Bilirubin 0.4 mg/dL (0.15-1.2); Total Protein 6.8 g/dL (6.6-8.7)
== END 2022-04-14 23:59 | disposition home or self-care (01) ==
PROVIDERS: PCP Family Medicine; Visit Provider Internal Medicine Medical Oncology
DX: Z08 Encounter for follow-up examination after completed treatment for malignant neoplasm (principal); Z85.3 Personal history of malignant neoplasm of breast; I26.99 Other pulmonary embolism without acute cor pulmonale; Z79.01 Long term (current) use of anticoagulants; Z92.21 Personal history of antineoplastic chemotherapy; Z92.3 Personal history of irradiation
CPT/HCPCS: 36415; 80053; 85025; 99214

== ENCOUNTER → 2022-06-11 08:00 | Outpatient (BNVA) | payer MEDICARE, OTHER, SELFPAY | PROVIDERS: PCP Family Medicine; Visit Provider Specialist | DX: M19.011 Primary osteoarthritis, right shoulder (principal) | CPT/HCPCS: 20610; J1100; J2795; J3301 ==

== ENCOUNTER → 2022-09-10 13:40 | Outpatient (BNVA) | payer MEDICARE, OTHER, SELFPAY | PROVIDERS: PCP Family Medicine; Visit Provider Specialist | DX: M19.011 Primary osteoarthritis, right shoulder (principal) | CPT/HCPCS: 20610; J1100; J2795; J3301 ==

== ENCOUNTER 2022-10-01 10:17 | Oncology outpatient (recurring) (ONCR) | payer MEDICARE, OTHER, SELFPAY ==
[2022-10-01 10:33] VITALS: BP 155/95; PULSE 80; RESP 18; TEMP 36.4; O2SAT 97
[2022-10-01 10:45] LABS: Basophils % 0.5 %; Eosinophils # 0.1 10^3/uL (0.0-0.8); Eosinophils % 2.1 %; Hematocrit 44.9 % (37.0-47.0); Hemoglobin 14.7 g/dL (11.5-15.3); Lymphocytes # 2.7 10^3/uL (0.8-4.8); Lymphocytes % 44.2 %; Mean Corpuscular HGB Conc 32.7 g/dL (30.0-36.0); Mean Corpuscular Hemoglobin 30.8 pg (28.0-34.0); Mean Corpuscular Volume 94.1 fl (81-99); Mean Platelet Volume 8.7 fL (7.4-10.4); Monocytes # 0.6 10^3/uL (0.2-0.9); Monocytes % 8.9 %; Neutrophils # 2.72 10^3/uL (1.8-7.7); Neutrophils % 44.1 %; Nucleated Red Blood Cells % 0 %; Platelet Count 276 10^3/cmm (130-400); Red Blood Count 4.77 10^6/uL (4.1-5.3); Red Cell Distribution Width 12.6 % (12.1-15.1); White Blood Count 6.2 10^3/uL (4.0-10.0)
[2022-10-01 11:20] LABS: Alanine Aminotransferase 14 U/L (0-33); Albumin Level 3.9 g/dL (3.5-5.2); Alkaline Phosphatase 63 U/L (35-105); Anion Gap 15.4 (5-19); Aspartate Amino Transferase 11 U/L (0-32); Blood Urea Nitrogen 13 mg/dL (8-23); Calcium 9.3 mg/dL (8.5-10.5); Carbon Dioxide 23 mmol/L (22-29); Chloride 105 mmol/L (98-107); Globulin 2.7 g/dL (1.3-4.6); Glucose 96 mg/dL (65-115); Osmolality Calculated 288 mOsm/kg (285-295); Potassium 4.4 mmol/L (3.5-5.1); Sodium 139 mmol/L (136-145); Thyroid Stimulating Hormone 1.57 uIU/mL (0.27-4.20); Total Bilirubin 0.5 mg/dL (0.15-1.2); Total Protein 6.6 g/dL (6.6-8.7)
== END 2022-10-12 23:59 | disposition home or self-care (01) ==
PROVIDERS: PCP Family Medicine; Visit Provider Internal Medicine Medical Oncology
DX: Z08 Encounter for follow-up examination after completed treatment for malignant neoplasm; Z85.3 Personal history of malignant neoplasm of breast; Z86.711 Personal history of pulmonary embolism; Z79.01 Long term (current) use of anticoagulants; R06.02 Shortness of breath; Z92.21 Personal history of antineoplastic chemotherapy; Z92.3 Personal history of irradiation; Z79.899 Other long term (current) drug therapy
CPT/HCPCS: 36415; 80053; 84443; 85025; 99213

== ENCOUNTER → 2022-12-24 10:29 | Outpatient (BNVA) | payer MEDICARE, OTHER, SELFPAY | PROVIDERS: PCP Family Medicine; Visit Provider Specialist | DX: M19.011 Primary osteoarthritis, right shoulder; Z71.89 Other specified counseling | CPT/HCPCS: 20610; J1100; J2795; J3301 ==

== ENCOUNTER 2023-03-31 11:02 | Oncology outpatient (recurring) (ONCR) | payer MEDICARE, OTHER, SELFPAY ==
[2023-03-31 12:00] VITALS: BP 163/95; PULSE 95; RESP 16; TEMP 36.4; O2SAT 95
[2023-03-31 12:16] LABS: Basophils # 0.1 10^3/uL (0.0-0.1); Basophils % 0.8 %; Eosinophils # 0.2 10^3/uL (0.0-0.8); Eosinophils % 3.1 %; Hematocrit 44.4 % (36-47); Lymphocytes # 3.3 10^3/uL (0.8-4.8); Lymphocytes % 45.3 %; Mean Corpuscular HGB Conc 33.1 g/dL (30-55); Mean Corpuscular Hemoglobin 30.8 pg (27-33); Mean Corpuscular Volume 93.1 fl (85-98); Monocytes # 0.7 10^3/uL (0.2-0.9); Monocytes % 8.8 %; Neutrophils # 3.07 10^3/uL (1.8-7.7); Neutrophils % 41.7 %; Nucleated Red Blood Cells % 0 %; Platelet Count 254 10^3/cmm (157-399); Red Blood Count 4.77 10^6/uL (3.85-5.65); Red Cell Distribution Width 12.7 % (12.1-15.1); White Blood Count 7.37 10^3/uL (3.29-11.43)
[2023-03-31 12:20] LABS: Alanine Aminotransferase 15 U/L (0-33); Albumin Level 4.2 g/dL (3.5-5.2); Alkaline Phosphatase 68 U/L (35-105); Anion Gap 13.5 (5-19); Aspartate Amino Transferase 15 U/L (0-32); Blood Urea Nitrogen 17 mg/dL (8-23); Calcium 9.2 mg/dL (8.5-10.5); Carbon Dioxide 24 mmol/L (22-29); Chloride 109 mmol/L (98-107); Globulin 2.4 g/dL (1.3-4.6); Glucose 96 mg/dL (65-115); Osmolality Calculated 295 mOsm/kg (285-295); Potassium 4.5 mmol/L (3.5-5.1); Sodium 142 mmol/L (136-145); Total Bilirubin 0.5 mg/dL (0.15-1.2); Total Protein 6.6 g/dL (6.6-8.7)
== END 2023-04-14 23:59 | disposition home or self-care (01) ==
PROVIDERS: Nurse Practitioner Family; PCP Family Medicine; Visit Provider Internal Medicine Medical Oncology
DX: C50.812 Malignant neoplasm of overlapping sites of left female breast (principal); Z79.01 Long term (current) use of anticoagulants; Z79.899 Other long term (current) drug therapy; Z92.3 Personal history of irradiation; Z86.711 Personal history of pulmonary embolism; Z08 Encounter for follow-up examination after completed treatment for malignant neoplasm; Z85.3 Personal history of malignant neoplasm of breast; I26.99 Other pulmonary embolism without acute cor pulmonale
CPT/HCPCS: 36415; 80053; 85025; 99213

== ENCOUNTER → 2023-04-15 08:58 | Outpatient (BNVA) | payer MEDICARE, OTHER, SELFPAY | PROVIDERS: PCP Family Medicine; Visit Provider Specialist | DX: M19.011 Primary osteoarthritis, right shoulder | CPT/HCPCS: 20610; J1100; J2795; J3301 ==

== ENCOUNTER → 2023-05-13 11:27 | Outpatient (BNVA) | payer MEDICARE, OTHER, SELFPAY | PROVIDERS: PCP Family Medicine; Referring Provider Family Medicine; Visit Provider Internal Medicine Cardiovascular Disease | DX: R07.9 Chest pain, unspecified (principal); I42.8 Other cardiomyopathies; E78.2 Mixed hyperlipidemia; I27.82 Chronic pulmonary embolism; R01.1 Cardiac murmur, unspecified; E03.9 Hypothyroidism, unspecified; I45.9 Conduction disorder, unspecified | CPT/HCPCS: 93005; 99204 ==

== ENCOUNTER 2023-05-20 14:15 | Outpatient (CLI) | payer MEDICARE, OTHER, SELFPAY ==
--- NOTE | 2023-05-20 15:00 | USCV_ITS ---
Vee Obrien Age: 73 Gender: F : 1950 Exam Date: 05/20/2023 14:42 Ordering Phys: Lukas Phoenix MD ([email or web address]) Technologist: Exam Location: [facility] [place] Indication: mr ef BP: 140 / 85 HR: 0 Rhythm: Sinus Technical Quality: MEASUREMENTS (Male / Female) Normal Values 2D ECHO LA Diameter 2.8 cm RA Systolic Volume 4C AL 33.6 ml RA Systolic Volume 4C MOD 31.3 ml Aorta at Sinotubular Diameter 3.1 cm DOPPLER MV Area PHT 8.9 cm squared Mitral E to A Ratio 0.4 TV Peak Velocity 173.5 cm/s TR Peak Velocity 186.0 cm/s TR Peak Gradient 13.8 mmHg TV Peak E Velocity 94.0 cm/s PV Peak Velocity 111.0 cm/s FINDINGS Left Ventricle Diffuse hypokinesia of the left-ventricular ejection fraction of 46%. Mildly dilated LV cavity.Grade I/IV diastolic dysfunction (abnormal relaxation filling pattern), normal to mildly elevated filling pressures. Right Ventricle The right ventricle is normal in size and function. Right Atrium The right atrium is normal in size. Left Atrium The left atrium is normal in size. Mitral Valve Mild mitral regurgitation Aortic Valve Thickened aortic valve. Tricuspid Valve No gross abnormalities noted Pulmonic Valve No gross abnormalities noted Pericardium Normal pericardium without effusion. Aorta Normal ascending aorta dimension. IVC The inferior vena cava appears normal. CONCLUSIONS Diffuse hypokinesia of the left-ventricle with an ejection fraction of 46%. Mildly dilated LV cavity.Grade I/IV diastolic dysfunction (abnormal relaxation filling pattern), normal to mildly elevated filling pressures. Thickened aortic valve. Mild mitral regurgitation There is no pericardial effusion. There are no intracardiac masses. Dr Lukas Phoenix MD [facility] (Electronically Signed) Final Date: 26 May 2023 08:38 S
== END 2023-05-20 14:16 | disposition home or self-care (01) ==
LOC: RAD 14:16
PROVIDERS: PCP Family Medicine; Visit Provider Internal Medicine Cardiovascular Disease
DX: I34.0 Nonrheumatic mitral (valve) insufficiency (principal); I51.9 Heart disease, unspecified
CPT/HCPCS: 93306

== ENCOUNTER → 2023-07-26 13:57 | Outpatient (BNVA) | payer MEDICARE, OTHER, SELFPAY | PROVIDERS: PCP Family Medicine; Visit Provider Specialist | DX: M19.011 Primary osteoarthritis, right shoulder; Z71.89 Other specified counseling | CPT/HCPCS: 20610; J1100; J2795; J3301 ==

== ENCOUNTER 2023-08-03 09:47 | Outpatient (CLI) | payer MEDICARE, OTHER, SELFPAY ==
--- NOTE | 2023-08-03 | ECG_ITS ---
[facility] Test Date: 2023-08-03 Pat Name: Vee Obrien Department: Room: Gender: Female Regulatory Technician: : 1950 Requested By: Lukas Phoenix Order Number: [id number] Jennifer MD: Lukas Phoenix M.D. Interpretive Statements NAME OF STUDY: EXERCISE SESTAMIBI STRESS TEST INDICATION: Cardiomyopathy PROCEDURE: The baseline electrocardiogram showed normal sinus rhythm with normal ST-Ts. Poor R wave progression and some nonspecific T wave changes. At the baseline, the patient's blood pressure was 158/107 mm Hg with a heart rate of 69. The patient exercised for 3 minutes and 42-second on a standard Rafa protocol. Patient attained a maximum heart rate of 133 beats per minute(91% of the maximum predicted heart rate) with a blood pressure at the peak exercise of 161/86 mm Hg. The EKG at the peak exercise revealed nonspecific IVCD. Patient did not have any chest pain or any significant arrhythmis with the exercise Sestamibi was injected 1 minute prior to the peak exercise During the recovery phase, there were no new changes. Blood pressure at the end of the recovery phase was 139/95 mm Hg with a heart rate of 70 to per minute. CONCLUSION: 1. Nonspecific EKG changes with the [treadmill exercise 2. No exercise-induced chest pain or cardiac arrhythmia 3. Impaired exercise tolerance, attained a maximum of 4.6 METs 4. Sestamibi/Sestamibi perfusion results pending; see separate report. Electronically Signed On 08-09-2023 18:34:42 CDT by Lukas Phoenix M.D. [email or web address]
[2023-08-03 10:06] VITALS: BMI 22.7
--- NOTE | 2023-08-03 10:16 | NMCV_ITS ---
CT vikash perf SPECT r/s* [id number] Vee Obrien Age: 73 Gender: F : 1950 Exam Date: 08/03/2023 10:16 Ordering Phys: Lukas Phoenix MD ([email or web address]) Technologist: WENDY Whitlock Exam Location: [facility] Indications: CORONARY ANGIOPLASTY STATUS STRESS TEST Please see separate stress test report in [facility] for full findings IMAGE PROTOCOL Rest/Stress 1 Radiopharmaceutical Dose (mCi) Administration Site Administered by Rest: Tc-99m 11.0 IV WENDY Whitlock Sestamibi Stress:Tc-99m 32.8 IV WENDY Albarran Sestamibi Rest: 03-Aug-2023 60 Discovery 630 Stress: 03-Aug-2023 30 Discovery 630 Radiopharmaceutical was injected at 86 % maximum heart rate. Images obtained in supine and prone position. SPECT RESULTS Technical Quality: Excellent Raw Data Analysis: Normal Image Corrections: No attenuation or motion correction applied Summed Stress Score: 9 Summed Rest Score: 7 Summed Difference Score: 2 PERFUSION FINDINGS Small to moderate area of moderately decreased tracer uptake involving the apical anterior, apical septal, apical inferior and LV apex. Minimally decreased tracer uptake in the apical lateral segment. Significant reversibility was noted in the apical septal segment FUNCTIONAL RESULTS (calculated via Gated SPECT) Stress Image LV EF (%): 29 Stress EDV (mL):139 TID: 1.08 Stress ESV (mL):99 FUNCTIONAL FINDINGS: Segmental wall motion analysis revealed diffuse hypokinesia of the left ventricle with ejection fraction of 29% IMPRESSIONS 1. Myocardial perfusion imaging revealing small to moderate area of moderately decreased tracer uptake involving all the apical segments with some reversibility in the apical septum, suggesting myocardial scarring in the distribution of all the 3 coronary arteries with a small area of ischemia in the distribution of the distal left anterior descending artery. 2. Diminished LV ejection fraction 29%. 3. LV wall motion analysis revealed diffuse hypokinesia of the left ventricle 4. Mildly dilated LV cavity with an LV end-systolic volume of 99ml. The LV dysfunction appears to be out of proportion to the extent of ischemia, suggesting a nonischemic component for the cardiomyopathy. No similar previous studies are available for comparison Dr Lukas Phoenix MD [facility] (Electronically Signed) Final Date: 04 Aug 2023 23:21 S
[2023-08-03 11:57] VITALS: BP 145/84; PULSE 74
== END 2023-08-03 09:48 | disposition home or self-care (01) ==
LOC: CDL 09:47
PROVIDERS: PCP Nurse Practitioner Family; Visit Provider Internal Medicine Cardiovascular Disease
DX: Z98.61 Coronary angioplasty status (principal); I21.02 ST elevation (STEMI) myocardial infarction involving left anterior descending coronary artery; I51.89 Other ill-defined heart diseases; R94.39 Abnormal result of other cardiovascular function study
CPT/HCPCS: 36415; 78452; 93017; A9500

== ENCOUNTER → 2023-08-16 08:41 | Outpatient (BNVA) | payer MEDICARE, OTHER, SELFPAY | PROVIDERS: PCP Nurse Practitioner Family; Visit Provider Nurse Practitioner Family | DX: I42.8 Other cardiomyopathies (principal) | CPT/HCPCS: 99213 ==

== ENCOUNTER → 2023-12-10 09:29 | Outpatient (BNVA) | payer MEDICARE, OTHER, SELFPAY | PROVIDERS: PCP Nurse Practitioner Family; Visit Provider Specialist | DX: M19.011 Primary osteoarthritis, right shoulder (principal); Z71.89 Other specified counseling | CPT/HCPCS: 20610; J1100; J2795; J3301 ==

== ENCOUNTER 2024-01-27 09:57 | Oncology outpatient (recurring) (ONCR) | payer MEDICARE, OTHER, SELFPAY ==
[2024-01-27 10:26] LABS: Basophils # 0.1 10^3/uL (0.0-0.1); Basophils % 0.6 %; Eosinophils # 0.3 10^3/uL (0.0-0.8); Eosinophils % 3.1 %; Hematocrit 40.8 % (36-47); Lymphocytes # 2.3 10^3/uL (0.8-4.8); Lymphocytes % 28.7 %; Mean Corpuscular HGB Conc 31.9 g/dL (30-55); Mean Corpuscular Hemoglobin 30.1 pg (27-33); Mean Corpuscular Volume 94.4 fl (85-98); Mean Platelet Volume 8.3 fL (7.4-10.4); Monocytes # 0.7 10^3/uL (0.2-0.9); Monocytes % 8.6 %; Neutrophils # 4.68 10^3/uL (1.8-7.7); Neutrophils % 58.7 %; Nucleated Red Blood Cells % 0 %; Platelet Count 393 10^3/cmm (157-399); Red Blood Count 4.32 10^6/uL (3.85-5.65); Red Cell Distribution Width 13.6 % (12.1-15.1); White Blood Count 7.98 10^3/uL (3.29-11.43)
[2024-01-27 10:43] LABS: Alanine Aminotransferase 9 U/L (0-33); Albumin Level 3.7 g/dL (3.5-5.2); Alkaline Phosphatase 93 U/L (35-105); Anion Gap 14.5 (5-19); Aspartate Amino Transferase 12 U/L (0-32); Blood Urea Nitrogen 15 mg/dL (8-23); Calcium 8.7 mg/dL (8.5-10.5); Carbon Dioxide 25 mmol/L (22-29); Chloride 105 mmol/L (98-107); Creatinine Clr Calc Pharmacy 68.0045; Globulin 2.5 g/dL (1.3-4.6); Glucose 103 mg/dL (65-115); Osmolality Calculated 291 mOsm/kg (285-295); Potassium 4.5 mmol/L (3.5-5.1); Sodium 140 mmol/L (136-145); Total Bilirubin 0.4 mg/dL (0.15-1.2); Total Protein 6.2 g/dL (6.6-8.7)
== END 2024-02-12 23:59 | disposition home or self-care (01) ==
LOC: ONCMED 10:01
PROVIDERS: PCP Nurse Practitioner Family; Visit Provider Internal Medicine Medical Oncology
DX: C50.812 Malignant neoplasm of overlapping sites of left female breast (principal); Z79.01 Long term (current) use of anticoagulants; Z79.899 Other long term (current) drug therapy; Z92.3 Personal history of irradiation; Z86.711 Personal history of pulmonary embolism; Z85.3 Personal history of malignant neoplasm of breast; I26.99 Other pulmonary embolism without acute cor pulmonale
CPT/HCPCS: 36415; 80053; 85025; 99213

== ENCOUNTER → 2024-02-16 13:44 | Outpatient (BNVA) | payer MEDICARE, OTHER, SELFPAY | PROVIDERS: PCP Nurse Practitioner Family; Visit Provider Internal Medicine Cardiovascular Disease | DX: I42.8 Other cardiomyopathies (principal); E78.2 Mixed hyperlipidemia; I27.82 Chronic pulmonary embolism; E03.9 Hypothyroidism, unspecified; I34.0 Nonrheumatic mitral (valve) insufficiency | CPT/HCPCS: 99214 ==

== ENCOUNTER → 2024-03-03 09:35 | Outpatient (BNVA) | payer MEDICARE, OTHER, SELFPAY | PROVIDERS: PCP Nurse Practitioner Family; Visit Provider Specialist | DX: M19.011 Primary osteoarthritis, right shoulder (principal); Z71.89 Other specified counseling | CPT/HCPCS: 20610; J1100; J2795; J3301 ==

== ENCOUNTER 2024-06-09 11:37 | Oncology outpatient (recurring) (ONCR) | payer MEDICARE, OTHER, SELFPAY ==
--- NOTE | 2024-06-09 12:00 | USCV_ITS ---
Vee Obrien Age: 74 Gender: F : 1950 Exam Date: 06/09/2024 12:10 Ordering Phys: Lukas Phoenix MD ([email or web address]) Technologist: Darek Ramsey Exam Location: [facility] [place] Indication: cardiomyopathy BP: 145 / 67 HR: 59 Rhythm: Sinus Technical Quality: Adequate MEASUREMENTS (Male / Female) Normal Values 2D ECHO LV Diastolic Diameter PLAX 3.0 cm 4.2 - 5.9 / 3.9 - 5.3 cm IVS Diastolic Thickness 1.4 cm 0.6 - 1.0 / 0.6 - 0.9 cm IVS Systolic Thickness 1.5 cm LVPW Diastolic Thickness 1.7 cm 0.6 - 1.0 / 0.6 - 0.9 cm LVPW Systolic Thickness 1.9 cm LVOT Diameter 2.0 cm LV Ejection Fraction 2D Teich 70.5 % LV Ejection Fraction MOD 4C 61.2 % LV Ejection Fraction MOD 2C 57.6 % LV Ejection Fraction 2C AL 57.4 % LA Diameter 3.2 cm RA Systolic Volume 4C AL 31.1 ml RA Systolic Volume 4C MOD 31.6 ml LA Sys Volume AL 54.6 cm cubed LA Sys Volume Index AL 27.1 cm cubed/m squared Aorta at Sinotubular Diameter 2.9 cm IVC Diameter 1.8 cm M-MODE LA Ao Ratio MM 1.2 AV Cusp Separation MM 1.8 cm DOPPLER AV Peak Velocity 138.0 cm/s LVOT Peak Velocity 87.0 cm/s AV Area Cont Eq vti 1.9 cm squared AV Area Cont Eq pk 2.0 cm squared MV Peak Velocity 81.0 cm/s MV Area PHT 2.8 cm squared Mitral E to A Ratio 0.6 TV Peak Velocity 300.0 cm/s TR Peak Velocity 386.0 cm/s TR Peak Gradient 59.6 mmHg TR Mean Velocity 323.0 cm/s TR Mean Gradient 43.2 mmHg TR Velocity Time Integral 89.4 cm PV Peak Velocity 91.7 cm/s RV Ejection Time 0.3 s FINDINGS Left Ventricle Technically limited quality echocardiogram because of poor ultrasonic windows. LV systolic function is normal with EF of 55-60%. No regional wall motion abnormalities. Grade 1 diastolic dysfunction. Right Ventricle Normal in size and function Right Atrium Normal in size Left Atrium Normal is size Mitral Valve Structurally normal mitral valve. Mild mitral regurgitation. Aortic Valve Structurally normal aortic valve. Mild aortic regurgitation. No significant stenosis. Tricuspid Valve Insufficient TR jet to calculate RVSP Pulmonic Valve Mild pulmonic regurgitation. Pericardium Normal Aorta Ascending aorta is dilated with diameter of 3.6cm IVC Appears to be normal CONCLUSIONS LV systolic function is normal with EF of 55-60% Grade 1 diastolic dysfunction Mild mitral regurgitation Mild aortic regurgitation Mild pulmonic regurgitation Ascending aorta is dilated with diameter of 3.6cm Werner Hatch MD (Electronically Signed) Final Date: 20 June 2024 22:25 S
== END 2024-06-12 23:59 | disposition home or self-care (01) ==
LOC: RAD 11:38 → ONCMED 06-12 09:05
PROVIDERS: PCP Nurse Practitioner Family; Visit Provider Internal Medicine Cardiovascular Disease
DX: R06.09 Other forms of dyspnea (principal); I34.0 Nonrheumatic mitral (valve) insufficiency; I35.1 Nonrheumatic aortic (valve) insufficiency; I37.1 Nonrheumatic pulmonary valve insufficiency; I77.819 Aortic ectasia, unspecified site
CPT/HCPCS: 20610; 93306; J1100; J2795; J3301; J9999

== ENCOUNTER 2024-07-27 12:54 | Oncology outpatient (recurring) (ONCR) | payer MEDICARE, OTHER, SELFPAY | END 2024-08-12 23:59 | disposition home or self-care (01) | LOC: ONCMED 12:54 | PROVIDERS: PCP Nurse Practitioner Family; Visit Provider Internal Medicine Cardiovascular Disease | DX: C50.812 Malignant neoplasm of overlapping sites of left female breast (principal); R06.09 Other forms of dyspnea; R03.0 Elevated blood-pressure reading, without diagnosis of hypertension | CPT/HCPCS: 99214 ==

== ENCOUNTER → 2024-09-29 08:15 | Outpatient (BNVA) | payer MEDICARE, OTHER, SELFPAY | PROVIDERS: PCP Nurse Practitioner Family; Visit Provider Specialist | DX: M19.011 Primary osteoarthritis, right shoulder (principal) | CPT/HCPCS: 20610; J1100; J2795; J3301; J9999 ==

== ENCOUNTER → 2024-10-02 13:44 | Outpatient (BNVA) | payer MEDICARE, OTHER, SELFPAY | PROVIDERS: PCP Nurse Practitioner Family; Visit Provider Internal Medicine Cardiovascular Disease | DX: I42.8 Other cardiomyopathies (principal); E78.2 Mixed hyperlipidemia; E03.9 Hypothyroidism, unspecified; I34.0 Nonrheumatic mitral (valve) insufficiency; Z86.711 Personal history of pulmonary embolism; Z79.01 Long term (current) use of anticoagulants | CPT/HCPCS: 99214 ==

== ENCOUNTER → 2025-01-05 08:30 | Outpatient (BNVA) | payer MEDICARE, OTHER, SELFPAY | PROVIDERS: PCP Nurse Practitioner Family; Visit Provider Specialist | DX: M19.011 Primary osteoarthritis, right shoulder (principal) | CPT/HCPCS: 20610; J1100; J2795; J3301; J9999 ==